=== PATIENT | male | born 1955 | race Two or more races ===

== ENCOUNTER → 2020-03-26 10:47 | Outpatient (BNVA) | payer MEDICAID, SELFPAY | PROVIDERS: PCP Internal Medicine; Visit Provider Urology | DX: R31.29 Other microscopic hematuria (principal); Z87.891 Personal history of nicotine dependence | CPT/HCPCS: 81003; 99204 ==

== ENCOUNTER 2020-04-05 09:02 | Outpatient (REF) | payer MEDICAID, SELFPAY ==
[2020-04-05 10:20] LABS: Blood Urea Nitrogen 15 mg/dL (9-16); Estimated Glomerular Filt Rate > 60
== END 2020-04-05 09:03 | disposition home or self-care (01) ==
LOC: HO.LAB 09:02
PROVIDERS: PCP Internal Medicine; Visit Provider Urology
DX: R31.29 Other microscopic hematuria (principal)
CPT/HCPCS: 82565; 84520

== ENCOUNTER 2020-04-09 12:27 | Day surgery (SDC) | payer MEDICAID, SELFPAY ==
[2020-04-02 09:43] VITALS: BMI 24.6
--- NOTE | 2020-04-08 11:07 | HO.ANESPROP2 ---
Documented by User: Jolene Hurley 04/08/20 11:10 HPI - Anesthesia Eval Consult details Narrative: 64yo M for colonoscopy [facility] Past Medical History Medical History (Updated 04/09/20 @ 14:21 by Sofía Bishop) Arthritis Glaucoma HTN (hypertension) Hx of small bowel obstruction Hypercholesterolemia Surgical History Surgical History History of hernia repair Hx of colonoscopy Social History Social History Smoking Status: Never smoker Second Hand Smoke Exposure: No Use of substances other than those prescribed or required for medical reasons: No Advance Directives: No Advance Directives Information Provided: Yes Advance Directives on File: No Meds Allergies Allergy/AdvReac Type Severity Reaction Status Date / Time Penicillins [PENICILLINS] Allergy Mild RASH Verified 04/09/20 13:13 Home Medications Medication Instructions Recorded Confirmed Type gabapentin 300 mg capsule 300 mg PO TID 03/26/20 History latanoprost 0.005 % eye drops drp OPHTHALMIC (EYE) 03/26/20 History timolol maleate 0.5 % eye drops 1 drp OPHTHALMIC (EYE) QAM 03/26/20 History Exam Exam Date and Time: April 08, 2020 1107 Height,Weight and Vital Signs: Height 5 ft 5 in Weight 67.132 kg Pertinent Lab Results Pertinent Lab Results: Laboratory Tests 02/19/20 02/19/20 04/05/20 07:14 07:14 09:20 WBC 8.2 Hgb 14.0 Hct 44.6 Plt Count 298 Sodium 141 Potassium 4.9 Chloride 106 BUN 15 Creatinine 0.80 Assessment and Plan Assessment Anesthesia Assessment: Chart Reviewed Documented by User: Sofía Bishop 04/09/20 14:24 [facility] Past Medical History Medical History (Updated 04/09/20 @ 14:21 by Sofía Bishop) Arthritis Glaucoma HTN (hypertension) Hx of small bowel obstruction Hypercholesterolemia Family History Family history of problems with anesthesia: No Surgical History Surgical History History of hernia repair Hx of colonoscopy History of Problems with Anesthesia: No Social History Social History Smoking Status: Never smoker Second Hand Smoke Exposure: No Use of substances other than those prescribed or required for medical reasons: No Advance Directives: No Advance Directives Information Provided: Yes Advance Directives on File: No Meds Allergies Allergy/AdvReac Type Severity Reaction Status Date / Time Penicillins [PENICILLINS] Allergy Mild RASH Verified 04/09/20 13:13 Home Medications Medication Instructions Recorded Confirmed Type gabapentin 300 mg capsule 300 mg PO TID 03/26/20 History latanoprost 0.005 % eye drops drp OPHTHALMIC (EYE) 03/26/20 History timolol maleate 0.5 % eye drops 1 drp OPHTHALMIC (EYE) QAM 03/26/20 History Exam Height,Weight and Vital Signs: Vital Signs Temp Pulse Resp BP Pulse Ox 04/09/20 12:57 97.3 F 70 18 125/83 97 Airway Mallampati Class: III TM Dist: >3cm Neck ROM: Full Loose/Missing/Broken Teeth: Yes (Many missing) Heart: RRR Lungs: CTAB Assessment and Plan Assessment Anesthesia Assessment: Anesthesia Plan Discussed and Chart Reviewed Final Anesthetic Review NPO: Yes ASA Class: II Final Preanesthetic Review: No Changes in Pt Med Stat, Meds/Allgs Chart Reviewed, Consent Obtained/Reviewed and Anes Risks/Benef Reviewed Patient Risk: Low Procedure Risk: Low Anesthetic Plan Anesthetic Plan: MAC: Disposition: Standard PACU
[2020-04-08 11:57] VITALS: BMI 24.6
[2020-04-09] VITALS (7 sets, daily range): BP systolic 80–143; BP diastolic 42–90; PULSE 59–77; RESP 12–18; TEMP 36.3–36.6; O2SAT 93–99
[2020-04-09] MEDS: Lactated Ringers 1,000 ML 100 ML IVCONT (14:03)
--- NOTE | 2020-04-09 15:36 | OP_ITS ---
SURGEON: Ashkan Celaya MD INDICATIONS: The patient presents for evaluation of personal history of tubular adenoma of the colon and colorectal cancer screening. Full consent has been obtained from him for this, including risks of bleeding and perforation. PREOPERATIVE DIAGNOSIS: POSTOPERATIVE DIAGNOSIS: PROCEDURE PERFORMED: Colonoscopy to cecum. ESTIMATED BLOOD LOSS: COMPLICATIONS: ANESTHESIA: Monitored anesthesia care. ASSISTANTS: SPECIMENS: PREOPERATIVE DIAGNOSES: Personal history of tubular adenoma of the colon and colorectal cancer screening. POSTOPERATIVE DIAGNOSES: Personal history of tubular adenoma of the colon and colorectal cancer screening, mild sigmoid diverticulosis, small internal hemorrhoids. DESCRIPTION OF PROCEDURE: The patient was placed in the left lateral decubitus position. The digital rectal exam revealed no abnormalities. The Olympus video pediatric colonoscope was entered into the rectum and advanced easily to the cecum. Once in the cecum, I did identify normal-appearing cecal pouch with appendiceal orifice and a normal-appearing ileocecal valve. The entire cecum and ileocecal valve appeared normal. There was transillumination of light deep in the right lower quadrant The scope was slowly withdrawn assessing all mucosal surfaces carefully. Preparation was excellent. I did not visualize any sign of polyps, colitis, nor angiodysplasia. There was a mild amount of sigmoid diverticulosis. In the rectum, the scope was retroflexed visualizing internal hemorrhoids, but no other pathology. The rectal mucosa appeared normal. The scope was straightened and withdrawn from the patient. He tolerated the procedure well and was returned to recovery area in stable condition. IMPRESSION: 1. Mild diverticulosis. 2. Small internal hemorrhoids. PLAN: Given his previous history of tubular adenoma, I would recommend a followup colonoscopy in 5 years. He will otherwise see me on a p.r.n. basis. MD BENNETT Cueto/ROSE / [id number] MIGUEL
== END 2020-04-09 16:20 | disposition home or self-care (01) ==
PROVIDERS: PCP Internal Medicine; Visit Provider Internal Medicine
PROC: 0DJD8ZZ Inspection of Lower Intestinal Tract, Via Natural or Artificial Opening Endoscopic (ICD-10-PCS; CPT 45378; principal; 2020-04-09 13:40)
DX: Z12.11 Encounter for screening for malignant neoplasm of colon (principal); Z86.010 Personal history of colon polyps; K57.30 Diverticulosis of large intestine without perforation or abscess without bleeding; K64.8 Other hemorrhoids; I10 Essential (primary) hypertension; E78.5 Hyperlipidemia, unspecified; Z87.442 Personal history of urinary calculi; Z79.899 Other long term (current) drug therapy; Z88.0 Allergy status to penicillin
CPT/HCPCS: 45378

== ENCOUNTER 2020-04-13 14:30 | Outpatient (RCR) | payer MEDICAID, OTHER, SELFPAY ==
--- NOTE | 2020-04-14 08:22 | MHC.OT.DC ---
[address] [phone] F: [phone] Occupational Therapy Discharge Note Provider: Aixa Gamble Diagnosis: B/L HAND OA Date of Evaluation: 02/25/20 Date of Discharge: 04/13/20 Treatments to Date: 12 Discharge Status: Improved Function Independent with HEP Recommend MD Follow-up Discharge Summary: MR WHITE WAS SEEN FOR B/L HAND OA. EDUCATION HAS BEEN PROVIDED IN VARIOUS FORMS, WELL A WIDE VARIETY OF SPLINTING STRATEGIES IMPLEMENTED. IT IS RECOMMENDED THAT HE PURCHASE A HOME [employer]AFFIN UNIT, COMPLETE ISOMETRIC EXERCISES, PRACTICE JOINT PROTECTION AND WEAR SPLINTS TO PREVENT WORSENING OF JOINT DAMAGE. READY FOR TRANSITION TO A HOME BASED PROGRAM. UNFORTUNATELY, HE CONTINUES TO HAVE MODERATE TO HIGH PAIN AND MAY BENEFIT FROM MD FOLLOW-UP TO ADDRESS THIS. Electronically Signed By: Parag STINSONED, OTR/L Please Sign and return to therapist, thank you for your referral.
== END 2020-04-14 08:27 | disposition other institution (70) ==
LOC: HO.OT 14:30
PROVIDERS: PCP Internal Medicine; Visit Provider Student in an Organized Health Care Education/Training Program
DX: M19.042 Primary osteoarthritis, left hand (principal); M19.041 Primary osteoarthritis, right hand
CPT/HCPCS: 29125; 97018; 97035; 97110; 97140; 97530; 97760

== ENCOUNTER 2020-05-05 09:55 | Outpatient (REF) | payer OTHER, SELFPAY ==
--- NOTE | 2020-05-05 09:58 | CT_ITS ---
EXAMINATION: CT ABDOMEN AND PELVIS WITHOUT AND WITH CONTRAST CLINICAL INFORMATION: Microscopic hematuria COMPARISON: Previous CT of the abdomen and pelvis August 2017, abdominal ultrasound May 2019 and [facility]UB January 2020 TECHNIQUE: Multidetector volumetric imaging was performed of the abdomen and pelvis before and after the IV administration of 85 mL of Omnipaque 300 intravenous contrast. Sagittal and coronal reformatted images were obtained on the technologist's workstation. This CT examination was performed using dose optimization techniques as appropriate, variously including the following: *Automated exposure control *Adjustment of mA and/or kV according to patient size (this includes techniques or standardized protocols for targeted exams where dose is matched to indication/reason for exam; i.e. extremities or head) *Use of iterative reconstruction technique DLP: 486 mGy-cm FINDINGS: LUNG BASES: The visualized lung bases are unremarkable. LIVER, GALLBLADDER, AND BILIARY TREE: The liver is normal in size, shape, and attenuation. No focal hepatic lesion or biliary ductal dilatation is present. The gallbladder is unremarkable with no evidence of radiopaque gallstones, gallbladder wall thickening, or obvious pericholecystic inflammatory changes. PANCREAS: Unremarkable SPLEEN: Unremarkable ADRENAL GLANDS: Unremarkable KIDNEYS AND URETERS: There is bilateral renal cortical thinning or scarring. Kidneys are normal in size. There is a small 5 mm low-attenuation lesion probably representing a cyst in the upper pole of the right kidney. No renal stone, mass or hydronephrosis is seen. The collecting systems are normal. The ureters are normal. BLADDER: There is abnormal soft tissue at the base of the bladder presumably representing the prostate gland. Bladder is otherwise normal. GASTROINTESTINAL TRACT: The small and large bowel are unremarkable. The appendix is unremarkable. ABDOMINAL WALL: There is a small umbilical hernia containing fat. There is fat in both inguinal canals. LYMPH NODES: Normal VASCULAR: Unremarkable PELVIC VISCERA: The prostate gland is slightly enlarged measuring 3.8 x 4.5 x 4.5 cm in AP, transverse and longitudinal dimension and protrudes into the base of the bladder. OSSEOUS STRUCTURES: Unremarkable CT/CT abdomen pelvis wo/w con IMPRESSION: Bilateral renal cortical thinning or scarring. Slightly enlarged prostate gland that protrudes into the base of the bladder.
[2020-05-05] MEDS: iohexoL 350 MG/ML 100 ML INFUS..BTL IV (10:52)
== END 2020-05-05 09:56 | disposition home or self-care (01) ==
LOC: HO.CT 09:55
PROVIDERS: PCP Internal Medicine; Visit Provider Urology
DX: R31.29 Other microscopic hematuria (principal)
CPT/HCPCS: 74178; Q9967

== ENCOUNTER 2020-05-06 09:59 | Outpatient (REF) | payer OTHER, SELFPAY ==
[2020-05-06 11:43] LABS: Blood Urea Nitrogen 16 mg/dL (9-16); Estimated Glomerular Filt Rate > 60
== END 2020-05-06 10:00 | disposition home or self-care (01) ==
LOC: HO.LAB 09:59
PROVIDERS: PCP Internal Medicine; Visit Provider Internal Medicine
DX: R31.29 Other microscopic hematuria (principal)
CPT/HCPCS: 82565; 84520

== ENCOUNTER 2020-06-23 08:31 | Outpatient (REF) | payer OTHER, SELFPAY ==
[2020-06-23 09:46] LABS: Estimated Average Glucose 137 mg/dL; Hemoglobin A1c % 6.4 %
[2020-06-23 09:50] LABS: Alanine Aminotransferase 41 U/L (0-40); Albumin Level 3.9 g/dL (3.5-5.0); Alkaline Phosphatase 95 U/L (39-117); Anion Gap 10 (12-20); Aspartate Amino Transferase 27 U/L (5-37); Bilirubin Total 0.4 mg/dL (0.0-1.0); Blood Urea Nitrogen 15 mg/dL (9-16); Calcium 8.3 mg/dL (8.4-10.2); Carbon Dioxide 26 mmol/L (22-29); Chloride 107 mmol/L (96-108); Cholesterol 158 mg/dL; Estimated Glomerular Filt Rate > 60; Glucose Fasting 126 mg/dL (60-99); HDL Cholesterol 27 mg/dL; LDL Cholesterol Calculated 109 mg/dl; Potassium 4.3 mmol/l (3.3-5.1); Sodium 139 mmol/L (135-145); Total Protein 6.5 g/dL (6.5-8.0); Triglycerides 112 mg/dL
[2020-06-23 10:12] LABS: Prostate Specific Antigen 1.71 ng/mL (<0.05-4.0)
== END 2020-06-23 08:32 | disposition home or self-care (01) ==
LOC: HO.LAB 08:31
PROVIDERS: PCP Internal Medicine; Visit Provider Internal Medicine
DX: Z00.00 Encounter for general adult medical examination without abnormal findings (principal); R31.9 Hematuria, unspecified; E78.00 Pure hypercholesterolemia, unspecified; M19.90 Unspecified osteoarthritis, unspecified site; R73.02 Impaired glucose tolerance (oral); G56.11 Other lesions of median nerve, right upper limb; D12.6 Benign neoplasm of colon, unspecified
CPT/HCPCS: 80053; 80061; 83036; 84153

== ENCOUNTER → 2020-07-06 13:04 | Outpatient (BNVA) | payer OTHER, SELFPAY | PROVIDERS: PCP Internal Medicine; Referring Provider Internal Medicine; Visit Provider Urology | DX: N40.1 Benign prostatic hyperplasia with lower urinary tract symptoms (principal); R35.0 Frequency of micturition; R31.29 Other microscopic hematuria; R31.9 Hematuria, unspecified | CPT/HCPCS: 52000; 81002; 99212 ==

== ENCOUNTER 2020-07-24 14:47 | Emergency (ER) | payer OTHER, SELFPAY ==
[2020-07-24] VITALS (7 sets, daily range): BP systolic 154–191; BP diastolic 93–107; PULSE 70–95; RESP 18; TEMP 36.8; O2SAT 98–99; BMI 24.0
--- NOTE | 2020-07-24 16:20 | ED_ITS ---
HPI - Recheck/Abnormal Lab/Rx General Chief Complaint: Recheck/Abnormal Lab/Rx Stated Complaint: headache Time Seen by Provider: 07/24/20 16:20 Source: patient Mode of arrival: ambulatory Limitations: no limitations History of Present Illness HPI narrative: pt with History of borderline hypertension checked his blood pressure at home it was 164/114 feeling good complaining of slight headache and heaviness no chest pain or shortness of breath. On arrival patient's blood pressure was 186/114. Patient not on any medication for hypertension denied any use of cocaine drinks coffee occasionally no significant family history of hypertension Related Data Home Medications Medication Instructions Recorded Confirmed latanoprost 0.005 % eye drops drp OPHTHALMIC (EYE) 03/26/20 07/06/20 timolol maleate 0.5 % eye drops 1 drp OPHTHALMIC (EYE) QA 03/26/20 07/06/20 Previous Rx's Medication Instructions Recorded amitriptyline 25 mg tablet 25 mg PO BEDTIME #30 tab 06/07/20 lisinopril-hydrochlorothiazide 1 tab PO DAILY #30 tab 07/24/20 Allergies Allergy/AdvReac Type Severity Reaction Status Date / Time Penicillins [PENICILLINS] Allergy Mild RASH Verified 07/24/20 15:03 Review of Systems Review of Systems: Constitutional : No Weight loss, No Fever, No Chills ENT/Mouth : No sore throat, No Rhinorrhea Eyes: No Eye Pain, No Swelling Cardiovascular : No Chest Pain, no palpitations Respiratory : No Cough, No Sputum, no shortness of breath Gastrointestinal : no Nausea, No Vomiting, No Diarrhea, No abdominal Pain, no black stools Genitourinary : No Dysuria, No Urinary Frequency Musculoskeletal : No joint pain, No Myalgias, No Joint Swelling Skin : No Skin Lesions, No rash Neuro : No Weakness, No Numbness, No Dizziness, + Headache Psych : No Anxiety/Panic, No Depression Heme/Lymph: No Bruising, No Lymphadenopathy Endocrine : No Polyuria, No Polydipsia All other systems reviewed and are negative [facility] Past Medical History Medical History Anxiety Arthritis BPH (benign prostatic hyperplasia) Glaucoma Hematuria HTN (hypertension) Hx of small bowel obstruction Hypercholesterolemia Insomnia Peripheral neuropathy Tubular adenoma of colon Vitamin D deficiency Surgical History History of inguinal hernia repair Hx of colonoscopy Family History Family History Father No problems noted. Mother Diabetes Brother Lung cancer Social History Social History Alcohol intake: current Alcohol intake frequency: holidays/special occasions only Smoking Status: Never smoker Second Hand Smoke Exposure: No Use of substances other than those prescribed or required for medical reasons: No Advance Directives: No Advance Directives Information Provided: Yes Physical Exam Vital Signs: Vital Signs: Last Vital Signs Temp 98.3 F 07/24/20 19:10 Pulse 71 07/24/20 19:10 Resp 18 07/24/20 19:10 BP 159/98 H 07/24/20 19:10 Pulse Ox 99 07/24/20 19:10 Body Mass Index 24.0 Appearance: Alert. Oriented X3. No acute distress. Repeat blood pressure check was 186/114 Eyes: Pupils equal, round and reactive to light. ENT: Pharynx normal. Neck: Normal inspection. Neck supple. CVS: Normal heart rate and rhythm. Pulses normal. Respiratory: No respiratory distress. Breath sounds normal. Abdomen: Soft and nontender. Bowel sounds are present, no mass palpable, no CVA tenderness Skin: Skin warm and dry. Normal skin color. Normal skin turgor. Extremities: No lower extremity edema. Neuro: Oriented X 3. No motor deficit. No sensory deficit. Course Course Course Narrative: Patient likely has essential hypertension with history of chago ttle and hypertension received lisinopril 20 mg p.o. and Lopressor 5 mg IV in the ER blood pressure improved to 144/88 patient feeling much better will discharge him home on lisinopril and hydrochlorothiazide MDM - Recheck/Abnormal Lab/Rx Lab Data Result diagrams: 07/24/20 17:07 07/24/20 17:07 Labs: Lab Results 07/24/20 07/24/20 07/24/20 Range/Units 17:06 17:07 17:07 WBC 7.5 (4.8-10.8) X10*3/uL RBC 5.56 (4.60-5.80) X10*6/uL Hgb 14.7 (14.0-18.0) g/dl Hct 46.3 (42-52) % MCV 83.3 (80-98) fL MCH 26.4 L (27.0-33.0) pg MCHC 31.7 (31.0-36.0) g/dl RDW 12.6 (11.0-16.0) % Plt Count 270 (160-400) X10*3/uL MPV 9.9 (9.4-12.4) fL Immature Gran % (Auto) 0.1 (0.0-0.4) % Neut % (Auto) 62.9 (45-73) % Lymph % (Auto) 23.1 (20-40) % [place] % (Auto) 7.2 (2-11) % Eos % (Auto) 5.9 H (0-4) % Baso % (Auto) 0.8 (0-2) % Lymph # (Auto) 1.7 (1.2-4.9) X10*3/uL [place] # (Auto) 0.5 (0.1-1.2) X10*3/uL Eos # (Auto) 0.4 (0.0-0.4) X10*3/uL Baso # (Auto) 0.1 (0.0-0.2) X10*3/uL Abs Immat Gran (auto) 0.01 (0.00-0.03) X10*3/uL Absolute Neuts (auto) 4.7 (2.0-8.3) X10*3/uL Absolute Nucleated RBC 0.000 (0.0-0.012) X10*3/uL Nucleated RBC % (auto) 0.0 (0.0-0.2) /100WBC Hold Blue Top SEE NOTE Sodium 141 (135-145) mmol/L Potassium 4.3 (3.3-5.1) mmol/L Chloride 105 (96-108) mmol/L Carbon Dioxide 28 (22-29) mmol/L Anion Gap 12 (12-20) BUN 12 (9-16) mg/dL Creatinine 0.84 (0.5-1.4) mg/dL Estim Creat Clear Calc 75.3 Estimated GFR > 60 Random Glucose 96 (60-115) mg/dL Calcium 8.9 D (8.4-10.2) mg/dL ECG Data Attestation: I personally reviewed and interpreted this ECG as follows: Interpretation: Normal sinus rhythm unifocal occasional premature PVCs normal intervals normal axis LVH+ no acute ischemia Discharge Plan Discharge Clinical Impression: Benign essential hypertension Patient Disposition: Home, Self-Care Instructions: Hypertension (ED) Additional Instructions: Decrease salt intake. Start taking blood pressure medication daily. Check blood pressure should be less than 140/90. Make an appointment with your PCP for further follow-up Prescriptions: New lisinopril-hydrochlorothiazide 20-12.5 mg tablet 1 tab PO DAILY Qty: 30 RF: 1 No Action amitriptyline 25 mg tablet 25 mg PO BEDTIME Qty: 30 RF: 3 timolol maleate 0.5 % drops 1 drp ophthalmic (eye) QAM RF: 0 latanoprost 0.005 % drops ophthalmic (eye) RF: 0 Interventions: ED Discharge Assessment Last Done: 07/24/20 18:39 Discharge Date/Time: 07/24/20 20:25
--- NOTE | 2020-07-24 16:28 | ECG_ITS ---
Test Reason : HYPERTENSION Blood Pressure : / mmHG Vent. Rate : 078 BPM Atrial Rate : 078 BPM P-R Int : 134 ms QRS Dur : 086 ms QT Int : 372 ms P-R-T Axes : 030 -09 -04 degrees QTc Int : 424 ms Sinus rhythm with occasional Premature ventricular complexes Voltage criteria for left ventricular hypertrophy Abnormal ECG When compared with ECG of 08-OCT-2014 12:47, Premature ventricular complexes are now Present Referred By: Erick Garner Electronically Signed By:Cali Luis
[2020-07-24 17:15] LABS: Basophils Absolute Auto 0.1 X10*3/uL (0.0-0.2); Basophils Percent Auto 0.8 % (0-2); Eosinophils Absolute Auto 0.4 X10*3/uL (0.0-0.4); Eosinophils Percent Auto 5.9 % (0-4); Hematocrit 46.3 % (42-52); Hemoglobin 14.7 g/dl (14.0-18.0); Imm Gran Abs Auto 0.01 X10*3/uL (0.00-0.03); Imm Gran Pct Auto 0.1 % (0.0-0.4); Lymphocytes Absolute Auto 1.7 X10*3/uL (1.2-4.9); Lymphocytes Percent Auto 23.1 % (20-40); MANUAL DIFF FLAG NO; Mean Corpuscular HGB Conc 31.7 g/dl (31.0-36.0); Mean Corpuscular Hemoglobin 26.4 pg (27.0-33.0); Mean Corpuscular Volume 83.3 fL (80-98); Mean Platelet Volume 9.9 fL (9.4-12.4); Monocytes Absolute Auto 0.5 X10*3/uL (0.1-1.2); Monocytes Percent Auto 7.2 % (2-11); Neutrophils Absolute Auto 4.7 X10*3/uL (2.0-8.3); Neutrophils Percent Auto 62.9 % (45-73); Platelet Count 270 X10*3/uL (160-400); Red Blood Count 5.56 X10*6/uL (4.60-5.80); Red Cell Distribution Width 12.6 % (11.0-16.0); White Blood Count 7.5 X10*3/uL (4.8-10.8)
[2020-07-24 17:38] LABS: Anion Gap 12 (12-20); Blood Urea Nitrogen 12 mg/dL (9-16); Calcium 8.9 mg/dL (8.4-10.2); Carbon Dioxide 28 mmol/L (22-29); Chloride 105 mmol/L (96-108); Creatinine Clr Calc Pharmacy 75.3; Estimated Glomerular Filt Rate > 60; Glucose Random 96 mg/dL (60-115); Potassium 4.3 mmol/L (3.3-5.1); Sodium 141 mmol/L (135-145)
[2020-07-24] MEDS: Metoprolol Tartrate 5 MG/5 ML VIAL IVPUSH (18:51)
== END 2020-07-24 20:25 | disposition home or self-care (01) ==
PROVIDERS: Emergency Provider Internal Medicine; PCP Internal Medicine
DX: I10 Essential (primary) hypertension (principal)
CPT/HCPCS: 36415; 80048; 85025; 93005; 96374; 99284

== ENCOUNTER → 2020-08-31 09:49 | Outpatient (BNVA) | payer OTHER, SELFPAY | PROVIDERS: PCP Internal Medicine; Visit Provider Student in an Organized Health Care Education/Training Program | DX: M19.041 Primary osteoarthritis, right hand (principal); M19.042 Primary osteoarthritis, left hand; R76.8 Other specified abnormal immunological findings in serum; Z79.899 Other long term (current) drug therapy | CPT/HCPCS: 99212 ==

== ENCOUNTER 2020-10-11 12:34 | Outpatient (REF) | payer OTHER, SELFPAY ==
--- NOTE | ~2020-10-11 | XR_ITS ---
EXAMINATION: XR CERVICAL SPINE CLINICAL INFORMATION: Cervical spondylosis. COMPARISON: None. TECHNIQUE: AP, lateral, open-mouth, and bilateral oblique views of the cervical spine. FINDINGS: Normal vertebral body alignment. The cervical lordosis is maintained. No acute fracture or subluxation. No loss of vertebral body or intervertebral disc height. Tiny anterior endplate osteophytes at C4-C7. No lytic or blastic osseous lesion. No significant neural foraminal stenosis. Normal atlantoaxial alignment. Unremarkable prevertebral soft tissues. XR/XR cervical spine min 6V IMPRESSION: Minimal degenerative disc disease at C4-C7.
== END 2020-10-11 12:35 | disposition home or self-care (01) ==
LOC: HO.XRAY 12:34
PROVIDERS: PCP Internal Medicine; Visit Provider Psychiatry & Neurology Neurology
DX: M47.812 Spondylosis without myelopathy or radiculopathy, cervical region (principal)
CPT/HCPCS: 72052

== ENCOUNTER 2020-10-28 08:13 | Outpatient (REF) | payer OTHER, SELFPAY ==
[2020-10-28 08:57] LABS: COVID-19 Test Negative (Negative); IDNOW Serial# 55D5AD1C
== END 2020-10-28 08:14 | disposition home or self-care (01) ==
LOC: HO.LAB 08:13
PROVIDERS: Visit Provider Internal Medicine
DX: Z20.822 Contact with and (suspected) exposure to COVID-19 (principal)
CPT/HCPCS: 36415; 87635; C9803

== ENCOUNTER 2020-11-07 21:46 | Inpatient (IN) | payer OTHER, SELFPAY ==
--- NOTE | ~2020-11-07 | CT_ITS ---
EXAMINATION: CT ABDOMEN AND PELVIS WITHOUT CONTRAST CLINICAL INFORMATION: Reason for Exam L abd pain, hx SBO . COMPARISON: No pertinent prior studies are available for comparison. TECHNIQUE: Multidetector volumetric imaging was performed from the superior aspect of the liver through the pubic symphysis without contrast per renal stone protocol. Sagittal and coronal reformatted images were obtained on the technologist workstation. This CT examination was performed using dose optimization techniques as appropriate, variously including the following: *Automated exposure control *Adjustment of mA and/or kV according to patient size (this includes techniques or standardized protocols for targeted exams where dose is matched to indication/reason for exam; i.e. extremities or head) *Use of iterative reconstruction technique DLP: 441 mGy-cm. FINDINGS: LUNG BASES: Linear scarring or atelectasis at the left lung base. LIVER, GALLBLADDER, BILIARY TREE: The non-contrast liver is normal in size, shape, and attenuation. No focal hepatic lesion or biliary ductal dilatation is present. The gallbladder is unremarkable with no evidence of radiopaque gallstones, gallbladder wall thickening, or obvious pericholecystic inflammatory changes. PANCREAS: There is fullness with surrounding soft tissue stranding and edema in the region the pancreatic tail most suggestive of pancreatitis in the acute setting. This had a more normal appearance on the prior 05/05/2020 CT scan SPLEEN: Unremarkable. ADRENAL GLANDS: Unremarkable. KIDNEYS AND URETERS: The kidneys are normal in size, shape, and attenuation. No hydronephrosis, hydroureter, or calculi seen. No perinephric stranding. BLADDER: Unremarkable. GASTROINTESTINAL TRACT: Few scattered colonic diverticula are seen but no evidence for diverticulitis. Normal-appearing retrocecal appendix. Visualized small bowel unremarkable ABDOMINAL WALL: No significant hernia is appreciated. LYMPHOVASCULAR STRUCTURES: Mild vascular calcification within the aorta iliac system. PELVIC VISCERA: Unremarkable. OSSEUS STRUCTURES: Unremarkable. CT/CT abdomen pelvis wo con IMPRESSION: Main finding of note is fullness with surrounding soft tissue inflammatory change and fluid in the region the pancreatic tail most consistent with acute pancreatitis. Correlation with amylase and lipase levels is recommended. This area had a more normal appearance on the prior 05/05/2020 study.
--- NOTE | ~2020-11-07 | US_ITS ---
EXAMINATION: US ABDOMEN LIMITED CLINICAL INFORMATION: Pancreatitis. COMPARISON: CT 11/07/2020 TECHNIQUE: Real-time imaging of the right upper quadrant abdominal viscera. FINDINGS: PANCREAS: Obscured by bowel gas and not adequately visualized. LIVER: The liver is normal in size. The liver contour is normal. Parenchymal echogenicity is normal. No focal hepatic lesion identified. There is no intrahepatic biliary duct dilatation seen. GALLBLADDER: Physiologically distended. No gallstones identified. Possible mild echogenic sludge. No wall thickening or pericholecystic fluid. Negative sonographic Díaz sign. COMMON BILE DUCT: Normal in caliber measuring 0.5 cm in diameter. RIGHT KIDNEY: No hydronephrosis. Renal cortical scarring and demonstrated. No renal calculi or focal parenchymal lesions. The kidney measures 11.2 cm in maximum dimension. FREE FLUID: None. US/US abdomen limited IMPRESSION: Possible mild gallbladder sludge. Pancreas is not adequately visualized due to bowel gas.
[2020-11-07 22:07] VITALS: BP 140/91; PULSE 125; RESP 18; TEMP 36.8; O2SAT 98; BMI 24.9
--- NOTE | 2020-11-07 23:09 | PC.NURSE ---
at bedside for primary eval.
--- NOTE | 2020-11-07 23:12 | ED.ABDPAIN ---
HPI - Abdominal Pain General Chief Complaint: Abdominal Pain Stated Complaint: constipation abdominal pain Time Seen by Provider: 11/07/20 23:06 Source: patient Mode of arrival: ambulatory Limitations: no limitations History of Present Illness HPI narrative: Patient comes to emergency room complaining of left sided abdominal pain. Patient states it started approximately 2 days ago. Patient states that he feels like he is constipated. However, he had a small bowel obstruction a few years ago and it feels about the same. Patient states he has had kidney stones in the past as well. Patient denies hematuria or dysuria, no fever. Patient complaining of nausea, no vomiting, last bowel movements 3-4 days ago MD elicited complaint: abdominal pain and other (Constipation) Related Data Home Medications Medication Instructions Recorded Confirmed latanoprost 0.005 % eye drops drp OPHTHALMIC (EYE) 03/26/20 09/24/20 timolol maleate 0.5 % eye drops 1 drp OPHTHALMIC (EYE) QAM 03/26/20 11/08/20 Previous Rx's Medication Instructions Recorded acetaminophen 650 mg 650 mg PO Q8H PRN #90 tab 08/31/20 tablet,extended release simvastatin 10 mg tablet 10 mg PO BEDTIME #30 tab 09/05/20 amitriptyline 25 mg tablet 25 mg PO BEDTIME #90 tab 10/20/20 lisinopril 20 mg tablet 20 mg PO DAILY #90 tab 10/26/20 Allergies Allergy/AdvReac Type Severity Reaction Status Date / Time Penicillins [PENICILLINS] Allergy Mild RASH Verified 08/31/20 23:34 Review of Systems Review of Systems Constitutional : No Weight loss, No Fever, No Chills, No Night Sweats, No Fatigue, No Malaise ENT/Mouth : No Hearing loss, No Ear Pain, No Nasal Congestion, No Sinus Pain, No Hoarseness, No sore throat, No Rhinorrhea, No Swallowing Difficulty Eyes: No Eye Pain, No Swelling, No Redness, No Foreign Body, No Discharge, No Vision Changes Cardiovascular : No Chest Pain, No SOB, No Dyspnea on Exertion, No Orthopnea, No Edema, No Palpitations Respiratory : No Cough, No Sputum, No Wheezing, No Smoke Exposure, No Dyspnea Gastrointestinal : Complaining of Nausea, No Vomiting, No Diarrhea, complaining of Constipation, complaining of left upper and lower quadrant pain radiating towards the back, No Hematochezia, No Melena Genitourinary : no irregular bleeding, No Dysuria, No Urinary Frequency, No Hematuria, No Urinary Incontinence, No Urgency, No Flank Pain, No Urinary Flow Changes, No Hesitancy Musculoskeletal : No joint pain, No Myalgias, No Joint Swelling Skin : No Skin Lesions, No rash Neuro : No Weakness, No Numbness, No Paresthesias, No Loss of Consciousness, No Dizziness, No Headache Psych : No Anxiety/Panic, No Depression, No SI/HI/AH/VH, No Social Issues, Heme/Lymph: No Bruising, No Bleeding,No Lymphadenopathy Endocrine : No Polyuria, No Polydipsia, No Temperature Intolerance Physical Exam Vital Signs: Vital Signs: Last Vital Signs Temp 98.2 F 11/07/20 22:07 Pulse 114 H 11/07/20 23:58 Resp 16 11/07/20 23:58 BP 139/86 11/07/20 23:58 Pulse Ox 97 11/07/20 23:58 Body Mass Index 24.9 Appearance: Alert. Oriented X3. No acute distress. Eyes: Pupils equal, round and reactive to light. ENT: Pharynx normal. Neck: Normal inspection. Neck supple. No lymph nodes noted. No crepitus CVS: Normal heart rate and rhythm. Pulses normal. Normal S1 and S2 Respiratory: No respiratory distress. Breath sounds normal. No Wheezing. No rales Abdomen: Soft , [id number] tenderness to palpation over the left upper and lower quadrant, No rigidity. No distention. good BS x4 Skin: Skin warm and dry. Normal skin color. Normal skin turgor. Extremities: No lower extremity edema. No lower extremity edema. No Lacerations. No Rash Neuro: Oriented X 3. No motor deficit. No sensory deficit. Moving all extermities. No slurred speech. Course Course Course Narrative: I discussed the labs and imaging with the patient. Although his lipase is low, clinically he does have pancreatitis plus he has leukocytosis. Sepsis is not suspected. MDM - Abdominal Pain Lab Data Result diagrams: 11/07/20 23:19 11/07/20 23:19 Labs: Lab Results 11/07/20 11/07/20 Range/Units 23:19 23:19 WBC 16.6 H (4.8-10.8) X10*3/uL RBC 5.51 (4.60-5.80) X10*6/uL Hgb 14.9 (14.0-18.0) g/dl Hct 47.0 (42-52) % MCV 85.3 (80-98) fL MCH 27.0 (27.0-33.0) pg MCHC 31.7 (31.0-36.0) g/dl RDW 13.1 (11.0-16.0) % Plt Count 256 (160-400) X10*3/uL MPV 9.9 (9.4-12.4) fL Immature Gran % (Auto) 0.6 H (0.0-0.4) % Neut % (Auto) 78.3 H (45-73) % Lymph % (Auto) 10.6 L (20-40) % [place] % (Auto) 8.5 (2-11) % Eos % (Auto) 1.6 (0-4) % Baso % (Auto) 0.4 (0-2) % Lymph # (Auto) 1.8 (1.2-4.9) X10*3/uL [place] # (Auto) 1.4 H (0.1-1.2) X10*3/uL Eos # (Auto) 0.3 (0.0-0.4) X10*3/uL Baso # (Auto) 0.1 (0.0-0.2) X10*3/uL Abs Immat Gran (auto) 0.10 H (0.00-0.03) X10*3/uL Absolute Neuts (auto) 13.0 H (2.0-8.3) X10*3/uL Absolute Nucleated RBC 0.000 (0.0-0.012) X10*3/uL Nucleated RBC % (auto) 0.0 (0.0-0.2) /100WBC Sodium 132 L (135-145) mmol/L Potassium 4.1 (3.3-5.1) mmol/L Chloride 101 (96-108) mmol/L Carbon Dioxide 17 L (22-29) mmol/L Anion Gap 18 (12-20) BUN 15 (9-16) mg/dL Creatinine 0.94 (0.5-1.4) mg/dL Estim Creat Clear Calc 67.3 Estimated GFR > 60 Random Glucose 161 H D (60-115) mg/dL Calcium 8.5 (8.4-10.2) mg/dL Total Bilirubin 1.2 H (0.0-1.0) mg/dL Direct Bilirubin 0.5 (0.0-0.5) mg/dL AST 45 H D (5-37) U/L ALT 48 H (0-40) U/L Alkaline Phosphatase 139 H D (39-117) U/L Total Protein 7.7 (6.5-8.0) g/dL Albumin 4.0 (3.5-5.0) g/dL Triglycerides 90 mg/dL Lipase 58 (8-78) U/L Imaging Data CT scan - abdomen: Radiologist's impression: INDINGS: LUNG BASES: Linear scarring or atelectasis at the left lung base. LIVER, GALLBLADDER, BILIARY TREE: The non-contrast liver is normal in size, shape, and attenuation. No focal hepatic lesion or biliary ductal dilatation is present. The gallbladder is unremarkable with no evidence of radiopaque gallstones, gallbladder wall thickening, or obvious pericholecystic inflammatory changes. PANCREAS: There is fullness with surrounding soft tissue stranding and edema in the region the pancreatic tail most suggestive of pancreatitis in the acute setting. This had a more normal appearance on the prior 05/05/2020 CT scan SPLEEN: Unremarkable. ADRENAL GLANDS: Unremarkable. KIDNEYS AND URETERS: The kidneys are normal in size, shape, and attenuation. No hydronephrosis, hydroureter, or calculi seen. No perinephric stranding. BLADDER: Unremarkable. GASTROINTESTINAL TRACT: Few scattered colonic diverticula are seen but no evidence for diverticulitis. Normal-appearing retrocecal appendix. Visualized small bowel unremarkable ABDOMINAL WALL: No significant hernia is appreciated. LYMPHOVASCULAR STRUCTURES: Mild vascular calcification within the aorta iliac system. PELVIC VISCERA: Unremarkable. OSSEUS STRUCTURES: Unremarkable. CT/CT abdomen pelvis wo con IMPRESSION: Main finding of note is fullness with surrounding soft tissue inflammatory change and fluid in the region the pancreatic tail most consistent with acute pancreatitis. Correlation with amylase and lipase levels is recommended. This area had a more normal appearance on the prior 05/05/2020 study. Discharge Plan Discharge Clinical Impression: Acute pancreatitis Patient Disposition: Admitted As Inpatient Prescriptions: No Action simvastatin 10 mg tablet 10 mg PO BEDTIME Qty: 30 RF: 2 amitriptyline 25 mg tablet 25 mg PO BEDTIME Qty: 90 RF: 1 lisinopril 20 mg tablet 20 mg PO DAILY Qty: 90 RF: 3 acetaminophen [Tylenol Arthritis Pain] 650 mg tablet extended release 650 mg PO Q8H PRN (Reason: pain) Qty: 90 RF: 3 timolol maleate 0.5 % drops 1 drp ophthalmic (eye) QAM RF: 0 latanoprost 0.005 % drops ophthalmic (eye) RF: 0 PMFSH Past Medical History Medical History LATOYA positive Anxiety Arthritis BPH (benign prostatic hyperplasia) Cataract Glaucoma Hematuria HTN (hypertension) Hx of small bowel obstruction Hypercholesterolemia Impaired fasting glucose Insomnia Median nerve neuropathy Osteoarthritis of hands, bilateral Peripheral neuropathy Pure hypercholesterolemia Tubular adenoma of colon Vitamin D deficiency Surgical History History of cataract surgery History of inguinal hernia repair Hx of colonoscopy Family History Family History Father No problems noted. Mother Diabetes Brother Lung cancer Social History Social History Alcohol intake: current Alcohol intake frequency: holidays/special occasions only Alcohol type: beer Smoking Status: Former smoker Second Hand Smoke Exposure: No Advance Directives: No Advance Directives Information Provided: No
--- NOTE | 2020-11-07 23:20 | PC.NURSE ---
Pt noted to have very poor vascular access. Labs obtained at this time. Pt ambulating to CT with a steady gait. Plan for IV and medications upon return.
[2020-11-07 23:23] LABS: Basophils Absolute Auto 0.1 X10*3/uL (0.0-0.2); Basophils Percent Auto 0.4 % (0-2); Eosinophils Absolute Auto 0.3 X10*3/uL (0.0-0.4); Eosinophils Percent Auto 1.6 % (0-4); Hemoglobin 14.9 g/dl (14.0-18.0); Imm Gran Pct Auto 0.6 % (0.0-0.4); Lymphocytes Absolute Auto 1.8 X10*3/uL (1.2-4.9); Lymphocytes Percent Auto 10.6 % (20-40); MANUAL DIFF FLAG NO; Mean Corpuscular HGB Conc 31.7 g/dl (31.0-36.0); Mean Corpuscular Volume 85.3 fL (80-98); Mean Platelet Volume 9.9 fL (9.4-12.4); Monocytes Absolute Auto 1.4 X10*3/uL (0.1-1.2); Monocytes Percent Auto 8.5 % (2-11); Neutrophils Percent Auto 78.3 % (45-73); Platelet Count 256 X10*3/uL (160-400); Red Blood Count 5.51 X10*6/uL (4.60-5.80); Red Cell Distribution Width 13.1 % (11.0-16.0); White Blood Count 16.6 X10*3/uL (4.8-10.8)
[2020-11-07 23:52] LABS: Alanine Aminotransferase 48 U/L (0-40); Alkaline Phosphatase 139 U/L (39-117); Anion Gap 18 (12-20); Aspartate Amino Transferase 45 U/L (5-37); Bilirubin Direct 0.5 mg/dL (0.0-0.5); Bilirubin Total 1.2 mg/dL (0.0-1.0); Blood Urea Nitrogen 15 mg/dL (9-16); Calcium 8.5 mg/dL (8.4-10.2); Carbon Dioxide 17 mmol/L (22-29); Chloride 101 mmol/L (96-108); Creatinine Clr Calc Pharmacy 67.3; Estimated Glomerular Filt Rate > 60; Glucose Random 161 mg/dL (60-115); Lipase 58 U/L (8-78); Potassium 4.1 mmol/L (3.3-5.1); Sodium 132 mmol/L (135-145); Total Protein 7.7 g/dL (6.5-8.0)
--- NOTE | 2020-11-07 23:56 | PC.NURSE ---
Pt medicated with Zofran. Awaiting order change for Toradol. Pt resting in bed at this time, continue to monitor.
[2020-11-07 23:58] VITALS: BP 139/86; PULSE 114; RESP 16; O2SAT 97
[2020-11-08] VITALS (9 sets, daily range): BP systolic 126–181; BP diastolic 68–91; PULSE 88–124; RESP 15–18; TEMP 36.1–37.1; O2SAT 94–98
[2020-11-08 00:41] LABS: Triglycerides 90 mg/dL
[2020-11-08] MEDS: 0.9 % Sodium Chloride 1,000 ML 999 ML IVCONT (00:43)
[2020-11-08] MEDS: Morphine Sulfate 4 MG/ML CARTRIDGE IVPUSH ×3 (00:43→07:48)
--- NOTE | 2020-11-08 00:48 | PC.NURSE ---
IV established, pt medicated per AUG. Pt aware of plan to admit for Pancreatitis. Covid swab obtained. Med Rec completed at bedside with pt. Continue to monitor.
[2020-11-08 01:12] LABS: COVID-19 Test Negative (Negative); IDNOW Serial# 9DD0AD1C
[2020-11-08] MEDS: Lactated Ringers 1,000 ML 200 ML IVCONT ×5 (01:43→23:34)
--- NOTE | 2020-11-08 01:44 | PC.NURSE ---
LR infusing per MAR. VSS.
--- NOTE | 2020-11-08 01:55 | PC.NURSE ---
Pt aware of pending UA, urinal placed at bedside.
--- NOTE | 2020-11-08 02:32 | PC.NURSE ---
Report given to ABIGAIL Guadarrama.
--- NOTE | 2020-11-08 03:20 | PC.NURSE ---
Transport delayed to floor as U/S at bedside.
[2020-11-08] MEDS: Enoxaparin Sodium 40 MG/0.4 ML SYRINGE SUBCUT (03:35)
--- NOTE | 2020-11-08 06:11 | P.HPHOSP_ITS ---
History of Present Illness Date of Service: 11/08/20 Chief Complaint: abdominal pain 64-year-old male with past medical history of hypertension presents to the hospital with complaints of abdominal pain. Patient reports that his abdominal pain started about a week ago, localized to the left abdominal wall, epigastric radiating to the back, has had constipation for 3-4 days, no nausea or vomiting, pain is 9/10, no fever or chills. Patient reports no previous similar episodes. He reports that he drank heavily on Sunday the week prior which may have led to him having the symptoms. Otherwise reports that he is not a regular drinker Patient has no chest pain, no palpitations, no shortness of breath or cough, no urinary symptoms and no lower extremity edema. To the ED patient's vital significant for temperature of 98.2?, heart rate of 125, respiratory rate of 18, blood pressure of 140/91, satting 98% on room air Labs are significant for WBC count of 16.6, hemoglobin of 14.9, bili of 1.2, direct bili of 0.5, AST of 45, ALT of 48, alk-phos of 139, COVID-[address] shows fullness with surrounding soft tissue inflammatory change and fluid in the region of the pancreatic tail most consistent with acute pancreatitis. Liver gallbladder and biliary tree otherwise shows no evidence of radiopaque gallstone gallbladder wall thickening or obvious pericholecystic inflammatory changes, no biliary ductal dilatation. Past medical history as below and confirmed with patient Review of Systems Review of Systems: Yes all other systems are reviewed and are negative [facility] Medical History LATOYA positive Anxiety Arthritis BPH (benign prostatic hyperplasia) Cataract Glaucoma Hematuria HTN (hypertension) Hx of small bowel obstruction Hypercholesterolemia Impaired fasting glucose Insomnia Median nerve neuropathy Osteoarthritis of hands, bilateral Peripheral neuropathy Pure hypercholesterolemia Tubular adenoma of colon Vitamin D deficiency Family History Father No problems noted. Mother Diabetes Brother Lung cancer Surgical History History of cataract surgery History of inguinal hernia repair Hx of colonoscopy Social History Alcohol intake: current Alcohol intake frequency: holidays/special occasions only Alcohol type: beer Smoking Status: Former smoker Second Hand Smoke Exposure: No Advance Directives: No Advance Directives Information Provided: No Meds Allergies Allergy/AdvReac Type Severity Reaction Status Date / Time Penicillins [PENICILLINS] Allergy Mild RASH Verified 08/31/20 23:34 Active Medications: Current Medications Generic Name Dose Route Start Last Admin Trade Name Freq PRN Reason Stop Dose Admin Acetaminophen 650 mg 11/08/20 01:12 Acetaminophen 325 Mg Tablet PO Q6H PRN Pain, Mild (Pain Scale 1-3) Amitriptyline HCl 25 mg 11/08/20 21:00 Amitriptyline Hcl 25 Mg Tablet PO BEDTIME DHARMESH Enoxaparin Sodium 40 mg 11/08/20 01:43 11/08/20 03:35 Enoxaparin Sodium 40 Mg/0.4 Ml Syringe SUBCUT 40 mg Q24H DHARMESH Administration Hydromorphone HCl 0.5 mg 11/08/20 01:12 Hydromorphone Hcl 0.5 Mg/0.5 Ml Syringe IVPUSH Q4H PRN Pain, Severe (Pain Scale 7-10) Lactated Ringer's 1,000 mls @ 200 mls/hr 11/08/20 01:15 11/08/20 01:43 Lr IVCONT 200 mls/hr .Q5H DHARMESH Administration Lisinopril 20 mg 11/08/20 09:00 Lisinopril 20 Mg Tablet PO DAILY [facility] Protocol Morphine Sulfate 4 mg 11/08/20 01:12 11/08/20 03:51 Morphine Sulfate 4 Mg/Ml Cartridge IVPUSH 4 mg Q4H PRN Administration Pain, Severe (Pain Scale 7-10) Sodium Chloride 3 ml 11/08/20 08:00 0.9 % Sodium Chloride Flush 3 Ml Syringe IVFLUSH QSHIFT DHARMESH Timolol Maleate 1 drop 11/08/20 09:00 Timolol Maleate 0.5 % Oph Lela 5 Ml Drbtl EYE-BOTH DAILY [facility] Home Medications Medication Instructions Recorded Confirmed Last Taken Type latanoprost 0.005 % eye drops drp OPHTHALMIC (EYE) 03/26/20 09/24/20 11/07/20 History timolol maleate 0.5 % eye drops 1 drp OPHTHALMIC (EYE) QAM 03/26/20 11/08/20 11/07/20 History Physical Exam Vital Signs and Narrative: Vital Signs: Last Vital Signs Temp 97.8 F 11/08/20 03:40 Pulse 108 H 11/08/20 04:23 Resp 18 11/08/20 03:51 BP 146/83 H 11/08/20 04:23 Pulse Ox 96 11/08/20 03:40 Body Mass Index 24.9 Const: General: cooperative and no acute distress Or ientation/consciousness: patient oriented x3 Eyes: General: appearance normal, both eyes and all related structures Resp: Effort & Inspection: normal respiratory effort and able to speak in complete sentences Cardio: Rate: regular rate Rhythm: regular rhythm GI: Other: Epigastric abdominal pain, no rebound, no guarding, Has tenderness on palpation on the left abdominal wall Palpation (GI): Soft to palpation Auscultation: normal bowel sounds Skin: General skin exam: no rashes or lesions noted Neuro: General: patient oriented x3 Cognition (Neuro): normal cognition Extrem: General: Yes normal to inspection and Yes no pedal edema Results Labs CBC and Chem 7: 11/07/20 23:19 11/07/20 23:19 Labs: Laboratory Results - last 24 hr 11/07/20 11/07/20 11/08/20 23:19 23:19 00:37 MCV 85.3 MCH 27.0 MCHC 31.7 RDW 13.1 Plt Count 256 MPV 9.9 Immature Gran % (Auto) 0.6 H Neut % (Auto) 78.3 H Lymph % (Auto) 10.6 L [place] % (Auto) 8.5 Eos % (Auto) 1.6 Baso % (Auto) 0.4 Lymph # (Auto) 1.8 [place] # (Auto) 1.4 H Eos # (Auto) 0.3 Baso # (Auto) 0.1 Abs Immat Gran (auto) 0.10 H Absolute Neuts (auto) 13.0 H Absolute Nucleated RBC 0.000 Nucleated RBC % (auto) 0.0 Anion Gap 18 Estim Creat Clear Calc 67.3 Estimated GFR > 60 Random Glucose 161 H D Calcium 8.5 Total Bilirubin 1.2 H Direct Bilirubin 0.5 AST 45 H D ALT 48 H Alkaline Phosphatase 139 H D Total Protein 7.7 Albumin 4.0 Triglycerides 90 Lipase 58 COVID-19 (STIVEN) Negative COVID-19 Clin Com See Note Imaging Radiologist's Impressions: Impressions Abdomen/Pelvis CT 11/07/20 23:11 IMPRESSION: Main finding of note is fullness with surrounding soft tissue inflammatory change and fluid in the region the pancreatic tail most consistent with acute pancreatitis. Correlation with amylase and lipase levels is recommended. This area had a more normal appearance on the prior 05/05/2020 study. Abdomen Ultrasound 11/08/20 03:02 IMPRESSION: Possible mild gallbladder sludge. Pancreas is not adequately visualized due to bowel gas. Assessment and Plan (1) Acute pancreatitis: Status: Acute (2) Leukocytosis: Status: Acute (3) Transaminitis: Status: Acute (4) Constipation: Status: Acute 64 yo M with hx of HTN presents with abdominal pain # Acute pancreatitis - abdominal pain , with abdominal ct showing acute pancreatitis - unclear etiology, possibly 2/2 alcohol use. no evidence of gallstone, reports alcohol use but seldom, TG normal - normal lipase - but has 2/3 signs of acute pancreatitis - will treat with IV fluids, pain management and NPO - adviced to abtain from alcohol use # leukocytosis - no evidence of infection - will obtain UA given left flank pain - no evidence of renal calculi on CT abdomen - monitor cbc # transaminitis - most likely 2/2 acute pancreatitis - no evidence of gallstone or acute cholecystitis - will follow LFTs # HTN - resume home medications DVT ppx: lovenox
[2020-11-08] MEDS: polyethylene glycoL 3350 17 GM POWD.PACK PO (07:06)
[2020-11-08] MEDS: Milk of Magnesia 30 ML ORAL.SUSP PO (07:07)
[2020-11-08] MEDS: timoloL maleate 0.5 % Oph Sol 5 ML DRBTL 1 DROP EYE-BOTH (07:47)
[2020-11-08] MEDS: lisinopriL 20 MG TABLET PO (07:48)
[2020-11-08 08:22] LABS: Glucose Urine UA NEG (NEG); Leukocyte Esterase Urine NEG (NEG); Nitrite Urine NEG (NEG); PH 6.5 (5.0-8.0); Urine Blood TRACE (NEG); Urine Ketones 40 MG/DL (NEG); Urine Protein NEG (NEG-TRACE)
[2020-11-08 08:25] LABS: Appearance Urine CLEAR; Color Urine YELLOW
[2020-11-08 08:27] LABS: Squamous Epithelial Cell Urine TRACE /LPF; WBC Urine 0 /HPF (0-4)
[2020-11-08] MEDS: HYDROcodone Bit/Acetam 5/325 TABLET 1 TAB PO ×3 (09:41→20:45)
--- NOTE | 2020-11-08 09:46 | MHC.CM.PN ---
CM MET WITH PT WHO REPORTS HE LIVES ALONE AND IS INDEPENDENT WITH CARE AND MOBILITY. PT DENIES USING HOME SERVICES OR DME. PT CONFIRMS HIS PCP IS AMARA PRESTON. PT DOES NOT HAVE A HCP AND IS NOT INTERESTED IN COMPLETING ONE TODAY BUT DID AGREE TO TAKE INFORMATION AND A BLANK DOCUMENT TO CONSIDER AT A LATER TIME. CURRENT DC PLAN IS HOME WITH NO SERVICES PT BELIEVES HE WILL BE ABLE TO FIND A RIDE BUT IS AWARE CM CAN ASSIST IF NEEDED
--- NOTE | 2020-11-08 12:00 | MHC.RECOVRN ---
64 year old male presented to [facility] ED, ambulatory, on 11/07 due to C/O L SIDED ABD PAIN W/ CONSTIPATION, LAST BM X3 DAYS AGO, STS NORMALLY HAS BM'S DAILY per ambulance officer. Upon evaluation, pt admitted for treatment of acute pancreatitis.? T/w met with pt in 482 after consult placed to CARE Team for alcohol use. Pt reports alcohol use, 2 beers plus 1-2 shots, approx once per week. Pt does report increased alcohol use on 10/31, when asked to quantify, pt states I can't recall. Pt reports increased drinking when younger, but not in years. Pt reports having supportive sisters and declines needing support or resources related to alcohol use.? Pt was provided with t/w card if needed or to discuss further. Pt was made aware of many resources available, continues to decline.?
--- NOTE | 2020-11-08 15:05 | HO.PM.IMPN ---
Subjective Subjective Date of Service: 11/08/20 Interval History: abd pain slightly improved, notes hunger, no vomiting evasive about how much EtOH he drank yesterday Physical Exam Vital Signs: Vital Signs: Last Vital Signs Temp 98.0 F 11/08/20 11:42 Pulse 99 11/08/20 11:42 Resp 18 11/08/20 11:42 BP 141/85 H 11/08/20 11:42 Pulse Ox 98 11/08/20 11:42 Body Mass Index 24.9 Gen: in no acute distress HEENT: sclera anicteric, moist mucus membranes Neck: supple Lungs: clear to auscultation bilaterally Heart: regular rate and rhythm, no murmurs Abd: soft, minimal epigastric tenderness, no rebound Ext: no edema Skin: warm/well-perfused Neuro: alert and oriented x3, no focal findings Psych: appropriate affect Objective Data Current Medications Generic Name Dose Route Start Last Admin Trade Name Freq PRN Reason Stop Dose Admin Acetaminophen 650 mg 11/08/20 01:12 Acetaminophen 325 Mg Tablet PO Q6H PRN Pain, Mild (Pain Scale 1-3) Hydrocodone Bitart/Acetaminophen 1 tab 11/08/20 09:24 11/08/20 13:54 Hydrocodone Bit/Acetam 5/325 Tablet PO 1 tab Q4H PRN Administration pain,severe Amitriptyline HCl 25 mg 11/08/20 21:00 Amitriptyline Hcl 25 Mg Tablet PO BEDTIME DHARMESH Enoxaparin Sodium 40 mg 11/08/20 01:43 11/08/20 03:35 Enoxaparin Sodium 40 Mg/0.4 Ml Syringe SUBCUT 40 mg Q24H DHARMESH Administration Hydromorphone HCl 0.5 mg 11/08/20 01:12 Hydromorphone Hcl 0.5 Mg/0.5 Ml Syringe IVPUSH Q4H PRN Pain, Severe (Pain Scale 7-10) Lactated Ringer's 1,000 mls @ 200 mls/hr 11/08/20 01:15 11/08/20 11:58 Lr IVCONT 200 mls/hr .Q5H DHARMESH Administration Lisinopril 20 mg 11/08/20 09:00 11/08/20 07:48 Lisinopril 20 Mg Tablet PO 20 mg DAILY DHARMESH Administration Protocol Morphine Sulfate 4 mg 11/08/20 01:12 11/08/20 07:48 Morphine Sulfate 4 Mg/Ml Cartridge IVPUSH 4 mg Q4H PRN Administration Pain, Severe (Pain Scale 7-10) Polyethylene Glycol 17 gm 11/08/20 06:15 11/08/20 07:10 Polyethylene Glycol 3350 17 Gm Powd.Pack PO Not Given DAILY DHARMESH Sodium Chloride 3 ml 11/08/20 08:00 11/08/20 07:48 0.9 % Sodium Chloride Flush 3 Ml Syringe IVFLUSH Not Given QSHIFT DHARMESH Timolol Maleate 1 drop 11/08/20 09:00 11/08/20 07:47 Timolol Maleate 0.5 % Oph Lela 5 Ml Drbtl EYE-BOTH 1 drop DAILY DHARMESH Administration Labs CBC & Chem 7: 11/07/20 23:19 11/07/20 23:19 Labs: Laboratory Results - last 24 hr 11/07/20 11/07/20 11/08/20 23:19 23:19 00:37 WBC 16.6 H RBC 5.51 Hgb 14.9 Hct 47.0 MCV 85.3 MCH 27.0 MCHC 31.7 RDW 13.1 Plt Count 256 MPV 9.9 Immature Gran % (Auto) 0.6 H Neut % (Auto) 78.3 H Lymph % (Auto) 10.6 L [place] % (Auto) 8.5 Eos % (Auto) 1.6 Baso % (Auto) 0.4 Lymph # (Auto) 1.8 [place] # (Auto) 1.4 H Eos # (Auto) 0.3 Baso # (Auto) 0.1 Abs Immat Gran (auto) 0.10 H Absolute Neuts (auto) 13.0 H Absolute Nucleated RBC 0.000 Nucleated RBC % (auto) 0.0 Sodium 132 L Potassium 4.1 Chloride 101 Carbon Dioxide 17 L Anion Gap 18 BUN 15 Creatinine 0.94 Estim Creat Clear Calc 67.3 Estimated GFR > 60 Random Glucose 161 H D Calcium 8.5 Total Bilirubin 1.2 H Direct Bilirubin 0.5 AST 45 H D ALT 48 H Alkaline Phosphatase 139 H D Total Protein 7.7 Albumin 4.0 Triglycerides 90 Lipase 58 Urine Color Urine Appearance Urine pH Ur Specific [place] Urine Protein Urine Glucose (UA) Urine Ketones Urine Blood Urine Nitrite Ur Leukocyte Esterase Urine RBC Urine WBC Ur Squamous Epith Cells Urine Bacteria COVID-19 (STIVEN) Negative COVID-19 Clin Com See Note 11/08/20 08:10 WBC RBC Hgb Hct MCV MCH MCHC RDW Plt Count MPV Immature Gran % (Auto) Neut % (Auto) Lymph % (Auto) [place] % (Auto) Eos % (Auto) Baso % (Auto) Lymph # (Auto) [place] # (Auto) Eos # (Auto) Baso # (Auto) Abs Immat Gran (auto) Absolute Neuts (auto) Absolute Nucleated RBC Nucleated RBC % (auto) Sodium Potassium Chloride Carbon Dioxide Anion Gap BUN Creatinine Estim Creat Clear Calc Estimated GFR Random Glucose Calcium Total Bilirubin Direct Bilirubin AST ALT Alkaline Phosphatase Total Protein Albumin Triglycerides Lipase Urine Color YELLOW Urine Appearance CLEAR Urine pH 6.5 Ur Specific [place] 1.020 Urine Protein NEG Urine Glucose (UA) NEG Urine Ketones 40 Urine Blood TRACE Urine Nitrite NEG Ur Leukocyte Esterase NEG Urine RBC 1-4 Urine WBC 0 Ur Squamous Epith Cells TRACE Urine Bacteria NONE COVID-19 (STIVEN) COVID-19 Clin Com Assessment and Plan (1) Acute pancreatitis: Status: Acute (2) Acute pancreatitis: Status: Acute Assessment and Plan: hospital d#1 64yo M with HTN, HLD admitted with 1st episode of acute pancreatitis, likely EtOH # acute pancreatitis, likely EtOH - clear liquids, IV hydration, EtOH cessation/sobirety counseling, prn morphine/[place], trend LFTs - no signs of withdrawal at this point # HTN - continue lisinopril # HLD - continue statin # VTE ppx - LMWH
[2020-11-08] MEDS: 0.9 % Sodium Chloride Flush 3 ML SYRINGE IVFLUSH ×2 (17:16→20:47)
[2020-11-08] MEDS: Atorvastatin Calcium 10 MG TABLET PO (20:45)
[2020-11-08] MEDS: Amitriptyline HCl 25 MG TABLET PO (20:46)
[2020-11-09] VITALS (8 sets, daily range): BP systolic 136–166; BP diastolic 72–90; PULSE 87–110; RESP 15–18; TEMP 36.2–36.7; O2SAT 93–99
--- NOTE | 2020-11-09 | ECG_ITS ---
Test Reason : chest pain Blood Pressure : / mmHG Vent. Rate : 094 BPM Atrial Rate : 094 BPM P-R Int : 124 ms QRS Dur : 076 ms QT Int : 332 ms P-R-T Axes : 044 -06 008 degrees QTc Int : 415 ms Normal sinus rhythm Moderate voltage criteria for LVH, may be normal variant Borderline ECG When compared with ECG of 24-JUL-2020 16:48, Premature ventricular complexes are no longer Present Referred By: Hill Mckinney Electronically Signed By:JAREN MONTES MD
[2020-11-09] MEDS: HYDROcodone Bit/Acetam 5/325 TABLET 1 TAB PO ×2 (01:23→08:37)
[2020-11-09] MEDS: Enoxaparin Sodium 40 MG/0.4 ML SYRINGE SUBCUT (01:24)
[2020-11-09] MEDS: Lactated Ringers 1,000 ML 200 ML IVCONT ×4 (04:21→20:32)
[2020-11-09 06:25] LABS: MANUAL DIFF FLAG NO
[2020-11-09 06:30] LABS: Basophils Absolute Auto 0.1 X10*3/uL (0.0-0.2); Basophils Percent Auto 0.5 % (0-2); Eosinophils Absolute Auto 0.9 X10*3/uL (0.0-0.4); Hematocrit 38.6 % (42-52); Hemoglobin 12.3 g/dl (14.0-18.0); Imm Gran Abs Auto 0.05 X10*3/uL (0.00-0.03); Imm Gran Pct Auto 0.4 % (0.0-0.4); Lymphocytes Absolute Auto 2.1 X10*3/uL (1.2-4.9); Lymphocytes Percent Auto 16.4 % (20-40); Mean Corpuscular HGB Conc 31.9 g/dl (31.0-36.0); Mean Corpuscular Hemoglobin 26.5 pg (27.0-33.0); Mean Corpuscular Volume 83.2 fL (80-98); Mean Platelet Volume 9.9 fL (9.4-12.4); Monocytes Absolute Auto 1.2 X10*3/uL (0.1-1.2); Monocytes Percent Auto 9.1 % (2-11); Neutrophils Absolute Auto 8.5 X10*3/uL (2.0-8.3); Neutrophils Percent Auto 66.6 % (45-73); Platelet Count 287 X10*3/uL (160-400); Red Blood Count 4.64 X10*6/uL (4.60-5.80); Red Cell Distribution Width 13.1 % (11.0-16.0); White Blood Count 12.8 X10*3/uL (4.8-10.8)
[2020-11-09 07:06] LABS: Anion Gap 11 (12-20); Blood Urea Nitrogen 7 mg/dL (9-16); Calcium 8.4 mg/dL (8.4-10.2); Carbon Dioxide 30 mmol/L (22-29); Chloride 102 mmol/L (96-108); Creatinine Clr Calc Pharmacy 94.4; Estimated Glomerular Filt Rate > 60; Glucose Random 92 mg/dL (60-115); Potassium 4.8 mmol/L (3.3-5.1); Sodium 138 mmol/L (135-145)
[2020-11-09 07:08] LABS: Albumin Level 3.2 g/dL (3.5-5.0); Alkaline Phosphatase 126 U/L (39-117); Bilirubin Direct 0.3 mg/dL (0.0-0.5); Bilirubin Total 0.7 mg/dL (0.0-1.0); Magnesium 1.9 mg/dL (1.6-2.6)
[2020-11-09 07:26] LABS: Alanine Aminotransferase 35 U/L (0-40); Aspartate Amino Transferase 25 U/L (5-37)
[2020-11-09] MEDS: lisinopriL 20 MG TABLET PO (08:36)
[2020-11-09] MEDS: timoloL maleate 0.5 % Oph Sol 5 ML DRBTL 1 DROP EYE-BOTH (08:37)
[2020-11-09] MEDS: polyethylene glycoL 3350 17 GM POWD.PACK PO (08:37)
[2020-11-09 09:45] LABS: Lipase 37 U/L (8-78)
[2020-11-09 11:01] LABS: Troponin-I High Sensitivity 7.9 ng/L (<3.5-35.0)
--- NOTE | 2020-11-09 13:16 | HO.PM.IMPN ---
Subjective Subjective Date of Service: 11/09/20 Interval History: c/o L-sided chest pressure-type pain that started overnight no nausea/vomiting abd pain improved no fever Physical Exam Vital Signs: Vital Signs: Last Vital Signs Temp 97.2 F 11/09/20 11:26 Pulse 94 11/09/20 11:26 Resp 18 11/09/20 11:26 BP 138/78 11/09/20 11:26 Pulse Ox 98 11/09/20 11:26 Body Mass Index 24.9 Gen: in no acute distress HEENT: sclera anicteric, moist mucus membranes Neck: supple Lungs: clear to auscultation bilaterally Heart: regular rate and rhythm, no murmurs Abd: soft, non-tender, non-distended Ext: no edema Skin: warm/well-perfused Neuro: alert and oriented x3, no focal findings Psych: appropriate affect Objective Data Current Medications Generic Name Dose Route Start Last Admin Trade Name Freq PRN Reason Stop Dose Admin Acetaminophen 650 mg 11/08/20 01:12 Acetaminophen 325 Mg Tablet PO Q6H PRN Pain, Mild (Pain Scale 1-3) Hydrocodone Bitart/Acetaminophen 1 tab 11/08/20 09:24 11/09/20 08:37 Hydrocodone Bit/Acetam 5/325 Tablet PO 1 tab Q4H PRN Administration pain,severe Amitriptyline HCl 25 mg 11/08/20 21:00 11/08/20 20:46 Amitriptyline Hcl 25 Mg Tablet PO 25 mg BEDTIME DHARMESH Administration Atorvastatin Calcium 10 mg 11/08/20 21:00 11/08/20 20:45 Atorvastatin Calcium 10 Mg Tablet PO 10 mg BEDTIME DHARMESH Administration Enoxaparin Sodium 40 mg 11/08/20 01:43 11/09/20 01:24 Enoxaparin Sodium 40 Mg/0.4 Ml Syringe SUBCUT 40 mg Q24H DHARMESH Administration Hydromorphone HCl 0.5 mg 11/08/20 01:12 Hydromorphone Hcl 0.5 Mg/0.5 Ml Syringe IVPUSH Q4H PRN Pain, Severe (Pain Scale 7-10) Lactated Ringer's 1,000 mls @ 200 mls/hr 11/08/20 01:15 11/09/20 10:33 Lr IVCONT 200 mls/hr .Q5H DHARMESH Administration Lisinopril 20 mg 11/08/20 09:00 11/09/20 08:36 Lisinopril 20 Mg Tablet PO 20 mg DAILY DHARMESH Administration Protocol Morphine Sulfate 4 mg 11/08/20 01:12 11/08/20 07:48 Morphine Sulfate 4 Mg/Ml Cartridge IVPUSH 4 mg Q4H PRN Administration Pain, Severe (Pain Scale 7-10) Polyethylene Glycol 17 gm 11/08/20 06:15 11/09/20 08:37 Polyethylene Glycol 3350 17 Gm Powd.Pack PO 17 gm DAILY DHARMESH Administration Sodium Chloride 3 ml 11/08/20 08:00 11/09/20 08:34 0.9 % Sodium Chloride Flush 3 Ml Syringe IVFLUSH Not Given QSHIFT DHARMESH Timolol Maleate 1 drop 11/08/20 09:00 11/09/20 08:37 Timolol Maleate 0.5 % Oph Lela 5 Ml Drbtl EYE-BOTH 1 drop DAILY DHARMESH Administration Labs CBC & Chem 7: 11/09/20 05:40 11/09/20 05:40 Labs: Laboratory Results - last 24 hr 11/09/20 11/09/20 11/09/20 05:40 05:40 05:40 WBC 12.8 H RBC 4.64 Hgb 12.3 L Hct 38.6 L MCV 83.2 MCH 26.5 L MCHC 31.9 RDW 13.1 Plt Count 287 MPV 9.9 Immature Gran % (Auto) 0.4 Neut % (Auto) 66.6 Lymph % (Auto) 16.4 L [place] % (Auto) 9.1 Eos % (Auto) 7.0 H Baso % (Auto) 0.5 Lymph # (Auto) 2.1 [place] # (Auto) 1.2 Eos # (Auto) 0.9 H Baso # (Auto) 0.1 Abs Immat Gran (auto) 0.05 H Absolute Neuts (auto) 8.5 H Absolute Nucleated RBC 0.000 Nucleated RBC % (auto) 0.0 Sodium 138 Potassium 4.8 Chloride 102 Carbon Dioxide 30 H Anion Gap 11 L BUN 7 L D Creatinine 0.67 Estim Creat Clear Calc 94.4 Estimated GFR > 60 Random Glucose 92 D Calcium 8.4 Magnesium 1.9 Total Bilirubin 0.7 Direct Bilirubin 0.3 AST 25 D ALT 35 Alkaline Phosphatase 126 H Troponin I High Sens Total Protein 6.0 L D Albumin 3.2 L Lipase 37 11/09/20 10:21 WBC RBC Hgb Hct MCV MCH MCHC RDW Plt Count MPV Immature Gran % (Auto) Neut % (Auto) Lymph % (Auto) [place] % (Auto) Eos % (Auto) Baso % (Auto) Lymph # (Auto) [place] # (Auto) Eos # (Auto) Baso # (Auto) Abs Immat Gran (auto) Absolute Neuts (auto) Absolute Nucleated RBC Nucleated RBC % (auto) Sodium Potassium Chloride Carbon Dioxide Anion Gap BUN Creatinine Estim Creat Clear Calc Estimated GFR Random Glucose Calcium Magnesium Total Bilirubin Direct Bilirubin AST ALT Alkaline Phosphatase Troponin I High Sens 7.9 Total Protein Albumin Lipase Assessment and Plan (1) Acute pancreatitis: Status: Acute (2) Acute pancreatitis: Status: Acute Assessment and Plan: hospital d#2 64yo M with HTN, HLD admitted with 1st episode of acute pancreatitis, likely EtOH # acute pancreatitis, likely EtOH - clear liquids, IV hydration, EtOH cessation/sobirety counseling, prn morphine/[place], trend LFTs - no signs of withdrawal at this point # chest pain - EKG, hs-Tn-I x2 # HTN - continue lisinopril # HLD - continue statin # VTE ppx - LMWH
[2020-11-09 13:51] LABS: Troponin-I High Sensitivity 6.8 ng/L (<3.5-35.0)
[2020-11-09] MEDS: Amitriptyline HCl 25 MG TABLET PO (20:32)
[2020-11-09] MEDS: Atorvastatin Calcium 10 MG TABLET PO (20:32)
[2020-11-10] MEDS: Lactated Ringers 1,000 ML 200 ML IVCONT ×2 (01:07→06:17)
[2020-11-10] MEDS: Enoxaparin Sodium 40 MG/0.4 ML SYRINGE SUBCUT (01:07)
[2020-11-10 03:30] VITALS: BP 157/74; PULSE 101; RESP 18; TEMP 36.2; O2SAT 94
[2020-11-10 07:04] VITALS: BP 170/84; PULSE 106; RESP 20; TEMP 36.7; O2SAT 94
--- NOTE | 2020-11-10 09:02 | MHC.CM.PN ---
CM met with patient at the bedside who reports he amb with a walker, no svs in home and lives with his and 2 grown sons. Patient states his Mary Ann is his HCP [phone], copy requested. Discussed discharge plan, home with new referral to [facility]. Referral made via [employer]scripts. Patient's son will provide transportation. CM will continue to follow patient for discharge needs.
[2020-11-10 09:05] VITALS: BP 170/84; PULSE 106
[2020-11-10] MEDS: polyethylene glycoL 3350 17 GM POWD.PACK PO (09:05)
[2020-11-10] MEDS: lisinopriL 20 MG TABLET PO (09:05)
[2020-11-10] MEDS: timoloL maleate 0.5 % Oph Sol 5 ML DRBTL 1 DROP EYE-BOTH (09:36)
[2020-11-10] MEDS: Famotidine 20 MG TABLET PO (11:06)
[2020-11-10] MEDS: HYDROcodone Bit/Acetam 5/325 TABLET 1 TAB PO (11:10)
[2020-11-10 11:43] VITALS: BP 158/91; PULSE 94; RESP 20; TEMP 36.9; O2SAT 97
--- NOTE | 2020-11-10 12:48 | MHC.CM.PN ---
Patient continues on IV MS and IV Dilaudid for pancreatitis pain. Also on clear liquid diet, plan is to advance diet. If tolerated may discharge home tomorrow, no services. Patient will need assist with transport. CM will continue to follow patient for discharge needs.
--- NOTE | 2020-11-10 15:11 | P.DS_ITS ---
DS: Providers Provider Date of Service: 11/10/20 Date of admission: 11/08/20 01:10 Primary care physician: Trenton Chin MD Consults: 11/08/20 09:26 Consult to Care Team Routine Comment: Reason for consultation: etoh DS: Diagnosis Discharge Diagnosis (1) Acute pancreatitis: Status: Acute (2) Acute pancreatitis: Status: Acute (3) Constipation: Status: Acute (4) Transaminitis: Status: Acute (5) Alcohol abuse: Status: Acute DS: Medications Discharge Medications Home Medications: Home Medications Medication Instructions Recorded Confirmed latanoprost 0.005 % eye drops 1 drp OPHTHALMIC (EYE) BEDTIME 03/26/20 11/08/20 timolol maleate 0.5 % eye drops 1 drp OPHTHALMIC (EYE) QAM 03/26/20 11/08/20 Previous Rx's Medication Instructions Recorded acetaminophen 650 mg 650 mg PO Q8H PRN #90 tab 08/31/20 tablet,extended release simvastatin 10 mg tablet 10 mg PO BEDTIME #30 tab 09/05/20 amitriptyline 25 mg tablet 25 mg PO BEDTIME #90 tab 10/20/20 lisinopril 20 mg tablet 20 mg PO DAILY #90 tab 10/26/20 famotidine 20 mg PO BID #60 tab 11/10/20 polyethylene glycol 3350 17 g PO DAILY PRN #30 ea 11/10/20 DS: Summary Hospital Course Hospital Course: from admission H+P by hospitalist Kiara Pickard, 11/08/20: 64-year-old male with past medical history of hypertension presents to the hospital with complaints of abdominal pain. Patient reports that his abdominal pain started about a week ago, localized to the left abdominal wall, epigastric radiating to the back, has had constipation for 3-4 days, no nausea or vomiting, pain is 9/10, no fever or chills. Patient reports no previous similar episodes. He reports that he drank heavily on Sunday the week prior which may have led to him having the symptoms. Otherwise reports that he is not a regular drinker Patient has no chest pain, no palpitations, no shortness of breath or cough, no urinary symptoms and no lower extremity edema. To the ED patient's vital significant for temperature of 98.2?, heart rate of 125, respiratory rate of 18, blood pressure of 140/91, satting 98% on room air Labs are significant for WBC count of 16.6, hemoglobin of 14.9, bili of 1.2, direct bili of 0.5, AST of 45, ALT of 48, alk-phos of 139, COVID-[address] shows fullness with surrounding soft tissue inflammatory change and fluid in the region of the pancreatic tail most consistent with acute pancreatitis. Liver gallbladder and biliary tree otherwise shows no evidence of radiopaque gallstone gallbladder wall thickening or obvious pericholecystic inflammatory changes, no biliary ductal dilatation. The patient was admitted to the [facility] and made NPO. He was given aggressive fluid resuscitation and IV opioids. His pain resolved and his diet was gradually advanced. Most likely etiology of his pancreatitis is alcohol abuse. He did not have signs of alcohol withdrawal. He was counseled to maintain sobriety. He was given famotidine for reflux and MiraLax for constipation. He should follow up with primary care doctor in 1 week. Time spent discussing smoking cessation with patient: 3 to 10 minutes Time Spent with Patient Time attestation: Total time spent providing and/or coordinating discharge services: 35 Discharge coordination time: Greater than 30 minutes Quality: Stroke Does the patient have a stroke diagnosis?: No Physical Exam Vital Signs: Vital Signs: Last Vital Signs Temp 98.4 F 11/10/20 11:43 Pulse 94 11/10/20 11:43 Resp 20 11/10/20 11:43 BP 158/91 H 11/10/20 11:43 Pulse Ox 97 11/10/20 11:43 Body Mass Index 24.9 Gen: in no acute distress HEENT: sclera anicteric, moist mucus membranes Neck: supple Lungs: clear to auscultation bilaterally Heart: regular rate and rhythm, no murmurs Abd: soft, non-tender, non-distended Ext: no edema Skin: warm/well-perfused Neuro: alert and oriented x3, no focal findings Psych: appropriate affect DS: Data Data Completed and Pending Completed studies during hospitalization [Text1]: Laboratory Results WBC 12.8 X10*3/uL (4.8-10.8) H 11/09/20 05:40 RBC 4.64 X10*6/uL (4.60-5.80) 11/09/20 05:40 Hgb 12.3 g/dl (14.0-18.0) L 11/09/20 05:40 Hct 38.6 % (42-52) L 11/09/20 05:40 MCV 83.2 fL (80-98) 11/09/20 05:40 MCH 26.5 pg (27.0-33.0) L 11/09/20 05:40 MCHC 31.9 g/dl (31.0-36.0) 11/09/20 05:40 RDW 13.1 % (11.0-16.0) 11/09/20 05:40 Plt Count 287 X10*3/uL (160-400) 11/09/20 05:40 MPV 9.9 fL (9.4-12.4) 11/09/20 05:40 Immature Gran % (Auto) 0.4 % (0.0-0.4) 11/09/20 05:40 Neut % (Auto) 66.6 % (45-73) 11/09/20 05:40 Lymph % (Auto) 16.4 % (20-40) L 11/09/20 05:40 [place] % (Auto) 9.1 % (2-11) 11/09/20 05:40 Eos % (Auto) 7.0 % (0-4) H 11/09/20 05:40 Baso % (Auto) 0.5 % (0-2) 11/09/20 05:40 Lymph # (Auto) 2.1 X10*3/uL (1.2-4.9) 11/09/20 05:40 [place] # (Auto) 1.2 X10*3/uL (0.1-1.2) 11/09/20 05:40 Eos # (Auto) 0.9 X10*3/uL (0.0-0.4) H 11/09/20 05:40 Baso # (Auto) 0.1 X10*3/uL (0.0-0.2) 11/09/20 05:40 Abs Immat Gran (auto) 0.05 X10*3/uL (0.00-0.03) H 11/09/20 05:40 Absolute Neuts (auto) 8.5 X10*3/uL (2.0-8.3) H 11/09/20 05:40 Absolute Nucleated RBC 0.000 X10*3/uL (0.0-0.012) 11/09/20 05:40 Nucleated RBC % (auto) 0.0 /100WBC (0.0-0.2) 11/09/20 05:40 Sodium 138 mmol/L (135-145) 11/09/20 05:40 Potassium 4.8 mmol/L (3.3-5.1) 11/09/20 05:40 Chloride 102 mmol/L (96-108) 11/09/20 05:40 Carbon Dioxide 30 mmol/L (22-29) H 11/09/20 05:40 Anion Gap 11 (12-20) L 11/09/20 05:40 BUN 7 mg/dL (9-16) L D 11/09/20 05:40 Creatinine 0.67 mg/dL (0.5-1.4) 11/09/20 05:40 Estim Creat Clear Calc 94.4 11/09/20 05:40 Estimated GFR > 60 11/09/20 05:40 Random Glucose 92 mg/dL (60-115) D 11/09/20 05:40 Calcium 8.4 mg/dL (8.4-10.2) 11/09/20 05:40 Magnesium 1.9 mg/dL (1.6-2.6) 11/09/20 05:40 Total Bilirubin 0.7 mg/dL (0.0-1.0) 11/09/20 05:40 Direct Bilirubin 0.3 mg/dL (0.0-0.5) 11/09/20 05:40 AST 25 U/L (5-37) D 11/09/20 05:40 ALT 35 U/L (0-40) 11/09/20 05:40 Alkaline Phosphatase 126 U/L (39-117) H 11/09/20 05:40 Troponin I High Sens 6.8 ng/L (<3.5-35.0) 11/09/20 13:15 Total Protein 6.0 g/dL (6.5-8.0) L D 11/09/20 05:40 Albumin 3.2 g/dL (3.5-5.0) L 11/09/20 05:40 Triglycerides 90 mg/dL 11/07/20 23:19 Lipase 37 U/L (8-78) 11/09/20 05:40 Urine Color YELLOW 11/08/20 08:10 Urine Appearance CLEAR 11/08/20 08:10 Urine pH 6.5 (5.0-8.0) 11/08/20 08:10 Ur Specific [place] 1.020 (1.005-1.025) 11/08/20 08:10 Urine Protein NEG MG/DL (NEG-TRACE) 11/08/20 08:10 Urine Glucose (UA) NEG MG/DL (NEG) 11/08/20 08:10 Urine Ketones 40 MG/DL (NEG) 11/08/20 08:10 Urine Blood TRACE (NEG) 11/08/20 08:10 Urine Nitrite NEG (NEG) 11/08/20 08:10 Ur Leukocyte Esterase NEG (NEG) 11/08/20 08:10 Urine RBC 1-4 /HPF (0) 11/08/20 08:10 Urine WBC 0 /HPF (0-4) 11/08/20 08:10 Ur Squamous Epith Cells TRACE /LPF 11/08/20 08:10 Urine Bacteria NONE /LPF 11/08/20 08:10 COVID-19 (STIVEN) Negative (Negative) 11/08/20 00:37 COVID-19 Clin Com See Note 11/08/20 00:37 Impressions Abdomen/Pelvis CT 11/07/20 23:11 IMPRESSION: Main finding of note is fullness with surrounding soft tissue inflammatory change and fluid in the region the pancreatic tail most consistent with acute pancreatitis. Correlation with amylase and lipase levels is recommended. This area had a more normal appearance on the prior 05/05/2020 study. Abdomen Ultrasound 11/08/20 03:02 IMPRESSION: Possible mild gallbladder sludge. Pancreas is not adequately visualized due to bowel gas. Discharge Plan Discharge Patient Disposition: Home Health Service Discharge Diagnosis: acute alcoholic pancreatitis Referrals: Po,Trenton Pritchard MD [Primary Care Provider] - 1 Week Discharge Medications: New polyethylene glycol 3350 17 gram Powder In Packet 17 g PO DAILY PRN (Reason: Constipation) Qty: 30 RF: 0 famotidine 20 mg Tablet 20 mg PO BID Qty: 60 RF: 0 Continued simvastatin 10 mg tablet 10 mg PO BEDTIME Qty: 30 RF: 2 amitriptyline 25 mg tablet 25 mg PO BEDTIME Qty: 90 RF: 1 lisinopril 20 mg tablet 20 mg PO DAILY Qty: 90 RF: 3 acetaminophen [Tylenol Arthritis Pain] 650 mg tablet extended release 650 mg PO Q8H PRN (Reason: pain) Qty: 90 RF: 3 timolol maleate 0.5 % drops 1 drp ophthalmic (eye) QAM RF: 0 latanoprost 0.005 % drops 1 drp ophthalmic (eye) BEDTIME RF: 0 Discharge Orders: Discharge Order (Routine); Ordered 11/10/20 Ordered By: Hill Mckinney Diet: advance to usual diet and low fat, low cholesterol Activity on Discharge: As tolerated Stand Alone Forms: Patient Portal Discharge page Care Plan Goals: relief of abdominal pain Health Concerns: Acute pancreatitis Alcohol abuse Plan of Treatment: Pancreatitis resolved Avoid alcohol Take famotidine for reflux Increase fiber intake and take MiraLax for constipation Follow-up with primary care doctor in 1 week Assessment: as above Patient Instructions: Pancreatitis (GEN), At-Risk Alcohol Use (GEN)
--- NOTE | 2020-11-10 15:30 | MHC.CM.PN ---
Patient is being discharged home today no services. Patient has transportation.
[2020-11-10 15:33] VITALS: BP 114/70; PULSE 80; RESP 15; TEMP 36.9; O2SAT 97
== END 2020-11-10 16:09 | disposition home health service (06) | DRG 282 ==
LOC: HO.ED 11-08 00:49 → HO.EDOVER 11-08 01:19 → HO.IMC 11-08 01:39
PROVIDERS: Admitting Provider Internal Medicine; Emergency Provider Emergency Medicine; PCP Internal Medicine; Visit Provider Family Medicine
DX: K85.20 Alcohol induced acute pancreatitis without necrosis or infection (principal); D72.829 Elevated white blood cell count, unspecified; I10 Essential (primary) hypertension; E78.5 Hyperlipidemia, unspecified; K59.00 Constipation, unspecified; F10.10 Alcohol abuse, uncomplicated; N40.0 Benign prostatic hyperplasia without lower urinary tract symptoms; R74.01 Elevation of levels of liver transaminase levels; Z20.822 Contact with and (suspected) exposure to COVID-19; Z87.891 Personal history of nicotine dependence; Z88.0 Allergy status to penicillin; Z79.899 Other long term (current) drug therapy
CPT/HCPCS: 36415; 74176; 76705; 80048; 80076; 81001; 83690; 83735; 84478; 84484; 85025; 87635; 93005; 96374; 96375; 99285; J1650; J2270

== ENCOUNTER 2020-11-16 11:29 | Outpatient (REF) | payer OTHER, SELFPAY ==
[2020-11-16 12:04] LABS: MANUAL DIFF FLAG NO
[2020-11-16 12:09] LABS: Basophils Absolute Auto 0.1 X10*3/uL (0.0-0.2); Basophils Percent Auto 0.9 % (0-2); Eosinophils Absolute Auto 0.7 X10*3/uL (0.0-0.4); Eosinophils Percent Auto 6.6 % (0-4); Hematocrit 45.1 % (42-52); Hemoglobin 14.1 g/dl (14.0-18.0); Imm Gran Abs Auto 0.07 X10*3/uL (0.00-0.03); Imm Gran Pct Auto 0.7 % (0.0-0.4); Immature Retic Fraction 12.6 % (2.3-13.4); Lymphocytes Absolute Auto 2.2 X10*3/uL (1.2-4.9); Mean Corpuscular HGB Conc 31.3 g/dl (31.0-36.0); Mean Corpuscular Hemoglobin 26.4 pg (27.0-33.0); Mean Corpuscular Volume 84.3 fL (80-98); Mean Platelet Volume 9.4 fL (9.4-12.4); Monocytes Absolute Auto 0.7 X10*3/uL (0.1-1.2); Monocytes Percent Auto 6.6 % (2-11); Neutrophils Absolute Auto 6.6 X10*3/uL (2.0-8.3); Neutrophils Percent Auto 64.2 % (45-73); Platelet Count 465 X10*3/uL (160-400); Red Blood Count 5.35 X10*6/uL (4.60-5.80); Red Cell Distribution Width 13.2 % (11.0-16.0); Retic HGB Equivalent 30.7 pg (30.0-35.0); Reticulocyte Percent 1.2 % (0.5-1.8); Reticulocytes Absolute 0.064 X10*6/uL (0.026-0.095); White Blood Count 10.3 X10*3/uL (4.8-10.8)
[2020-11-16 12:25] LABS: Alanine Aminotransferase 81 U/L (0-40); Albumin Level 3.9 g/dL (3.5-5.0); Alkaline Phosphatase 139 U/L (39-117); Amylase 47 U/L (28-100); Anion Gap 12 (12-20); Aspartate Amino Transferase 36 U/L (5-37); Bilirubin Total 0.5 mg/dL (0.0-1.0); Blood Urea Nitrogen 13 mg/dL (9-16); Carbon Dioxide 26 mmol/L (22-29); Chloride 104 mmol/L (96-108); Estimated Glomerular Filt Rate > 60; Glucose Random 114 mg/dL (60-115); Iron 56 mcg/dL (45-160); Lipase 20 U/L (8-78); Magnesium 2.3 mg/dL (1.6-2.6); Percent Iron Saturation 20 % (15-50); Potassium 5.4 mmol/L (3.3-5.1); Sodium 137 mmol/L (135-145); Total Iron Binding Capacity 280 mcg/dL (228-428); Total Protein 7.2 g/dL (6.5-8.0); Unsaturated Iron Binding 224 ug/dL
[2020-11-16 12:37] LABS: Ferritin 521 ng/mL (20-250)
[2020-11-16 13:04] LABS: Folate 8.6 ng/mL (> or = 4.0); Vitamin B12 344 pg/mL (200-900)
== END 2020-11-16 11:30 | disposition home or self-care (01) ==
LOC: HO.LAB 11:29
PROVIDERS: PCP Internal Medicine; Visit Provider Internal Medicine
DX: K85.20 Alcohol induced acute pancreatitis without necrosis or infection (principal)
CPT/HCPCS: 36415; 80053; 82150; 82607; 82728; 82746; 83540; 83690; 83735; 85025; 85045

== ENCOUNTER 2020-12-09 09:46 | Outpatient (REF) | payer OTHER, SELFPAY ==
--- NOTE | ~2020-12-09 | US_ITS ---
EXAMINATION: US ABDOMEN COMPLETE CLINICAL INFORMATION: Alcohol-induced acute pancreatitis without necrosis. COMPARISON: Ultrasound abdomen limited 11/08/2020. CT abdomen and pelvis 11/07/2020. KUB 02/19/2020 and 05/14/2017. Ultrasound abdomen complete 06/10/2019. TECHNIQUE: Real-time imaging of the abdominal viscera. FINDINGS: PANCREAS: The pancreas is obscured. ABDOMINAL AORTA: The proximal, mid, and distal segments are normal in caliber. INFERIOR VENA CAVA: Visualized portions are normal. LIVER: The liver is normal in size. The liver contour is normal. There is increased liver echogenicity. No focal hepatic lesion. There is no intrahepatic biliary duct dilatation seen. GALLBLADDER: Normal. The gallbladder is physiologically distended without evidence of stones, sludge, polyps, wall thickening or pericholecystic fluid. COMMON BILE DUCT: Normal in caliber measuring 0.2 cm in diameter. RIGHT KIDNEY: Normal. No hydronephrosis. No renal calculi or focal parenchymal lesions. The kidney measures 10 cm in maximum dimension. LEFT KIDNEY: Normal. No hydronephrosis. No renal calculi or focal parenchymal lesions. The kidney measures 10.5 cm in maximum dimension. SPLEEN: Normal. The spleen measures 8.0 cm in maximum dimension. FREE FLUID: None. US/US abdomen complete IMPRESSION: Hepatic steatosis without focal lesion. The rest of the abdominal ultrasound is unremarkable.
== END 2020-12-09 09:47 | disposition home or self-care (01) ==
LOC: HO.US 09:46
PROVIDERS: Visit Provider Internal Medicine
DX: K85.20 Alcohol induced acute pancreatitis without necrosis or infection (principal)
CPT/HCPCS: 76700

== ENCOUNTER 2020-12-20 12:41 | Outpatient (REF) | payer OTHER, SELFPAY ==
[2020-12-20 13:31] LABS: Ammonia 37 umol/L (13-55)
[2020-12-20 13:46] LABS: Alanine Aminotransferase 47 U/L (0-40); Albumin Level 4.1 g/dL (3.5-5.0); Alkaline Phosphatase 100 U/L (39-117); Anion Gap 10 (12-20); Aspartate Amino Transferase 30 U/L (5-37); Bilirubin Direct 0.3 mg/dL (0.0-0.5); Bilirubin Total 0.5 mg/dL (0.0-1.0); Blood Urea Nitrogen 7 mg/dL (9-16); Calcium 9.1 mg/dL (8.4-10.2); Carbon Dioxide 27 mmol/L (22-29); Chloride 107 mmol/L (96-108); Estimated Glomerular Filt Rate > 60; Glucose Random 110 mg/dL (60-115); Potassium 4.5 mmol/L (3.3-5.1); Sodium 139 mmol/L (135-145)
[2020-12-20 14:10] LABS: Erythrocyte Sedimentation Rate 16 MM/HR (0-15)
[2020-12-24 22:36] LABS: Acetylcholine Receptor Binding <0.30 nmol/L
[2021-01-05 00:01] LABS: Acetylcholine Recep Modulating 7
== END 2020-12-20 12:42 | disposition home or self-care (01) ==
LOC: HO.LAB 12:41
PROVIDERS: PCP Internal Medicine; Visit Provider Psychiatry & Neurology Neurology
DX: H02.409 Unspecified ptosis of unspecified eyelid (principal)
CPT/HCPCS: 36415; 80048; 80076; 82140; 82550; 83519; 85652

== ENCOUNTER 2021-01-17 20:49 | Emergency (ER) | payer OTHER, SELFPAY ==
--- NOTE | ~2021-01-17 | XR_ITS ---
EXAMINATION: CHEST 2 VIEWS CLINICAL INFORMATION: cough . COMPARISON: 05/14/2017. TECHNIQUE: PA and lateral views of the chest obtained. FINDINGS: The lungs are well expanded. No focal infiltrate, effusion, edema, or pneumothorax. Cardiac and mediastinal silhouettes are within normal limits for technique. No acute bony abnormality seen XR/XR chest 2V IMPRESSION: No evidence of acute disease
[2021-01-17 20:54] VITALS: BP 150/90; PULSE 106; RESP 18; TEMP 36.6; O2SAT 97; BMI 24.9
[2021-01-17 22:24] LABS: COVID-19 Test Negative (Negative)
[2021-01-17] MEDS: Benzonatate 100 MG CAPSULE 200 MG PO (22:27)
[2021-01-17] MEDS: HYDROcodone/Homat 5/1.5/5 ML 5 ML SYRUP PO (22:27)
--- NOTE | 2021-01-17 22:32 | ED.URI ---
HPI - URI/Sore Throat General Chief Complaint: Upper Respiratory Symptoms Stated Complaint: COUGH Time Seen by Provider: 01/17/21 22:09 Source: patient Mode of arrival: ambulatory History of Present Illness HPI Narrative: 65-year-old male with a past medical history of anxiety, arthritis, BPH, hypertension, Hyperlipidemia, peripheral neuropathy, presenting to the ED complaining of dry cough x1 day and rhinorrhea. Reports chest discomfort when coughing. Denies SOB, fever, chills, sore throat, ear pain, abdominal pain, history of blood clots, sick contacts. Patient reports he recently traveled from [place] on Sunday. MD elicited complaint: cough and nasal congestion Related Data Home Medications Medication Instructions Recorded Confirmed latanoprost 0.005 % eye drops 1 drp OPHTHALMIC (EYE) BEDTIME 03/26/20 12/13/20 timolol maleate 0.5 % eye drops 1 drp OPHTHALMIC (EYE) QAM 03/26/20 12/13/20 Previous Rx's Medication Instructions Recorded acetaminophen 650 mg 650 mg PO Q8H PRN #90 tab 08/31/20 tablet,extended release amitriptyline 25 mg tablet 25 mg PO BEDTIME #90 tab 10/20/20 lisinopril 20 mg tablet 20 mg PO DAILY #90 tab 10/26/20 famotidine 20 mg PO BID #60 tab 11/10/20 polyethylene glycol 3350 17 gram 17 g PO DAILY PRN #30 ea 11/12/20 oral powder packet simvastatin 10 mg tablet 10 mg PO BEDTIME 90 Days #90 tab 01/10/21 albuterol sulfate 2 puff INHALATION Q4-6H PRN #6.7 g 01/17/21 benzonatate [Tessalon Perles] 100 mg PO TID PRN #14 cap 01/17/21 fluticasone propionate [Flonase 2 spray INTRANASAL DAILY #16 g 01/17/21 Allergy Relief] Allergies Allergy/AdvReac Type Severity Reaction Status Date / Time Penicillins [PENICILLINS] Allergy Mild RASH Verified 12/13/20 12:25 Review of Systems Review of Systems: Constitutional: No Fever, No Chills, No Night Sweats, No Fatigue, No Malaise ENT/Mouth: No Ear Pain, + Nasal Congestion, No Sinus Pain, No Hoarseness, No sore throat, + Rhinorrhea Cardiovascular: + Chest Pain when coughing, No SOB, No Edema Respiratory: + Cough, No Sputum, No Wheezing Gastrointestinal: No Nausea, No Vomiting, No Diarrhea, No Constipation, No Abdominal pain Musculoskeletal: No joint pain, No Myalgias Skin: No Skin Lesions, No rash Neuro: No Weakness, No Numbness, No Headache Yes all other systems are reviewed and are negative [facility], [facility] Past Medical History Attestation statement: The following information was validated with the patient. Medical History (Updated 01/17/21 @ 22:40 by BLANK Pederson) LATOYA positive Anxiety Arthritis BPH (benign prostatic hyperplasia) Cataract Glaucoma Hematuria HTN (hypertension) Hx of small bowel obstruction Hypercholesterolemia Impaired fasting glucose Insomnia Median nerve neuropathy Osteoarthritis of hands, bilateral Peripheral neuropathy Tubular adenoma of colon Vitamin D deficiency Surgical History History of cataract surgery History of inguinal hernia repair Hx of colonoscopy Family History Family History Father No problems noted. Mother Diabetes Brother Lung cancer Social History Social History Housing: Apartment Alcohol intake: current Alcohol intake frequency: holidays/special occasions only Alcohol type: beer Patient Tobacco Use Status: Never used Tobacco Second Hand Smoke Exposure: No Advance Directives: No Advance Directives Information Provided: No service: No Current occupational status: unemployed Physical Exam Vital Signs: Vital Signs: Last Vital Signs Temp 97.8 F 01/17/21 20:54 Pulse 106 H 01/17/21 20:54 Resp 18 01/17/21 20:54 BP 150/90 H 01/17/21 20:54 Pulse Ox 97 01/17/21 20:54 Body Mass Index 24.9 Const: Other: Continuously coughing on exam General: cooperative, healthy appearing and no acute distress Orientation/consciousness: patient oriented x3 Limitations: no limitations HENMT: Head: Yes normal to inspection Ears: hearing grossly normal bilaterally General nose exam: Normal external nose present Face and sinus: Yes normal facial exam Eyes: General: appearance normal, both eyes and all related structures EOM: EOMs intact bilaterally Neck: Neck: Yes normal visual inspection and Yes no meningeal signs Resp: Effort & Inspection: normal respiratory effort Auscultation: clear to auscultation bilaterally, no rales, no rhonchi and no wheezes Cardio: Rate: regular rate Heart sounds: S1 normal heart sound present and S2 normal heart sound present GI: Inspection: Yes normal to inspection Palpation (GI): Soft to palpation Skin: Rashes: no rashes Wounds: no wounds Neuro: General: patient oriented x3 and no meningeal signs Gait exam (Neuro): Normal gait present Extrem: General: Yes normal to inspection and Yes no pedal edema Course Course Course Narrative: XR chest 2V IMPRESSION: No evidence of acute disease COVID-19 negative > results discussed with patient including worrisome signs and symptoms and strict return precautions. He verbalized understanding feel safe for discharge home MDM - URI/Sore Throat MDM Narrative Medical decision making narrative: 65-year-old male with a past medical history of anxiety, arthritis, BPH, hypertension, Hyperlipidemia, peripheral neuropathy, presenting to the ED complaining of dry cough x1 day and rhinorrhea. On exam initially tachycardic likely from coughing, NAD/nontoxic, lungs CTA, no pedal edema. Concern for viral syndrome/COVID-19. Low concern for ACS. Low concern for PE. Rule out pneumonia. Plan: COVID-19 testing, CXR, albuterol treatment, antitussives Lab Data Labs: Lab Results 01/17/21 Range/Units 22:01 COVID-19 (STIVEN) Negative (Negative) COVID-19 Clin Com See Note Discharge Plan Discharge Clinical Impression: Upper respiratory infection Patient Disposition: Home, Self-Care Instructions: Viral Syndrome (ED) Additional Instructions: You tested negative for COVID-19. Your x-rays is also unremarkable Flonase is nasal decongestion spray Albuterol inhaler will help with shortness of breath/wheezing, use as needed Tessalon Perles for cough If her symptoms persist or worsen, your cough becomes more persistent/unbearable, if constant worsening chest pain/shortness of breath, or develops fever please return to the ED You need to follow-up with your doctor Prescriptions: New albuterol sulfate 90 mcg/actuation HFA aerosol inhaler 2 puff inhalation Q4-6H PRN (Reason: shortness of breath or wheezing) Qty: 6.7 RF: 0 benzonatate [Tessalon Perles] 100 mg capsule 100 mg PO TID PRN (Reason: cough) Qty: 14 RF: 0 fluticasone propionate [Flonase Allergy Relief] 50 mcg/actuation spray,suspension 2 spray intranasal DAILY Qty: 16 RF: 0 No Action amitriptyline 25 mg tablet 25 mg PO BEDTIME Qty: 90 RF: 1 lisinopril 20 mg tablet 20 mg PO DAILY Qty: 90 RF: 3 polyethylene glycol 3350 17 gram powder in packet 17 g PO DAILY PRN (Reason: Constipation) Qty: 30 RF: 0 simvastatin 10 mg tablet 10 mg PO BEDTIME 90 Days Qty: 90 RF: 2 famotidine 20 mg Tablet 20 mg PO BID Qty: 60 RF: 0 acetaminophen [Tylenol Arthritis Pain] 650 mg tablet extended release 650 mg PO Q8H PRN (Reason: pain) Qty: 90 RF: 3 timolol maleate 0.5 % drops 1 drp ophthalmic (eye) QAM RF: 0 latanoprost 0.005 % drops 1 drp ophthalmic (eye) BEDTIME RF: 0 Referrals: Po,Trenton Pritchard MD [Primary Care Provider] - 2 days
[2021-01-17] MEDS: Albuterol Sulfate (0.083%) 2.5 MG/3 ML VIAL.NEB INHALE (22:53)
[2021-01-17 22:54] VITALS: PULSE 104; O2SAT 97
== END 2021-01-17 23:01 | disposition home or self-care (01) ==
PROVIDERS: Emergency Provider Student in an Organized Health Care Education/Training Program; PCP Internal Medicine
DX: J06.9 Acute upper respiratory infection, unspecified (principal); Z20.822 Contact with and (suspected) exposure to COVID-19; R00.0 Tachycardia, unspecified; I10 Essential (primary) hypertension; E78.5 Hyperlipidemia, unspecified; Z79.02 Long term (current) use of antithrombotics/antiplatelets; Z79.899 Other long term (current) drug therapy
CPT/HCPCS: 36415; 71046; 87635; 94640; 99283; 99284

== ENCOUNTER 2021-02-04 09:27 | Outpatient (REF) | payer OTHER, SELFPAY ==
[2021-02-04 10:26] LABS: MANUAL DIFF FLAG NO
[2021-02-04 10:32] LABS: Basophils Absolute Auto 0.1 X10*3/uL (0.0-0.2); Eosinophils Absolute Auto 0.4 X10*3/uL (0.0-0.4); Eosinophils Percent Auto 5.6 % (0-4); Hematocrit 44.3 % (42-52); Hemoglobin 13.7 g/dl (14.0-18.0); Imm Gran Abs Auto 0.02 X10*3/uL (0.00-0.03); Imm Gran Pct Auto 0.3 % (0.0-0.4); Lymphocytes Absolute Auto 1.9 X10*3/uL (1.2-4.9); Lymphocytes Percent Auto 27.5 % (20-40); Mean Corpuscular HGB Conc 30.9 g/dl (31.0-36.0); Mean Corpuscular Volume 84.1 fL (80-98); Mean Platelet Volume 10.4 fL (9.4-12.4); Monocytes Absolute Auto 0.5 X10*3/uL (0.1-1.2); Monocytes Percent Auto 7.4 % (2-11); Neutrophils Absolute Auto 4.1 X10*3/uL (2.0-8.3); Neutrophils Percent Auto 58.2 % (45-73); Platelet Count 360 X10*3/uL (160-400); Red Blood Count 5.27 X10*6/uL (4.60-5.80); Red Cell Distribution Width 13.2 % (11.0-16.0)
[2021-02-04 10:44] LABS: Estimated Average Glucose 143 mg/dL; Hemoglobin A1c % 6.6 %
[2021-02-04 10:55] LABS: Alanine Aminotransferase 39 U/L (0-40); Albumin Level 4.1 g/dL (3.5-5.0); Alkaline Phosphatase 91 U/L (39-117); Amylase 64 U/L (28-100); Anion Gap 11 (12-20); Aspartate Amino Transferase 24 U/L (5-37); Bilirubin Total 0.3 mg/dL (0.0-1.0); Blood Urea Nitrogen 14 mg/dL (9-16); Calcium 9.3 mg/dL (8.4-10.2); Carbon Dioxide 28 mmol/L (22-29); Chloride 109 mmol/L (96-108); Estimated Glomerular Filt Rate > 60; Glucose Random 115 mg/dL (60-115); Lipase 16 U/L (8-78); Potassium 5.2 mmol/L (3.3-5.1); Sodium 143 mmol/L (135-145); Total Protein 7.2 g/dL (6.5-8.0)
[2021-02-04 11:04] LABS: Free T4 (Free Thyroxine) 0.88 ng/dL (0.71-1.85); Thyroid Stimulating Hormone 2.95 uIU/mL (0.32-4.0)
[2021-02-04 11:05] LABS: Glucose Urine UA NEG (NEG); Leukocyte Esterase Urine NEG (NEG); Nitrite Urine NEG (NEG); Specific Gravity - Urine >= 1.030 (1.005-1.025); Urine Blood NEG (NEG); Urine Ketones NEG (NEG); Urine Protein NEG (NEG-TRACE)
[2021-02-04 11:06] LABS: Appearance Urine CLEAR; Color Urine YELLOW
[2021-02-04 11:21] LABS: Bacteria Urine TRACE /LPF; Mucus Urine 1+ /LPF; RBC Urine 0-2 /HPF (0); Squamous Epithelial Cell Urine 1+ /LPF; WBC Urine 0-2 /HPF (0-4)
[2021-02-05 15:39] LABS: Folate 9.6 ng/mL (> or = 4.0); Vitamin B12 353 pg/mL (200-900)
== END 2021-02-04 09:28 | disposition home or self-care (01) ==
LOC: HO.LAB 09:27
PROVIDERS: PCP Internal Medicine; Visit Provider Internal Medicine
DX: E78.00 Pure hypercholesterolemia, unspecified (principal); R10.32 Left lower quadrant pain; M54.12 Radiculopathy, cervical region; K85.90 Acute pancreatitis without necrosis or infection, unspecified; R73.01 Impaired fasting glucose
CPT/HCPCS: 36415; 80053; 81001; 82150; 82607; 82746; 83036; 83690; 84439; 84443; 85025

== ENCOUNTER 2021-02-22 07:24 | Outpatient (REF) | payer OTHER, SELFPAY ==
--- NOTE | ~2021-02-22 | CT_ITS ---
EXAMINATION: CT ABDOMEN AND PELVIS WITH CONTRAST CLINICAL INFORMATION: Left lower quadrant pain. COMPARISON: US abdomen 12/09/2020. CT abdomen and pelvis 11/07/2020 and 05/05/2020. TECHNIQUE: Multidetector volumetric images were obtained from the superior aspect of the liver through the pubic symphysis following administration 85 mL of Omnipaque 350 intravenous contrast. Sagittal and coronal reformatted images were obtained on the technologist's workstation. Oral contrast: Yes This CT examination was performed using dose optimization techniques as appropriate, variously including the following: *Automated exposure control *Adjustment of mA and/or kV according to patient size (this includes techniques or standardized protocols for targeted exams where dose is matched to indication/reason for exam; i.e. extremities or head) *Use of iterative reconstruction technique DLP: 286 mGy-cm FINDINGS: LUNG BASES: The visualized lung bases are unremarkable. LIVER, GALLBLADDER, AND BILIARY TREE: The liver is normal in size, shape, and attenuation. No focal hepatic lesion or biliary ductal dilatation is present. The gallbladder is unremarkable with no evidence of radiopaque gallstones, gallbladder wall thickening, or obvious pericholecystic inflammatory changes. PANCREAS: Unremarkable. SPLEEN: Unremarkable. ADRENAL GLANDS: Unremarkable. KIDNEYS AND URETERS: Focal areas of scarring in both kidneys, right greater than left, are again noted. A 6 mm low-density lesion in the upper pole of the right kidney is too small to characterize but likely represents a cyst and is unchanged. BLADDER: There are stable mild bladder wall thickening. GASTROINTESTINAL TRACT: There is a moderate amount of stool throughout the colon. The colon is otherwise unremarkable. The appendix is normal. The small bowel and stomach are unremarkable. ABDOMINAL WALL: Small fat-containing umbilical and bilateral inguinal hernias are again noted. LYMPH NODES: Normal. VASCULAR: Unremarkable. PELVIC VISCERA: Enlarged prostate is redemonstrated. OSSEOUS STRUCTURES: Unremarkable. CT/CT abdomen pelvis w con IMPRESSION: 1. Moderate amount of stool throughout the colon. Otherwise unremarkable. 2. Stable scarring in both kidneys. 3. Stable fat-containing umbilical and bilateral inguinal hernias. 4. Stable enlarged prostate. 5. No acute inflammatory processes in the abdomen or pelvis.
[2021-02-22] MEDS: iohexoL 350 MG/ML 100 ML INFUS..BTL IV (10:51)
[2021-02-22] MEDS: Barium Sulfate Oral (Mocha) 450 ML ORAL.SUSP 900 ML PO (10:52)
== END 2021-02-22 07:25 | disposition home or self-care (01) ==
LOC: HO.CT 07:24
PROVIDERS: Visit Provider Internal Medicine
DX: R10.32 Left lower quadrant pain (principal)
CPT/HCPCS: 74177; Q9967

== ENCOUNTER 2021-02-25 10:31 | Outpatient (REF) | payer OTHER, SELFPAY ==
--- NOTE | ~2021-02-25 | MR_ITS ---
EXAMINATION: MR CERVICAL SPINE WITHOUT CONTRAST CLINICAL INFORMATION: Radiculopathy, cervical region COMPARISON: None TECHNIQUE: MRI of the cervical spine was obtained using routine sequences without contrast. FINDINGS: VERTEBRAL BODIES AND PARASPINAL SOFT TISSUES: Alignment is normal. Vertebral body heights are preserved. Disk heights are preserved. The visualized spinal cord is normal in caliber and signal intensity. The paraspinal musculature is within normal limits. CERVICOMEDULLARY JUNCTION AND VISUALIZED POSTERIOR FOSSA: Normal. SPINAL LEVELS: C2-C3: No disk herniation. No spinal canal or foraminal narrowing. C3-C4: Shallow left foraminal disk protrusion. No spinal canal or foraminal narrowing. C4-C5: Shallow posterior osteophyte complex. No spinal canal or foraminal narrowing. C5-C6: Shallow posterior osteophyte complex. No spinal canal or foraminal narrowing. C6-C7: No disk herniation. No spinal canal or foraminal narrowing. C7-T1: No disk herniation. No spinal canal or foraminal narrowing. MR/MR cervical spine wo con IMPRESSION: - Minimal cervical spondylosis as described. - No spinal canal or foraminal narrowing at any cervical level.
== END 2021-02-25 10:32 | disposition home or self-care (01) ==
LOC: HO.MRI 10:31
PROVIDERS: PCP Internal Medicine; Visit Provider Internal Medicine
DX: M54.12 Radiculopathy, cervical region (principal); M79.2 Neuralgia and neuritis, unspecified
CPT/HCPCS: 72141

== ENCOUNTER → 2021-03-02 13:46 | Outpatient (BNVA) | payer OTHER, SELFPAY | PROVIDERS: PCP Internal Medicine; Visit Provider Urology | DX: N40.1 Benign prostatic hyperplasia with lower urinary tract symptoms (principal); N28.1 Cyst of kidney, acquired; R35.0 Frequency of micturition | CPT/HCPCS: 51798; 99212 ==

== ENCOUNTER → 2021-05-03 10:06 | Outpatient (BNVA) | payer OTHER, SELFPAY | PROVIDERS: PCP Internal Medicine; Visit Provider Nurse Practitioner Family ==

== ENCOUNTER 2021-05-31 09:16 | Outpatient (REF) | payer OTHER, SELFPAY ==
[2021-05-31 09:37] LABS: MANUAL DIFF FLAG NO
[2021-05-31 10:11] LABS: Basophils Absolute Auto 0.1 X10*3/uL (0.0-0.2); Basophils Percent Auto 0.8 % (0-2); Eosinophils Absolute Auto 0.4 X10*3/uL (0.0-0.4); Eosinophils Percent Auto 5.5 % (0-4); Hematocrit 45.9 % (42.0-52.0); Hemoglobin 14.3 g/dl (14.0-18.0); Imm Gran Abs Auto 0.03 X10*3/uL (0.00-0.03); Imm Gran Pct Auto 0.4 % (0.0-0.4); Immature Retic Fraction 13.3 % (2.3-13.4); Lymphocytes Absolute Auto 2.4 X10*3/uL (1.2-4.9); Lymphocytes Percent Auto 31.7 % (20-40); Mean Corpuscular HGB Conc 31.2 g/dl (31.0-36.0); Mean Corpuscular Volume 83.3 fL (80.0-98.0); Mean Platelet Volume 9.7 fL (9.4-12.4); Monocytes Absolute Auto 0.6 X10*3/uL (0.1-1.2); Monocytes Percent Auto 7.5 % (2-11); Neutrophils Percent Auto 54.1 % (45-73); Platelet Count 268 X10*3/uL (160-400); Red Blood Count 5.51 X10*6/uL (4.60-5.80); Red Cell Distribution Width 13.5 % (11.0-16.0); Retic HGB Equivalent 30.2 pg (30.0-35.0); Reticulocyte Percent 1.3 % (0.5-1.8); Reticulocytes Absolute 0.074 X10*6/uL (0.026-0.095); White Blood Count 7.4 X10*3/uL (4.8-10.8)
[2021-05-31 10:17] LABS: Estimated Average Glucose 154 mg/dL
[2021-05-31 10:35] LABS: Creatinine Urine 200.14 mg/dL; Microalbum/Creatinine Ratio Ur 19.4 ug/mg cr
[2021-05-31 11:02] LABS: Alanine Aminotransferase 40 U/L (0-40); Albumin Level 4.1 g/dL (3.5-5.0); Alkaline Phosphatase 88 U/L (39-117); Anion Gap 13 (12-20); Aspartate Amino Transferase 24 U/L (5-37); Bilirubin Total 0.6 mg/dL (0.0-1.0); Blood Urea Nitrogen 15 mg/dL (9-16); Calcium 9.2 mg/dL (8.4-10.2); Carbon Dioxide 25 mmol/L (22-29); Chloride 108 mmol/L (96-108); Cholesterol 161 mg/dL; Estimated Glomerular Filt Rate > 60; Glucose Random 132 mg/dL (60-115); HDL Cholesterol 24 mg/dL; Iron 133 mcg/dL (45-160); LDL Cholesterol Calculated 103 mg/dl; Percent Iron Saturation 49 % (15-50); Potassium 4.9 mmol/L (3.3-5.1); Sodium 141 mmol/L (135-145); Total Iron Binding Capacity 270 mcg/dL (228-428); Total Protein 7.1 g/dL (6.5-8.0); Triglycerides 171 mg/dL; Unsaturated Iron Binding 137 ug/dL
[2021-05-31 11:06] LABS: Folate 12.2 ng/mL (> or = 4.0); Vitamin B12 312 pg/mL (200-900)
[2021-05-31 11:15] LABS: Ferritin 225 ng/mL (20-250)
== END 2021-05-31 09:17 | disposition home or self-care (01) ==
LOC: HO.LAB 09:16
PROVIDERS: PCP Internal Medicine; Visit Provider Internal Medicine
DX: E78.00 Pure hypercholesterolemia, unspecified (principal); E11.65 Type 2 diabetes mellitus with hyperglycemia
CPT/HCPCS: 36415; 80053; 80061; 82043; 82607; 82728; 82746; 83036; 83540; 85025; 85045

== ENCOUNTER 2021-06-28 08:16 | Outpatient (REF) | payer OTHER, SELFPAY | END 2021-06-28 08:17 | disposition home or self-care (01) | LOC: HO.HMGCLDS 08:16 | PROVIDERS: Visit Provider Internal Medicine | DX: Z20.822 Contact with and (suspected) exposure to COVID-19 (principal) | CPT/HCPCS: C9803; U0003; U0005 ==

== ENCOUNTER → 2021-07-26 13:47 | Outpatient (BNVA) | payer OTHER, SELFPAY | PROVIDERS: PCP Internal Medicine; Visit Provider Dietitian, Registered | DX: E11.65 Type 2 diabetes mellitus with hyperglycemia (principal); Z71.3 Dietary counseling and surveillance | CPT/HCPCS: 97802 ==

== ENCOUNTER 2021-08-08 09:16 | Outpatient (REF) | payer OTHER, SELFPAY ==
--- NOTE | ~2021-08-08 | US_ITS ---
EXAMINATION: US RETROPERITONEAL LIMITED (RENAL ONLY) CLINICAL INFORMATION: Other specified disorders of kidney and ureter. COMPARISON: Ultrasound abdomen complete 12/09/2020. Ultrasound abdomen Limited 11/08/2020. CT abdomen and pelvis with contrast 02/22/2021. X-ray abdomen KUB 02/19/2020 and 05/14/2017. TECHNIQUE: Real-time imaging of the kidneys. FINDINGS: RIGHT KIDNEY: 10.8 x 4.4 x 4.6 cm (SAG x AP x TRV). The kidney is normal in size, contour, and echogenicity. There is focal cortical thinning or scarring in the upper pole. Renal cortical thickness is otherwise normal. No calculi or focal parenchymal lesions. Small probable cyst in the medial upper pole the right kidney seen by CT January 2021 is not appreciated by ultrasound. No hydronephrosis. LEFT KIDNEY: 10.0 x 4.3 x 4.3 cm (SAG x AP x TRV). The kidney is normal in size, contour, and echogenicity. There is focal cortical thinning or scarring in the lower pole. There is a new hypoechoic cystic appearing area exophytic to the upper pole of the left kidney. This is irregularly-shaped and measures 2.2 x 1.1 cm. This probably represents a small amount of a peripelvic fluid as opposed to an exophytic renal cyst. Renal cortical thickness is otherwise normal. No renal calculi or hydronephrosis. US/US renal BI IMPRESSION: Bilateral renal cortical thinning or scarring. New 2.2 x 1 x 1 cm irregularly-shaped cystic or fluid containing area exophytic to the upper pole of the left kidney. This is more suggestive of a peripelvic fluid then exophytic renal cyst..
== END 2021-08-08 09:17 | disposition home or self-care (01) ==
LOC: HO.US 09:16
PROVIDERS: PCP Internal Medicine; Visit Provider Urology
DX: N28.89 Other specified disorders of kidney and ureter (principal)
CPT/HCPCS: 76775

== ENCOUNTER → 2021-08-30 13:23 | Outpatient (BNVA) | payer OTHER, SELFPAY | PROVIDERS: PCP Internal Medicine; Visit Provider Urology ==

== ENCOUNTER → 2021-09-05 13:25 | Outpatient (BNVA) | payer OTHER, SELFPAY | PROVIDERS: PCP Internal Medicine; Visit Provider Dietitian, Registered | DX: E11.65 Type 2 diabetes mellitus with hyperglycemia (principal); Z71.3 Dietary counseling and surveillance | CPT/HCPCS: 97803 ==

== ENCOUNTER 2021-10-24 11:02 | Outpatient (REF) | payer MEDICARE, MEDICAID, OTHER, SELFPAY ==
--- NOTE | ~2021-10-24 | XR_ITS ---
EXAMINATION: XR KNEE, BILATERAL CLINICAL INFORMATION: Bilateral anterior knee pain. No injury. COMPARISON: None TECHNIQUE: 3 views each knee. FINDINGS: LEFT KNEE: There is minimal loss of medial compartment joint space left knee. No bony erosive changes, acute fracture or loose body seen. There is no joint effusion. RIGHT KNEE: There is minimal loss of medial compartment right knee. No acute fracture, dislocation, loose bodies, or bony erosive changes. No abnormal joint effusion. XR/XR knee RT 3V IMPRESSION: Minimal loss of medial compartment joint space both knees. No acute fracture, loose bodies or joint effusion.
--- NOTE | ~2021-10-24 | XR_ITS ---
EXAMINATION: XR KNEE, BILATERAL CLINICAL INFORMATION: Bilateral anterior knee pain. No injury. COMPARISON: None TECHNIQUE: 3 views each knee. FINDINGS: LEFT KNEE: There is minimal loss of medial compartment joint space left knee. No bony erosive changes, acute fracture or loose body seen. There is no joint effusion. RIGHT KNEE: There is minimal loss of medial compartment right knee. No acute fracture, dislocation, loose bodies, or bony erosive changes. No abnormal joint effusion. XR/XR knee LT 3V IMPRESSION: Minimal loss of medial compartment joint space both knees. No acute fracture, loose bodies or joint effusion.
[2021-10-24 12:02] LABS: MANUAL DIFF FLAG NO
[2021-10-24 13:04] LABS: Basophils Absolute Auto 0.1 X10*3/uL (0.0-0.2); Basophils Percent Auto 0.9 % (0-2); Eosinophils Absolute Auto 0.3 X10*3/uL (0.0-0.4); Eosinophils Percent Auto 4.8 % (0-4); Hematocrit 43.5 % (42.0-52.0); Hemoglobin 13.4 g/dl (14.0-18.0); Imm Gran Abs Auto 0.01 X10*3/uL (0.00-0.03); Imm Gran Pct Auto 0.2 % (0.0-0.4); Lymphocytes Absolute Auto 1.8 X10*3/uL (1.2-4.9); Lymphocytes Percent Auto 26.6 % (20-40); Mean Corpuscular HGB Conc 30.8 g/dl (31.0-36.0); Mean Corpuscular Hemoglobin 25.8 pg (27.0-33.0); Mean Corpuscular Volume 83.8 fL (80.0-98.0); Mean Platelet Volume 10.2 fL (9.4-12.4); Monocytes Absolute Auto 0.5 X10*3/uL (0.1-1.2); Monocytes Percent Auto 7.6 % (2-11); Neutrophils Percent Auto 59.9 % (45-73); Platelet Count 272 X10*3/uL (160-400); Red Blood Count 5.19 X10*6/uL (4.60-5.80); Red Cell Distribution Width 13.3 % (11.0-16.0); White Blood Count 6.6 X10*3/uL (4.8-10.8)
[2021-10-24 13:36] LABS: Creatinine Urine 192.08 mg/dL; Microalbum/Creatinine Ratio Ur 5.2 ug/mg cr
[2021-10-24 13:43] LABS: Alanine Aminotransferase 39 U/L (0-40); Alkaline Phosphatase 84 U/L (39-117); Anion Gap 12 (12-20); Aspartate Amino Transferase 25 U/L (5-37); Bilirubin Total 0.4 mg/dL (0.0-1.0); Blood Urea Nitrogen 19 mg/dL (9-16); C Reactive Protein 0.31 mg/dL (< or = 0.50); Calcium 9.3 mg/dL (8.4-10.2); Carbon Dioxide 26 mmol/L (22-29); Chloride 109 mmol/L (96-108); Cholesterol 167 mg/dL; Estimated Glomerular Filt Rate > 60; Glucose Random 106 mg/dL (60-115); HDL Cholesterol 29 mg/dL; LDL Cholesterol Calculated 105 mg/dl; Potassium 4.7 mmol/L (3.3-5.1); Sodium 142 mmol/L (135-145); Total Protein 7.2 g/dL (6.5-8.0); Triglycerides 166 mg/dL
[2021-10-24 14:05] LABS: Estimated Average Glucose 143 mg/dL; Hemoglobin A1c % 6.6 %
[2021-10-24 14:39] LABS: Erythrocyte Sedimentation Rate 14 MM/HR (0-15)
[2021-10-26 17:47] LABS: Anti DNA DS Antibody 1 IU/mL; SM/Ribonucleoprotein Ab <1.0 NEG AI (<1.0 NEG); Smith Protein <1.0 NEG AI (<1.0 NEG)
== END 2021-10-24 11:03 | disposition home or self-care (01) ==
LOC: HO.XRAY 11:02
PROVIDERS: PCP Internal Medicine; Visit Provider Internal Medicine Rheumatology
DX: M25.561 Pain in right knee (principal); M25.562 Pain in left knee; E11.65 Type 2 diabetes mellitus with hyperglycemia; E78.00 Pure hypercholesterolemia, unspecified; R76.8 Other specified abnormal immunological findings in serum
CPT/HCPCS: 36415; 73562; 80053; 80061; 82043; 83036; 85025; 85652; 86140; 86225; 86235; 99212

== ENCOUNTER → 2021-11-08 10:35 | Outpatient (BNVA) | payer MEDICARE, MEDICAID, OTHER, SELFPAY | PROVIDERS: PCP Internal Medicine; Visit Provider Dietitian, Registered | DX: E11.65 Type 2 diabetes mellitus with hyperglycemia (principal) | CPT/HCPCS: 97803 ==

== ENCOUNTER 2021-12-07 09:07 | Outpatient (REF) | payer MEDICARE, MEDICAID, SELFPAY ==
--- NOTE | 2021-12-07 09:10 | EMG_ITS ---
HISTORY OF PRESENT ILLNESS: This is a 66-year-old man with bilateral upper extremity numbness and pain. PHYSICAL EXAMINATION: His neurological examination is normal. He has a development of abnormality of his thenar eminences and an oddly shaped thumb. Neurological exam is otherwise normal. IMPRESSION: Rule out carpal tunnel syndrome. Nerve conduction EMG study: Normal electrodiagnostic study of both upper extremities except for low motor amplitudes in the median nerves, which may be developmental. There is no electrodiagnostic evidence of carpal tunnel syndrome or generalized peripheral neuropathy. Normal EMG of the right C5-T1 innervated muscles. MD JUANY Pichardo/ROSE / [id number]
== END 2021-12-07 09:08 | disposition home or self-care (01) ==
LOC: HO.NEURO 09:07
PROVIDERS: PCP Internal Medicine; Visit Provider Internal Medicine
DX: R20.0 Anesthesia of skin (principal)
CPT/HCPCS: 95886; 95913

== ENCOUNTER → 2022-02-08 10:31 | Outpatient (BNVA) | payer MEDICARE, MEDICAID, SELFPAY | PROVIDERS: PCP Internal Medicine; Visit Provider Dietitian, Registered | DX: E11.65 Type 2 diabetes mellitus with hyperglycemia (principal); Z71.3 Dietary counseling and surveillance | CPT/HCPCS: 97803 ==

== ENCOUNTER 2022-03-08 09:30 | Outpatient (REF) | payer MEDICARE, MEDICAID, SELFPAY ==
[2022-03-08 10:09] LABS: MANUAL DIFF FLAG NO
[2022-03-08 10:20] LABS: Basophils Absolute Auto 0.1 X10*3/uL (0.0-0.2); Eosinophils Absolute Auto 0.4 X10*3/uL (0.0-0.4); Eosinophils Percent Auto 4.4 % (0-4); Hemoglobin 13.5 g/dl (14.0-18.0); Imm Gran Abs Auto 0.03 X10*3/uL (0.00-0.03); Imm Gran Pct Auto 0.4 % (0.0-0.4); Immature Retic Fraction 10.3 % (2.3-13.4); Lymphocytes Absolute Auto 2.1 X10*3/uL (1.2-4.9); Lymphocytes Percent Auto 25.9 % (20-40); Mean Corpuscular HGB Conc 32.1 g/dl (31.0-36.0); Mean Corpuscular Hemoglobin 26.4 pg (27.0-33.0); Mean Platelet Volume 9.2 fL (9.4-12.4); Monocytes Absolute Auto 0.7 X10*3/uL (0.1-1.2); Monocytes Percent Auto 7.9 % (2-11); Neutrophils Percent Auto 60.4 % (45-73); Platelet Count 261 X10*3/uL (160-400); Red Blood Count 5.12 X10*6/uL (4.60-5.80); Red Cell Distribution Width 12.9 % (11.0-16.0); Retic HGB Equivalent 31.1 pg (30.0-35.0); Reticulocyte Percent 1.2 % (0.5-1.8); Reticulocytes Absolute 0.059 X10*6/uL (0.026-0.095); White Blood Count 8.3 X10*3/uL (4.8-10.8)
[2022-03-08 10:59] LABS: Alanine Aminotransferase 43 U/L (0-40); Albumin Level 3.9 g/dL (3.5-5.0); Alkaline Phosphatase 99 U/L (39-117); Anion Gap 13 (12-20); Aspartate Amino Transferase 26 U/L (5-37); Bilirubin Total 0.5 mg/dL (0.0-1.0); Blood Urea Nitrogen 15 mg/dL (9-16); Calcium 8.6 mg/dL (8.4-10.2); Carbon Dioxide 23 mmol/L (22-29); Chloride 107 mmol/L (96-108); Cholesterol 127 mg/dL; Estimated Glomerular Filt Rate > 60; Glucose Random 121 mg/dL (60-115); HDL Cholesterol 25 mg/dL; Iron 129 mcg/dL (45-160); LDL Cholesterol Calculated 80 mg/dl; Percent Iron Saturation 44 % (15-50); Potassium 4.5 mmol/L (3.3-5.1); Sodium 138 mmol/L (135-145); Total Iron Binding Capacity 292 mcg/dL (228-428); Triglycerides 110 mg/dL; Unsaturated Iron Binding 163 ug/dL
[2022-03-08 11:23] LABS: Ferritin 175 ng/mL (20-250)
[2022-03-08 11:33] LABS: Folate 14.9 ng/mL (> or = 4.0); Vitamin B12 367 pg/mL (200-900)
== END 2022-03-08 09:31 | disposition home or self-care (01) ==
LOC: HO.LAB 09:30
PROVIDERS: PCP Internal Medicine; Visit Provider Internal Medicine
DX: E11.65 Type 2 diabetes mellitus with hyperglycemia (principal); E78.00 Pure hypercholesterolemia, unspecified; D64.9 Anemia, unspecified
CPT/HCPCS: 36415; 80053; 80061; 82607; 82728; 82746; 83540; 85025; 85045

== ENCOUNTER → 2022-07-25 09:56 | Outpatient (BNVA) | payer MEDICARE, MEDICAID, SELFPAY | PROVIDERS: PCP Internal Medicine; Visit Provider Nurse Practitioner Family | DX: R41.89 Other symptoms and signs involving cognitive functions and awareness (principal); R06.83 Snoring; G47.19 Other hypersomnia; G47.9 Sleep disorder, unspecified | CPT/HCPCS: 99202 ==

== ENCOUNTER 2022-08-11 10:03 | Outpatient (REF) | payer MEDICARE, MEDICAID, SELFPAY ==
[2022-08-11 13:13] LABS: Erythrocyte Sedimentation Rate 16 MM/HR (0-15)
[2022-08-11 13:15] LABS: Syphilis Screen Nonreactive (Nonreactive); TSH reflex Free T4 2.31 uIU/mL (0.32-4.0)
[2022-08-11 13:30] LABS: Folate 9.6 ng/mL (> or = 4.0); Prostate Specific Antigen 2.06 ng/mL (<0.05-4.0); Vitamin B12 309 pg/mL (200-900)
[2022-08-14 08:10] LABS: HIV AB/AG Nonreactive (Nonreactive); HIV Num 1 0.06 S/CO (0.00-0.99)
[2022-08-14 18:24] LABS: Homocysteine 9.4 umol/L (<11.4)
[2022-08-16 10:13] LABS: Methylmalonic Acid 127 nmol/L (87-318)
== END 2022-08-11 10:04 | disposition home or self-care (01) ==
LOC: HO.LAB 10:03
PROVIDERS: Urology; Absent Provider Nurse Practitioner Family; PCP Internal Medicine; Visit Provider Dietitian, Registered
DX: Z12.5 Encounter for screening for malignant neoplasm of prostate (principal); Z11.4 Encounter for screening for human immunodeficiency virus [HIV]; N13.8 Other obstructive and reflux uropathy; N40.1 Benign prostatic hyperplasia with lower urinary tract symptoms; R35.0 Frequency of micturition; R41.89 Other symptoms and signs involving cognitive functions and awareness; R53.83 Other fatigue; D64.9 Anemia, unspecified; E11.65 Type 2 diabetes mellitus with hyperglycemia; E78.00 Pure hypercholesterolemia, unspecified
CPT/HCPCS: 36415; 82607; 82746; 83090; 83921; 84153; 84443; 85652; 86780; 87389; 97803

== ENCOUNTER 2022-08-15 09:43 | Outpatient (REF) | payer MEDICARE, MEDICAID, SELFPAY ==
--- NOTE | ~2022-08-15 | US_ITS ---
EXAMINATION: US RETROPERITONEAL LIMITED (RENAL ONLY) CLINICAL INFORMATION: Cyst of kidney, acquired. COMPARISON: Ultrasound retroperitoneal limited (renal only) 08/08/2021. CT abdomen and pelvis with contrast 02/22/2021. Ultrasound abdomen complete 12/09/2020. X-ray abdomen KUB 02/19/2020 and 05/14/2017. MRI abdomen with and without contrast 06/28/2012. TECHNIQUE: Real-time imaging of the kidneys. FINDINGS: RIGHT KIDNEY: 10.2 x 4.8 x 4.8 cm (SAG x AP x TRV). The kidney is normal in size, contour, and echogenicity. Renal cortical thickness is normal. No calculi or focal parenchymal lesions. No hydronephrosis. There is an area of scarring seen in the right kidney which is near a junctional cortical defect. LEFT KIDNEY: 10.0 x 4.9 x 4.6 cm (SAG x AP x TRV). The kidney is normal in size, contour, and echogenicity. Renal cortical thickness is normal. No renal calculi or hydronephrosis. A 1 cm parapelvic cyst is noted at the lower pole. There is a cystic area seen near the upper pole of the left kidney measuring 1.5 x 0.8 x 0.5 cm that was not identified on prior ultrasound or CT. US/US renal BI IMPRESSION: 1. Area of scarring in the right kidney. 2. Small cystic area near the upper pole of the left kidney. I cannot say with certainty that this tiny area is a Bosniak class I simple cyst. This was not seen on the prior ultrasound or CT. A follow-up ultrasound in one year is recommended for further evaluation.
== END 2022-08-15 09:44 | disposition home or self-care (01) ==
LOC: HO.US 09:43
PROVIDERS: PCP Internal Medicine; Visit Provider Urology
DX: N28.1 Cyst of kidney, acquired (principal)
CPT/HCPCS: 76775

== ENCOUNTER → 2022-08-16 12:55 | Outpatient (REF) | payer MEDICARE, MEDICAID, SELFPAY | LOC: HO.SL 12:55 | PROVIDERS: PCP Internal Medicine; Visit Provider Nurse Practitioner Family | DX: G47.19 Other hypersomnia (principal); R06.83 Snoring; R41.89 Other symptoms and signs involving cognitive functions and awareness; R53.83 Other fatigue | CPT/HCPCS: 95806 ==

== ENCOUNTER 2022-09-12 07:52 | Outpatient (REF) | payer MEDICARE, MEDICAID, SELFPAY ==
--- NOTE | 2022-09-12 16:04 | PFT_ITS ---
INDICATION: Shortness of breath. SPIROMETRY: FEV1 to FVC of 79% with an FEV1 of 1.88 L, which is 69% predicted and an FVC of 2.38 L, which is 67% predicted. No significant response to bronchodilators noted. Maximum voluntary ventilation only 58% predicted. LUNG VOLUMES: Total lung capacity 78% predicted with an expiratory reserve volume of 22% predicted. DIFFUSION CAPACITY: DLCO of 61% predicted. It does correct to 92% when correcting for the alveolar volume. COMPARISONS: None available. INTERPRETATION: No obstructive ventilatory defects. No significant response to bronchodilators noted. However, the patient does have a moderate decrease in maximum voluntary ventilation, which could secondary to deconditioning and/or neuromuscular conditions. The patient also has a restrictive ventilatory defect consistent with mild restrictive lung disease. Again, need to consider underlying neuromuscular conditions and/or parenchymal lung conditions. The patient does have a mild diffusion impairment that does correct to normal when correcting for the alveolar volume. Clinical correlation warranted. MD SUSAN Casey/MODL / [id number]
== END 2022-09-12 07:53 | disposition home or self-care (01) ==
LOC: HO.RESP 07:52
PROVIDERS: PCP Internal Medicine; Visit Provider Internal Medicine
DX: R06.02 Shortness of breath (principal)
CPT/HCPCS: 94060; 94727; 94729

== ENCOUNTER 2022-09-13 08:42 | Outpatient (REF) | payer MEDICARE, MEDICAID, SELFPAY ==
--- NOTE | ~2022-09-13 | MR_ITS ---
EXAMINATION: MRI OF THE BRAIN WITHOUT CONTRAST CLINICAL INFORMATION: Forgetful, blurry vision. COMPARISON: There are no prior studies available for comparison. TECHNIQUE: MRI of the brain was obtained using routine sequences without contrast. FINDINGS: No diffusion abnormalities are identified to suggest an acute or subacute infarct. No mass effect or midline shift is seen. There is mild commensurate prominence of the ventricles and sulci consistent with diffuse volume loss. There are multiple small scattered foci of hyperintense T2 and FLAIR signal in the periventricular and subcortical white matter, most consistent with chronic microvascular ischemic changes. 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 No extra-axial fluid collections are seen. The brainstem and cerebellum are normal. No pathologic magnetic susceptibility artifact is identified on the gradient refocused acquisition. The craniovertebral junction, marrow signal, and midline structures are normal. The major intracranial flow-voids at the level of the [place] are preserved. The dural venous sinus flow-voids are maintained. There have been bilateral lens extractions. The mastoid air cells are well-aerated. There is mild mucoperiosteal thickening in the anterior ethmoid sinuses bilaterally. MR/MR head/brain wo con IMPRESSION: 1. There are no acute bleeds or territorial infarcts. No masses are demonstrated. 2. There are chronic microvascular ischemic changes and there is diffuse volume loss.
== END 2022-09-13 08:43 | disposition home or self-care (01) ==
LOC: HO.MRI 08:42
PROVIDERS: PCP Internal Medicine; Visit Provider Nurse Practitioner Family
DX: R41.89 Other symptoms and signs involving cognitive functions and awareness (principal); R53.83 Other fatigue
CPT/HCPCS: 70551

== ENCOUNTER → 2022-09-18 08:10 | Outpatient (BNVA) | payer MEDICARE, MEDICAID, SELFPAY | PROVIDERS: PCP Internal Medicine; Visit Provider Dietitian, Registered | DX: E11.65 Type 2 diabetes mellitus with hyperglycemia (principal) | CPT/HCPCS: 97803 ==

== ENCOUNTER 2022-09-25 20:15 | Inpatient (IN) | payer MEDICARE, MEDICAID, SELFPAY ==
--- NOTE | ~2022-09-25 | XR_ITS ---
EXAMINATION: XR CHEST CLINICAL INFORMATION: NG tube placement COMPARISON: Chest radiograph 01/17/2021 TECHNIQUE: Frontal view of the chest was obtained. FINDINGS: The NG tube is in good position with its tip in the gastric fundus. The lungs are hypoinflated. There is left basilar atelectasis. A tiny left pleural effusion cannot be excluded. No consolidations or pneumothorax. XR/XR chest 1V IMPRESSION: NG tube in good position with tip in gastric fundus.
--- NOTE | ~2022-09-25 | CT_ITS ---
EXAMINATION: CT ABDOMEN AND PELVIS WITHOUT CONTRAST CLINICAL INFORMATION: Left side abdominal pain COMPARISON: Ultrasound kidneys 08/15/2022 TECHNIQUE: Multidetector volumetric imaging was performed from the superior aspect of the liver through the pubic symphysis. Sagittal and coronal reformatted images were obtained on the technologist's workstation. This CT examination was performed using dose optimization techniques as appropriate, variously including the following: *Automated exposure control *Adjustment of mA and/or kV according to patient size (this includes techniques or standardized protocols for targeted exams where dose is matched to indication/reason for exam; i.e. extremities or head) *Use of iterative reconstruction technique DLP: 445 mGy-cm FINDINGS: LUNG BASES: The visualized lung bases are unremarkable. LIVER, GALLBLADDER, AND BILIARY TREE: The liver is normal in size, shape, and attenuation. No focal hepatic lesion or biliary ductal dilatation is present. The gallbladder is unremarkable with no evidence of radiopaque gallstones, gallbladder wall thickening, or obvious pericholecystic inflammatory changes. PANCREAS: Unremarkable. SPLEEN: Unremarkable. ADRENAL GLANDS: Unremarkable. KIDNEYS AND URETERS: The kidneys are normal in size, shape, and attenuation with the exception of an area of scarring in both kidneys, unchanged. No hydronephrosis, hydroureter, or calculi seen. No perinephric stranding. BLADDER: Unremarkable. GASTROINTESTINAL TRACT: A tiny hiatal hernia is present. There is some extremely subtle inflammatory changes adjacent to the proximal descending colon with some mild thickening of the lateral conal fascia. Findings could be related to some minimal epiploic appendagitis. The finding of note, however, is jejunal dilatation with fecalization consistent with small bowel obstruction. The transition zone can be seen in the midabdomen to the right of midline (see brenner image as well as 3:44-55). A small amount of fluid can be seen in the mesentery at this location along with some free fluid present in the pelvis.. The small and large bowel are otherwise unremarkable. The appendix is unremarkable. ABDOMINAL WALL: No significant hernia is appreciated. LYMPH NODES: Normal. VASCULAR: Unremarkable. PELVIC VISCERA: Unremarkable. OSSEOUS STRUCTURES: Unremarkable. CT/CT abdomen pelvis wo IV con IMPRESSION: 1. Small bowel obstruction with transition zone in the midabdomen. 2. Question of some minimal epiploic appendagitis adjacent to the proximal descending colon. 3. Other incidental findings as described above including bilateral renal scarring.. Fleischner guidelines were followed.
--- NOTE | 2022-09-25 20:27 | ED.ABDPAIN ---
HPI - Abdominal Pain General Chief Complaint: Abdominal Pain <BLANK Maki - Last Filed: 09/25/22 20:42> Stated Complaint: pancreas pain? <BLANK Maki - Last Filed: 09/25/22 20:42> Time Seen by Provider: 09/25/22 21:47 <BLANK Maki - Last Filed: 09/25/22 20:42> Source: patient <Erick Quintana MD - Last Filed: 09/26/22 03:31> Mode of arrival: ambulatory <Erick Quintana MD - Last Filed: 09/26/22 03:31> Limitations: no limitations <Erick Quintana MD - Last Filed: 09/26/22 03:31> History of Present Illness HPI narrative: Patient with history of alcoholic pancreatitis in 11/12 comes in for diffuse abdominal pain started yesterday got worse earlier today with nausea and vomiting, vomited several times prior to arrival not moving any gas feels abdomen distended patient also been constipated for last 1 week. no fever or chills. No urinary complaints no history of kidney stone no history of bowel obstruction <Erick Quintana MD - Last Filed: 09/26/22 03:31> Related Data Home Medications: Home Medications Medication Instructions Recorded Confirmed latanoprost 0.005 % eye drops 1 drp ophthalmic (eye) BEDTIME 03/26/20 09/26/22 timolol maleate 0.5 % eye drops 1 drp ophthalmic (eye) QAM 03/26/20 09/26/22 amitriptyline 25 mg tablet 25 mg PO BEDTIME 09/26/22 09/26/22 Previous Rx's Medication Instructions Recorded blood-glucose meter (MalinaStyle #1 ea 06/10/21 Lite Meter kit) STERILE Alcohol Prep pad #100 ea 09/13/21 simvastatin 20 mg tablet 20 mg PO BEDTIME 90 days #90 tabs 12/19/21 sennosides 8.6 mg-docusate sodium 2 tab-cap PO BEDTIME #60 tabs 03/13/22 50 mg tablet (Senna-S) lancets 28 gauge (FreeStyle #100 ea 07/25/22 Lancets) metformin 500 mg tablet 500 mg PO BIDWMEAL #60 tabs 07/25/22 blood sugar diagnostic (FreeStyle #100 ea 07/28/22 Lite Strips) albuterol sulfate 90 mcg/actuation 2 puff inhalation Q4-6H PRN 08/24/22 aerosol inhaler (Proventil HFA) Shortness Of Breath #8.5 grams <BLANK Maki - Last Filed: 09/25/22 20:42> Allergies/Adverse Reactions: Allergies Allergy/AdvReac Type Severity Reaction Status Date / Time losartan Allergy Intermediate cough Verified 07/25/22 08:42 Penicillins [PENICILLINS] Allergy Mild RASH Verified 07/25/22 08:42 <BLANK Maki - Last Filed: 09/25/22 20:42> Review of Systems Review of Systems Yes all other systems are reviewed and are negative <Erick Quintana MD - Last Filed: 09/26/22 03:31> [facility] Past Medical History Medical History: Medical History Alcohol abuse LATOYA positive Anxiety Arthritis Bilateral hand numbness BPH (benign prostatic hyperplasia) Cataract Cervical radiculopathy Glaucoma HTN (hypertension) Hx of small bowel obstruction Hypercholesterolemia Insomnia Knee pain, bilateral Median nerve neuropathy Osteoarthritis of hands, bilateral Peripheral neuropathy Tubular adenoma of colon Vitamin D deficiency <BLANK Maki - Last Filed: 09/25/22 20:42> Surgical History: Surgical History History of cataract surgery History of inguinal hernia repair Hx of colonoscopy <BLANK Maki - Last Filed: 09/25/22 20:42> Family History Family History: Family History Father No problems noted. Mother Diabetes Brother Lung cancer <BLANK Maki - Last Filed: 09/25/22 20:42> Social History Social History: Social History Housing: Apartment Alcohol intake: never Patient Tobacco Use Status: Former Tobacco user Years Smoked: stopped 2000 Smoked in Last 30 Days: No e-Cigarette/Vaping Use: Never Used Second Hand Smoke Exposure: No Advance Directives: No Advance Directives Information Provided: Yes service: No Current occupational status: unemployed Cognitive needs: No Hearing needs: No Vision needs: Yes <BLANK Maki - Last Filed: 09/25/22 20:42> Physical Exam ED Vital Signs: Vital Signs - 24 hr 09/25/22 20:37 Temperature 98.1 F Pulse Rate 118 H Respiratory Rate 18 Blood Pressure 156/86 H Pulse Oximetry 96 Oxygen Delivery Method Room Air BMI result Body Mass Index 25.7 <BLANK Maki - Last Filed: 09/25/22 20:42> Vital Signs - 24 hr 09/25/22 20:37 Temperature 98.1 F Pulse Rate 118 H Respiratory Rate 18 Blood Pressure 156/86 H Pulse Oximetry 96 Oxygen Delivery Method Room Air BMI result Body Mass Index 25.7 <Erick Quintana MD - Last Filed: 09/26/22 03:31> Appearance: Alert. Oriented X3. No acute distress. Eyes: No pallor or icterus ENT: Pharynx normal. Oral Mucosa moist Neck: Normal inspection. Neck supple. CVS: Normal heart rate and rhythm. Pulses normal. Respiratory: No respiratory distress. Equal air entry bilateral, no wheezing/rales/rhonchi Abdomen: Distended mild discomfort left abdomen Bowel sounds are sluggish, no mass palpable, no CVA tenderness Skin: Skin warm and dry. Normal skin color. Normal skin turgor. Extremities: No lower extremity edema. No calf tenderness Neuro: Oriented X 3. No motor deficit. <Erick Quintana MD - Last Filed: 09/26/22 03:31> Course Course Course Narrative: RME - 66 y/o male with history of alcoholic pancreatitis, anemia, GERD, DM2, cognitive impairment, HTN, HLD, anxiety who presents to the ER for evaluation of possible pancreas pain. He reports severe left sided abdominal pain that started last night. It radiates to his back. It is associated with nausea and vomiting. Feels similar to pancreatitis episode. Has been sober since. HR 120 in triage. tender LUQ, RUQ and epigastic area. Will get labs and CT scan w/ con for further evaluation. <BLANK Maki - Last Filed: 09/25/22 20:42> Medical Decision Making Medical Decision Making MDM Narrative: Patient diffuse abdominal pain workup showed small-bowel obstruction with transition point at jejunum etiology not very clear patient had only right inguinal hernia surgery in the past. NG tube was placed and gastric content drained and patient felt much better with pain decreased Dr. An surgeon will admit the patient <Erick Quintana MD - Last Filed: 09/26/22 03:31> Differential Diagnosis SBO/diverticulitis/kidney stone/pancreatitis <Erick Quintana MD - Last Filed: 09/26/22 03:31> Lab Data [facility] Lab Attestation statement: I reviewed the patient's lab results. <Erick Quintana MD - Last Filed: 09/26/22 03:31> Result Diagrams: 09/25/22 20:55 09/25/22 20:55 <BLANK Maki - Last Filed: 09/25/22 20:42> Labs: Lab Results 09/25/22 09/25/22 09/25/22 Range/Units 20:55 20:55 20:55 WBC 14.6 H (4.8-10.8) X10*3/uL RBC 6.00 H (4.60-5.80) X10*6/uL Hgb 15.5 (14.0-18.0) g/dl Hct 48.4 (42.0-52.0) % MCV 80.7 (80.0-98.0) fL MCH 25.8 L (27.0-33.0) pg MCHC 32.0 (31.0-36.0) g/dl RDW 13.3 (11.0-16.0) % Plt Count 314 (160-400) X10*3/uL MPV 9.5 (9.4-12.4) fL Immature Gran % (Auto) 0.4 (0.0-0.4) % Neut % (Auto) 84.8 H (45-73) % Lymph % (Auto) 9.2 L (20-40) % Garrett % (Auto) 5.2 (2-11) % Eos % (Auto) 0.1 (0-4) % Baso % (Auto) 0.3 (0-2) % Lymph # (Auto) 1.4 (1.2-4.9) X10*3/uL Garrett # (Auto) 0.8 (0.1-1.2) X10*3/uL Eos # (Auto) 0.0 (0.0-0.4) X10*3/uL Baso # (Auto) 0.1 (0.0-0.2) X10*3/uL Abs Immat Gran (auto) 0.06 H (0.00-0.03) X10*3/uL Absolute Neuts (auto) 12.4 H (2.0-8.3) x10*3/uL Absolute Nucleated RBC 0.000 (0.0-0.012) X10*3/uL Nucleated RBC % (auto) 0.0 (0.0-0.2) /100WBC Sodium 137 (135-145) mmol/L Potassium 4.7 (3.3-5.1) mmol/L Chloride 105 (96-108) mmol/L Carbon Dioxide 23 (22-29) mmol/L Anion Gap 14 (12-20) BUN 12 (9-16) mg/dL Creatinine 0.78 (0.5-1.4) mg/dL Estim Creat Clear Calc 79.0 Estimated GFR > 60 Random Glucose 155 H (60-115) mg/dL Lactic Acid (0.5-2.0) mmol/L Calcium 9.2 D (8.4-10.2) mg/dL Magnesium 1.9 (1.6-2.6) mg/dL Total Bilirubin 0.7 (0.0-1.0) mg/dL Direct Bilirubin 0.2 (0.0-0.5) mg/dL AST 19 (5-37) U/L ALT 24 (0-40) U/L Alkaline Phosphatase 76 (39-117) U/L Total Protein 7.2 (6.5-8.0) g/dL Albumin 4.2 (3.5-5.0) g/dL Lipase 11 (8-78) U/L Urine Color Urine Appearance Urine pH (5.0-9.0) Ur Specific Brownfield (1.005-1.025) Urine Protein (Neg-Trace) mg/dL Urine Glucose (UA) (Negative) mg/dL Urine Ketones (Negative) mg/dL Urine Blood (Negative) Urine Nitrite (Negative) Ur Leukocyte Esterase (Negative) Urine RBC (0-2) /HPF Urine WBC (0-5) /HPF Ur Squamous Epith Cells (0-2) /HPF Urine Bacteria (None Seen) Hyaline Casts (0-2) /LPF Ethyl Alcohol < 10 mg/dL 09/25/22 09/25/22 Range/Units 23:20 23:29 WBC (4.8-10.8) X10*3/uL RBC (4.60-5.80) X10*6/uL Hgb (14.0-18.0) g/dl Hct (42.0-52.0) % MCV (80.0-98.0) fL MCH (27.0-33.0) pg MCHC (31.0-36.0) g/dl RDW (11.0-16.0) % Plt Count (160-400) X10*3/uL MPV (9.4-12.4) fL Immature Gran % (Auto) (0.0-0.4) % Neut % (Auto) (45-73) % Lymph % (Auto) (20-40) % Garrett % (Auto) (2-11) % Eos % (Auto) (0-4) % Baso % (Auto) (0-2) % Lymph # (Auto) (1.2-4.9) X10*3/uL Garrett # (Auto) (0.1-1.2) X10*3/uL Eos # (Auto) (0.0-0.4) X10*3/uL Baso # (Auto) (0.0-0.2) X10*3/uL Abs Immat Gran (auto) (0.00-0.03) X10*3/uL Absolute Neuts (auto) (2.0-8.3) x10*3/uL Absolute Nucleated RBC (0.0-0.012) X10*3/uL Nucleated RBC % (auto) (0.0-0.2) /100WBC Sodium (135-145) mmol/L Potassium (3.3-5.1) mmol/L Chloride (96-108) mmol/L Carbon Dioxide (22-29) mmol/L Anion Gap (12-20) BUN (9-16) mg/dL Creatinine (0.5-1.4) mg/dL Estim Creat Clear Calc Estimated GFR Random Glucose (60-115) mg/dL Lactic Acid 1.5 (0.5-2.0) mmol/L Calcium (8.4-10.2) mg/dL Magnesium (1.6-2.6) mg/dL Total Bilirubin (0.0-1.0) mg/dL Direct Bilirubin (0.0-0.5) mg/dL AST (5-37) U/L ALT (0-40) U/L Alkaline Phosphatase (39-117) U/L Total Protein (6.5-8.0) g/dL Albumin (3.5-5.0) g/dL Lipase (8-78) U/L Urine Color Dark Yellow Urine Appearance Cloudy Urine pH 5.5 (5.0-9.0) Ur Specific Brownfield >= 1.030 H (1.005-1.025) Urine Protein 30 (1+) H (Neg-Trace) mg/dL Urine Glucose (UA) Negative (Negative) mg/dL Urine Ketones 15 (Negative) mg/dL Urine Blood Trace H (Negative) Urine Nitrite Negative (Negative) Ur Leukocyte Esterase Negative (Negative) Urine RBC 6-10 H (0-2) /HPF Urine WBC 0-5 (0-5) /HPF Ur Squamous Epith Cells 3-5 (0-2) /HPF Urine Bacteria None Seen (None Seen) Hyaline Casts 11-20 (0-2) /LPF Ethyl Alcohol mg/dL <BLANK Maki - Last Filed: 09/25/22 20:42> Lab Results 09/25/22 09/25/22 09/25/22 Range/Units 20:55 20:55 20:55 WBC 14.6 H (4.8-10.8) X10*3/uL RBC 6.00 H (4.60-5.80) X10*6/uL Hgb 15.5 (14.0-18.0) g/dl Hct 48.4 (42.0-52.0) % MCV 80.7 (80.0-98.0) fL MCH 25.8 L (27.0-33.0) pg MCHC 32.0 (31.0-36.0) g/dl RDW 13.3 (11.0-16.0) % Plt Count 314 (160-400) X10*3/uL MPV 9.5 (9.4-12.4) fL Immature Gran % (Auto) 0.4 (0.0-0.4) % Neut % (Auto) 84.8 H (45-73) % Lymph % (Auto) 9.2 L (20-40) % Garrett % (Auto) 5.2 (2-11) % Eos % (Auto) 0.1 (0-4) % Baso % (Auto) 0.3 (0-2) % Lymph # (Auto) 1.4 (1.2-4.9) X10*3/uL Garrett # (Auto) 0.8 (0.1-1.2) X10*3/uL Eos # (Auto) 0.0 (0.0-0.4) X10*3/uL Baso # (Auto) 0.1 (0.0-0.2) X10*3/uL Abs Immat Gran (auto) 0.06 H (0.00-0.03) X10*3/uL Absolute Neuts (auto) 12.4 H (2.0-8.3) x10*3/uL Absolute Nucleated RBC 0.000 (0.0-0.012) X10*3/uL Nucleated RBC % (auto) 0.0 (0.0-0.2) /100WBC Sodium 137 (135-145) mmol/L Potassium 4.7 (3.3-5.1) mmol/L Chloride 105 (96-108) mmol/L Carbon Dioxide 23 (22-29) mmol/L Anion Gap 14 (12-20) BUN 12 (9-16) mg/dL Creatinine 0.78 (0.5-1.4) mg/dL Estim Creat Clear Calc 79.0 Estimated GFR > 60 Random Glucose 155 H (60-115) mg/dL Lactic Acid (0.5-2.0) mmol/L Calcium 9.2 D (8.4-10.2) mg/dL Magnesium 1.9 (1.6-2.6) mg/dL Total Bilirubin 0.7 (0.0-1.0) mg/dL Direct Bilirubin 0.2 (0.0-0.5) mg/dL AST 19 (5-37) U/L ALT 24 (0-40) U/L Alkaline Phosphatase 76 (39-117) U/L Total Protein 7.2 (6.5-8.0) g/dL Albumin 4.2 (3.5-5.0) g/dL Lipase 11 (8-78) U/L Urine Color Urine Appearance Urine pH (5.0-9.0) Ur Specific Brownfield (1.005-1.025) Urine Protein (Neg-Trace) mg/dL Urine Glucose (UA) (Negative) mg/dL Urine Ketones (Negative) mg/dL Urine Blood (Negative) Urine Nitrite (Negative) Ur Leukocyte Esterase (Negative) Urine RBC (0-2) /HPF Urine WBC (0-5) /HPF Ur Squamous Epith Cells (0-2) /HPF Urine Bacteria (None Seen) Hyaline Casts (0-2) /LPF Ethyl Alcohol < 10 mg/dL 09/25/22 09/25/22 Range/Units 23:20 23:29 WBC (4.8-10.8) X10*3/uL RBC (4.60-5.80) X10*6/uL Hgb (14.0-18.0) g/dl Hct (42.0-52.0) % MCV (80.0-98.0) fL MCH (27.0-33.0) pg MCHC (31.0-36.0) g/dl RDW (11.0-16.0) % Plt Count (160-400) X10*3/uL MPV (9.4-12.4) fL Immature Gran % (Auto) (0.0-0.4) % Neut % (Auto) (45-73) % Lymph % (Auto) (20-40) % Garrett % (Auto) (2-11) % Eos % (Auto) (0-4) % Baso % (Auto) (0-2) % Lymph # (Auto) (1.2-4.9) X10*3/uL Garrett # (Auto) (0.1-1.2) X10*3/uL Eos # (Auto) (0.0-0.4) X10*3/uL Baso # (Auto) (0.0-0.2) X10*3/uL Abs Immat Gran (auto) (0.00-0.03) X10*3/uL Absolute Neuts (auto) (2.0-8.3) x10*3/uL Absolute Nucleated RBC (0.0-0.012) X10*3/uL Nucleated RBC % (auto) (0.0-0.2) /100WBC Sodium (135-145) mmol/L Potassium (3.3-5.1) mmol/L Chloride (96-108) mmol/L Carbon Dioxide (22-29) mmol/L Anion Gap (12-20) BUN (9-16) mg/dL Creatinine (0.5-1.4) mg/dL Estim Creat Clear Calc Estimated GFR Random Glucose (60-115) mg/dL Lactic Acid 1.5 (0.5-2.0) mmol/L Calcium (8.4-10.2) mg/dL Magnesium (1.6-2.6) mg/dL Total Bilirubin (0.0-1.0) mg/dL Direct Bilirubin (0.0-0.5) mg/dL AST (5-37) U/L ALT (0-40) U/L Alkaline Phosphatase (39-117) U/L Total Protein (6.5-8.0) g/dL Albumin (3.5-5.0) g/dL Lipase (8-78) U/L Urine Color Dark Yellow Urine Appearance Cloudy Urine pH 5.5 (5.0-9.0) Ur Specific Brownfield >= 1.030 H (1.005-1.025) Urine Protein 30 (1+) H (Neg-Trace) mg/dL Urine Glucose (UA) Negative (Negative) mg/dL Urine Ketones 15 (Negative) mg/dL Urine Blood Trace H (Negative) Urine Nitrite Negative (Negative) Ur Leukocyte Esterase Negative (Negative) Urine RBC 6-10 H (0-2) /HPF Urine WBC 0-5 (0-5) /HPF Ur Squamous Epith Cells 3-5 (0-2) /HPF Urine Bacteria None Seen (None Seen) Hyaline Casts 11-20 (0-2) /LPF Ethyl Alcohol mg/dL <Erick Quintana MD - Last Filed: 09/26/22 03:31> Medications Administered Generic Name Dose Route Start Last Admin Trade Name Freq PRN Reason Stop Dose Admin Heparin Sodium (Porcine) 5,000 unit 09/25/22 23:45 09/26/22 00:34 Heparin Sodium,Porcine 5,000 Unit/Ml Vial SUBCUT 5,000 unit Q12H DHARMESH Administration Hydromorphone HCl 0.5 mg 09/25/22 23:46 09/26/22 02:44 Hydromorphone Hcl 0.5 Mg/0.5 Ml Syringe IVPUSH 0.5 mg Q3H PRN Administration Pain, Severe (Pain Scale 7-10) Protocol Lactated Ringer's 1,000 mls @ 125 mls/hr 09/25/22 23:57 09/26/22 00:34 Lr IVCONT 125 mls/hr .Q8H DHARMESH Administration Sodium Chloride 3 ml 09/26/22 00:00 09/26/22 00:46 0.9 % Sodium Chloride Flush 3 Ml Syringe IVFLUSH Not Given QSHIFT DHARMESH Discontinued Medications Generic Name Dose Route Start Last Admin Trade Name Christine PRN Reason Stop Dose Admin Sodium Chloride 1,000 mls @ 999 mls/hr 09/25/22 23:00 09/26/22 00:38 Ns IV 09/26/22 00:00 Infused .Q1H1M ONE Infusion Lidocaine HCl 1 appl 09/25/22 23:29 09/26/22 00:03 Lidocaine Hcl 4 % Rabqug-K-Ged 4 Ml TOPICAL 09/25/22 23:30 1 appl ONCE ONE Administration Morphine Sulfate 4 mg 09/25/22 23:17 09/25/22 23:23 Morphine Sulfate 4 Mg/Ml Cartridge IVPUSH 09/25/22 23:18 4 mg ONCE ONE Administration Protocol Ondansetron HCl 4 mg 09/25/22 23:17 09/25/22 23:22 Ondansetron Hcl 4 Mg/2 Ml Vial IVPUSH 09/25/22 23:18 4 mg ONCE ONE Administration <BLANK Maki - Last Filed: 09/25/22 20:42> Medications Administered Generic Name Dose Route Start Last Admin Trade Name Christine PRN Reason Stop Dose Admin Heparin Sodium (Porcine) 5,000 unit 09/25/22 23:45 09/26/22 00:34 Heparin Sodium,Porcine 5,000 Unit/Ml Vial SUBCUT 5,000 unit Q12H DHARMESH Administration Hydromorphone HCl 0.5 mg 09/25/22 23:46 09/26/22 02:44 Hydromorphone Hcl 0.5 Mg/0.5 Ml Syringe IVPUSH 0.5 mg Q3H PRN Administration Pain, Severe (Pain Scale 7-10) Protocol Lactated Ringer's 1,000 mls @ 125 mls/hr 09/25/22 23:57 09/26/22 00:34 Lr IVCONT 125 mls/hr .Q8H DHARMESH Administration Sodium Chloride 3 ml 09/26/22 00:00 09/26/22 00:46 0.9 % Sodium Chloride Flush 3 Ml Syringe IVFLUSH Not Given QSHIFT DHARMESH Discontinued Medications Generic Name Dose Route Start Last Admin Trade Name Freq PRN Reason Stop Dose Admin Sodium Chloride 1,000 mls @ 999 mls/hr 09/25/22 23:00 09/26/22 00:38 Ns IV 09/26/22 00:00 Infused .Q1H1M ONE Infusion Lidocaine HCl 1 appl 09/25/22 23:29 09/26/22 00:03 Lidocaine Hcl 4 % Urwggw-I-Brz 4 Ml TOPICAL 09/25/22 23:30 1 appl ONCE ONE Administration Morphine Sulfate 4 mg 09/25/22 23:17 09/25/22 23:23 Morphine Sulfate 4 Mg/Ml Cartridge IVPUSH 09/25/22 23:18 4 mg ONCE ONE Administration Protocol Ondansetron HCl 4 mg 09/25/22 23:17 09/25/22 23:22 Ondansetron Hcl 4 Mg/2 Ml Vial IVPUSH 09/25/22 23:18 4 mg ONCE ONE Administration <Erick Quintana MD - Last Filed: 09/26/22 03:31> Discharge Plan Discharge Clinical Impression: Small bowel obstruction <BLANK Maki - Last Filed: 09/25/22 20:42> Patient Disposition: Admitted As Inpatient <BLANK Maki - Last Filed: 09/25/22 20:42>
[2022-09-25 20:37] VITALS: BP 156/86; PULSE 118; RESP 18; TEMP 36.7; O2SAT 96; BMI 25.7
[2022-09-25 21:01] LABS: MANUAL DIFF FLAG NO
[2022-09-25 21:02] LABS: Basophils Absolute Auto 0.1 X10*3/uL (0.0-0.2); Basophils Percent Auto 0.3 % (0-2); Eosinophils Percent Auto 0.1 % (0-4); Hematocrit 48.4 % (42.0-52.0); Hemoglobin 15.5 g/dl (14.0-18.0); Imm Gran Abs Auto 0.06 X10*3/uL (0.00-0.03); Imm Gran Pct Auto 0.4 % (0.0-0.4); Lymphocytes Absolute Auto 1.4 X10*3/uL (1.2-4.9); Lymphocytes Percent Auto 9.2 % (20-40); Mean Corpuscular Hemoglobin 25.8 pg (27.0-33.0); Mean Corpuscular Volume 80.7 fL (80.0-98.0); Mean Platelet Volume 9.5 fL (9.4-12.4); Monocytes Absolute Auto 0.8 X10*3/uL (0.1-1.2); Monocytes Percent Auto 5.2 % (2-11); Neutrophils Absolute Auto 12.4 x10*3/uL (2.0-8.3); Neutrophils Percent Auto 84.8 % (45-73); Platelet Count 314 X10*3/uL (160-400); Red Cell Distribution Width 13.3 % (11.0-16.0); White Blood Count 14.6 X10*3/uL (4.8-10.8)
[2022-09-25 21:23] LABS: Alanine Aminotransferase 24 U/L (0-40); Albumin Level 4.2 g/dL (3.5-5.0); Alkaline Phosphatase 76 U/L (39-117); Anion Gap 14 (12-20); Aspartate Amino Transferase 19 U/L (5-37); Bilirubin Direct 0.2 mg/dL (0.0-0.5); Bilirubin Total 0.7 mg/dL (0.0-1.0); Blood Urea Nitrogen 12 mg/dL (9-16); Calcium 9.2 mg/dL (8.4-10.2); Carbon Dioxide 23 mmol/L (22-29); Chloride 105 mmol/L (96-108); Estimated Glomerular Filt Rate > 60; Glucose Random 155 mg/dL (60-115); Lipase 11 U/L (8-78); Magnesium 1.9 mg/dL (1.6-2.6); Potassium 4.7 mmol/L (3.3-5.1); Sodium 137 mmol/L (135-145); Total Protein 7.2 g/dL (6.5-8.0)
[2022-09-25 21:31] LABS: Ethanol < 10 mg/dL
[2022-09-25] MEDS: 0.9 % Sodium Chloride 1,000 ML 999 ML IV (23:17)
[2022-09-25] MEDS: ondansetron HCL 4 MG/2 ML VIAL IVPUSH (23:22)
[2022-09-25] MEDS: Morphine Sulfate 4 MG/ML CARTRIDGE IVPUSH (23:23)
[2022-09-25 23:36] LABS: Appearance Urine Cloudy; Color Urine Dark Yellow; Glucose Urine UA Negative (Negative); Leukocyte Esterase Urine Negative (Negative); Nitrite Urine Negative (Negative); PH 5.5 (5.0-9.0); Specific Gravity - Urine >= 1.030 (1.005-1.025); UMIC TRIGGER UACC YES; Urine Blood Trace (Negative); Urine Ketones 15 mg/dL (Negative); Urine Protein 30 (1+) mg/dL (Neg-Trace)
[2022-09-25 23:40] LABS: Lactic Acid 1.5 mmol/L (0.5-2.0)
[2022-09-25 23:47] LABS: Bacteria Urine None Seen (None Seen); WBC Urine 0-5 /HPF (0-5)
[2022-09-26] MEDS: Lidocaine HCl 4 % Laryng-O-Jet 4 ML 1 APPL TOPICAL (00:03)
[2022-09-26] MEDS: Heparin Sodium,Porcine 5,000 UNIT/ML VIAL 5000 UNIT SUBCUT ×3 (00:34→22:48)
[2022-09-26] MEDS: Lactated Ringers 1,000 ML 125 ML IVCONT ×3 (00:34→17:52)
[2022-09-26] MEDS: HYDROmorphone HCl 0.5 MG/0.5 ML SYRINGE IVPUSH (02:44)
[2022-09-26 03:01] LABS: COVID-19 Test Negative (Negative); IDNOW Serial# BCCEAD1C
[2022-09-26 04:12] VITALS: BP 121/76; PULSE 104; RESP 18; O2SAT 92
--- NOTE | 2022-09-26 04:19 | PC.NURSE ---
Pt. found to have a SBO. NG tube was placed. Pt. tolerated procedure well. Placement confirmed by x-ray. Pt. reports some relief from pain with the tube placement. Pt. reports some discomfort in the throat d/t the NG tube. Pt. NG tube is draining yellow/brown fluid. Pt. assigned bed 379. Called report to ABIGAIL Roche. Pt. to be transported by [facility].
[2022-09-26 04:36] VITALS: BP 127/79; PULSE 73; RESP 16; TEMP 36.1; O2SAT 93
[2022-09-26 04:39] VITALS: RESP 18
[2022-09-26 04:41] VITALS: BMI 25.7
--- NOTE | 2022-09-26 05:00 | PC.NURSE ---
Patient arrived to the unit via stretcher, he is alert and oriented X 4. Respiration is even and non-labored, vital signs within normal limits. Pt NG tube is intact, reconnected to intermittent low wall suction, draining light brown. This RN reinforced teaching on NPO diet, pt verbalized understanding. Pt has no concerns at this time and is aware of plan of care.
[2022-09-26 06:14] LABS: MANUAL DIFF FLAG NO
[2022-09-26 06:17] LABS: Basophils Percent Auto 0.4 % (0-2); Eosinophils Absolute Auto 0.1 X10*3/uL (0.0-0.4); Eosinophils Percent Auto 0.5 % (0-4); Hematocrit 42.2 % (42.0-52.0); Hemoglobin 13.5 g/dl (14.0-18.0); Imm Gran Abs Auto 0.03 X10*3/uL (0.00-0.03); Imm Gran Pct Auto 0.3 % (0.0-0.4); Lymphocytes Absolute Auto 2.2 X10*3/uL (1.2-4.9); Lymphocytes Percent Auto 21.5 % (20-40); Mean Corpuscular Hemoglobin 26.5 pg (27.0-33.0); Mean Corpuscular Volume 82.7 fL (80.0-98.0); Mean Platelet Volume 9.7 fL (9.4-12.4); Monocytes Absolute Auto 0.9 X10*3/uL (0.1-1.2); Monocytes Percent Auto 8.6 % (2-11); Neutrophils Absolute Auto 7.1 x10*3/uL (2.0-8.3); Neutrophils Percent Auto 68.7 % (45-73); Platelet Count 280 X10*3/uL (160-400); Red Cell Distribution Width 13.4 % (11.0-16.0); White Blood Count 10.3 X10*3/uL (4.8-10.8)
[2022-09-26 06:40] LABS: Anion Gap 9 (12-20); Blood Urea Nitrogen 12 mg/dL (9-16); Calcium 8.3 mg/dL (8.4-10.2); Carbon Dioxide 25 mmol/L (22-29); Chloride 107 mmol/L (96-108); Creatinine Clr Calc Pharmacy 90.6; Estimated Glomerular Filt Rate > 60; Glucose Random 140 mg/dL (60-115); Potassium 4.4 mmol/L (3.3-5.1); Sodium 137 mmol/L (135-145)
--- NOTE | 2022-09-26 06:55 | PHA.MEDREC ---
Pharmacy Consult ? Medication Reconciliation Pharmacy has reviewed the medication reconciliation by Carmina. There are no remarkable issues for provider's attention. Nadia Kemp, MargyD
[2022-09-26 07:40] VITALS: BP 154/91; PULSE 103; RESP 16; TEMP 36.3; O2SAT 94
--- NOTE | 2022-09-26 08:43 | PM.HPGS ---
History of Present Illness History of Present Illness Date of Service: 09/26/22 <Dorita Garcia PA-C - Last Filed: 09/26/22 11:09> 09/26/22 <Des An MD - Last Filed: 09/26/22 13:42> Chief complaint: Small bowel obstruction <Dorita Garcia PA-C - Last Filed: 09/26/22 11:09> Narrative: Car Moore is a 66 year old male with PMH significant for DM, alcohol induced pancreatitis, HLD, who presented to the ED with complaints of left sided abdominal pain. He reports the pain began last night and was located at the left mid abdomen. He reports he has had this pain occasionally before but it has never been this severe. He reports it was intermittent but sharp in nature. The pain was associated with nausea and vomiting. Due to the severity of pain, he came to the ED for evaluation. Work up included CT scan which showed extremely subtle inflammatory changes adjacent to the proximal descending colon with some mild thickening of the lateral conal fascia, possibly related to some minimal epiploic appendagitis. He alos had jejunal dilatation with fecalization consistent with small bowel obstruction. Admission to the surgical service was therefore requested. NGT was inserted in the ED with minimal output. This morning he reports feeling a little improved, he currently denies abd pain. He denies fevers, chills. He denies having a bowel movement or passing flatus for two days but feels like he has to pass flatus this morning. He initially felt bloated but feels this is improved as well. <Dorita Garcia PA-C - Last Filed: 09/26/22 11:09> Review of Systems Constitutional: Constitutional: Denies chills and Denies fever(s) <Dorita Garcia PA-C - Last Filed: 09/26/22 11:09> ENT: Denies dizziness <CORTES Hanna Last Filed: 09/26/22 11:09> Cardiovascular: Cardiovascular: Denies chest pain, Denies palpitations and Denies dyspnea <Dorita Garcia PA-C - Last Filed: 09/26/22 11:09> Respiratory: Respiratory: Denies cough and Denies dyspnea <Dorita Garcia PA-C - Last Filed: 09/26/22 11:09> Gastrointestinal: Gastrointestinal: Reports as per HPI and Denies hematemesis <CORTES Hanna Last Filed: 09/26/22 11:09> Genitourinary: Genitourinary: Denies hematuria and Denies dysuria <CORTES Hanna Last Filed: 09/26/22 11:09> Integumentary/Breasts: Skin/Breast: Denies rash and Denies jaundice <CORTES Hanna Last Filed: 09/26/22 11:09> Neurologic: Denies dizziness <CORTES Hanna Last Filed: 09/26/22 11:09> Endocrine: Endocrine: Denies palpitations <CORTES Hanna Last Filed: 09/26/22 11:09> [facility] Past Medical History Medical History: Medical History (Updated 09/26/22 @ 13:35 by BLANK Ta) Alcohol abuse LATOYA positive Anxiety Arthritis Bilateral hand numbness BPH (benign prostatic hyperplasia) Cataract Cervical radiculopathy Glaucoma HTN (hypertension) Hx of small bowel obstruction Hypercholesterolemia Insomnia Knee pain, bilateral Median nerve neuropathy Osteoarthritis of hands, bilateral Peripheral neuropathy Tubular adenoma of colon Type 2 diabetes mellitus with hyperglycemia Vitamin D deficiency <CORTES Hanna Last Filed: 09/26/22 11:09> Family History Family History: Family History Father No problems noted. Mother Diabetes Brother Lung cancer <Dorita Garcia PA-C Last Filed: 09/26/22 11:09> Surgical History Surgical History: Surgical History History of cataract surgery History of inguinal hernia repair Hx of colonoscopy <CORTES Hanna Last Filed: 09/26/22 11:09> Social History Social History: Social History Household Members: Spouse Housing: Apartment Alcohol intake: never Patient Tobacco Use Status: Former Tobacco user Years Smoked: stopped 2000 Smoked in Last 30 Days: No e-Cigarette/Vaping Use: Never Used Second Hand Smoke Exposure: No Use of substances other than those prescribed or required for medical reasons: No Currently Displaying Signs/Symptoms of Drug Intoxication Withdrawal: No Have you been hit, kicked, punched, or otherwise hurt by someone within the past year? If so, by whom?: No Do you feel safe in your current relationship?: Yes Is there a partner from a previous relationship who is making you feel unsafe now?: No Are you made to feel afraid or neglected: No Advance Directives: No Advance Directives Information Provided: Yes Do you have thoughts of harming others: None Do you have a plan to hurt others: No Plan Recently lost weight without trying: No Eating poorly because of decreased appetite: No Nutrition Risks: No Nutritional Risk service: No Current occupational status: unemployed Cognitive needs: No Hearing needs: No Vision needs: Yes <Dorita Garcia PA-C - Last Filed: 09/26/22 11:09> Meds Allergies/Adverse reactions: Allergies Allergy/AdvReac Type Severity Reaction Status Date / Time losartan Allergy Intermediate cough Verified 07/25/22 08:42 Penicillins [PENICILLINS] Allergy Mild RASH Verified 07/25/22 08:42 <Dorita Garcia PA-C - Last Filed: 09/26/22 11:09> Active Medications: Current Medications Albuterol Sulfate (Albuterol Sulfate 90 Mcg 8 Gm Inhaler) 2 puff INHALE Q4H PRN PRN Reason: Shortness Of Breath Amitriptyline HCl (Amitriptyline Hcl 25 Mg Tablet) 25 mg PO BEDTIME [facility]ARM[facility] Atorvastatin Calcium (Atorvastatin Calcium 10 Mg Tablet) 10 mg PO BEDTIME [facility] Glucose (Glucose Gel 15 Gm Gel..Gram.) 15 gm PO Q15M PRN; Protocol PRN Reason: per Hypoglycemia Standing Ord. Heparin Sodium (Porcine) (Heparin Sodium,Porcine 5,000 Unit/Ml Vial) 5,000 unit SUBCUT Q12H [facility] Last Admin: 09/26/22 00:34 Dose: 5,000 unit Hydromorphone HCl (Hydromorphone Hcl 0.5 Mg/0.5 Ml Syringe) 0.5 mg IVPUSH Q3H PRN; Protocol PRN Reason: Pain, Severe (Pain Scale 7-10) Last Admin: 09/26/22 02:44 Dose: 0.5 mg Lactated Ringer's (Lr) 1,000 mls @ 125 mls/hr IVCONT .Q8H [facility] Last Admin: 09/26/22 07:28 Dose: 125 mls/hr Dextrose (D10) 250 mls @ 750 mls/hr IV Q15M PRN; Protocol PRN Reason: per Hypoglycemia Standing Ord. Ibuprofen (Ibuprofen 600 Mg Tablet) 600 mg PO Q8H PRN PRN Reason: Pain, Mild (Pain Scale 1-3) Insulin Human Lispro (Insulin Lispro 100 Unit/Ml 3 Ml Vial) 0 unit SUBCUT QIDACHS [facility]; Protocol Stop: 09/26/22 23:55 Latanoprost (Latanoprost 0.005 % Ophth Lela 2.5 Ml Drops) 1 drop EYE-BOTH BEDTIME [facility] Ondansetron HCl (Ondansetron Hcl 4 Mg/2 Ml Vial) 4 mg IVPUSH QID PRN PRN Reason: Nausea Oxycodone HCl (Oxycodone Hcl Immed Release 5 Mg Tablet) 5 mg PO Q4H PRN PRN Reason: Pain, Moderate (Pain Scale 4-6 Pharmacy Consult (Consult Rx Perform Med Rec) 1 each MISCELLANE ONCE PRN PRN Reason: Consult order Sodium Chloride (0.9 % Sodium Chloride Flush 3 Ml Syringe) 3 ml IVFLUSH QSHIFT [facility] Last Admin: 09/26/22 07:07 Dose: Not Given Timolol Maleate (Timolol Maleate 0.5 % Oph Lela 5 Ml Drbtl) 1 drop EYE-BOTH DAILY [facility] Zolpidem Tartrate (Zolpidem Tartrate 5 Mg Tablet) 5 mg PO BEDTIME PRN PRN Reason: Insomnia <Dorita Garcia PA-C - Last Filed: 09/26/22 11:09> Home medications: Home Medications Medication Instructions Recorded Confirmed Last Taken Type latanoprost 0.005 % eye drops 1 drp ophthalmic (eye) BEDTIME 03/26/20 09/26/22 11/07/20 History timolol maleate 0.5 % eye drops 1 drp ophthalmic (eye) QAM 03/26/20 09/26/22 11/07/20 History amitriptyline 25 mg tablet 25 mg PO BEDTIME 09/26/22 09/26/22 Unknown History <CORTES Hanna Last Filed: 09/26/22 11:09> Physical Exam Vital Signs: Vital Signs: Last Vital Signs Temp 97.3 F 09/26/22 07:40 Pulse 103 H 09/26/22 07:40 Resp 16 09/26/22 07:40 BP 154/91 H 09/26/22 07:40 Pulse Ox 94 09/26/22 07:40 O2 Del Method Room Air 09/26/22 07:40 BMI result Body Mass Index 25.7 <Dorita Garcia PA-C - Last Filed: 09/26/22 11:09> Const: General: comfortable, no acute distress and alert <CORTES Hanna Last Filed: 09/26/22 11:09> Orientation/consciousness: patient oriented x3 <CORTES Hanna Last Filed: 09/26/22 11:09> HEENT: Other: NGT in place with scant drainage <CORTES Hanna Last Filed: 09/26/22 11:09> Resp: Effort & Inspection: normal respiratory effort <CORTES Hanna Last Filed: 09/26/22 11:09> Cardio: Rate: tachycardic <CORTES Hanna Last Filed: 09/26/22 11:09> GI: Inspection: Yes distended (round abdomen) <CORTES Hanna Last Filed: 09/26/22 11:09> Palpation (GI): Soft to palpation, nontender, no guarding and not rigid <CORTES Hanna Last Filed: 09/26/22 11:09> Skin: General skin exam: no rashes or lesions noted <CORTES Hanna Last Filed: 09/26/22 11:09> Neuro: General: patient oriented x3 <CORTES Hanna Last Filed: 09/26/22 11:09> Extrem: General: Yes no clubbing, cyanosis or edema <CORTES Hanna Last Filed: 09/26/22 11:09> Results Results Labs: Short CBC 09/25/22 09/26/22 Range/Units 20:55 06:08 WBC 14.6 H 10.3 (4.8-10.8) X10*3/uL Hgb 15.5 13.5 L (14.0-18.0) g/dl Hct 48.4 42.2 (42.0-52.0) % Plt Count 314 280 (160-400) X10*3/uL BMP 09/25/22 09/26/22 20:55 06:08 Sodium 137 137 Potassium 4.7 4.4 Chloride 105 107 Carbon Dioxide 23 25 BUN 12 12 Creatinine 0.78 0.68 Calcium 9.2 D 8.3 L D Liver Function 09/25/22 Range/Units 20:55 Total Bilirubin 0.7 (0.0-1.0) mg/dL Direct Bilirubin 0.2 (0.0-0.5) mg/dL AST 19 (5-37) U/L ALT 24 (0-40) U/L Alkaline Phosphatase 76 (39-117) U/L Albumin 4.2 (3.5-5.0) g/dL Urine 09/25/22 Range/Units 23:29 Urine Color Dark Yellow Urine Appearance Cloudy Urine pH 5.5 (5.0-9.0) Ur Specific [place] >= 1.030 H (1.005-1.025) Urine Protein 30 (1+) H (Neg-Trace) mg/dL Urine Glucose (UA) Negative (Negative) mg/dL <CORTES Hanna Last Filed: 09/26/22 11:09> Abdomen CT scan report/results: report reviewed and image reviewed <CORTES Hanna Last Filed: 09/26/22 11:09> Assessment and Plan (1) Epiploic appendagitis: Status: Acute <CORTES Hanna Last Filed: 09/26/22 11:09> 66 year old male who presented to the ED with complaints of left sided abd pain, nausea/vomiting with CT scan demonstrating inflammatory changes adjacent to the proximal descending colon with jejunal dilatation with fecalization with concern over SBO. NGT therefore inserted in the ED. His abd pain/nausea/vomiting is resolved and he has had minimal NGT output. He reports the pain was present in the area mid left abdomen, which is where the inflammatory changes consistent with epiploic appendagitis are present. Feel like this is likely the source of his pain. He did have a leukocytosis present upon presentation but this has normalized and was likely reactive from vomiting. He also has had no prior abd surgery. Given the minimal NGT output, will dc the NGT and advance to clears. He was encouraged to ambulate to promote GI function. Motrin was added for pain and anti-inflammatory agent. Advance diet further as tolerated. <Dorita Garcia PA-C - Last Filed: 09/26/22 11:09> 66 year old male who presented to the ED with complaints of left sided abd pain, nausea/vomiting with CT scan demonstrating inflammatory changes adjacent to the proximal descending colon with jejunal dilatation with fecalization with concern over SBO. NGT therefore inserted in the ED. His abd pain/nausea/vomiting is resolved and he has had minimal NGT output. He reports the pain was present in the area mid left abdomen, which is where the inflammatory changes consistent with epiploic appendagitis are present. Feel like this is likely the source of his pain. He did have a leukocytosis present upon presentation but this has normalized and was likely reactive from vomiting. He also has had no prior abd surgery. Given the minimal NGT output, will dc the NGT and advance to clears. He was encouraged to ambulate to promote GI function. Motrin was added for pain and anti-inflammatory agent. Advance diet further as tolerated. 66-year-old male patient presenting with complaints of abdominal pain, nausea and vomiting found to have possible small-bowel obstruction and epiploic appendagitis. He was placed on bowel rest with nasogastric tube decompression and reports feeling much improved this morning. He denies any ongoing abdominal pain other than slight pain in the right lower quadrant. The nasogastric tube was removed earlier today he was started on clear liquids. He is tolerating this well without any nausea or vomiting. On examination his abdomen is soft nondistended with no tenderness to the right lower or left lower quadrants, no tympany to percussion, no rebound, guarding, or rigidity. Overall patient is improved and his diet will slowly be advanced as tolerated. Potential discharge in a.m. if diet tolerated. <Des An MD - Last Filed: 09/26/22 13:42> Time Spent With Patient Time: Total time managing care of this patient today ____ minutes. <Dorita Garcia PA-C - Last Filed: 09/26/22 11:09> Quality Stroke Does the patient have a stroke diagnosis?: No <Dorita Garcia PA-C - Last Filed: 09/26/22 11:09> VTE Prior VTE?: No <Dorita Garcia PA-C - Last Filed: 09/26/22 11:09> VTE Risk Level:: Surgical - moderate <Dorita Garcia PA-C - Last Filed: 09/26/22 11:09> VTE Device Contraindication: N/A - Device Ordered <Dorita Garcia PA-C - Last Filed: 09/26/22 11:09> VTE Drug Contraindication: N/A - Med Ordered <Dorita Garcia PA-C - Last Filed: 09/26/22 11:09> Procedures Date of Service Date of Service: 09/26/22 <Dorita Garcia PA-C - Last Filed: 09/26/22 11:09>
[2022-09-26 08:49] LABS: Glucose, Whole Blood 119 mg/dL (60-115)
--- NOTE | 2022-09-26 09:40 | MHC.CM.PN ---
PATIENT LIVES WITH HIS NIECE. HE IS INDEPENDENT WITH ADLS. NO DME OR [facility] SERVICES STEP-DAUGHTER, KOBE/HCP(COPY REQUESTED) ASSISTS WITH TRANSPORT NEEDS. COVID VACCINATED AND 1 BOOSTER HOPES TO RETURN HOME WITH NO SERVICES IMM 09/26 IN CHART
[2022-09-26 11:30] LABS: Glucose, Whole Blood 137 mg/dL (60-115)
--- NOTE | 2022-09-26 13:31 | P.CONHOSP_ITS ---
History of Present Illness Data of Consult Service Date: 09/26/22 Requesting physician: Des An Primary Care Provider: MD RENNY Evangelista Reason for consult: medical management 66-year-old male with history of alcohol abuse in remission, median nerve neuropathy, hyperlipidemia, hypertension, tubular adenoma of the colon, vitamin- D deficiency, glaucoma, [id number] type 2 diabetes, GERD, history of pancreatitis, and anxiety admitted to general surgery for epiploic appendagitis and small-bowel obstruction with consult placed to hospitalist service for medical management. The patient is reporting mild tenderness in the lower abdomen but denies any nausea, vomiting. He has not yet moved his bowels but passing flatus. No other complaints at this time. He is being managed conservatively and NGT was removed this am, advanced to clears. Review of Systems Review of Systems: General: No fevers, malaise, unintentional weight loss HEENT: No blurred vision, diplopia. No sore throat, nasal congestion, rhinorrhea, sinus pain, ear pain Cardiovascular: No chest pain, palpitations, or leg edema Respiratory: No shortness of breath, wheezing, cough GI: No abdominal pain, nausea, vomiting, diarrhea, constipation, melena, hematochezia : No dysuria, hematuria, increased urinary frequency, decreased urinary output MSK: No myalgia, back pain Neuro: No headaches, weakness, paresthesias Skin: No rashes or lesions [facility] Medical History (Updated 09/26/22 @ 13:35 by BLANK Ta) Alcohol abuse LATOYA positive Anxiety Arthritis Bilateral hand numbness BPH (benign prostatic hyperplasia) Cataract Cervical radiculopathy Glaucoma HTN (hypertension) Hx of small bowel obstruction Hypercholesterolemia Insomnia Knee pain, bilateral Median nerve neuropathy Osteoarthritis of hands, bilateral Peripheral neuropathy Tubular adenoma of colon Type 2 diabetes mellitus with hyperglycemia Vitamin D deficiency Family History Father No problems noted. Mother Diabetes Brother Lung cancer Surgical History History of cataract surgery History of inguinal hernia repair Hx of colonoscopy Social History Household Members: Spouse Housing: Apartment Alcohol intake: never Patient Tobacco Use Status: Former Tobacco user Years Smoked: stopped 2000 Smoked in Last 30 Days: No e-Cigarette/Vaping Use: Never Used Second Hand Smoke Exposure: No Use of substances other than those prescribed or required for medical reasons: No Currently Displaying Signs/Symptoms of Drug Intoxication Withdrawal: No Have you been hit, kicked, punched, or otherwise hurt by someone within the past year? If so, by whom?: No Do you feel safe in your current relationship?: Yes Is there a partner from a previous relationship who is making you feel unsafe now?: No Are you made to feel afraid or neglected: No Advance Directives: No Advance Directives Information Provided: Yes Do you have thoughts of harming others: None Do you have a plan to hurt others: No Plan Recently lost weight without trying: No Eating poorly because of decreased appetite: No Nutrition Risks: No Nutritional Risk service: No Current occupational status: unemployed Cognitive needs: No Hearing needs: No Vision needs: Yes Meds Allergies Allergy/AdvReac Type Severity Reaction Status Date / Time losartan Allergy Intermediate cough Verified 07/25/22 08:42 Penicillins [PENICILLINS] Allergy Mild RASH Verified 07/25/22 08:42 Active Medications: Current Medications Albuterol Sulfate (Albuterol Sulfate 90 Mcg 8 Gm Inhaler) 2 puff INHALE Q4H PRN PRN Reason: Shortness Of Breath Amitriptyline HCl (Amitriptyline Hcl 25 Mg Tablet) 25 mg PO BEDTIME [facility] Atorvastatin Calcium (Atorvastatin Calcium 10 Mg Tablet) 10 mg PO BEDTIME [facility] Glucose (Glucose Gel 15 Gm Gel..Gram.) 15 gm PO Q15M PRN; Protocol PRN Reason: per Hypoglycemia Standing Ord. Heparin Sodium (Porcine) (Heparin Sodium,Porcine 5,000 Unit/Ml Vial) 5,000 unit SUBCUT Q12H [facility] Last Admin: 09/26/22 12:03 Dose: 5,000 unit Hydromorphone HCl (Hydromorphone Hcl 0.5 Mg/0.5 Ml Syringe) 0.5 mg IVPUSH Q3H PRN; Protocol PRN Reason: Pain, Severe (Pain Scale 7-10) Last Admin: 09/26/22 02:44 Dose: 0.5 mg Lactated Ringer's (Lr) 1,000 mls @ 125 mls/hr IVCONT .Q8H [facility] Last Admin: 09/26/22 07:28 Dose: 125 mls/hr Dextrose (D10) 250 mls @ 750 mls/hr IV Q15M PRN; Protocol PRN Reason: per Hypoglycemia Standing Ord. Ibuprofen (Ibuprofen 600 Mg Tablet) 600 mg PO Q8H PRN PRN Reason: Pain, Mild (Pain Scale 1-3) Insulin Human Lispro (Insulin Lispro 100 Unit/Ml 3 Ml Vial) 0 unit SUBCUT QIDACHS [facility]; Protocol Stop: 09/26/22 23:55 Last Admin: 09/26/22 11:35 Dose: Not Given Latanoprost (Latanoprost 0.005 % Ophth Lela 2.5 Ml Drops) 1 drop EYE-BOTH BEDTIME [facility] Ondansetron HCl (Ondansetron Hcl 4 Mg/2 Ml Vial) 4 mg IVPUSH QID PRN PRN Reason: Nausea Oxycodone HCl (Oxycodone Hcl Immed Release 5 Mg Tablet) 5 mg PO Q4H PRN PRN Reason: Pain, Moderate (Pain Scale 4-6 Pharmacy Consult (Consult Rx Perform Med Rec) 1 each MISCELLANE ONCE PRN PRN Reason: Consult order Sodium Chloride (0.9 % Sodium Chloride Flush 3 Ml Syringe) 3 ml IVFLUSH QSHIFT [facility] Last Admin: 09/26/22 07:07 Dose: Not Given Timolol Maleate (Timolol Maleate 0.5 % Oph Lela 5 Ml Drbtl) 1 drop EYE-BOTH DAILY [facility] Last Admin: 09/26/22 10:47 Dose: Not Given Zolpidem Tartrate (Zolpidem Tartrate 5 Mg Tablet) 5 mg PO BEDTIME PRN PRN Reason: Insomnia Home Medications Medication Instructions Recorded Confirmed Last Taken Type latanoprost 0.005 % eye drops 1 drp ophthalmic (eye) BEDTIME 03/26/20 09/26/22 11/07/20 History timolol maleate 0.5 % eye drops 1 drp ophthalmic (eye) QAM 03/26/20 09/26/22 11/07/20 History amitriptyline 25 mg tablet 25 mg PO BEDTIME 09/26/22 09/26/22 Unknown History Physical Exam Vital Signs and Narrative: Vital Signs: Last Vital Signs Temp 97.3 F 09/26/22 07:40 Pulse 103 H 09/26/22 07:40 Resp 16 04/04/23 07:40 BP 154/91 H 09/26/22 07:40 Pulse Ox 94 09/26/22 07:40 O2 Del Method Room Air 09/26/22 07:40 BMI result Body Mass Index 25.7 Results Labs 09/26/22 06:08 09/26/22 06:08 Labs: Laboratory Results - last 24 hr 09/25/22 09/25/22 09/25/22 20:55 20:55 20:55 MCV 80.7 MCH 25.8 L MCHC 32.0 RDW 13.3 Plt Count 314 MPV 9.5 Immature Gran % (Auto) 0.4 Neut % (Auto) 84.8 H Lymph % (Auto) 9.2 L [place] % (Auto) 5.2 Eos % (Auto) 0.1 Baso % (Auto) 0.3 Lymph # (Auto) 1.4 [place] # (Auto) 0.8 Eos # (Auto) 0.0 Baso # (Auto) 0.1 Abs Immat Gran (auto) 0.06 H Absolute Neuts (auto) 12.4 H Absolute Nucleated RBC 0.000 Nucleated RBC % (auto) 0.0 Anion Gap 14 Estim Creat Clear Calc 79.0 Estimated GFR > 60 POC Glucose Random Glucose 155 H Lactic Acid Calcium 9.2 D Magnesium 1.9 Total Bilirubin 0.7 Direct Bilirubin 0.2 AST 19 ALT 24 Alkaline Phosphatase 76 Total Protein 7.2 Albumin 4.2 Lipase 11 Urine Color Urine Appearance Urine pH Ur Specific [place] Urine Protein Urine Glucose (UA) Urine Ketones Urine Blood Urine Nitrite Ur Leukocyte Esterase Urine RBC Urine WBC Ur Squamous Epith Cells Urine Bacteria Hyaline Casts Ethyl Alcohol < 10 COVID-19 (STIVEN) COVID-19 Clin Com 09/25/22 09/25/22 09/26/22 23:20 23:29 02:40 MCV MCH MCHC RDW Plt Count MPV Immature Gran % (Auto) Neut % (Auto) Lymph % (Auto) [place] % (Auto) Eos % (Auto) Baso % (Auto) Lymph # (Auto) [place] # (Auto) Eos # (Auto) Baso # (Auto) Abs Immat Gran (auto) Absolute Neuts (auto) Absolute Nucleated RBC Nucleated RBC % (auto) Anion Gap Estim Creat Clear Calc Estimated GFR POC Glucose Random Glucose Lactic Acid 1.5 Calcium Magnesium Total Bilirubin Direct Bilirubin AST ALT Alkaline Phosphatase Total Protein Albumin Lipase Urine Color Dark Yellow Urine Appearance Cloudy Urine pH 5.5 Ur Specific [place] >= 1.030 H Urine Protein 30 (1+) H Urine Glucose (UA) Negative Urine Ketones 15 Urine Blood Trace H Urine Nitrite Negative Ur Leukocyte Esterase Negative Urine RBC 6-10 H Urine WBC 0-5 Ur Squamous Epith Cells 3-5 Urine Bacteria None Seen Hyaline Casts 11-20 Ethyl Alcohol COVID-19 (STIVEN) Negative COVID-19 Clin Com See Note 09/26/22 09/26/22 09/26/22 06:08 06:08 08:46 MCV 82.7 MCH 26.5 L MCHC 32.0 RDW 13.4 Plt Count 280 MPV 9.7 Immature Gran % (Auto) 0.3 Neut % (Auto) 68.7 Lymph % (Auto) 21.5 [place] % (Auto) 8.6 Eos % (Auto) 0.5 Baso % (Auto) 0.4 Lymph # (Auto) 2.2 [place] # (Auto) 0.9 Eos # (Auto) 0.1 Baso # (Auto) 0.0 Abs Immat Gran (auto) 0.03 Absolute Neuts (auto) 7.1 Absolute Nucleated RBC 0.000 Nucleated RBC % (auto) 0.0 Anion Gap 9 L Estim Creat Clear Calc 90.6 Estimated GFR > 60 POC Glucose 119 H Random Glucose 140 H Lactic Acid Calcium 8.3 L D Magnesium Total Bilirubin Direct Bilirubin AST ALT Alkaline Phosphatase Total Protein Albumin Lipase Urine Color Urine Appearance Urine pH Ur Specific [place] Urine Protein Urine Glucose (UA) Urine Ketones Urine Blood Urine Nitrite Ur Leukocyte Esterase Urine RBC Urine WBC Ur Squamous Epith Cells Urine Bacteria Hyaline Casts Ethyl Alcohol COVID-19 (STIVEN) COVID-19 Clin Com 09/26/22 11:26 MCV MCH MCHC RDW Plt Count MPV Immature Gran % (Auto) Neut % (Auto) Lymph % (Auto) [place] % (Auto) Eos % (Auto) Baso % (Auto) Lymph # (Auto) [place] # (Auto) Eos # (Auto) Baso # (Auto) Abs Immat Gran (auto) Absolute Neuts (auto) Absolute Nucleated RBC Nucleated RBC % (auto) Anion Gap Estim Creat Clear Calc Estimated GFR POC Glucose 137 H Random Glucose Lactic Acid Calcium Magnesium Total Bilirubin Direct Bilirubin AST ALT Alkaline Phosphatase Total Protein Albumin Lipase Urine Color Urine Appearance Urine pH Ur Specific [place] Urine Protein Urine Glucose (UA) Urine Ketones Urine Blood Urine Nitrite Ur Leukocyte Esterase Urine RBC Urine WBC Ur Squamous Epith Cells Urine Bacteria Hyaline Casts Ethyl Alcohol COVID-19 (STIVEN) COVID-19 Clin Com Imaging Radiologist's Impressions: Impressions Abdomen/Pelvis CT 09/25/22 22:05 IMPRESSION: 1. Small bowel obstruction with transition zone in the midabdomen. 2. Question of some minimal epiploic appendagitis adjacent to the proximal descending colon. 3. Other incidental findings as described above including bilateral renal scarring.. Fleischner guidelines were followed. Chest X-Ray 09/26/22 00:06 IMPRESSION: NG tube in good position with tip in gastric fundus. Assessment and Plan (1) Epiploic appendagitis: Status: Acute (2) Small bowel obstruction: Status: Acute Plan 66-year-old male with history of alcohol abuse in remission, median nerve neuropathy, hyperlipidemia, hypertension, tubular adenoma of the colon, vitamin- D deficiency, glaucoma, [id number] type 2 diabetes, GERD, history of pancreatitis, and anxiety admitted to general surgery for epiploic appendagitis and small-bowel obstruction with consult placed to hospitalist service for m edical management. #Epiploic appendagitis/SBO -Conservative management. Plan per general surgery -NGT removed, advanced to clears #Noninsulin-depedent type 2 diabetes- controlled -Hold metformin -POC glucose -advance to diabetic diet -humalog on SS #HTN -reasonably controlled -Not on any home antihypertensives -Monitor BP #HLD -continue statin #Anxiety -continue home meds #Glaucoma -continue eye drops Thank you for allowing me to participate in this consult. Signing off at this time. Please do not hesitate to call for further questions. Time Spent With Patient Time: Total time managing care of this patient today ____ minutes.
[2022-09-26 15:34] VITALS: BP 142/88; PULSE 90; RESP 18; TEMP 36.4; O2SAT 94
[2022-09-26 16:09] LABS: Glucose, Whole Blood 104 mg/dL (60-115)
[2022-09-26] MEDS: Ibuprofen 600 MG TABLET PO (17:54)
[2022-09-26 19:27] VITALS: BP 136/73; PULSE 84; RESP 18; TEMP 36.2; O2SAT 94
[2022-09-26] MEDS: Amitriptyline HCl 25 MG TABLET PO (19:55)
[2022-09-26] MEDS: Atorvastatin Calcium 10 MG TABLET PO (19:55)
[2022-09-26] MEDS: Latanoprost 0.005 % Ophth Sol 2.5 ML DROPS 1 DROP EYE-BOTH (19:55)
[2022-09-26 20:31] LABS: Glucose, Whole Blood 115 mg/dL (60-115)
[2022-09-27] MEDS: Lactated Ringers 1,000 ML 125 ML IVCONT (00:24)
[2022-09-27 03:19] VITALS: BP 125/69; PULSE 75; RESP 16; TEMP 36.2; O2SAT 98
[2022-09-27] MEDS: Albuterol Sulfate 90 MCG 8 GM INHALER 2 PUFF INHALE ×2 (06:47→14:33)
[2022-09-27 07:11] VITALS: BP 139/85; PULSE 86; RESP 16; TEMP 35.9; O2SAT 96
[2022-09-27 07:18] LABS: Glucose, Whole Blood 101 mg/dL (60-115)
--- NOTE | 2022-09-27 07:54 | P.PNGS_ITS ---
Subjective Subjective Date of Service: 09/27/22 Patient reports: tolerating a regular diet, no flatus and no bowel movement Interval history: denies nausea or vomiting Physical Exam Vital Signs: Vital Signs: Last Vital Signs Temp 96.7 F L 09/27/22 07:11 Pulse 86 09/27/22 07:11 Resp 16 09/27/22 07:11 BP 139/85 09/27/22 07:11 Pulse Ox 96 09/27/22 07:11 O2 Del Method Room Air 09/27/22 07:11 BMI result Body Mass Index 25.7 Const: General: comfortable Nutritional Appearance: well nourished Orientation/consciousness: patient oriented x3 Limitations: no limitations Resp: Effort & Inspection: normal respiratory effort GI: Inspection: Yes normal to inspection Palpation (GI): Soft to palpation, nontender and no guarding Percussion: Yes tympanic to percussion Auscultation: normal bowel sounds Neuro: General: patient oriented x3 Extrem: General: Yes normal to inspection Objective Data Active Medications Albuterol Sulfate (Albuterol Sulfate 90 Mcg 8 Gm Inhaler) 2 puff INHALE Q4H PRN PRN Reason: Shortness Of Breath Last Admin: 09/27/22 06:47 Dose: 2 puff Documented By: SWOMYA Amitriptyline HCl (Amitriptyline Hcl 25 Mg Tablet) 25 mg PO BEDTIME [facility] Last Admin: 09/26/22 19:55 Dose: 25 mg Documented By: SOWMYA Atorvastatin Calcium (Atorvastatin Calcium 10 Mg Tablet) 10 mg PO BEDTIME [facility] Last Admin: 09/26/22 19:55 Dose: 10 mg Documented By: SOWMYA Glucose (Glucose Gel 15 Gm Gel..Gram.) 15 gm PO Q15M PRN; Protocol PRN Reason: per Hypoglycemia Standing Ord. Heparin Sodium (Porcine) (Heparin Sodium,Porcine 5,000 Unit/Ml Vial) 5,000 unit SUBCUT Q12H [facility] Last Admin: 09/26/22 22:48 Dose: 5,000 unit Documented By: SOWMYA Hydromorphone HCl (Hydromorphone Hcl 0.5 Mg/0.5 Ml Syringe) 0.5 mg IVPUSH Q3H PRN; Protocol PRN Reason: Pain, Severe (Pain Scale 7-10) Last Admin: 09/26/22 02:44 Dose: 0.5 mg Documented By: LINDSEY Lactated Ringer's (Lr) 1,000 mls @ 125 mls/hr IVCONT .Q8H [facility] Last Admin: 09/27/22 00:24 Dose: 125 mls/hr Documented By: SOWMYA Dextrose (D10) 250 mls @ 750 mls/hr IV Q15M PRN; Protocol PRN Reason: per Hypoglycemia Standing Ord. Ibuprofen (Ibuprofen 600 Mg Tablet) 600 mg PO Q8H PRN PRN Reason: Pain, Mild (Pain Scale 1-3) Last Admin: 09/26/22 17:54 Dose: 600 mg Documented By: LUIS Latanoprost (Latanoprost 0.005 % Ophth Lela 2.5 Ml Drops) 1 drop EYE-BOTH BEDTIME [facility] Last Admin: 09/26/22 19:55 Dose: 1 drop Documented By: SOWMYA Ondansetron HCl (Ondansetron Hcl 4 Mg/2 Ml Vial) 4 mg IVPUSH QID PRN PRN Reason: Nausea Oxycodone HCl (Oxycodone Hcl Immed Release 5 Mg Tablet) 5 mg PO Q4H PRN PRN Reason: Pain, Moderate (Pain Scale 4-6 Pharmacy Consult (Consult Rx Perform Med Rec) 1 each MISCELLANE ONCE PRN PRN Reason: Consult order Sodium Chloride (0.9 % Sodium Chloride Flush 3 Ml Syringe) 3 ml IVFLUSH QSHIFT [facility] Last Admin: 09/27/22 07:29 Dose: Not Given Documented By: LUIS Non-Admin Reason: IV Running Timolol Maleate (Timolol Maleate 0.5 % Oph Lela 5 Ml Drbtl) 1 drop EYE-BOTH DAILY [facility] Last Admin: 09/26/22 10:47 Dose: Not Given Documented By: LUIS Non-Admin Reason: Med Not Available Zolpidem Tartrate (Zolpidem Tartrate 5 Mg Tablet) 5 mg PO BEDTIME PRN PRN Reason: Insomnia Labs 09/26/22 06:08 09/26/22 06:08 Labs: Laboratory Results - last 24 hr 09/26/22 09/26/22 09/26/22 08:46 11:26 16:05 POC Glucose 119 H 137 H 104 09/26/22 09/27/22 20:21 07:14 POC Glucose 115 101 Procedures Date of Service Date of Service: 09/27/22 Progress Note: A&P Assessment and plan (1) Epiploic appendagitis: Status: Acute (2) Small bowel obstruction: Status: Acute Plan Patient reports feeling improved with no further abdominal pain, nausea or vomiting. He tolerated the regular diet without nausea or vomiting. He has no moved bowel yet. Will add MiraLax and Colace this am. Possible discharge if + BM. Patient reports his family history is significant for Crohn's disease in his brother and mother. Time Spent With Patient Time: Total time managing care of this patient today ____ minutes. Quality Stroke Does the patient have a stroke diagnosis?: No VTE Prior VTE?: No VTE Risk Level:: Surgical - moderate VTE Device Contraindication: N/A - Device Ordered VTE Drug Contraindication: N/A - Med Ordered
[2022-09-27] MEDS: polyethylene glycoL 3350 17 GM POWD.PACK PO (08:02)
[2022-09-27] MEDS: timoloL maleate 0.5 % Oph Sol 5 ML DRBTL 1 DROP EYE-BOTH (08:02)
[2022-09-27] MEDS: Docusate Sodium 100 MG CAPSULE PO (08:02)
[2022-09-27 11:35] LABS: Glucose, Whole Blood 119 mg/dL (60-115)
[2022-09-27] MEDS: Milk of Magnesia 30 ML ORAL.SUSP PO (13:33)
--- NOTE | 2022-09-27 15:13 | MHC.CM.PN ---
PLAN IS DC HOME - SELF CARE RN AWARE IMM 4/5 PREVIOUSLY COMPLETED
--- NOTE | 2022-09-28 07:50 | PM.DS ---
DS: Providers Provider Date of Service: 09/27/22 Date of admission: 09/25/22 23:48 Date of discharge: 09/27/22 Primary care physician: Trenton Chin MD Attending physician on admission: Des An Consults: 09/25/22 23:47 Consult to Hospitalist Routine Comment: Consulting Provider: Hospitalist Reason For Exam: SBO, ETOH, DM, med management DS: Diagnosis Discharge Diagnosis (1) Epiploic appendagitis: Status: Acute (2) Small bowel obstruction: Status: Acute DS: Summary Hospital Course Hospital Course: HPI AT ADMISSION: ?Car Moore is a 66 year old male with PMH significant for DM, alcohol induced pancreatitis, HLD, who presented to the ED with complaints of left sided abdominal pain. He reports the pain began last night and was located at the left mid abdomen. He reports he has had this pain occasionally before but it has never been this severe. He reports it was intermittent but sharp in nature. The pain was associated with nausea and vomiting. Due to the severity of pain, he came to the ED for evaluation. Work up included CT scan which showed extremely subtle inflammatory changes adjacent to the proximal descending colon with some mild thickening of the lateral conal fascia, possibly related to some minimal epiploic appendagitis. He alos had jejunal dilatation with fecalization consistent with small bowel obstruction. Admission to the surgical service was therefore requested. NGT was inserted in the ED with minimal output. This morning he reports feeling a little improved, he currently denies abd pain. He denies fevers, chills. He denies having a bowel movement or passing flatus for two days but feels like he has to pass flatus this morning. He initially felt bloated but feels this is improved as well. HOSPITAL COURSE: He was admitted to the surgical service for further treatment. His abd pain/nausea/vomiting is resolved and he has had minimal NGT output. His overall clinical picture was more consistent with epiploic appendagitis. Given the minimal NGT output and resolution of symptoms, his NGT was removed and his diet was advance to clears. He was encouraged to ambulate to promote GI function. Motrin was added for pain and anti-inflammatory agent. He had an uncomplicated hospital course. He was tolerating clear liquids and was advanced to a solid diet. He however was still not passing flatus or BM. He was started on a bowel regimen of colace and miralax. He began to pass flatus and had a soft bowel movement. He felt improved and was tolerating a solid diet without abdominal pain, nausea or vomiting. His abd remained benign. He felt ready for discharge. He was discharged to home on 09/27/22. He was discharged on colace and miralax and was instructed to take the bowel regimen until his bowel habits return to normal. He is to follow up with his PCP. Status at Discharge Functional status at discharge: independent ambulation Overall status at discharge: patient is progressing back to baseline Time Spent with Patient Time attestation: Total time managing care of this patient today ____ minutes. Discharge coordination time: Less than 30 minutes Quality: Safe Use of Opioids Does Pt have an Active Cancer Diagnosis on the Problem List?: No Quality: Stroke Does the patient have a stroke diagnosis?: No Physical Exam Vital Signs: Vital Signs: Last Vital Signs Temp 96.7 F L 09/27/22 07:11 Pulse 86 09/27/22 07:11 Resp 16 09/27/22 07:11 BP 139/85 09/27/22 07:11 Pulse Ox 96 09/27/22 07:11 O2 Del Method Room Air 09/27/22 07:11 BMI result Body Mass Index 25.7 Const: General: comfortable, no acute distress and alert Orientation/consciousness: patient oriented x3 Resp: Effort & Inspection: normal respiratory effort GI: Inspection: No distended Palpation (GI): Soft to palpation, nontender, no guarding and not rigid Skin: General skin exam: no rashes or lesions noted Neuro: General: patient oriented x3 and moves all extremities DS: Data Data Completed and Pending Labs on day of discharge: Laboratory Results - last 24 hr 09/27/22 11:31 POC Glucose 119 H Discharge Plan Discharge Anticipated Discharge Date/Time: 09/27/22 08:12 Patient Disposition: Home, Self-Care Discharge Diagnosis: epiploic appendagitis Referrals: Po,Trenton Pritchard MD [Primary Care Provider] - 1 Week Discharge Medications: New docusate sodium [Colace] 100 mg capsule 100 mg PO BID Qty: 30 0RF Rx Instructions: take until bowel habits return to normal; stop for loose stools polyethylene glycol 3350 [Miralax] 17 gram/dose powder 17 g PO DAILY Qty: 119 0RF Rx Instructions: take until bowel habits become normal, hold for loose stools Continued (DME) STERILE Alcohol Prep pad See Rx Instructions .Route .MEDSUPPLY Qty: 100 3RF Rx Instructions: As directed (DME) FreeStyle Lite Strips Strip See Rx Instructions .ROUTE .MEDSUPPLY Qty: 100 3RF Rx Instructions: As directed check the BS QD albuterol sulfate [Proventil HFA] 90 mcg/actuation HFA aerosol inhaler 2 puff inhalation Q4-6H PRN (Reason: Shortness Of Breath) Qty: 8.5 0RF amitriptyline 25 mg tablet 25 mg PO BEDTIME sennosides-docusate sodium [Senna-S] 8.6-50 mg tablet 2 tab-cap PO BEDTIME Qty: 60 4RF (DME) blood-glucose meter [FreeStyle Lite Meter] Kit See Rx Instructions .ROUTE .MEDSUPPLY Qty: 1 0RF Rx Instructions: As directed simvastatin 20 mg tablet 20 mg PO BEDTIME 90 Days Qty: 90 2RF metformin 500 mg tablet 500 mg PO BIDWMEAL Qty: 60 6RF (DME) lancets [FreeStyle Lancets] 28 gauge misc See Rx Instructions .ROUTE .MEDSUPPLY Qty: 100 3RF Rx Instructions: As directed check BS QD timolol maleate 0.5 % drops 1 drp ophthalmic (eye) QAM latanoprost 0.005 % drops 1 drp ophthalmic (eye) BEDTIME Rx Instructions: 1 drop each eye Discharge Orders: Discharge Order (Routine); Ordered 09/27/22 Ordered By: Dorita Garcia Diet: Diabetic diet Activity on Discharge: As tolerated Stand Alone Forms: Patient Portal Discharge page Care Plan Goals: Return to baseline health, resolution of abdominal pain and constipation Health Concerns: epiploic appendagitis constipation diabetes mellitus Plan of Treatment: observation bowel regimen f/u with PCP Assessment: improved Discharge Date/Time: 09/27/22 16:05
== END 2022-09-27 16:05 | disposition home or self-care (01) | DRG 395 ==
LOC: HO.ED 22:39 → HO.EDOVER 09-26 00:23 → HO.S3 09-26 03:15
PROVIDERS: Physician Assistant; Admitting Provider Surgery; Emergency Provider Internal Medicine; PCP Internal Medicine; Visit Provider Surgery
DX: Q43.8 Other specified congenital malformations of intestine (principal); E11.42 Type 2 diabetes mellitus with diabetic polyneuropathy; N40.0 Benign prostatic hyperplasia without lower urinary tract symptoms; F10.11 Alcohol abuse, in remission; I10 Essential (primary) hypertension; E78.5 Hyperlipidemia, unspecified; K59.00 Constipation, unspecified; H40.9 Unspecified glaucoma; Z20.822 Contact with and (suspected) exposure to COVID-19; Z88.0 Allergy status to penicillin; Z88.8 Allergy status to other drugs, medicaments and biological substances; Z79.84 Long term (current) use of oral hypoglycemic drugs; Z79.899 Other long term (current) drug therapy
CPT/HCPCS: 36415; 71045; 74176; 80048; 80076; 81001; 82077; 82947; 83605; 83690; 83735; 85025; 87635; 99285; J1170; J1643; J2270; J2405

== ENCOUNTER → 2022-10-05 11:14 | Outpatient (BNVA) | payer MEDICARE, MEDICAID, SELFPAY | PROVIDERS: PCP Internal Medicine; Visit Provider Urology | DX: N28.1 Cyst of kidney, acquired (principal); N40.1 Benign prostatic hyperplasia with lower urinary tract symptoms; N13.8 Other obstructive and reflux uropathy; R35.0 Frequency of micturition; Z87.891 Personal history of nicotine dependence | CPT/HCPCS: 99212 ==

== ENCOUNTER → 2022-10-17 10:37 | Outpatient (BNVA) | payer MEDICARE, MEDICAID, SELFPAY | PROVIDERS: PCP Internal Medicine; Visit Provider Nurse Practitioner Family | DX: G47.33 Obstructive sleep apnea (adult) (pediatric) (principal); G47.34 Idiopathic sleep related nonobstructive alveolar hypoventilation | CPT/HCPCS: 99212 ==

== ENCOUNTER → 2022-11-06 19:30 | Outpatient (REF) | payer MEDICARE, MEDICAID, SELFPAY | LOC: HO.SL 19:30 | PROVIDERS: PCP Internal Medicine; Visit Provider Nurse Practitioner Family | DX: Z13.89 Encounter for screening for other disorder (principal) ==

== ENCOUNTER → 2022-12-18 09:30 | Outpatient (BNVA) | payer MEDICARE, MEDICAID, SELFPAY | PROVIDERS: PCP Internal Medicine; Visit Provider Dietitian, Registered | DX: E11.65 Type 2 diabetes mellitus with hyperglycemia (principal); Z71.3 Dietary counseling and surveillance | CPT/HCPCS: 97803 ==

== ENCOUNTER 2022-12-19 09:57 | Outpatient (REF) | payer MEDICARE, MEDICAID, SELFPAY ==
--- NOTE | ~2022-12-19 | XR_ITS ---
EXAMINATION: XR CHEST CLINICAL INFORMATION: Chronic cough COMPARISON: September 26, 2022 TECHNIQUE: 2 views of the chest were obtained. FINDINGS: No significant abnormality is noted involving the heart, lungs, mediastinum, bony thorax or soft tissues. XR/XR chest 2V IMPRESSION: No acute disease.
--- NOTE | 2022-12-19 12:35 | PFT_ITS ---
FLOWS: 1. FEV1 77% of predicted at 2.08 L. 2. FVC 75% of predicted at 2.64 L. 3. FEV1 to FVC ratio of 0.79. 4. No bronchodilator response. LUNG VOLUMES: 1. Total lung capacity 135% of predicted at 7.87 L. 2. Residual volume 253% of predicted at 5.18 L. 3. Slow vital capacity 71% of predicted at 2.69 L. 4. Expiratory reserve volume 28% of predicted at 0.27 L. 5. Diffusion capacity is mildly decreased, diffusion capacity corrects to normal after adjustment for alveolar ventilation. IMPRESSION: No obstructive or restrictive ventilatory defect. No bronchodilator response. Increased total lung capacity suggests hyperinflation. Increased residual volume suggests air trapping. MD CONSTANTINE Gallagher/MODL / [id number]
== END 2022-12-19 09:58 | disposition home or self-care (01) ==
LOC: HO.RESP 09:57
PROVIDERS: PCP Internal Medicine; Visit Provider Internal Medicine
DX: Z13.89 Encounter for screening for other disorder (principal)
CPT/HCPCS: 71046; 94060; 94727; 94729; 99202

== ENCOUNTER 2023-02-19 10:50 | Outpatient (AMB) | payer MEDICARE, MEDICAID, SELFPAY ==
--- NOTE | 2023-02-19 10:55 | MHC.OFFVIS ---
Intake Vital Signs 02/19/23 10:57 Height 5 ft 4 in Weight 148 lb BMI 25.4 BP 118/84 Blood Pressure Location Rt brachial Position Sitting Pulse 84 Pulse Source Pulse Oximeter Pulse Oximetry (%) 96 Oxygen Delivery Method Room Air Intake Visit Reasons: 4m follow up Dementia - Confirmed Intake Note: Patient presents for 4 month follow up dementia. Patient states eveyrthing is still the same. Allergies losartan Allergy (Intermediate, Verified 02/19/23 11:00) cough Penicillins [PENICILLINS] Allergy (Mild, Verified 02/19/23 11:00) RASH Medication List - Last Reconciled 02/19/23 by Nataly Ash, SANJAY albuterol sulfate 90 mcg/actuation (Proventil HFA) 2 puffs inhalation Q4-6H PRN amitriptyline 25 mg PO BEDTIME blood sugar diagnostic (FreeStyle Lite Strips) As directed check the BS QD blood-glucose meter (FreeStyle Lite Meter kit) As directed docusate sodium (Colace) 100 mg PO BID lancets (FreeStyle Lancets) As directed check BS QD latanoprost 0.005% 1 drp ophthalmic (eye) BEDTIME metformin 500 mg PO BIDWMEAL polyethylene glycol 3350 (Miralax) 17 grams PO DAILY sennosides-docusate sodium 8.6-50 mg (Senna-S) 2 tab-caps (2 x 8.6-50 mg) PO BEDTIME simvastatin 20 mg PO BEDTIME 90 days [STERILE Alcohol Prep pad As directed] timolol maleate 0.5% 1 drp ophthalmic (eye) QAM HPI HPI Comments History of Present Illness Details 67-yr-old male presents for f/u visit, accompanied by family. Pt denies any significant interval medical changes. Pt underwent in-lab PAP titration study, which showed best response to CPAP 8 cmH2O w/ good resolution of sleep apnea and nocturnal hypoxemia. Pt is hopeful to start CPAP soon. He has started to see Dr Moore. Pt states his cognition is stable. He has not heard from [facility] for the neuro-psych eval yet. He is having a mild headache about once a week- usually does not to take anything for it, but advil is helpful. He is on Amitriptyline 25mg qhs for general pain, which he states is helpful. Previously did not tolerate Gabapentin- caused left abdominal pain. [facility] Medical History (Updated 12/19/22 @ 12:16 by Nathalie Ivory MD) Alcohol abuse LATOYA positive Anxiety Arthritis Bilateral hand numbness BPH (benign prostatic hyperplasia) Cataract Cervical radiculopathy Cough Dyspnea on exertion Glaucoma HTN (hypertension) Hx of small bowel obstruction Hypercholesterolemia Insomnia Knee pain, bilateral Median nerve neuropathy Osteoarthritis of hands, bilateral Peripheral neuropathy Renal mass Tubular adenoma of colon Type 2 diabetes mellitus with hyperglycemia Vitamin D deficiency Surgical History History of cataract surgery History of inguinal hernia repair Hx of colonoscopy Family History Father No problems noted. Mother Diabetes Brother Lung cancer Social History Household Members: Spouse Housing: Apartment Alcohol intake: never Patient Tobacco Use Status: Former Tobacco user Years Smoked: stopped 1999 e-Cigarette/Vaping Use: Never Used Second Hand Smoke Exposure: No service: No Current occupational status: unemployed Cognitive needs: No Hearing needs: No Vision needs: Yes Review of Systems Const All systems reviewed & are unremarkable except as noted in HPI and below Physical Exam Vital Signs: Last Vital Signs Pulse 84 02/19/23 10:57 BP 118/84 02/19/23 10:57 Pulse Ox 96 02/19/23 10:57 Oxygen Delivery Method Room Air 02/19/23 10:57 BMI result Body Mass Index 25.4 Const General: cooperative and no acute distress Orientation/consciousness: patient oriented x3 HEENT Head: Yes normocephalic Resp Effort & Inspection: normal respiratory effort and able to speak in complete sentences Neuro General: patient oriented x3, gait normal and CN's II-XI intact bilaterally Cognition (Neuro): normal cognition Motor exam (neuro): 5/5 motor strength present throughout Psych Appearance: grossly normal Mental Status: mental status grossly normal Speech and movement: Normal speech and movement present Affect: normal affect Attitude: cooperative Thought process: Normal thought process present Thought content: Normal thought content present Insight: Good insight present (Psych) Judgement: Good judgement present (Psych) Assessment & Plan Assessment & Plan (1) Severe obstructive sleep apnea: Comment: July 2022, PER HIS SLEEP STUDY, HE HAS SEVERE OBSTRUCTIVE SLEEP APNEA, ALONG WITH NOCTURNAL HYPOXEMIA. [facility] AND HE IS SCHEDULED FOR AN IN SLEEP LAB CPAP TITRATION STUDY. I explained to the patient that once he gets CPAP titration study and starts using the CPAP, it may help his breathing and cough as well. Code(s): G47.33 - Obstructive sleep apnea (adult) (pediatric) (2) Cognitive impairment: Code(s): R41.89 - Other symptoms and signs involving cognitive functions and awareness Plan For GA: Start CPAP 8 cmH2O nightly > 4 hrs. Pt to call us/respiratory company w/ any questions or concerns. For cognitive difficulties: Will check status of Neuropsych eval- through [facility] w/ translator and interpreter. For headaches: Monitor headaches. Continue Amitripyline 25mg qhs and prn Advil (sparingly). f/u in 3-4 months or sooner prn. Coding Level of Care Code Est Pt Level 4 (84851) Diagnoses Severe obstructive sleep apnea G47.33 Cognitive impairment R41.89
[2023-02-19 10:57] VITALS: BP 118/84; PULSE 84; O2SAT 96; BMI 25.4
== END 2023-02-19 11:26 | disposition home or self-care (01) ==
PROVIDERS: Visit Provider Nurse Practitioner Family
DX: G47.33 Obstructive sleep apnea (adult) (pediatric) (principal); R41.89 Other symptoms and signs involving cognitive functions and awareness
CPT/HCPCS: 99214

== ENCOUNTER → 2023-02-19 10:50 | Outpatient (BNVA) | payer MEDICARE, MEDICAID, SELFPAY | PROVIDERS: Visit Provider Nurse Practitioner Family | DX: G47.33 Obstructive sleep apnea (adult) (pediatric) (principal); R41.89 Other symptoms and signs involving cognitive functions and awareness | CPT/HCPCS: 99212 ==

== ENCOUNTER 2023-02-20 11:13 | Outpatient (AMB) | payer MEDICARE, MEDICAID, SELFPAY ==
--- NOTE | 2023-02-20 11:35 | MHC.OFFVIS ---
Intake Vital Signs 02/20/23 11:36 Height 5 ft 4 in Weight 152 lb 1.903 oz BMI 26.1 BP 124/68 Blood Pressure Location Lt brachial Position Sitting Pulse 101 H Pulse Source Pulse Oximeter Pulse Oximetry (%) 97 Oxygen Delivery Method Room Air Intake Visit Reasons: de Intake Note: pt is here for follow up and saw Nataly Ash yesterday and they ordered his machine yesterday.. Allergies losartan Allergy (Intermediate, Verified 02/20/23 12:12) cough Penicillins [PENICILLINS] Allergy (Mild, Verified 02/20/23 12:12) RASH Medication List - Last Reconciled 02/20/23 by Nathalie Ivory MD albuterol sulfate 90 mcg/actuation (Proventil HFA) 2 puffs inhalation Q4-6H PRN amitriptyline 25 mg PO BEDTIME blood sugar diagnostic (FreeStyle Lite Strips) As directed check the BS QD blood-glucose meter (FreeStyle Lite Meter kit) As directed docusate sodium (Colace) 100 mg PO BID lancets (FreeStyle Lancets) As directed check BS QD latanoprost 0.005% 1 drp ophthalmic (eye) BEDTIME metformin 500 mg PO BIDWMEAL polyethylene glycol 3350 (Miralax) 17 grams PO DAILY sennosides-docusate sodium 8.6-50 mg (Senna-S) 2 tab-caps (2 x 8.6-50 mg) PO BEDTIME simvastatin 20 mg PO BEDTIME 90 days [STERILE Alcohol Prep pad As directed] timolol maleate 0.5% 1 drp ophthalmic (eye) QAM Do you need a note to return to daycare/school/sports/work: No HPI de HPI Details 67 YEARS OLD GENTLEMAN IS HERE FOR HIS PULMONARY FOLLOW-UP. BREATHING DEL CASTILLO HE IS DOING WELL EXCEPT, THAT HE GETS ATTACKS OF COUGH AND WHEEZING COMING ALL OF A SUDDEN A FEW TIMES DURING THE YEAR. IF YOU TIMES HE HAD TO END UP IN THE EMERGENCY ROOM, WITH THE USE OF BRONCHODILATOR INHALER OR NEBULIZER HE GETS BETTER. HE DOES NOT KNOW WHAT CAUSES HIS ACUTE ATTACKS. FROM THE DESCRIPTION IT SEEMS MORE LIKE A HYPERSENSITIVITY PROBLEM AND MAY ALSO BE SENSITIZED BY A ACUTE VIRAL RESPIRATORY INFECTION. FOR HIS SLEEP APNEA CPAP THERAPY HAS BEEN ORDERED BY THE SLEEP MEDICINE SERVICE, AND HE IS AWAITING TO GET THE CPAP. HE HAS HAD A CHEST X-RAY WHICH WAS NORMAL, ALSO HAS HAD PULMONARY FUNCTION TEST WHICH IS ESSENTIALLY NORMAL EXCEPT FOR MILD RESTRICTIVE DISORDER. [facility] Medical History (Updated 02/20/23 @ 12:21 by Nathalie Ivory MD) Alcohol abuse LATOYA positive Anxiety Arthritis Bilateral hand numbness BPH (benign prostatic hyperplasia) Bronchial asthma Cataract Cervical radiculopathy Cough Dyspnea on exertion Glaucoma HTN (hypertension) Hx of small bowel obstruction Hypercholesterolemia Insomnia Knee pain, bilateral Median nerve neuropathy Osteoarthritis of hands, bilateral Peripheral neuropathy Renal mass Tubular adenoma of colon Type 2 diabetes mellitus with hyperglycemia Vitamin D deficiency Surgical History History of cataract surgery History of inguinal hernia repair Hx of colonoscopy Family History Father No problems noted. Mother Diabetes Brother Lung cancer Social History Household Members: Spouse Housing: Apartment Alcohol intake: never Patient Tobacco Use Status: Former Tobacco user Years Smoked: stopped 1999 e-Cigarette/Vaping Use: Never Used Second Hand Smoke Exposure: No service: No Current occupational status: unemployed Cognitive needs: No Hearing needs: No Vision needs: Yes Review of Systems Const All systems reviewed & are unremarkable except as noted in HPI and below Eyes Reports no additional complaints ENT Reports no additional complaints Card Denies chest pain, Denies irregular heart rhythm and Denies leg edema Resp Reports as per HPI GI Denies abdominal pain and Reports constipation Reports no additional complaints Musc Reports no additional complaints Skin/Breast Reports system reviewed and no additional complaints, except as documented Neuro Reports memory loss (KNOWN TO HAVE MILD COGNITIVE IMPAIRMENT) Psych Reports memory loss (KNOWN TO HAVE MILD COGNITIVE IMPAIRMENT) Endo Reports other (DIABETES MELLITUS, HYPERLIPIDEMIA) Aller/Immun Reports no additional complaints Physical Exam Vital Signs: Last Vital Signs Pulse 101 H 02/20/23 11:36 BP 124/68 02/20/23 11:36 Pulse Ox 97 02/20/23 11:36 Oxygen Delivery Method Room Air 02/20/23 11:36 BMI result Body Mass Index 26.1 Const General: comfortable, no acute distress, alert and awake Orientation/consciousness: patient oriented x3 HEENT Head: Yes normal to inspection General nose exam: No nasal polyps present and No nasal discharge present Face and sinus: Yes sinuses nontender Mouth: oropharynx normal Throat: Yes posterior oropharynx normal Eyes General: appearance normal, both eyes and all related structures Neck Neck: Yes normal visual inspection, Yes no lymphadenopathy, Yes trachea midline and Yes no JVD Thyroid: Thyroid normal Chest Chest palpation & inspection: normal inspection of the chest, normal palpation of entire chest wall and no tenderness Resp Effort & Inspection: normal respiratory effort Auscultation: clear to auscultation bilaterally, no crackles, no rhonchi and no wheezes Cardio Palpation: normal PMI Rate: regular rate Rhythm: regular rhythm Heart sounds: no gallops and no murmurs Peripheral pulses: Peripheral pulses 2+ throughout GI Palpation (GI): Soft to palpation, nontender, No hepatosplenomegaly present and no masses Auscultation: normal bowel sounds Back/Spine/Pelvis Thoracic/Lumbar Spine: thoracic and lumbar spine normal to inspection Skin General skin exam: no rashes or lesions noted Neuro General: patient oriented x3, gait normal and no focal motor deficits Cranial nerves: Yes CN's II-XII intact bilaterally Extrem General: Yes normal to inspection, Yes no clubbing, cyanosis or edema and Yes no calf tenderness Psych Appearance: grossly normal and well kempt Speech and movement: Normal speech and movement present (SLIGHTLY SLOW IN CONVERSATION) Results Reviewed Results Reviewed: RESULTS OF CHEST X-RAY AND PULMONARY FUNCTION TEST REVIEWED WITH THE PATIENT. BOTH ARE ESSENTIALLY NORMAL. Assessment & Plan Assessment & Plan (1) Severe obstructive sleep apnea: Comment: July 2022, PER HIS SLEEP STUDY, HE HAS SEVERE OBSTRUCTIVE SLEEP APNEA, ALONG WITH NOCTURNAL HYPOXEMIA. [facility] [place] [facility], AND HE IS SCHEDULED FOR AN IN SLEEP LAB CPAP TITRATION STUDY. PATIENT HAS UNDERGONE THE CPAP TITRATION STUDY. HE REQUIRED CPAP OF 8 CM . THERE WAS NO RESIDUAL HYPOXEMIA CPAP DEVICE HAS BEEN ORDERED BY SLEEP MEDICINE SERVICE. Code(s): G47.33 - Obstructive sleep apnea (adult) (pediatric) (2) Nocturnal hypoxemia: Comment: NOCTURNAL HYPOXEMIA PROBABLY PART OF THE OBSTRUCTIVE SLEEP APNEA/HYPOVENTILATION. WAS CORRECTED WITH THE CPAP. Code(s): G47.34 - Idiopathic sleep related nonobstructive alveolar hypoventilation (3) Bronchial asthma: Comment: HE HAS HISTORY OF INTERMITTENT BOUTS OF COUGH AND WHEEZING. IT SEEMS THAT HE HAS EPISODIC HYPERSENSITIVITY ARE ALLERGIC ASTHMA, THIS MAY BE TRIGGERED BY ENVIRONMENTAL CHANGE OR VIRAL INFECTION. I HAVE DISCUSSED AND EXPLAINED, THAT HE NEEDS TO HAVE A RESCUE INHALER ON HAND AND USE 2 PUFFS Q 4-6 HOURS P.R.N.. PRO AIR , HE ALREADY HAS IT ADVISED TO USE IT WITH THIS SPACER , EXPLAINED THE PROPER USE. PRESCRIPTION FOR THE SPACER IS SENT TO THE PHARMACY. WILL RECHECK HIM IN 3 MONTHS. Code(s): J45.909 - Unspecified asthma, uncomplicated Coding Level of Care Code Est Pt Level 3 (80217) Diagnoses Severe obstructive sleep apnea G47.33 Nocturnal hypoxemia G47.34 Bronchial asthma J45.909
[2023-02-20 11:36] VITALS: BP 124/68; PULSE 101; O2SAT 97; BMI 26.1
== END 2023-02-20 12:01 | disposition home or self-care (01) ==
PROVIDERS: PCP Internal Medicine; Visit Provider Internal Medicine
DX: G47.33 Obstructive sleep apnea (adult) (pediatric) (principal); G47.34 Idiopathic sleep related nonobstructive alveolar hypoventilation; J45.909 Unspecified asthma, uncomplicated
CPT/HCPCS: 99213

== ENCOUNTER → 2023-02-20 11:13 | Outpatient (BNVA) | payer MEDICARE, MEDICAID, SELFPAY | PROVIDERS: PCP Internal Medicine; Visit Provider Internal Medicine | DX: G47.33 Obstructive sleep apnea (adult) (pediatric) (principal); G47.34 Idiopathic sleep related nonobstructive alveolar hypoventilation; J45.909 Unspecified asthma, uncomplicated | CPT/HCPCS: 99212 ==

== ENCOUNTER 2023-03-14 08:59 | Outpatient (AMB) | payer MEDICARE, MEDICAID, SELFPAY ==
[2023-03-14 09:26] VITALS: BP 116/62; PULSE 79; O2SAT 98; BMI 25.6
--- NOTE | 2023-03-14 09:26 | MHC.PC.OV ---
Vital Signs 03/14/23 09:26 Height 5 ft 4 in Weight 149 lb BMI 25.6 BP 116/62 Blood Pressure Location Lt brachial Position Sitting Pulse 79 Pulse Source Pulse Oximeter Pulse Oximetry (%) 98 Oxygen Delivery Method Room Air Intake Visit Reasons: Annual Exam Allergies losartan Allergy (Intermediate, Verified 03/14/23 09:26) cough Penicillins [PENICILLINS] Allergy (Mild, Verified 03/14/23 09:26) RASH Medication List - Last Reconciled 03/14/23 by Trenton Chin MD albuterol sulfate 90 mcg/actuation (Proventil HFA) 2 puffs inhalation Q4-6H PRN amitriptyline 25 mg PO BEDTIME blood sugar diagnostic (FreeStyle Lite Strips) As directed check the BS BID blood-glucose meter (FreeStyle Lite Meter kit) As directed docusate sodium (Colace) 100 mg PO BID lancets (FreeStyle Lancets) As directed check BS BID latanoprost 0.005% 1 drp ophthalmic (eye) BEDTIME metformin ER 500 mg PO BID polyethylene glycol 3350 (Miralax) 17 grams PO DAILY simvastatin 20 mg PO BEDTIME 90 days [STERILE Alcohol Prep pad As directed] timolol maleate 0.5% 1 drp ophthalmic (eye) QAM Tobacco use date assessed: 07/25/22 Fall risk assessment: No Falls in past year Last assessed Fall Risk: 03/14/23 Dental Screening Dental Screen Date: 03/14/23 Did you have a dental visit in the last 12 months?: No Did you have a dental problem in the last 6 months where you did not have access to dental care?: No Was dental information given to patient?: No HPI Annual Exam HPI Details 67-year-old male with a history of small-bowel obstruction that spontaneously cleared hypercholesterolemia GERD diabetes mellitus and severe obstructive sleep apnea coming in for physical exam. Last seen in September 2022. Patient is up-to-date with colonoscopy done March 2020. Five years. Patient follows up with Pulmonary for the sleep apnea CPAP 8 cm ordered with a history of asthma has the rescue inhaler. Patient follows up with urology also regarding PSA and microscopic hematuria had cystoscopy in 2019. takes metformin bid but complains in am has diarrhea [facility] Medical History (Updated 03/14/23 @ 09:48 by Trenton Chin MD) Bronchial asthma Cough Dyspnea on exertion Knee pain, bilateral Bilateral hand numbness Type 2 diabetes mellitus with hyperglycemia Renal mass Cervical radiculopathy Alcohol abuse Median nerve neuropathy Cataract LATOAY positive Osteoarthritis of hands, bilateral Anxiety BPH (benign prostatic hyperplasia) Peripheral neuropathy Vitamin D deficiency Tubular adenoma of colon Insomnia Glaucoma Hypercholesterolemia Arthritis Hx of small bowel obstruction HTN (hypertension) Surgical History History of cataract surgery History of inguinal hernia repair Hx of colonoscopy Family History Father No problems noted. Mother Diabetes Brother Lung cancer Social History Household Members: Spouse Housing: Apartment Alcohol intake: never Patient Tobacco Use Status: Former Tobacco user Tobacco use type: Cigarette Years Smoked: stopped 1999 e-Cigarette/Vaping Use: Never Used Second Hand Smoke Exposure: No service: No Current occupational status: unemployed Cognitive needs: No Hearing needs: No Vision needs: Yes Questionnaire PHQ-9 Over the last 2 weeks, how often have you been bothered by any of the following problems? 1. Little interest or pleasure in doing things: several days 2. Feeling down, depressed, or hopeless: several days 3. Trouble falling or staying asleep, or sleeping too much: several days 4. Feeling tired or having little energy: several days 5. Poor appetite or overeating: several days 6. Feeling bad about yourself - or that you are a failure or have let yourself or your family down: not at all 7. Trouble concentrating on things, such as reading the newspaper or watching television: not at all 8. Moving or speaking so slowly that other people could have noticed. Or the opposite - being so fidgety or restless that you have been moving around a lot more than usual: not at all 9. Thoughts that you would be better off or of hurting yourself in some way: not at all Total score: 5 Depression Screening Interpretation: Positive Source: Developed by Drs. Ashkan Hoffman, Maria De Jesus Guadarrama, Eduin Hardy and colleagues, with an educational ole from [employer]. Thrive Questionnaire Date Thrive assessed: 10/03/22 AUDIT C Alcohol Use Questionnaire (AUDIT-C) 1. How often do you have a drink containing alcohol?: Never Total Score: 0 ELVI-7 AMB Questionnaire ELVI-7 Date ELVI - 7 assessed: 07/25/22 Source: Developed by Drs. Ashkan Hoffman, Maria De Jesus Guadarrama, Eduin Hardy and colleagues, with an educational ole from [employer]. Review of Systems Const Denies poor appetite and Denies weakness Eyes Denies no additional complaints ENT Reports Normal hearing present, Denies dizziness, Denies nasal congestion, Denies tinnitus and Denies sore throat Card Denies chest pain, Denies syncope, Denies rapid heart rate and Denies dyspnea Resp Denies cough and Denies dyspnea GI Denies change in stool character, Reports constipation, Denies diarrhea, Denies nausea and Denies vomiting Denies dysuria and Denies urinary frequency Neuro Reports Normal hearing present, Denies confusion, Denies dizziness, Denies syncope and Denies weakness Psych Denies confusion Physical exam (Primary Care) Vital Signs: Last Vital Signs Pulse 79 03/14/23 09:26 BP 116/62 03/14/23 09:26 Pulse Ox 98 03/14/23 09:26 Oxygen Delivery Method Room Air 03/14/23 09:26 Care Plan Goal for BP management: guauiac negative , prostate N pedal pulse good pin prick N BMI result Body Mass Index 25.6 Tobacco/Smoking Status: Tobacco use Status Tobacco use date assessed 07/25/22 03/14/23 09:27 Patient Tobacco Use Status Former Tobacco user 03/14/23 09:27 Tobacco use type Cigarette 03/14/23 09:27 e-Cigarette/Vaping Use Never Used 03/14/23 09:27 PHQ-9: PHQ-9 Score PHQ-9: Total score 5 03/14/23 09:35 Depression Screening Interpretation: Positive Thrive Assessment: Date of Thrive Assessment Date Thrive assessed 10/03/22 03/14/23 09:27 Const General: No confusion Orientation/consciousness: No confusion HENMT Head: Yes normocephalic Ears: external ears normal and TM's normal bilaterally Face and sinus: Yes normal facial exam Mouth: moist mucous membranes Throat: Yes tonsils normal Eyes Conjunctivae: conjunctivae normal Pupils: Equal, round and reactive pupils present and Pupil accommodation reflex normal Direct Ophthalmoscopy: normal light reflex Neck Neck: No lymphadenopathy Thyroid: Thyroid normal Chest Chest palpation & inspection: normal inspection of the chest Resp Effort & Inspection: normal respiratory effort and no audible wheezes Auscultation: clear to auscultation bilaterally, no crackles, no wheezes and lung sounds not diminished Cardio Rate: regular rate Rhythm: regular rhythm Peripheral pulses: radial pulses present and dorsalis pedis present GI Palpation (GI): no masses Auscultation: normal bowel sounds and normoactive bowel sounds Male General Exam: Yes normal external exam Skin General skin exam: no rashes or lesions noted Rashes: no rashes Neuro General: No confusion Cranial nerves: Yes Equal, round and reactive pupils present and Yes Normal hearing present Cognition (Neuro): normal cognition Gait exam (Neuro): Normal gait present Motor exam (neuro): 5/5 motor strength present throughout Deep tendon reflexes (DTR's): Right brachioradialis reflex intensity grade: 2+, Left brachioradialis reflex intensity grade: 2+, Right patellar reflex intensity grade: 2+ and Left patellar reflex intensity grade: 2+ Extrem General: No edema Results AMB Hemoglobin A1c AMB Hemoglobin A1c 6.5 % Last Edit by Maddi Lugo CMA on 03/14/23 09:38 Assessment and Plan Assessment & Plan (1) Annual physical exam: Code(s): Z00.00 - Encounter for general adult medical examination without abnormal findings (2) Type 2 diabetes mellitus with hyperglycemia: Comment: Dr. Dung motley naples Code(s): E11.65 - Type 2 diabetes mellitus with hyperglycemia Plan: Decrease the amount of carbohydrate intake, pasta, bread, rice and potatoes are all sugar and that is aside from all the sweet stuff, remember that fruits are good but they are Sweet also. Hemoglobin A1c goal of less than 7.0 patient has metformin 500 mg twice a day (3) Severe obstructive sleep apnea: Comment: July 2022, PER HIS SLEEP STUDY, HE HAS SEVERE OBSTRUCTIVE SLEEP APNEA, ALONG WITH NOCTURNAL HYPOXEMIA. [facility] AND HE IS SCHEDULED FOR AN IN SLEEP LAB CPAP TITRATION STUDY. PATIENT HAS UNDERGONE THE CPAP TITRATION STUDY. HE REQUIRED CPAP OF 8 CM . THERE WAS NO RESIDUAL HYPOXEMIA CPAP DEVICE HAS BEEN ORDERED BY SLEEP MEDICINE SERVICE. Code(s): G47.33 - Obstructive sleep apnea (adult) (pediatric) Plan: Patient follows up with Neurology and Pulmonary for the sleep apnea (4) Fatty liver: Code(s): K76.0 - Fatty (change of) liver, not elsewhere classified Plan: Low-fat diet and exercise (5) Anemia: Code(s): D64.9 - Anemia, unspecified Plan: Continue to monitor (6) GERD (gastroesophageal reflux disease): Code(s): K21.9 - Gastro-esophageal reflux disease without esophagitis Plan: Avoid the foods that causes that usually spicy foods, tomato products, juices, coffee, soda and foods that your sensitive to. After eating do not lie down, allow 3-4 hours before in lie down. And keep the head of bed above 30 degrees to avoid the acid from going up. (7) BPH (benign prostatic hyperplasia): Code(s): N40.0 - Benign prostatic hyperplasia without lower urinary tract symptoms Qualifiers: Lower urinary tract symptom detail: urinary frequency Lower urinary tract symptom presence: symptoms present Qualified Code(s): N40.1 - Benign prostatic hyperplasia with lower urinary tract symptoms; R35.0 - Frequency of micturition Plan: Patient follows up with urology and continue to monitor (8) Hypercholesterolemia: Code(s): E78.00 - Pure hypercholesterolemia, unspecified Plan: Avoid fried foods, chicken skin, eggs, butter margarine, pastries and meat. Be it pork or beef they have a lot of cholesterol LDL goal of less than 100 and triglyceride of less than 150 patient will need blood work (9) HTN (hypertension): Code(s): I10 - Essential (primary) hypertension Qualifiers: Hypertension type: essential hypertension Qualified Code(s): I10 - Essential (primary) hypertension Plan: Continue with blood pressure medication. Decrease salt intake and exercise. Patient is on no medication had cough with an ARB (10) Generalized anxiety disorder: Code(s): F41.1 - Generalized anxiety disorder Plan: Stable Orders: Orders AMB Hemoglobin A1c Today Z13.9 - Encounter for screening, unspecified Complete Blood Count Auto Diff Today E11.65 - Type 2 diabetes mellitus with hyperglycemia Thyroid Stimulating Hormone Today E11.65 - Type 2 diabetes mellitus with hyperglycemia Ferritin Today E11.65 - Type 2 diabetes mellitus with hyperglycemia Microalbumin, Random (w Creat) Today E11.65 - Type 2 diabetes mellitus with hyperglycemia Creatinine Urine Today E11.65 - Type 2 diabetes mellitus with hyperglycemia Prostate Specific Antigen Scr Today E11.65 - Type 2 diabetes mellitus with hyperglycemia UA w Microscopic Today E11.65 - Type 2 diabetes mellitus with hyperglycemia Comprehensive Met. Panel Today E11.65 - Type 2 diabetes mellitus with hyperglycemia Free T4 (Free Thyroxine) Today E11.65 - Type 2 diabetes mellitus with hyperglycemia IRON PROFILE Today E11.65 - Type 2 diabetes mellitus with hyperglycemia Lipid Panel Today E11.65 - Type 2 diabetes mellitus with hyperglycemia, E78.00 - Pure hypercholesterolemia, unspecified Vitamin B12 and Folate Today E11.65 - Type 2 diabetes mellitus with hyperglycemia Reticulocyte Count Today E11.65 - Type 2 diabetes mellitus with hyperglycemia Medications: New metformin ER 500 mg PO BID 60 tabs 3RF E11.65 - Type 2 diabetes mellitus with hyperglycemia Changed From lancets (FreeStyle Lancets) As directed check BS QD 100 ea 3RF E11.65 - Type 2 diabetes mellitus with hyperglycemia To lancets (FreeStyle Lancets) As directed check BS BID 200 ea 3RF E11.65 - Type 2 diabetes mellitus with hyperglycemia From blood sugar diagnostic (FreeStyle Lite Strips) As directed check the BS QD 100 ea 3RF E11.65 - Type 2 diabetes mellitus with hyperglycemia To blood sugar diagnostic (FreeStyle Lite Strips) As directed check the BS BID 200 ea 3RF E11.65 - Type 2 diabetes mellitus with hyperglycemia Discontinued metformin Discontinued Reason: Patient Refused 500 mg PO BIDWMEAL 60 tabs 6RF E11.65 - Type 2 diabetes mellitus with hyperglycemia Coding Level of Care Code Est Pt Prev Care >65y(84755) Diagnoses Annual physical exam Z00.00 Type 2 diabetes mellitus with hyperglycemia E11.65 Severe obstructive sleep apnea G47.33 Fatty liver K76.0 Anemia D64.9 GERD (gastroesophageal reflux disease) K21.9 Benign prostatic hyperplasia with urinary frequency N40.1; R35.0 Lower urinary tract symptom detail: urinary frequency Lower urinary tract symptom presence: symptoms present Hypercholesterolemia E78.00 Essential hypertension I10 Hypertension type: essential hypertension Generalized anxiety disorder F41.1
== END 2023-03-14 10:01 | disposition home or self-care (01) ==
PROVIDERS: Visit Provider Internal Medicine
DX: Z00.00 Encounter for general adult medical examination without abnormal findings (principal); E11.65 Type 2 diabetes mellitus with hyperglycemia; K21.9 Gastro-esophageal reflux disease without esophagitis; I10 Essential (primary) hypertension; G47.33 Obstructive sleep apnea (adult) (pediatric); K76.0 Fatty (change of) liver, not elsewhere classified; D64.9 Anemia, unspecified; N40.1 Benign prostatic hyperplasia with lower urinary tract symptoms; R35.0 Frequency of micturition; E78.00 Pure hypercholesterolemia, unspecified; F41.1 Generalized anxiety disorder
CPT/HCPCS: 83036; 99397

== ENCOUNTER 2023-03-14 10:13 | Outpatient (REF) | payer MEDICARE, MEDICAID, SELFPAY ==
[2023-03-14 10:36] LABS: MANUAL DIFF FLAG NO
[2023-03-14 11:18] LABS: Appearance Urine Clear; Color Urine Yellow; Glucose Urine UA Negative (Negative); Leukocyte Esterase Urine Negative (Negative); Nitrite Urine Negative (Negative); PH 5.5 (5.0-9.0); Specific Gravity - Urine 1.025 (1.005-1.025); Urine Blood Negative (Negative); Urine Ketones Negative (Negative); Urine Protein Negative (Neg-Trace)
[2023-03-14 11:21] LABS: Bacteria Urine None Seen (None Seen); Hyaline Casts Urine 0-2 /LPF (0-2); RBC Urine 0-2 /HPF (0-2); Squamous Epithelial Cell Urine 0-2 /HPF (0-2); WBC Urine 0-5 /HPF (0-5)
[2023-03-14 11:22] LABS: Basophils Absolute Auto 0.1 X10*3/uL (0.0-0.2); Basophils Percent Auto 1.3 % (0-2); Eosinophils Absolute Auto 0.3 X10*3/uL (0.0-0.4); Eosinophils Percent Auto 4.2 % (0-4); Hematocrit 43.4 % (42.0-52.0); Hemoglobin 13.6 g/dl (14.0-18.0); Imm Gran Abs Auto 0.02 X10*3/uL (0.00-0.03); Imm Gran Pct Auto 0.3 % (0.0-0.4); Immature Retic Fraction 8.6 % (2.3-13.4); Lymphocytes Percent Auto 27.9 % (20-40); Mean Corpuscular HGB Conc 31.3 g/dl (31.0-36.0); Mean Corpuscular Hemoglobin 26.1 pg (27.0-33.0); Mean Corpuscular Volume 83.1 fL (80.0-98.0); Mean Platelet Volume 9.8 fL (9.4-12.4); Monocytes Absolute Auto 0.5 X10*3/uL (0.1-1.2); Monocytes Percent Auto 6.4 % (2-11); Neutrophils Absolute Auto 4.3 x10*3/uL (2.0-8.3); Neutrophils Percent Auto 59.9 % (45-73); Platelet Count 291 X10*3/uL (160-400); Red Blood Count 5.22 X10*6/uL (4.60-5.80); Red Cell Distribution Width 13.1 % (11.0-16.0); Retic HGB Equivalent 30.7 pg (30.0-35.0); Reticulocytes Absolute 0.052 X10*6/uL (0.026-0.095); White Blood Count 7.2 X10*3/uL (4.8-10.8)
[2023-03-14 13:06] LABS: Creatinine Urine 195.21 mg/dL; Microalbum/Creatinine Ratio Ur 5.1 ug/mg cr (<30)
[2023-03-14 13:10] LABS: Alanine Aminotransferase 20 U/L (0-40); Albumin Level 4.1 g/dL (3.5-5.0); Alkaline Phosphatase 62 U/L (39-117); Anion Gap 11 (12-20); Aspartate Amino Transferase 18 U/L (5-37); Bilirubin Total 0.6 mg/dL (0.0-1.0); Blood Urea Nitrogen 17 mg/dL (9-16); Calcium 9.1 mg/dL (8.4-10.2); Carbon Dioxide 26 mmol/L (22-29); Chloride 108 mmol/L (96-108); Cholesterol 110 mg/dL (<200); Estimated Glomerular Filt Rate > 60; Glucose Random 91 mg/dL (60-115); HDL Cholesterol 29 mg/dL (>40); Iron 151 mcg/dL (45-160); LDL Cholesterol Calculated 61 mg/dL (<100); Percent Iron Saturation 55 % (15-50); Potassium 4.3 mmol/L (3.3-5.1); Sodium 141 mmol/L (135-145); Total Iron Binding Capacity 277 mcg/dL (228-428); Total Protein 7.4 g/dL (6.5-8.0); Triglycerides 101 mg/dL (<150); Unsaturated Iron Binding 126 ug/dL
[2023-03-14 13:28] LABS: Folate 9.4 ng/mL (> or = 4.0); Vitamin B12 302 pg/mL (200-900)
[2023-03-14 13:34] LABS: Ferritin 195 ng/mL (20-250); Free T4 (Free Thyroxine) 0.92 ng/dL (0.71-1.85); Thyroid Stimulating Hormone 2.21 uIU/mL (0.32-4.0)
== END 2023-03-14 10:14 | disposition home or self-care (01) ==
LOC: HO.LAB 10:13
PROVIDERS: PCP Internal Medicine; Visit Provider Internal Medicine
DX: Z12.5 Encounter for screening for malignant neoplasm of prostate (principal); E11.65 Type 2 diabetes mellitus with hyperglycemia; E78.00 Pure hypercholesterolemia, unspecified
CPT/HCPCS: 36415; 80053; 80061; 81001; 82043; 82570; 82607; 82728; 82746; 83540; 84153; 84439; 84443; 85025; 85045

== ENCOUNTER 2023-04-09 15:44 | Outpatient (AMB) | payer MEDICARE, MEDICAID, SELFPAY ==
[2023-04-09 16:00] VITALS: BP 126/70; BMI 25.2
--- NOTE | 2023-04-09 16:00 | A.OFFPC_ITS ---
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 Required: No Allergies losartan Allergy (Intermediate, Verified 04/09/23 16:00) cough Penicillins [PENICILLINS] Allergy (Mild, Verified 04/09/23 16:00) RASH Tobacco use date assessed: 04/09/23 Fall risk assessment: No Falls in past year Last assessed Fall Risk: 04/09/23 Dental Screening Dental Screen Date: 04/09/23 Did you have a dental visit in the last 12 months?: Yes Did you have a dental problem in the last 6 months where you did not have access to dental care?: No Was dental information given to patient?: Patient has dentist HPI DM HPI Details 67-year-old male with controlled diabete s mellitus severe obstructive sleep apnea fatty liver GERD BPH hypercholesterolemia hypertension in [place] anxiety disorder last seen February 2023 for physical exam patient is here for follow-up. Review of the notes was just seen by the urologist for benign angiomyolipoma 3.7 cm stable in size concern about mass getting bigger at 4 cm and being that if this is stable will continue to monitor [facility] Medical History (Updated 04/09/23 @ 16:31 by Trenton Chin MD) Bronchial asthma Cough Dyspnea on exertion Knee pain, bilateral Bilateral hand numbness Type 2 diabetes mellitus with hyperglycemia Renal mass Cervical radiculopathy Alcohol abuse Median nerve neuropathy Cataract LATOYA positive Osteoarthritis of hands, bilateral Anxiety BPH (benign prostatic hyperplasia) Peripheral neuropathy Vitamin D deficiency Tubular adenoma of colon Insomnia Glaucoma Hypercholesterolemia Arthritis Hx of small bowel obstruction HTN (hypertension) Surgical History History of cataract surgery History of inguinal hernia repair Hx of colonoscopy Family History Father No problems noted. Mother Diabetes Brother Lung cancer Social History Household Members: Spouse Housing: Apartment Alcohol intake: never Patient Tobacco Use Status: Former Tobacco user Tobacco use type: Cigarette Years Smoked: stopped 1999 e-Cigarette/Vaping Use: Never Used Second Hand Smoke Exposure: No service: No Current occupational status: unemployed Cognitive needs: No Hearing needs: No Vision needs: Yes Questionnaire PHQ-9 Over the last 2 weeks, how often have you been bothered by any of the following problems? 1. Little interest or pleasure in doing things: several days 2. Feeling down, depressed, or hopeless: several days 3. Trouble falling or staying asleep, or sleeping too much: several days 4. Feeling tired or having little energy: several days 5. Poor appetite or overeating: several days 6. Feeling bad about yourself - or that you are a failure or have let yourself or your family down: not at all 7. Trouble concentrating on things, such as reading the newspaper or watching television: not at all 8. Moving or speaking so slowly that other people could have noticed. Or the opposite - being so fidgety or restless that you have been moving around a lot more than usual: not at all 9. Thoughts that you would be better off or of hurting yourself in some way: not at all Total score: 5 Depression Screening Interpretation: Positive Depression Screening Done: Yes Source: Developed by Drs. Ashkan Hoffman, Maria De Jesus Guadarrama, Eduin Hardy and colleagues, with an educational ole from [employer]. Thrive Questionnaire Date Thrive assessed: 10/03/22 AUDIT C Alcohol Use Questionnaire (AUDIT-C) 1. How often do you have a drink containing alcohol?: Never Total Score: 0 ELVI-7 AMB Questionnaire ELVI-7 Date ELVI - 7 assessed: 07/25/22 Source: Developed by Drs. Ashkan Hoffman, Eduin Hyman and colleagues, with an educational ole from [employer]. Physical exam (Primary Care) Vital Signs: Last Vital Signs BP 126/70 04/09/23 16:00 Oxygen Delivery Method Room Air 04/09/23 16:00 BMI result Body Mass Index 25.2 Tobacco/Smoking Status: Tobacco use Status Tobacco use date assessed 04/09/23 04/09/23 16:01 Patient Tobacco Use Status Former Tobacco user 04/09/23 16:01 Tobacco use type Cigarette 04/09/23 16:01 e-Cigarette/Vaping Use Never Used 04/09/23 16:01 PHQ-9: PHQ-9 Score PHQ-9: Total score 5 04/09/23 16:20 Depression Screening Interpretation: Positive Thrive Assessment: Date of Thrive Assessment Date Thrive assessed 10/03/22 04/09/23 16:01 Const General: alert; No acute distress Eyes Conjunctivae: conjunctivae normal Resp Auscultation: clear to auscultation bilaterally Cardio Rate: regular rate Rhythm: regular rhythm GI Inspection: Yes normal to inspection Extrem General: Yes normal to inspection and No edema Office Procedures Flu Questionnaire Does the patient have a severe egg allergy?: No Does the patient have severe life threatening allergies?: No Does the patient have a fever or illness today?: No Has the patient ever had Guillain-Baldwin Syndrome?: No Has the patient ever had any past reaction to a flu shot?: No Immunizations flu vacc [id number] 6mos up(PF) 60 mcg(15 mcgx4)/0.5 mL IM syringe Performing Provider: Trenton Chin MD [facility] Administered by: ROBIN Leon on 04/09/23 16:23 Dose Route Admin Location Dispensed Lot Number Expiration Date [facility] Reliability Manager 0.5 mL IM Left Deltoid 0.5 mL [id number] 12/23/23 [id number] [employer] VIS Given Date VIS Provided VIS Publication Date 04/09/23 Single Vaccine 21 Eligibility Eligibility Date Funding Source Not [facility] Eligible 04/09/23 Private Assessment and Plan Assessment & Plan (1) Type 2 diabetes mellitus with hyperglycemia: Comment: Dr. Razo andover Code(s): E11.65 - Type 2 diabetes mellitus with hyperglycemia Plan: Decrease the amount of carbohydrate intake, pasta, bread, rice and potatoes are all sugar and that is aside from all the sweet stuff, remember that fruits are good but they are Sweet also. Hemoglobin A1c goal of less than 7.0 patient on metformin 500 mg twice a day (2) Severe obstructive sleep apnea: Comment: July 2022, PER HIS SLEEP STUDY, HE HAS SEVERE OBSTRUCTIVE SLEEP APNEA, ALONG WITH NOCTURNAL HYPOXEMIA. [facility] AND HE IS SCHEDULED FOR AN IN SLEEP LAB CPAP TITRATION STUDY. PATIENT HAS UNDERGONE THE CPAP TITRATION STUDY. HE REQUIRED CPAP OF 8 CM . THERE WAS NO RESIDUAL HYPOXEMIA CPAP DEVICE HAS BEEN ORDERED BY SLEEP MEDICINE SERVICE. Code(s): G47.33 - Obstructive sleep apnea (adult) (pediatric) Plan: Discussed about obstructive sleep apnea and CPAP (3) GERD (gastroesophageal reflux disease): Code(s): K21.9 - Gastro-esophageal reflux disease without esophagitis Plan: Avoid the foods that causes that usually spicy foods, tomato products, juices, coffee, soda and foods that your sensitive to. After eating do not lie down, allow 3-4 hours before in lie down. And keep the head of bed above 30 degrees to avoid the acid from going up. (4) Hypercholesterolemia: Code(s): E78.00 - Pure hypercholesterolemia, unspecified (5) Renal angiomyolipoma: Code(s): D17.71 - Benign lipomatous neoplasm of kidney Plan: Avoid fried foods, chicken skin, eggs, butter margarine, pastries and meat. Be it pork or beef they have a lot of cholesterol LDL goal of less than 100 and triglyceride of less than 150. Patient on simvastatin 20 mg once a day Orders: Orders Influenza [id number] Immunization Today Z23 - Encounter for immunization Medications: Changed From lancets (FreeStyle Lancets) As directed check BS BID 200 ea 3RF E11.65 - Type 2 diabetes mellitus with hyperglycemia To lancets (FreeStyle Lancets) As directed check BS QD 100 ea 3RF E11.65 - Type 2 diabetes mellitus with hyperglycemia Patient Instructions: Patient is being followed up by Urology every year Coding Level of Care Code Est Pt Level 4 (90221) Diagnoses Type 2 diabetes mellitus with hyperglycemia E11.65 Severe obstructive sleep apnea G47.33 GERD (gastroesophageal reflux disease) K21.9 Hypercholesterolemia E78.00 Renal angiomyolipoma D17.71
== END 2023-04-09 16:40 | disposition home or self-care (01) ==
PROVIDERS: PCP Internal Medicine; Visit Provider Internal Medicine
DX: Z23 Encounter for immunization (principal)
CPT/HCPCS: 90471; 90686; 99214

== ENCOUNTER 2023-05-30 11:04 | Outpatient (AMB) | payer MEDICARE, MEDICAID, SELFPAY ==
[2023-05-30 11:21] VITALS: BP 120/80; PULSE 71; O2SAT 98; BMI 25.2
--- NOTE | 2023-05-30 11:21 | A.OFFVIS_ITS ---
Intake Vital Signs 05/30/23 11:21 Height 5 ft 4 in Weight 147 lb BMI 25.2 BP 120/80 Blood Pressure Location Lt brachial Position Sitting Pulse 71 Pulse Source Pulse Oximeter Pulse Oximetry (%) 98 Oxygen Delivery Method Room Air Intake Visit Reasons: COPD Intake Note: pt is here for follow up and states he is doing well just a slight cough, no cpap yet, states insurance denied. Allergies losartan Allergy (Intermediate, Verified 05/30/23 11:35) cough Penicillins [PENICILLINS] Allergy (Mild, Verified 05/30/23 11:35) RASH Medication List - Last Reconciled 05/30/23 by Nathalie Ivory MD albuterol sulfate 90 mcg/actuation (Proventil HFA) 2 puffs inhalation Q4-6H PRN amitriptyline 25 mg PO BEDTIME blood sugar diagnostic (FreeStyle Lite Strips) As directed check the BS BID blood-glucose meter (FreeStyle Lite Meter kit) As directed docusate sodium (Colace) 100 mg PO BID lancets (FreeStyle Lancets) As directed check BS QD latanoprost 0.005% 1 drp ophthalmic (eye) BEDTIME metformin ER 500 mg PO BID polyethylene glycol 3350 (Miralax) 17 grams PO DAILY simvastatin 20 mg PO BEDTIME 90 days [STERILE Alcohol Prep pad As directed] timolol maleate 0.5% 1 drp ophthalmic (eye) QAM Do you need a note to return to daycare/school/sports/work: No HPI COPD HPI Details THIS 67 YEARS OLD GENTLEMAN, AMHARIC SPEAKING, WITH MILD COGNITIVE IMPAIRMENT,, SLEEP APNEA, AND MILD INTERMITTENT BRONCHIAL ASTHMA. COMES TO SEE ME FOR FOLLOW-UP OF HIS ASTHMA. SINCE HIS LAST VISIT HERE HE HAS HAD NO ER VISIT, AND HAD TO USE THE ALBUTEROL ONLY A FEW TIMES FOR COUGH. HE HAS NOT GOTTEN THE CPAP YET SO HIS SLEEP IS STILL SOMEWHAT DISTURBED. THUS HE REMAINS SOMEWHAT TIRED AND SLEEPY DURING THE DAYTIME. [facility] Medical History Bronchial asthma Cough Dyspnea on exertion Knee pain, bilateral Bilateral hand numbness Type 2 diabetes mellitus with hyperglycemia Renal mass Cervical radiculopathy Alcohol abuse Median nerve neuropathy Cataract LATOYA positive Osteoarthritis of hands, bilateral Anxiety BPH (benign prostatic hyperplasia) Peripheral neuropathy Vitamin D deficiency Tubular adenoma of colon Insomnia Glaucoma Hypercholesterolemia Arthritis Hx of small bowel obstruction HTN (hypertension) Surgical History History of cataract surgery History of inguinal hernia repair Hx of colonoscopy Family History Father No problems noted. Mother Diabetes Brother Lung cancer Social History Household Members: Spouse Housing: Apartment Alcohol intake: never Patient Tobacco Use Status: Former Tobacco user Tobacco use type: Cigarette Years Smoked: stopped 1999 e-Cigarette/Vaping Use: Never Used Second Hand Smoke Exposure: No service: No Current occupational status: unemployed Cognitive needs: No Hearing needs: No Vision needs: Yes Review of Systems Const All systems reviewed & are unremarkable except as noted in HPI and below Eyes Reports no additional complaints ENT Reports no additional complaints Card Denies chest pain, Denies irregular heart rhythm and Denies leg edema Resp Reports as per HPI GI Denies abdominal pain and Reports constipation Reports no additional complaints Musc Reports no additional complaints Skin/Breast Reports system reviewed and no additional complaints, except as documented Neuro Reports memory loss (KNOWN TO HAVE MILD COGNITIVE IMPAIRMENT) Psych Reports memory loss (KNOWN TO HAVE MILD COGNITIVE IMPAIRMENT) Endo Reports other (DIABETES MELLITUS, HYPERLIPIDEMIA) Aller/Immun Reports no additional complaints Physical Exam Vital Signs: Last Vital Signs Pulse 71 05/30/23 11:21 BP 120/80 05/30/23 11:21 Pulse Ox 98 05/30/23 11:21 Oxygen Delivery Method Room Air 05/30/23 11:21 BMI result Body Mass Index 25.2 Const General: comfortable, no acute distress, alert and awake Orientation/consciousness: patient oriented x3 HEENT Head: Yes normal to inspection General nose exam: No nasal polyps present and No nasal discharge present Face and sinus: Yes sinuses nontender Mouth: oropharynx normal Throat: Yes posterior oropharynx normal Eyes General: appearance normal, both eyes and all related structures Neck Neck: Yes normal visual inspection, Yes no lymphadenopathy, Yes trachea midline and Yes no JVD Thyroid: Thyroid normal Chest Chest palpation & inspection: normal inspection of the chest, normal palpation of entire chest wall and no tenderness Resp Effort & Inspection: normal respiratory effort Auscultation: clear to auscultation bilaterally, no crackles, no rhonchi and no wheezes Cardio Palpation: normal PMI Rate: regular rate Rhythm: regular rhythm Heart sounds: no gallops and no murmurs Peripheral pulses: Peripheral pulses 2+ throughout GI Palpation (GI): Soft to palpation, nontender, No hepatosplenomegaly present and no masses Auscultation: normal bowel sounds Back/Spine/Pelvis Thoracic/Lumbar Spine: thoracic and lumbar spine normal to inspection Skin General skin exam: no rashes or lesions noted Neuro General: patient oriented x3, gait normal and no focal motor deficits Cranial nerves: Yes CN's II-XII intact bilaterally Extrem General: Yes normal to inspection, Yes no clubbing, cyanosis or edema and Yes no calf tenderness Psych Appearance: grossly normal and well kempt Speech and movement: Normal speech and movement present (SLIGHTLY SLOW IN CONVERSATION) Assessment & Plan Assessment & Plan (1) Bronchial asthma: Comment: HE HAS HISTORY OF INTERMITTENT BOUTS OF COUGH AND WHEEZING. IT SEEMS THAT HE HAS EPISODIC HYPERSENSITIVITY OR ALLERGIC ASTHMA, THIS MAY BE TRIGGERED BY ENVIRONMENTAL CHANGE OR VIRAL INFECTION. Code(s): J45.909 - Unspecified asthma, uncomplicated Plan: I HAVE DISCUSSED AND EXPLAINED, THAT HE NEEDS TO USE PROAIR 2 PUFFS Q 4-6 HRS FOR ANY BOUTS OF WHEEZING OR SUSTAINED COUGH. ADVISED TO USE IT WITH THIS SPACER , (2) Cough: Comment: COUGH IS VERY NONSPECIFIC. HE CLAIMS THIS IS MORE AT NIGHT, MAY BE RELATED TO HIS SLEEP APNEA. DURING HIS ENCOUNTER HERE IN THE OFFICE HE DID NOT HAVE ANY COUGH. Code(s): R05.9 - Cough, unspecified Plan: UNDER ASTHAM (3) Nocturnal hypoxemia: Comment: NOCTURNAL HYPOXEMIA PROBABLY PART OF THE OBSTRUCTIVE SLEEP APNEA/HYPOVENTILATION. WAS CORRECTED WITH THE CPAP. Code(s): G47.34 - Idiopathic sleep related nonobstructive alveolar hypoventilation Plan: NEEDS TO START USING CPAP WHEN AVAILABLE . FOR THIS HE IS BEING FOLLOWED BY THE SLEEP MED. SERVICE Coding Level of Care Code Est Pt Level 3 (23287) Diagnoses Bronchial asthma J45.909 Cough R05.9 Nocturnal hypoxemia G47.34
== END 2023-05-30 11:37 | disposition home or self-care (01) ==
PROVIDERS: PCP Internal Medicine; Visit Provider Internal Medicine
DX: J45.909 Unspecified asthma, uncomplicated (principal); R05.9 Cough, unspecified; G47.34 Idiopathic sleep related nonobstructive alveolar hypoventilation
CPT/HCPCS: 99213

== ENCOUNTER → 2023-05-30 11:04 | Outpatient (BNVA) | payer MEDICARE, MEDICAID, SELFPAY | PROVIDERS: PCP Internal Medicine; Visit Provider Internal Medicine | DX: J45.909 Unspecified asthma, uncomplicated (principal); G47.34 Idiopathic sleep related nonobstructive alveolar hypoventilation; R05.9 Cough, unspecified | CPT/HCPCS: 99212 ==

== ENCOUNTER 2023-06-06 11:40 | Outpatient (AMB) | payer MEDICARE, MEDICAID, SELFPAY ==
--- NOTE | 2023-06-06 11:44 | A.OFFVIS_ITS ---
Intake Vital Signs 06/06/23 12:02 Height 5 ft 4 in Weight 147 lb BMI 25.2 BP 104/76 Blood Pressure Location Rt brachial Position Sitting Pulse 84 Pulse Source Pulse Oximeter Pulse Oximetry (%) 98 Oxygen Delivery Method Room Air Intake Visit Reasons: 4m follow up Dementia-Confirmed Allergies losartan Allergy (Intermediate, Verified 06/06/23 13:29) cough Penicillins [PENICILLINS] Allergy (Mild, Verified 06/06/23 13:29) RASH Medication List - Last Reconciled 06/06/23 by SANJAY Peña albuterol sulfate 90 mcg/actuation (Proventil HFA) 2 puffs inhalation Q4-6H PRN amitriptyline 25 mg PO BEDTIME blood sugar diagnostic (FreeStyle Lite Strips) As directed check the BS BID blood-glucose meter (FreeStyle Lite Meter kit) As directed docusate sodium (Colace) 100 mg PO BID lancets (FreeStyle Lancets) As directed check BS QD latanoprost 0.005% 1 drp ophthalmic (eye) BEDTIME metformin ER 500 mg PO BID polyethylene glycol 3350 (Miralax) 17 grams PO DAILY simvastatin 20 mg PO BEDTIME 90 days [STERILE Alcohol Prep pad As directed] tamsulosin (Flomax) 0.4 mg PO BEDTIME timolol maleate 0.5% 1 drp ophthalmic (eye) QAM HPI HPI Comments History of Present Illness Details 67-yr-old male presents for f/u visit, a ccompanied by his dtr. Pt reports he has been having bouts of coughing. He has been seeing Dr Ivory- recent PFTs were reassuring. The albuterol is helpful. He has not rec'd his CPAP yet. Lately, he has been noticing more headaches- now a whole day 2-3 x's per week. He is using Advil 2 tabs bid on headache days. He is compliant w/ Amitriptyline. [facility] Medical History Bronchial asthma Cough Dyspnea on exertion Knee pain, bilateral Bilateral hand numbness Type 2 diabetes mellitus with hyperglycemia Renal mass Cervical radiculopathy Alcohol abuse Median nerve neuropathy Cataract LATOYA positive Osteoarthritis of hands, bilateral Anxiety BPH (benign prostatic hyperplasia) Peripheral neuropathy Vitamin D deficiency Tubular adenoma of colon Insomnia Glaucoma Hypercholesterolemia Arthritis Hx of small bowel obstruction HTN (hypertension) Surgical History History of cataract surgery History of inguinal hernia repair Hx of colonoscopy Family History Father No problems noted. Mother Diabetes Brother Lung cancer Social History Household Members: Spouse Housing: Apartment Alcohol intake: never Patient Tobacco Use Status: Former Tobacco user Tobacco use type: Cigarette Years Smoked: stopped 1999 e-Cigarette/Vaping Use: Never Used Second Hand Smoke Exposure: No service: No Current occupational status: unemployed Cognitive needs: No Hearing needs: No Vision needs: Yes Review of Systems Const All systems reviewed & are unremarkable except as noted in HPI and below Physical Exam Vital Signs: Last Vital Signs Pulse 84 06/06/23 12:02 BP 104/76 06/06/23 12:02 Pulse Ox 98 06/06/23 12:02 Oxygen Delivery Method Room Air 06/06/23 12:02 BMI result Body Mass Index 25.2 Const General: cooperative and no acute distress HEENT Head: Yes normocephalic Resp Effort & Inspection: normal respiratory effort and able to speak in complete sentences Neuro Other: A&O 'x 3, at times misunderstood conversation- but easily redirected. Some mild word swapping at times. General: gait normal and CN's II-XI intact bilaterally Cognition (Neuro): normal cognition Motor exam (neuro): 5/5 motor strength present throughout Psych Appearance: grossly normal Mental Status: mental status grossly normal Speech and movement: Normal speech and movement present Affect: normal affect Attitude: cooperative Thought process: Normal thought process present Thought content: Normal thought content present Insight: Good insight present (Psych) Judgement: Good judgement present (Psych) Results AMB Urinalysis, Automated UA Leukoctes 0 Enmanuel/uL Last Edit by Disha Ford CMA on 06/06/23 13:58 UA Nitrite Negative Last Edit by Disha Ford CMA on 06/06/23 13:58 UA Urobilinogen 0.2 mg/dL Last Edit by Disha Ford CMA on 06/06/23 13:58 UA Protein 0 mg/dL Last Edit by Disha Ford CMA on 06/06/23 13:58 UA pH 6.0 Last Edit by Disha Ford, SHERRI on 06/06/23 13:58 UA Blood 0 Peter/uL Last Edit by Disha Ford, SHERRI on 06/06/23 13:58 UA Specific [place] 1.015 Last Edit by Disha Ford, SHERRI on 06/06/23 13:5 8 UA Ketone Negative Last Edit by Disha Ford, SHERRI on 06/06/23 13:58 UA Bilirubin 0 mg/dL Last Edit by Disha Ford, SHERRI on 06/06/23 13:58 UA Glucose 0 mg/dL Last Edit by Disha Ford, SHERRI on 06/06/23 13:58 Assessment & Plan Assessment & Plan (1) Severe obstructive sleep apnea: Comment: July 2022, PER HIS SLEEP STUDY, HE HAS SEVERE OBSTRUCTIVE SLEEP APNEA, ALONG WITH NOCTURNAL HYPOXEMIA. [facility] [place] [place] [facility], AND HE IS SCHEDULED FOR AN IN SLEEP LAB CPAP TITRATION STUDY. PATIENT HAS UNDERGONE THE CPAP TITRATION STUDY. HE REQUIRED CPAP OF 8 CM . THERE WAS NO RESIDUAL HYPOXEMIA CPAP DEVICE HAS BEEN ORDERED BY SLEEP MEDICINE SERVICE. Code(s): G47.33 - Obstructive sleep apnea (adult) (pediatric) (2) Cognitive impairment: Code(s): R41.89 - Other symptoms and signs involving cognitive functions and awareness (3) Headache: Code(s): R51.9 - Headache, unspecified Plan For GA: Start CPAP 8 cmH2O nightly > 4 hrs- we will f/u w/ resp homecare company to check on status. Pt to call us/respiratory company w/ any questions or concerns. For cognitive difficulties: Pt is on wait list for Neuropsych eval- through [facility] w/ major account representative. For headaches: Monitor headache response to starting PAP tx Continue Amitripyline 25mg qhs and prn Advil (sparingly). f/u in 4 months or sooner prn. Coding Level of Care Code Est Pt Level 4 (03230) Diagnoses Severe obstructive sleep apnea G47.33 Cognitive impairment R41.89 Headache R51.9
[2023-06-06 12:02] VITALS: BP 104/76; PULSE 84; O2SAT 98; BMI 25.2
== END 2023-06-06 12:12 | disposition home or self-care (01) ==
PROVIDERS: PCP Internal Medicine; Visit Provider Nurse Practitioner Family
DX: G47.33 Obstructive sleep apnea (adult) (pediatric) (principal); R41.89 Other symptoms and signs involving cognitive functions and awareness; R51.9 Headache, unspecified
CPT/HCPCS: 99214

== ENCOUNTER → 2023-06-06 11:40 | Outpatient (BNVA) | payer MEDICARE, MEDICAID, SELFPAY | PROVIDERS: PCP Internal Medicine; Visit Provider Nurse Practitioner Family | DX: G47.33 Obstructive sleep apnea (adult) (pediatric) (principal); R41.89 Other symptoms and signs involving cognitive functions and awareness; R51.9 Headache, unspecified | CPT/HCPCS: 99212 ==

== ENCOUNTER 2023-06-06 13:01 | Outpatient (AMB) | payer MEDICARE, MEDICAID, SELFPAY ==
--- NOTE | 2023-06-06 13:29 | AM.OFFWIN_ITS ---
Intake Vital Signs 06/06/23 13:48 Height 5 ft 4 in Weight 148 lb BMI 25.4 BP 128/88 Blood Pressure Location Rt brachial Position Sitting Pulse 80 Pulse Source Pulse Oximeter Pulse Oximetry (%) 98 Oxygen Delivery Method Room Air Intake Visit Reasons: EST/urinating blood ([id number]) Patient Tobacco Use Status: Former Tobacco user Allergies losartan Allergy (Intermediate, Verified 06/06/23 13:29) cough Penicillins [PENICILLINS] Allergy (Mild, Verified 06/06/23 13:29) RASH Medication List - Last Reconciled 06/06/23 by Jennifer De Luna MD albuterol sulfate 90 mcg/actuation (Proventil HFA) 2 puffs inhalation Q4-6H PRN amitriptyline 25 mg PO BEDTIME blood sugar diagnostic (FreeStyle Lite Strips) As directed check the BS BID blood-glucose meter (FreeStyle Lite Meter kit) As directed docusate sodium (Colace) 100 mg PO BID lancets (FreeStyle Lancets) As directed check BS QD latanoprost 0.005% 1 drp ophthalmic (eye) BEDTIME metformin ER 500 mg PO BID polyethylene glycol 3350 (Miralax) 17 grams PO DAILY simvastatin 20 mg PO BEDTIME 90 days [STERILE Alcohol Prep pad As directed] timolol maleate 0.5% 1 drp ophthalmic (eye) QAM Do you need a note to return to daycare/school/sports/work: No HPI EST/urinating blood ([id number]) HPI Details Patient is 67-year-old gentleman came in today to be evaluated for possible urine infection Patient says that he has noticed small amount of blood in his urine off and on for the past 48 hours There is no fever chills no new back pain On urinalysis I do not see any blood or any signs of infection However I am starting him on Flomax daily he has appointment with his primary care in June I have also ordered UA for the patient if he started having blood in his urine again he can come into the lab and have the urine repeated. [facility] Medical History Bronchial asthma Cough Dyspnea on exertion Knee pain, bilateral Bilateral hand numbness Type 2 diabetes mellitus with hyperglycemia Renal mass Cervical radiculopathy Alcohol abuse Median nerve neuropathy Cataract LATOYA positive Osteoarthritis of hands, bilateral Anxiety BPH (benign prostatic hyperplasia) Peripheral neuropathy Vitamin D deficiency Tubular adenoma of colon Insomnia Glaucoma Hypercholesterolemia Arthritis Hx of small bowel obstruction HTN (hypertension) Surgical History History of cataract surgery History of inguinal hernia repair Hx of colonoscopy Family History Father No problems noted. Mother Diabetes Brother Lung cancer Social History Household Members: Spouse Housing: Apartment Alcohol intake: never Patient Tobacco Use Status: Former Tobacco user Tobacco use type: Cigarette Years Smoked: stopped 1999 e-Cigarette/Vaping Use: Never Used Second Hand Smoke Exposure: No service: No Current occupational status: unemployed Cognitive needs: No Hearing needs: No Vision needs: Yes Review of Systems Const All systems reviewed & are unremarkable except as noted in HPI and below Physical Exam Vital Signs: Last Vital Signs Pulse 80 06/06/23 13:48 BP 128/88 06/06/23 13:48 Pulse Ox 98 06/06/23 13:48 Oxygen Delivery Method Room Air 06/06/23 13:48 BMI result Body Mass Index 25.4 Const General: no acute distress Orientation/consciousness: patient oriented x3 Eyes General: appearance normal, both eyes and all related structures Resp Effort & Inspection: normal respiratory effort and able to speak in complete sentences Cardio Other: S1 S2 Neuro General: patient oriented x3 Psych Mental Status: mental status grossly normal Results AMB Urinalysis, Automated UA Leukoctes 0 Enmanuel/uL Last Edit by Disha Ford CMA on 06/06/23 13:58 UA Nitrite Negative Last Edit by Disha Ford CMA on 06/06/23 13:58 UA Urobilinogen 0.2 mg/dL Last Edit by Disha Ford CMA on 06/06/23 13:58 UA Protein 0 mg/dL Last Edit by Disha Ford CMA on 06/06/23 13:58 UA pH 6.0 Last Edit by Disha Ford CMA on 06/06/23 13:58 UA Blood 0 Peter/uL Last Edit by Disha Ford CMA on 06/06/23 13:58 UA Specific [place] 1.015 Last Edit by Disha Ford CMA on 06/06/23 13:5 8 UA Ketone Negative Last Edit by Disha Ford CMA on 06/06/23 13:58 UA Bilirubin 0 mg/dL Last Edit by Disha Ford CMA on 06/06/23 13:58 UA Glucose 0 mg/dL Last Edit by Disha Ford CMA on 06/06/23 13:58 Results Reviewed Results Reviewed: Laboratory Last Values Urine pH (Auto) 6.0 06/06/23 13:54 Specific [place] (Auto) 1.015 06/06/23 13:54 Urine Protein (Auto) 0 mg/dL 06/06/23 13:54 Glucose (UA)(Auto) 0 mg/dL 06/06/23 13:54 Urine Ketones (Auto) Negative 06/06/23 13:54 Urine Blood (Auto) 0 Peter/uL 06/06/23 13:54 Urine Nitrite (Auto) Negative 06/06/23 13:54 Urine Bilirubin (Auto) 0 mg/dL 06/06/23 13:54 Urine Urobilinogen (Auto) 0.2 mg/dL 06/06/23 13:54 Leukocyte Esterase (Auto) 0 Enmanuel/uL 06/06/23 13:54 Assessment & Plan Assessment & Plan (1) Hematuria: Code(s): R31.9 - Hematuria, unspecified Qualifiers: Hematuria type: idiopathic Glomerular morphologic changes: unspecified whether glomerular morphologic changes present Qualified Code(s): N02.9 - Recurrent and persistent hematuria with unspecified morphologic changes Plan Patient is 67-year-old gentleman came in today to be evaluated for possible urine infection Patient says that he has noticed small amount of blood in his urine off and on for the past 48 hours There is no fever chills no new back pain On urinalysis I do not see any blood or any signs of infection However I am starting him on Flomax daily he has appointment with his primary care in June I have also ordered UA for the patient if he started having blood in his urine again he can come into the lab and have the urine repeated. Orders: Orders UA CC w/rflx Micro + Cult Today R31.9 - Hematuria, unspecified Jennifer De Luna MD AMB Urinalysis Automated Today Z13.9 - Encounter for screening, unspecified Abi Mari PA-C Medications: New tamsulosin (Flomax) 0.4 mg PO BEDTIME 30 caps 0RF Jennifer De Luna MD Coding Level of Care Code Est Pt Level 3 (31470) Diagnoses Idiopathic hematuria, unspecified whether glomerular morphologic changes present N02.9 Hematuria type: idiopathic Glomerular morphologic changes: unspecified whether glomerular morphologic changes present
[2023-06-06 13:48] VITALS: BP 128/88; PULSE 80; O2SAT 98; BMI 25.4
== END 2023-06-06 14:31 | disposition home or self-care (01) ==
PROVIDERS: PCP Internal Medicine; Visit Provider Internal Medicine
DX: R31.9 Hematuria, unspecified (principal)
CPT/HCPCS: 81003; 99213

== ENCOUNTER 2023-06-21 10:57 | Outpatient (AMB) | payer MEDICARE, MEDICAID, SELFPAY ==
--- NOTE | 2023-06-21 11:03 | MHC.AMNUTRGE ---
Intake VS Expanded 06/21/23 11:04 Height 5 ft 4 in Weight 151 lb 10.848 oz BMI 26.0 Intake Visit Reasons: DM/ CONFIRMED Allergies losartan Allergy (Intermediate, Verified 06/06/23 13:29) cough Penicillins [PENICILLINS] Allergy (Mild, Verified 06/06/23 13:29) RASH HPI Nutrition Presentation Details Pt presents for MNT for T2DM Pt reports doing well, feeling well food frequency fruits: 1-2/d, diluting juices with water fish: 1-2x/wk dairy: cheese, milk 2% , pudding , reports having 2-3 serving/d vegetables: 2-3 x/wk starches > 20 serving fried foods: 0-1/m pastries and the like 0-3x/wk physical activity: sedentary EOTH occ smoking: denies A1c 6.5% 02/2023 Most Recent Diabetes Results: Microalb/Creat Ratio 5.1 ug/mg cr (<30) 03/14/23 Cholesterol 110 mg/dL (<200) 03/14/23 HDL Cholesterol 29 mg/dL (>40) L 03/14/23 Triglycerides 101 mg/dL (<150) 03/14/23 Creatinine 0.82 mg/dL (0.5-1.4) 03/14/23 Blood Urea Nitrogen 17 mg/dL (9-16) H 03/14/23 Sodium 141 mmol/L (135-145) 03/14/23 Potassium 4.3 mmol/L (3.3-5.1) 03/14/23 Chloride 108 mmol/L (96-108) 03/14/23 Carbon Dioxide 26 mmol/L (22-29) 03/14/23 Calcium 9.1 mg/dL (8.4-10.2) 03/14/23 AST 18 U/L (5-37) 03/14/23 ALT 20 U/L (0-40) 03/14/23 Total Protein 7.4 g/dL (6.5-8.0) 03/14/23 Albumin 4.1 g/dL (3.5-5.0) 03/14/23 [facility] Medical History Bronchial asthma Cough Dyspnea on exertion Knee pain, bilateral Bilateral hand numbness Type 2 diabetes mellitus with hyperglycemia Renal mass Cervical radiculopathy Alcohol abuse Median nerve neuropathy Cataract LATOYA positive Osteoarthritis of hands, bilateral Anxiety BPH (benign prostatic hyperplasia) Peripheral neuropathy Vitamin D deficiency Tubular adenoma of colon Insomnia Glaucoma Hypercholesterolemia Arthritis Hx of small bowel obstruction HTN (hypertension) Surgical History History of cataract surgery History of inguinal hernia repair Hx of colonoscopy Family History Father No problems noted. Mother Diabetes Brother Lung cancer Social History Household Members: Spouse Housing: Apartment Alcohol intake: never Patient Tobacco Use Status: Former Tobacco user Tobacco use type: Cigarette Years Smoked: stopped 1999 e-Cigarette/Vaping Use: Never Used Second Hand Smoke Exposure: No service: No Current occupational status: unemployed Cognitive needs: No Hearing needs: No Vision needs: Yes Assessment & Plan Assessment & Plan (1) Type 2 diabetes mellitus with hyperglycemia: Comment: Dr. Razo [place] Code(s): E11.65 - Type 2 diabetes mellitus with hyperglycemia Plan: 1500- 1700 lizbeth ADA meal plan Used wt 68 kg est kcal needs as per MSJ: 1668 (40% carb, 30% fat/prot) est fluid needs: 1700 ml/d rec fiber: 25-35 g/d Rec Na: 1500 mg/d ? Educate patient on: (R= Reviewed, V = verbalizes understanding N/R= Needs review N/A= not applicable) Food sources of carbohydrates and serving adequate serving sizes : R V Difference between complex carbohydrates and simple carbohydrates, role of fiber: R V Differences between fats (MUFA/PUFA/saturated fats, trans fats) and food sources of various fats: R ,v Food sources of sodium and salt and healthy modifications for heart health and kidney health: R V Vitamins and minerals: R V blood glucose goal as per ADA guidelines R Healthy Plate method concept: R V Physical activity: benefits and precaution: R V hypoglycemia prevention and treatment: R,v Patient Instructions: Maintain physically active , goal 30 min or more per day as tolerated Keep hydrated by having water with meals/snacks Include iron rich foods in diet (beans, oatmeal, spinach, beef- see list of iron rich foods) monitor your blood sugars alternating between fasting and 2 hours after a meal. Coding Level of Care Code Nutr Indiv Subseq (01169) Diagnoses Type 2 diabetes mellitus with hyperglycemia E11.65 Time Spent (min) 30
[2023-06-21 11:04] VITALS: BMI 26.0
== END 2023-06-21 11:17 | disposition home or self-care (01) ==
PROVIDERS: PCP Internal Medicine; Visit Provider Dietitian, Registered
DX: E11.65 Type 2 diabetes mellitus with hyperglycemia (principal)

== ENCOUNTER → 2023-06-21 10:57 | Outpatient (BNVA) | payer MEDICARE, MEDICAID, SELFPAY | PROVIDERS: PCP Internal Medicine; Visit Provider Dietitian, Registered | DX: E11.65 Type 2 diabetes mellitus with hyperglycemia (principal) | CPT/HCPCS: 97803 ==

== ENCOUNTER 2023-07-19 15:44 | Outpatient (AMB) | payer MEDICARE, SELFPAY ==
--- NOTE | 2023-07-19 15:46 | MHC.PC.OV ---
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 Last seen in March 2023 noted 10 lb weight loss from the last time. Review of the notes in May was seen in the [facility] for hematuria urinalysis was negative. Patient also follows up with Neurology for dementia has sleep apnea but has not received the CPAP severe obstructive sleep apnea and has been advised to have an in-lab sleep study which she had and requires CPAP of 8 cm. Patient also follows up with Pulmonary COPD inhaler prescribed. Patient also follows up with urology diagnosis of benign renal angiomyolipoma risk of bleeding advised to repeat ultrasound in 1 year [facility] Medical History (Updated 07/19/23 @ 16:14 by Trenton Chin MD) Nocturnal hypoxemia Bronchial asthma Cough Dyspnea on exertion Knee pain, bilateral Bilateral hand numbness Type 2 diabetes mellitus with hyperglycemia Renal mass Cervical radiculopathy Alcohol abuse Median nerve neuropathy Cataract LATOYA positive Osteoarthritis of hands, bilateral Anxiety BPH (benign prostatic hyperplasia) Peripheral neuropathy Vitamin D deficiency Tubular adenoma of colon Insomnia Glaucoma Hypercholesterolemia Arthritis Hx of small bowel obstruction HTN (hypertension) Surgical History History of cataract surgery History of inguinal hernia repair Hx of colonoscopy Family History Father No problems noted. Mother Diabetes Brother Lung cancer Social History Household Members: Spouse Housing: Apartment Alcohol intake: never Patient Tobacco Use Status: Former Tobacco user Tobacco use type: Cigarette Years Smoked: stopped 1999 e-Cigarette/Vaping Use: Never Used Second Hand Smoke Exposure: No service: No Current occupational status: unemployed Cognitive needs: No Hearing needs: No Vision needs: Yes Questionnaire Thrive Questionnaire Date Thrive assessed: 10/03/22 AUDIT C Alcohol Use Questionnaire (AUDIT-C) 1. How often do you have a drink containing alcohol?: Never Total Score: 0 ELVI-7 AMB Questionnaire ELVI-7 Date ELVI - 7 assessed: 07/25/22 Source: Developed by Drs. Ashkan Hoffman, Maria De Jesus Guadarrama, Eduin Hardy and colleagues, with an educational ole from [employer]. Physical exam (Primary Care) Vital Signs: Last Vital Signs Pulse 102 H 07/19/23 15:47 BP 124/86 07/19/23 15:47 Pulse Ox 98 07/19/23 15:47 Oxygen Delivery Method Room Air 07/19/23 15:47 BMI result Body Mass Index 24.2 Tobacco/Smoking Status: Tobacco use Status Tobacco use date assessed 07/19/23 07/19/23 15:47 Patient Tobacco Use Status Former Tobacco user 07/19/23 15:46 Tobacco use type Cigarette 07/19/23 15:46 e-Cigarette/Vaping Use Never Used 07/19/23 15:46 Thrive Assessment: Date of Thrive Assessment Date Thrive assessed 10/03/22 07/19/23 15:46 Const General: alert; No acute distress Eyes Conjunctivae: conjunctivae normal Resp Auscultation: clear to auscultation bilaterally Cardio Rate: regular rate Rhythm: regular rhythm GI Inspection: Yes normal to inspection Extrem General: Yes normal to inspection and No edema Results AMB Hemoglobin A1c AMB Hemoglobin A1c 6.2 % Last Edit by ROBIN Leon on 07/19/23 15:58 Results Reviewed Results Reviewed: Laboratory Last Values Hgb A1c (Clinic) 6.2 % (4.0-6.0) H 07/19/23 15:28 Assessment and Plan Assessment & Plan (1) Renal angiomyolipoma: Comment: Seen urology stable but advised yearly surveillance with ultrasound Code(s): D17.71 - Benign lipomatous neoplasm of kidney Plan: Patient has seen urology in has advised yearly surveillance with ultrasound if increasing in size then may need intervention. (2) Bronchial asthma: Comment: HE HAS HISTORY OF INTERMITTENT BOUTS OF COUGH AND WHEEZING. IT SEEMS THAT HE HAS EPISODIC HYPERSENSITIVITY OR ALLERGIC ASTHMA, THIS MAY BE TRIGGERED BY ENVIRONMENTAL CHANGE OR VIRAL INFECTION. Code(s): J45.909 - Unspecified asthma, uncomplicated Plan: Follows up with Pulmonary and has been prescribed albuterol (3) Severe obstructive sleep apnea: Comment: July 2022, PER HIS SLEEP STUDY, HE HAS SEVERE OBSTRUCTIVE SLEEP APNEA, ALONG WITH NOCTURNAL HYPOXEMIA. [facility], AND HE IS SCHEDULED FOR AN IN SLEEP LAB CPAP TITRATION STUDY. PATIENT HAS UNDERGONE THE CPAP TITRATION STUDY. HE REQUIRED CPAP OF 8 CM . THERE WAS NO RESIDUAL HYPOXEMIA CPAP DEVICE HAS BEEN ORDERED BY SLEEP MEDICINE SERVICE. Code(s): G47.33 - Obstructive sleep apnea (adult) (pediatric) Plan: Patient follows up with Neurology and has been prescribed a CPAP. Still no CPAP- awaiting (4) Type 2 diabetes mellitus with hyperglycemia: Comment: Dr. Dung tobinfield Code(s): E11.65 - Type 2 diabetes mellitus with hyperglycemia Plan: Decrease the amount of carbohydrate intake, pasta, bread, rice and potatoes are all sugar and that is aside from all the sweet stuff, remember that fruits are good but they are Sweet also. Hemoglobin A1c goal of less than 7.0. Patient on metformin 500 mg twice a day (5) GERD (gastroesophageal reflux disease): Code(s): K21.9 - Gastro-esophageal reflux disease without esophagitis Plan: Avoid the foods that causes that usually spicy foods, tomato products, juices, coffee, soda and foods that your sensitive to. After eating do not lie down, allow 3-4 hours before in lie down. And keep the head of bed above 30 degrees to avoid the acid from going up. (6) HTN (hypertension): Code(s): I10 - Essential (primary) hypertension Qualifiers: Hypertension type: essential hypertension Qualified Code(s): I10 - Essential (primary) hypertension Plan: Patient's blood pressure has been under control (7) Hypercholesterolemia: Code(s): E78.00 - Pure hypercholesterolemia, unspecified Plan: Avoid fried foods, chicken skin, eggs, butter margarine, pastries and meat. Be it pork or beef they have a lot of cholesterol LDL goal of less than 100 and triglyceride of less than 150. Patient on simvastatin 14 March 2023 last blood work Orders: Orders AMB Hemoglobin A1c Today E11.65 - Type 2 diabetes mellitus with hyperglycemia US renal BI Today D17.71 - Benign lipomatous neoplasm of kidney Coding Level of Care Code Est Pt Level 4 (99720) Diagnoses Renal angiomyolipoma D17.71 Bronchial asthma J45.909 Severe obstructive sleep apnea G47.33 Type 2 diabetes mellitus with hyperglycemia E11.65 GERD (gastroesophageal reflux disease) K21.9 Essential hypertension I10 Hypertension type: essential hypertension Hypercholesterolemia E78.00
[2023-07-19 15:47] VITALS: BP 124/86; PULSE 102; O2SAT 98; BMI 24.2
== END 2023-07-19 16:25 | disposition home or self-care (01) ==
PROVIDERS: PCP Internal Medicine; Visit Provider Internal Medicine
DX: E11.65 Type 2 diabetes mellitus with hyperglycemia (principal); D17.71 Benign lipomatous neoplasm of kidney; J45.909 Unspecified asthma, uncomplicated; G47.33 Obstructive sleep apnea (adult) (pediatric); K21.9 Gastro-esophageal reflux disease without esophagitis; I10 Essential (primary) hypertension; E78.00 Pure hypercholesterolemia, unspecified
CPT/HCPCS: 83036; 99214

== ENCOUNTER 2023-08-07 10:09 | Outpatient (REF) | payer MEDICARE, SELFPAY ==
--- NOTE | ~2023-08-07 | US_ITS ---
EXAMINATION: US RETROPERITONEAL LIMITED (RENAL ONLY) CLINICAL INFORMATION: Benign lipomatous neoplasm of kidney. COMPARISON: CT abdomen and pelvis 09/25/2022. Renal ultrasound 08/15/2022 and 08/08/2021. X-ray KUB 02/19/2020 05/14/2017. TECHNIQUE: Real-time imaging of the kidneys. Limited visualization due to bowel gas. FINDINGS: RIGHT KIDNEY: 10.3 x 4.4 x 5.1 cm (SAG x AP x TRV). A 1.0 cm cyst upper pole is difficult to characterize due to limited visualization and was not appreciated on prior exams. Redemonstration of focal cortical thinning, possibly representing scar, in the upper pole 0.5 x 0.4 x 0.4 cm cyst is too tiny to characterize and was not previously identified. No renal calculi or hydronephrosis. Echogenic focus upper pole is characteristic of JPD. Limited visualization. LEFT KIDNEY: 9.7 x 4.8 x 4.3 cm (SAG x AP x TRV). A 1.3 x 1.3 x 0.8 cm upper pole cyst with septation previously measured 1.5 x 0.8 x 0.5 cm on 08/15/2022 and remains difficult to fully characterize due to limited visualization. A 2.0 x 0.9 x 1.1 cm anechoic focus may represent a parapelvic cyst versus focal caliectasis. Previous ultrasound demonstrated a 0.8 x 1.0 x 1.0 cm irregularly shaped focus in the upper pole felt to more likely represent a parapelvic fluid collection than an exophytic cyst. A 2 mm cortical calcification lower pole. Limited visualization. Echogenic focus lower pole is characteristic of JPD. US/US renal BI IMPRESSION: 1. Bilateral renal cysts and fluid collections as detailed above, difficult to characterize due to the limited visualization. CT scan with intravenous contrast employing renal mass protocol is recommended for further evaluation. 2. Echogenic foci bilaterally are characteristic of JPD.
== END 2023-08-07 10:10 | disposition home or self-care (01) ==
LOC: HO.US 10:09
PROVIDERS: PCP Internal Medicine; Visit Provider Internal Medicine
DX: D17.71 Benign lipomatous neoplasm of kidney (principal)
CPT/HCPCS: 76775

== ENCOUNTER 2023-10-10 09:23 | Outpatient (AMB) | payer MEDICARE, SELFPAY ==
[2023-10-10 09:26] VITALS: BP 128/76; PULSE 78; O2SAT 98; BMI 25.7
--- NOTE | 2023-10-10 09:26 | A.OFFVIS_ITS ---
Intake Vital Signs 10/10/23 09:26 Height 5 ft 4 in Weight 150 lb BMI 25.7 BP 128/76 Blood Pressure Location Rt brachial Position Sitting Pulse 78 Pulse Source Pulse Oximeter Pulse Oximetry (%) 98 Intake Visit Reasons: Follow Up Intake Note: Patient presents for follow up.here for a follow up Allergies losartan Allergy (Intermediate, Verified 10/10/23 09:31) cough Penicillins [PENICILLINS] Allergy (Mild, Verified 10/10/23 09:31) RASH HPI HPI Comments History of Present Illness Details 67-yr-old male presents for f/u visit, a ccompanied by his dtr. Pt denies any significant interval medical changes. Pt reports his memory is the same. He did miss his appointment w/ me yesterday as he misunderstood his appointment reminder- he had written down the wrong time and the wrong address. He does th ings like this fairly commonly. Although he has places to put things, he will often misplace things. Daughter helps to manage important paperwork, 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 etc.. He is waiting to have the neuropsych eval. His mother had s/s AD/dementia- starting in her mid-80s or later. He has just recently heard from the respiratory [facility] to start using the CPAP machine. He is having 1 headache per week. He is complaint w/ Amitriptyline. Using Advil prn. He is still very photophobic. He notes that he has glaucoma. He notes that he has chronic arthritis. Hands can be sore and lock up. He has seen Rheumatology before and was told he could use Tylenol Arthritis p.r.n. he generally does not tolerate NSAIDs due to causes GI upset. [facility] Medical History (Updated 07/19/23 @ 16:14 by Trenton Chin MD) Nocturnal hypoxemia Bronchial asthma Cough Dyspnea on exertion Knee pain, bilateral Bilateral hand numbness Type 2 diabetes mellitus with hyperglycemia Renal mass Cervical radiculopathy Alcohol abuse Median nerve neuropathy Cataract LATOYA positive Osteoarthritis of hands, bilateral Anxiety BPH (benign prostatic hyperplasia) Peripheral neuropathy Vitamin D deficiency Tubular adenoma of colon Insomnia Glaucoma Hypercholesterolemia Arthritis Hx of small bowel obstruction HTN (hypertension) Surgical History History of cataract surgery History of inguinal hernia repair Hx of colonoscopy Family History Father No problems noted. Mother Diabetes Brother Lung cancer Social History Household Members: Spouse Housing: Apartment Alcohol intake: never Patient Tobacco Use Status: Former Tobacco user Tobacco use type: Cigarette Years Smoked: stopped 1999 e-Cigarette/Vaping Use: Never Used Second Hand Smoke Exposure: No service: No Current occupational status: unemployed Cognitive needs: No Hearing needs: No Vision needs: Yes Physical Exam Vital Signs: Last Vital Signs Pulse 78 10/10/23 09:26 BP 128/76 10/10/23 09:26 Pulse Ox 98 10/10/23 09:26 BMI result Body Mass Index 25.7 Const General: cooperative and no acute distress Orientation/consciousness: patient oriented x3 Resp Effort & Inspection: normal respiratory effort and able to speak in complete sentences Neuro General: patient oriented x3 Cranial nerves: Yes CN's II-XII intact bilaterally Cognition (Neuro): normal cognition Psych Appearance: grossly normal Mental Status: mental status grossly normal Speech and movement: Normal speech and movement present Affect: normal affect Attitude: cooperative Assessment & Plan Assessment & Plan (1) Severe obstructive sleep apnea: Comment: July 2022, PER HIS SLEEP STUDY, HE HAS SEVERE OBSTRUCTIVE SLEEP APNEA, ALONG WITH NOCTURNAL HYPOXEMIA. [facility], AND HE IS SCHEDULED FOR AN IN SLEEP LAB CPAP TITRATION STUDY. PATIENT HAS UNDERGONE THE CPAP TITRATION STUDY. HE REQUIRED CPAP OF 8 CM . THERE WAS NO RESIDUAL HYPOXEMIA CPAP DEVICE HAS BEEN ORDERED BY SLEEP MEDICINE SERVICE. Code(s): G47.33 - Obstructive sleep apnea (adult) (pediatric) (2) Cognitive impairment: Code(s): R41.89 - Other symptoms and signs involving cognitive functions and awareness (3) Headache: Code(s): R51.9 - Headache, unspecified Plan For GA: Start CPAP 8 cmH2O nightly > 4 hrs- we will f/u w/ resp homecare company to check on status. Pt to call us/respiratory company w/ any questions or concerns. ? For cognitive difficulties: Pt is on wait list for Neuropsych eval- through [facility] w/ paraprofessional interpreter. ? For headaches: Monitor headache response to starting PAP tx Continue Amitripyline 25mg qhs and prn Advil (sparingly)- he uses this for generalized arthritic pain as well. Future considerations: Trying migraine specific preventative agent, requesting follow-up rheumatology consult. ? ? f/u in 6 months or sooner prn Coding Level of Care Code Est Pt Level 4 (44823) Diagnoses Severe obstructive sleep apnea G47.33 Cognitive impairment R41.89 Headache R51.9
== END 2023-10-10 10:20 | disposition home or self-care (01) ==
PROVIDERS: PCP Internal Medicine; Visit Provider Nurse Practitioner Family
DX: G47.33 Obstructive sleep apnea (adult) (pediatric) (principal); R41.89 Other symptoms and signs involving cognitive functions and awareness; R51.9 Headache, unspecified
CPT/HCPCS: 99214

== ENCOUNTER → 2023-10-10 09:23 | Outpatient (BNVA) | payer MEDICARE, SELFPAY | PROVIDERS: PCP Internal Medicine; Visit Provider Nurse Practitioner Family | DX: G47.33 Obstructive sleep apnea (adult) (pediatric) (principal); R41.89 Other symptoms and signs involving cognitive functions and awareness; R51.9 Headache, unspecified | CPT/HCPCS: 99212 ==

== ENCOUNTER 2023-10-16 07:59 | Outpatient (REF) | payer MEDICARE, SELFPAY ==
--- NOTE | ~2023-10-16 | CT_ITS ---
EXAMINATION: CT ABDOMEN AND PELVIS WITHOUT AND WITH CONTRAST CLINICAL INFORMATION: Benign lipomatous neoplasm of the kidney. COMPARISON: Renal ultrasound 08/07/2023: Bilateral renal cysts and fluid collections as detailed above, difficult to characterize due to the limited visualization. CT scan with intravenous contrast employing renal mass protocol is recommended for further evaluation. Other imaging studies dating back to CT abdomen and pelvis 07/10/2009. TECHNIQUE: Multidetector volumetric imaging was performed of the abdomen and pelvis before and after the IV administration of 85 mL of Omnipaque 300 intravenous contrast. Sagittal and coronal reformatted images were obtained on the technologist's workstation. This CT examination was performed using dose optimization techniques as appropriate, variously including the following: *Automated exposure control *Adjustment of mA and/or kV according to patient size (this includes techniques or standardized protocols for targeted exams where dose is matched to indication/reason for exam; i.e. extremities or head) *Use of iterative reconstruction technique DLP: 382 mGy-cm FINDINGS: LUNG BASES: The visualized lung bases are unremarkable. LIVER, GALLBLADDER, AND BILIARY TREE: The liver is normal in size, shape, and attenuation. No focal hepatic lesion or biliary ductal dilatation is present. The gallbladder is unremarkable with no evidence of radiopaque gallstones, gallbladder wall thickening, or obvious pericholecystic inflammatory changes. PANCREAS: Unremarkable SPLEEN: Unremarkable ADRENAL GLANDS: Unremarkable KIDNEYS AND URETERS: There are areas of scarring present in both kidneys, the largest area of scar is seen in the right mid to upper kidney posterolaterally with complete loss of cortical tissue (4:62). This is not a junctional parenchymal defect or junctional cortical defect as the kidneys appeared normal in 07/10/2009. A similar smaller cortical defect is seen at the lower pole of the left kidney (3:50). There is no nephrolithiasis. No hydronephrosis. There is a left upper pole Bosniak class I 0.8 cm benign cyst present which needs no additional imaging or follow-up. No suspicious solid renal masses are seen. BLADDER: Unremarkable. Incidental note made of a small urachal remnant. GASTROINTESTINAL TRACT: The small and large bowel are unremarkable aside from colonic diverticulosis without diverticulitis. The appendix is unremarkable. ABDOMINAL WALL: No significant hernia is appreciated. LYMPH NODES: Normal VASCULAR: No aortic aneurysm. Mild atherosclerotic changes are seen. PELVIC VISCERA: There is [id number] BPH. Seminal vesicles appear normal. OSSEOUS STRUCTURES: Unremarkable CT/CT abdomen pelvis wo/w IV con IMPRESSION: 1. There is bilateral renal cortical scarring presumably secondary to old pyelonephritis. The kidneys appeared normal in 2009. The findings seen on ultrasound are not congenital junctional cortical defects but cortical tissue loss as described above. 2. No suspicious solid renal masses are seen. 3. Incidental note made of colonic diverticulosis, BPH and mild atherosclerotic changes. Fleischner guidelines were followed.
[2023-10-16 09:01] LABS: Blood Urea Nitrogen 17 mg/dL (9-16); Estimated Glomerular Filt Rate > 60
[2023-10-16] MEDS: iohexoL 350 MG/ML 100 ML INFUS..BTL IV (09:52)
== END 2023-10-16 08:00 | disposition home or self-care (01) ==
LOC: HO.CT 07:59
PROVIDERS: PCP Internal Medicine; Visit Provider Internal Medicine
DX: D17.71 Benign lipomatous neoplasm of kidney (principal)
CPT/HCPCS: 36415; 74178; 82565; 84520; Q9967

== ENCOUNTER 2023-10-22 15:54 | Outpatient (AMB) | payer MEDICARE, SELFPAY ==
[2023-10-22 15:55] VITALS: BP 122/80; PULSE 88; O2SAT 96; BMI 25.6
--- NOTE | 2023-10-22 15:55 | A.OFFPC_ITS ---
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 Last seen in June 2023. Patient is up-to-date with colonoscopy March 2020. Patient had a CT scan done of the abdomen in 10/16/2023 to follow-up on the renal mass results showing bilateral renal cortical scarring secondary to old pyelonephritis no suspicious solid renal masses incidental finding colonic diverticulosis BPH in mild atherosclerotic changes. [facility] Medical History (Updated 10/22/23 @ 16:13 by Trenton Chin MD) Nocturnal hypoxemia Bronchial asthma Cough Dyspnea on exertion Knee pain, bilateral Bilateral hand numbness Type 2 diabetes mellitus with hyperglycemia Renal mass Cervical radiculopathy Alcohol abuse Median nerve neuropathy Cataract LATOYA positive Osteoarthritis of hands, bilateral Anxiety BPH (benign prostatic hyperplasia) Peripheral neuropathy Vitamin D deficiency Tubular adenoma of colon Insomnia Glaucoma Hypercholesterolemia Arthritis Hx of small bowel obstruction HTN (hypertension) Surgical History History of cataract surgery History of inguinal hernia repair Hx of colonoscopy Family History Father No problems noted. Mother Diabetes Brother Lung cancer Social History Household Members: Spouse Housing: Apartment Alcohol intake: never Patient Tobacco Use Status: Former Tobacco user Tobacco use type: Cigarette Years Smoked: stopped 1999 e-Cigarette/Vaping Use: Never Used Second Hand Smoke Exposure: No service: No Current occupational status: unemployed Cognitive needs: No Hearing needs: No Vision needs: Yes Questionnaire PHQ-9 Over the last 2 weeks, how often have you been bothered by any of the following problems? 1. Little interest or pleasure in doing things: not at all 2. Feeling down, depressed, or hopeless: not at all 3. Trouble falling or staying asleep, or sleeping too much: not at all 4. Feeling tired or having little energy: not at all 5. Poor appetite or overeating: not at all 6. Feeling bad about yourself - or that you are a failure or have let yourself or your family down: not at all 7. Trouble concentrating on things, such as reading the newspaper or watching television: not at all 8. Moving or speaking so slowly that other people could have noticed. Or the opposite - being so fidgety or restless that you have been moving around a lot more than usual: not at all 9. Thoughts that you would be better off or of hurting yourself in some way: not at all Total score: 0 Depression Screening Interpretation: Negative Depression Screening Done: Yes 68022 - PHQ-9 Billing: Yes Source: Developed by Drs. Ashkan Hoffman, Maria De Jesus Guadarrama, Eduin Hardy and colleagues, with an educational ole from [employer]. Thrive Questionnaire Date Thrive assessed: 10/22/23 I am a: Patient What is your living situation today?: I have a steady place to live Within the past 12 months, did the food you bought not last and you didn't have the money to get more?: Never true Within the past 12 months, did you worry whether your food would run out before you got money to buy more?: Never true Do you have trouble paying for medicines?: No Do you have trouble getting transportation to medical 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?: No Do you have trouble paying your heating and electricity bill?: No Do you have trouble taking care of your child, family member or friend?: No Do you have trouble with day-to-day activities such as bathing, preparing meals, shopping, managing finances, etc.?: No Are you currently unemployed and looking for a job?: No Are you interested in more education?: No Please select the resources that you would like help with: None Currently or been in a relationship where the following occur: no concerns reported THRIVE Score: 0 AUDIT C Alcohol Use Questionnaire (AUDIT-C) 1. How often do you have a drink containing alcohol?: Never 3. How often do you have six or more drinks on one occasion?: Never Total Score: 0 ELVI-7 AMB Questionnaire ELVI-7 Date ELVI - 7 assessed: 10/22/23 Feeling nervous, anxious, or on edge: 0 = Not at all Not being able to stop or control worryin = Not at all Worrying too much about different things: 0 = Not at all Trouble relaxin = Not at all Being so restless that it is hard to sit still: 0 = Not at all Becoming easily annoyed or irritable: 0 = Not at all Feeling afraid as if something awful might happen: 0 = Not at all Total ELVI-7 score (0-4 normal; 5-9 mild; 10-14 moderate; 15-21 severe): 0 Source: Developed by Drs. Ashkan Hoffman, Maria De Jesus Guadarrama, Eduin Hardy and colleagues, with an educational ole from [employer]. ELVI-7 Assessment Billing ELVI-7 Assessment Tool: ELVI-7 Assessment 10881 Physical exam (Primary Care) Vital Signs: Last Vital Signs Pulse 88 10/22/23 15:55 BP 122/80 10/22/23 15:55 Pulse Ox 96 10/22/23 15:55 Oxygen Delivery Method Room Air 10/22/23 15:55 BMI result Body Mass Index 25.6 Tobacco/Smoking Status: Tobacco use Status Tobacco use date assessed 10/22/23 10/22/23 15:56 Patient Tobacco Use Status Former Tobacco user 10/22/23 15:56 Tobacco use type Cigarette 10/22/23 15:56 e-Cigarette/Vaping Use Never Used 10/22/23 15:56 PHQ-9: PHQ-9 Score PHQ-9: Total score 0 10/22/23 16:08 Depression Screening Interpretation: Negative Thrive Assessment: Date of Thrive Assessment Date Thrive assessed 10/22/23 10/22/23 15:56 Currently or been in a relationship where the following occur: no concerns reported Const General: alert; No acute distress Eyes Conjunctivae: conjunctivae normal Resp Auscultation: clear to auscultation bilaterally Cardio Rate: regular rate Rhythm: regular rhythm GI Inspection: Yes normal to inspection Extrem General: Yes normal to inspection and No edema Results AMB Hemoglobin A1c AMB Hemoglobin A1c 6.9 % Last Edit by ROBIN Leon on 10/22/23 16:08 Results Reviewed Results Reviewed: Laboratory Last Values Hgb A1c (Clinic) 6.9 % (4.0-6.0) H 10/22/23 15:57 Assessment and Plan Assessment & Plan (1) Type 2 diabetes mellitus with hyperglycemia: Comment: Dr. Dung motley flanagan Code(s): E11.65 - Type 2 diabetes mellitus with hyperglycemia Plan: Decrease the amount of carbohydrate intake, pasta, bread, rice and potatoes are all sugar and that is aside from all the sweet stuff, remember that fruits are good but they are Sweet also. Hemoglobin A1c goal of less than 7.0. Patient on metformin ER 500 mg twice a day (2) Anemia: Code(s): D64.9 - Anemia, unspecified Plan: Anemia of chronic disease stable (3) HTN (hypertension): Code(s): I10 - Essential (primary) hypertension Qualifiers: Hypertension type: essential hypertension Qualified Code(s): I10 - Essential (primary) hypertension Plan: Blood pressure is under control with the medications. (4) Hypercholesterolemia: Code(s): E78.00 - Pure hypercholesterolemia, unspecified Plan: Avoid fried foods, chicken skin, eggs, butter margarine, pastries and meat. Be it pork or beef they have a lot of cholesterol LDL goal of less than 100 and triglyceride of less than 150. Patient's last blood work was done in February 2023 presently on simvastatin 20 mg once a day (5) BPH (benign prostatic hyperplasia): Code(s): N40.0 - Benign prostatic hyperplasia without lower urinary tract symptoms Qualifiers: Lower urinary tract symptom presence: symptoms present Lower urinary tract symptom detail: urinary frequency Qualified Code(s): N40.1 - Benign prostatic hyperplasia with lower urinary tract symptoms; R35.0 - Frequency of micturition Plan: Continue with tamsulosin (6) Generalized anxiety disorder: Code(s): F41.1 - Generalized anxiety disorder Plan: Continue with amitriptyline (7) GERD (gastroesophageal reflux disease): Code(s): K21.9 - Gastro-esophageal reflux disease without esophagitis Plan: Avoid the foods that causes that usually spicy foods, tomato products, juices, coffee, soda and foods that your sensitive to. After eating do not lie down, allow 3-4 hours before in lie down. And keep the head of bed above 30 degrees to avoid the acid from going up. (8) Severe obstructive sleep apnea: Comment: July 2022, PER HIS SLEEP STUDY, HE HAS SEVERE OBSTRUCTIVE SLEEP APNEA, ALONG WITH NOCTURNAL HYPOXEMIA. [facility], AND HE IS SCHEDULED FOR AN IN SLEEP LAB CPAP TITRATION STUDY. PATIENT HAS UNDERGONE THE CPAP TITRATION STUDY. HE REQUIRED CPAP OF 8 CM . THERE WAS NO RESIDUAL HYPOXEMIA CPAP DEVICE HAS BEEN ORDERED BY SLEEP MEDICINE SERVICE. Code(s): G47.33 - Obstructive sleep apnea (adult) (pediatric) (9) Bronchial asthma: Comment: HE HAS HISTORY OF INTERMITTENT BOUTS OF COUGH AND WHEEZING. IT SEEMS THAT HE HAS EPISODIC HYPERSENSITIVITY OR ALLERGIC ASTHMA, THIS MAY BE TRIGGERED BY ENVIRONMENTAL CHANGE OR VIRAL INFECTION. Code(s): J45.909 - Unspecified asthma, uncomplicated Plan: Patient follows up with Pulmonary. (10) Renal angiomyolipoma: Comment: Seen urology stable but advised yearly surveillance with ultrasound CT scan done negative Code(s): D17.71 - Benign lipomatous neoplasm of kidney Plan: September 2023 CT scan negative Orders: Orders AMB Hemoglobin A1c Today E11.65 - Type 2 diabetes mellitus with hyperglycemia Medications: Changed From metformin ER 500 mg PO BID 60 tabs 3RF E11.65 - Type 2 diabetes mellitus with hyperglycemia To metformin ER 500 mg PO BID 90 days 180 tabs 3RF E11.65 - Type 2 diabetes mellitus with hyperglycemia Coding Level of Care Code Est Pt Level 4 (96320) Diagnoses Type 2 diabetes mellitus with hyperglycemia E11.65 Anemia D64.9 Essential hypertension I10 Hypertension type: essential hypertension Hypercholesterolemia E78.00 Benign prostatic hyperplasia with urinary frequency N40.1; R35.0 Lower urinary tract symptom presence: symptoms present Lower urinary tract symptom detail: urinary frequency Generalized anxiety disorder F41.1 GERD (gastroesophageal reflux disease) K21.9 Severe obstructive sleep apnea G47.33 Bronchial asthma J45.909 Renal angiomyolipoma D17.71 Additional Codes ELVI-7 Assessment Billing - ELVI-7 Assessment Tool: ELVI-7 Assessment 48366 ([id number])
== END 2023-10-22 16:24 | disposition home or self-care (01) ==
PROVIDERS: PCP Internal Medicine; Visit Provider Internal Medicine
DX: E11.65 Type 2 diabetes mellitus with hyperglycemia (principal); D64.9 Anemia, unspecified; I10 Essential (primary) hypertension; E78.00 Pure hypercholesterolemia, unspecified; N40.1 Benign prostatic hyperplasia with lower urinary tract symptoms; R35.0 Frequency of micturition; F41.1 Generalized anxiety disorder; K21.9 Gastro-esophageal reflux disease without esophagitis; G47.33 Obstructive sleep apnea (adult) (pediatric); J45.909 Unspecified asthma, uncomplicated; D17.71 Benign lipomatous neoplasm of kidney
CPT/HCPCS: 83036; 99214

== ENCOUNTER → 2023-12-04 14:15 | Outpatient (REF) | payer MEDICARE, SELFPAY | LOC: HO.SL 14:15 | PROVIDERS: PCP Internal Medicine; Visit Provider Nurse Practitioner Family | DX: Z13.89 Encounter for screening for other disorder (principal) ==

== ENCOUNTER 2023-12-20 11:03 | Outpatient (AMB) | payer MEDICARE, MEDICAID, SELFPAY ==
[2023-12-20 11:14] VITALS: BMI 26.4
--- NOTE | 2023-12-20 11:14 | A.OFFVIS_ITS ---
VS Expanded 12/20/23 11:14 Height 5 ft 4 in Weight 154 lb 1.65 oz BMI 26.4 Intake Visit Reasons: DM/LVM Allergies losartan Allergy (Intermediate, Verified 10/22/23 15:55) cough Penicillins [PENICILLINS] Allergy (Mild, Verified 10/22/23 15:55) RASH Nutrition Presentation Details: Pt presents for MNT f/u for T2DM Pt c/o out of metformin for some time, prob with rx- pharm was contacted and tel encounter sent to MD Pt brought BG and 7 d average at 157, 14 d average at 162 mg/dl Reports having 3 marine/day B: coffee with milk and sugar, 2-3 crackers and eggs L: rice/chicken, water dinner: pasta with meat sauce and fitter, water or diet juice snack: chips/cookies/fruits physical activity: reports sedentary BS Monitoring Most Recent Diabetes Results: Creatinine 0.96 mg/dL (0.5-1.4) 10/16/23 Blood Urea Nitrogen 17 mg/dL (9-16) H 10/16/23 PFSH Medical History (Updated 12/20/23 @ 11:29 by Aziza Richter, RD, LDN) Nocturnal hypoxemia Bronchial asthma Cough Dyspnea on exertion Knee pain, bilateral Bilateral hand numbness Type 2 diabetes mellitus with hyperglycemia Renal mass Cervical radiculopathy Alcohol abuse Median nerve neuropathy Cataract LATOYA positive Osteoarthritis of hands, bilateral Anxiety BPH (benign prostatic hyperplasia) Peripheral neuropathy Vitamin D deficiency Tubular adenoma of colon Insomnia Glaucoma Hypercholesterolemia Arthritis Hx of small bowel obstruction HTN (hypertension) Surgical History History of cataract surgery History of inguinal hernia repair Hx of colonoscopy Family History Father No problems noted. Mother Diabetes Brother Lung cancer Social History Household Members: Spouse Housing: Apartment Alcohol intake: never Patient Tobacco Use Status: Former Tobacco user Tobacco use type: Cigarette Years Smoked: stopped 1999 e-Cigarette/Vaping Use: Never Used Second Hand Smoke Exposure: No service: No Current occupational status: unemployed Cognitive needs: No Hearing needs: No Vision needs: Yes Assessment & Plan Assessment & Plan (1) Type 2 diabetes mellitus with hyperglycemia: Code(s): E11.65 - Type 2 diabetes mellitus with hyperglycemia Category: Medical Plan: 1800 lizbeth ADA meal plan Used wt 70 kg est kcal needs as per MSJ: 1700 (40% carb, 30% fat/prot) est fluid needs: 1700 ml/d rec fiber: 25-35 g/d Rec Na: 1500 mg/d ? Educate patient on: (R= Reviewed, V = verbalizes understanding N/R= Needs review N/A= not applicable) * Food sources of carbohydrates and serving adequate serving sizes : R V * Difference between complex carbohydrates and simple carbohydrates, role of fiber: R V * Differences between fats (MUFA/PUFA/saturated fats, trans fats) and food sources of various fats: R ,v * Food sources of sodium and salt and healthy modifications for heart health and kidney health: R V * Vitamins and minerals: R V * blood glucose goal as per ADA guidelines R * Healthy Plate method concept: R V * Physical activity: benefits and precaution: R V * hypoglycemia prevention and treatment: R,v Patient Instructions: Follow healthy plate method, choose foods with fiber (whole wheat pasta, brown rice, sweet potatoes) incorporate vegetables in the sauces(spinach, carrots, squash as example) Include fish at least twice a week Engage in physical activity , walk as able goal 30 min at least 3 times a week Coding Level of Care Code Nutr Indiv Subseq (76380) Diagnoses Type 2 diabetes mellitus with hyperglycemia E11.65 Time Spent (min) 30
== END 2023-12-20 11:32 | disposition home or self-care (01) ==
PROVIDERS: PCP Internal Medicine; Visit Provider Dietitian, Registered
DX: E11.65 Type 2 diabetes mellitus with hyperglycemia (principal)

== ENCOUNTER → 2023-12-20 11:03 | Outpatient (BNVA) | payer MEDICARE, MEDICAID, SELFPAY | PROVIDERS: PCP Internal Medicine; Visit Provider Dietitian, Registered | DX: E11.65 Type 2 diabetes mellitus with hyperglycemia (principal) | CPT/HCPCS: 97803 ==

== ENCOUNTER 2024-01-07 13:30 | Outpatient (AMB) | payer MEDICARE, SELFPAY ==
[2024-01-07 13:39] VITALS: BP 120/72; PULSE 66; O2SAT 96; BMI 25.5
--- NOTE | 2024-01-07 13:39 | MHC.OFFVIS ---
Vital Signs 01/07/24 13:39 Height 5 ft 4 in Weight 148 lb 12.992 oz BMI 25.5 BP 120/72 Blood Pressure Location Lt brachial Position Sitting Pulse 66 Pulse Source Pulse Oximeter Pulse Oximetry (%) 96 Oxygen Delivery Method Room Air Intake Visit Reasons: COPD Intake Note: pt is here for follow up and states weather is not good, little wheeze. no cpap yet. Allergies losartan Allergy (Intermediate, Verified 01/07/24 13:48) cough Penicillins [PENICILLINS] Allergy (Mild, Verified 01/07/24 13:48) RASH Do you need a note to return to daycare/school/sports/work: No HPI HPI COPD: Details: 68 years old gentleman Tajik-speaking comes accompanied by his and daughter ( who functioned as the air pollution compliance inspector) As far as his breathing is concerned it has been very stable, he uses albuterol only once in a while if he has persistent cough for feeling of wheezing. He walks around okay without much shortness of breath. He has had no acute respiratory events. He is a case of obstructive sleep apnea, last CPAP titration study was in the sleep lab on 11/28/2022, He is followed up by sleep medicine service, Due to some issues with insurance coverage, or some other reason he has had not received the CPAP device yet. Now because the study is more than 1-year-old , he may need to have a repeat sleep study [facility] Medical History (Updated 01/07/24 @ 14:05 by Nathalie Ivory MD) GA (obstructive sleep apnea) Nocturnal hypoxemia Bronchial asthma Cough Dyspnea on exertion Knee pain, bilateral Bilateral hand numbness Type 2 diabetes mellitus with hyperglycemia Renal mass Cervical radiculopathy Alcohol abuse Median nerve neuropathy Cataract LATOYA positive Osteoarthritis of hands, bilateral Anxiety BPH (benign prostatic hyperplasia) Peripheral neuropathy Vitamin D deficiency Tubular adenoma of colon Insomnia Glaucoma Hypercholesterolemia Arthritis Hx of small bowel obstruction HTN (hypertension) Surgical History History of cataract surgery History of inguinal hernia repair Hx of colonoscopy Family History Father No problems noted. Mother Diabetes Brother Lung cancer Social History Household Members: Spouse Housing: Apartment Alcohol intake: never Patient Tobacco Use Status: Former Tobacco user Tobacco use type: Cigarette Years Smoked: stopped 1999 e-Cigarette/Vaping Use: Never Used Second Hand Smoke Exposure: No service: No Current occupational status: unemployed Cognitive needs: No Hearing needs: No Vision needs: Yes Review of Systems Const All systems reviewed & are unremarkable except as noted in HPI and below Eyes Reports no additional complaints ENT Reports no additional complaints Card Denies chest pain, Denies irregular heart rhythm and Denies leg edema Resp Reports as per HPI GI Denies abdominal pain and Reports constipation Reports no additional complaints Musc Reports no additional complaints Skin/Breast Reports system reviewed and no additional complaints, except as documented Neuro Reports memory loss (KNOWN TO HAVE MILD COGNITIVE IMPAIRMENT) Psych Reports memory loss (KNOWN TO HAVE MILD COGNITIVE IMPAIRMENT) Endo Reports other (DIABETES MELLITUS, HYPERLIPIDEMIA) Aller/Immun Reports no additional complaints Physical Exam Vital Signs: Last Vital Signs Pulse 66 01/07/24 13:39 BP 120/72 01/07/24 13:39 Pulse Ox 96 01/07/24 13:39 Oxygen Delivery Method Room Air 01/07/24 13:39 BMI result Body Mass Index 25.5 Const General: comfortable, no acute distress, alert and awake Orientation/consciousness: patient oriented x3 HEENT Head: Yes normal to inspection General nose exam: No nasal polyps present and No nasal discharge present Face and sinus: Yes sinuses nontender Mouth: oropharynx normal Throat: Yes posterior oropharynx normal Eyes General: appearance normal, both eyes and all related structures Neck Neck: Yes normal visual inspection, Yes no lymphadenopathy, Yes trachea midline and Yes no JVD Thyroid: Thyroid normal Chest Chest palpation & inspection: normal inspection of the chest, normal palpation of entire chest wall and no tenderness Resp Effort & Inspection: normal respiratory effort Auscultation: clear to auscultation bilaterally, no crackles, no rhonchi and no wheezes Cardio Palpation: normal PMI Rate: regular rate Rhythm: regular rhythm Heart sounds: no gallops and no murmurs Peripheral pulses: Peripheral pulses 2+ throughout GI Palpation (GI): Soft to palpation, nontender, No hepatosplenomegaly present and no masses Auscultation: normal bowel sounds Back/Spine/Pelvis Thoracic/Lumbar Spine: thoracic and lumbar spine normal to inspection Skin General skin exam: no rashes or lesions noted Neuro General: patient oriented x3, gait normal and no focal motor deficits Cranial nerves: Yes CN's II-XII intact bilaterally Extrem General: Yes normal to inspection, Yes no clubbing, cyanosis or edema and Yes no calf tenderness Psych Appearance: grossly normal and well kempt Speech and movement: Normal speech and movement present (SLIGHTLY SLOW IN CONVERSATION) Assessment & Plan Assessment & Plan (1) Bronchial asthma: Comment: HE HAS HISTORY OF INTERMITTENT BOUTS OF COUGH AND WHEEZING. IT SEEMS THAT HE HAS EPISODIC HYPERSENSITIVITY OR ALLERGIC ASTHMA, THIS MAY BE TRIGGERED BY ENVIRONMENTAL CHANGE OR VIRAL INFECTION. Code(s): J45.909 - Unspecified asthma, uncomplicated Category: Medical Plan: Albuterol HFA, 2 puffs Q 6 hours p.r.n., is advised (2) Cough: Comment: COUGH IS VERY NONSPECIFIC. HE CLAIMS THIS IS MORE AT NIGHT, MAY BE RELATED TO HIS SLEEP APNEA. DURING HIS ENCOUNTER HERE IN THE OFFICE HE DID NOT HAVE ANY COUGH. Code(s): R05.9 - Cough, unspecified Category: Medical Plan: He was explained that the cough is not a big issue, however if it does persist he can use albuterol HFA 2 puffs q.6 hours p.r.n. (3) GA (obstructive sleep apnea): Comment: This gentleman is a known case of obstructive sleep apnea. Has had a few home-based sleep studies and finally CPAP titration study in the sleep lab on 11/28/2022. He was titrated up to 8 cm with good results, and I notice in the report that Dr. Davis had recommended CPAP of 8 cm. Code(s): G47.33 - Obstructive sleep apnea (adult) (pediatric) Category: Medical Plan: Patient is being followed by the sleep medicine service, unfortunately due to some insurance related issues he has not received the CPAP yet. Coding Level of Care Code Est Pt Level 3 (30286) Diagnoses Bronchial asthma J45.909 Cough R05.9 GA (obstructive sleep apnea) G47.33
== END 2024-01-07 13:56 | disposition home or self-care (01) ==
PROVIDERS: PCP Internal Medicine; Visit Provider Internal Medicine
DX: J45.909 Unspecified asthma, uncomplicated (principal); R05.9 Cough, unspecified; G47.33 Obstructive sleep apnea (adult) (pediatric)
CPT/HCPCS: 99213

== ENCOUNTER → 2024-01-07 13:30 | Outpatient (BNVA) | payer MEDICARE, SELFPAY | PROVIDERS: PCP Internal Medicine; Visit Provider Internal Medicine | DX: J45.909 Unspecified asthma, uncomplicated (principal); G47.33 Obstructive sleep apnea (adult) (pediatric); R05.9 Cough, unspecified | CPT/HCPCS: 99212 ==

== ENCOUNTER → 2024-04-04 20:30 | Outpatient (REF) | payer MEDICARE, MEDICAID, SELFPAY | LOC: HO.SL 20:30 | PROVIDERS: PCP Internal Medicine; Visit Provider Nurse Practitioner Family | DX: G47.33 Obstructive sleep apnea (adult) (pediatric) (principal) | CPT/HCPCS: 95810 ==

== ENCOUNTER → 2024-04-04 22:03 | Outpatient (BNV) | payer MEDICARE, MEDICAID, SELFPAY | PROVIDERS: PCP Internal Medicine; Visit Provider Psychiatry & Neurology Neurology | DX: G47.33 Obstructive sleep apnea (adult) (pediatric) (principal) | CPT/HCPCS: 95810 ==

== ENCOUNTER 2024-04-17 14:01 | Outpatient (AMB) | payer MEDICARE, MEDICAID, SELFPAY ==
--- NOTE | 2024-04-17 13:59 | A.OFFVIS_ITS ---
Vital Signs 04/17/24 14:02 Height 5 ft 4 in Weight 150 lb 2 oz BMI 25.8 BP 122/80 Blood Pressure Location Rt brachial Position Sitting Pulse 83 Pulse Source Pulse Oximeter Pulse Oximetry (%) 96 Oxygen Delivery Method Room Air Intake Visit Reasons: Follow Up [employer] Supervisor Required: No [employer] Supervisor Services: [employer] Supervisor Offered & Declined Working Manager: Working Manager Present Accompanied by: Daughter Allergies losartan Allergy (Intermediate, Verified 04/17/24 14:01) cough Penicillins [PENICILLINS] Allergy (Mild, Verified 04/17/24 14:01) RASH Do you need a note to return to daycare/school/sports/work: No HPI Comments Details: 67-yr-old male presents for f/u visit, accompanied by his dtr. Pt denies any significant interval medical changes. Pt did not start CPAP, as his sleep study was too old. Thus, pt has just undergone f/u in-lab sleep study. Results of which are pending. Pt reports he has good and bad days with his memory, more so w/ STM. He is prone to misplace things. Daughter helps to manage important paperwork, 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 etc. He had recent neuropsych eval- dx major neurocognitive disorder though specific etiology was not clear, though they question of neurodegenerative process such as DLB or PD d/t tremor was noticed during his evaluation. He has had previous brain MRI, results of which showed cerebral volume loss and chronic microischemic changes. Recommendations included increased cognitively stimulating activities, start tx for GA. His younger brother (1 yr younger) was just dx'd w/ PD. Pt's mother had s/s AD/dementia- starting in her mid-80s or later. He does endorse hyposmia for a number of years, talks/snores in his sleep, pinching sensation at night in arms/legs, R > L hand tremor- unsure if more at rest or action, Left arm numbness at times, tiredness, maybe sees shadows, sometimes leg cramps, joint pains, constipation- has had to have NGT evacuation. Denies lightheadedness. Denies h/o toxic home or occupational exposusres. He is having 1-2 headaches per week. Worse if he has not slept as well. He is complaint w/ Amitriptyline. Using Advil prn. He is still very photophobic. He notes that he has glaucoma. He notes that he has chronic arthritis. Hands can be sore and lock up. He has seen Rheumatology before and was told he could use Tylenol Arthritis p.r.n. he generally does not tolerate NSAIDs due to causes GI upset. [facility] Medical History GA (obstructive sleep apnea) Nocturnal hypoxemia Bronchial asthma Cough Dyspnea on exertion Knee pain, bilateral Bilateral hand numbness Type 2 diabetes mellitus with hyperglycemia Renal mass Cervical radiculopathy Alcohol abuse Median nerve neuropathy Cataract LATOYA positive Osteoarthritis of hands, bilateral Anxiety BPH (benign prostatic hyperplasia) Peripheral neuropathy Vitamin D deficiency Tubular adenoma of colon Insomnia Glaucoma Hypercholesterolemia Arthritis Hx of small bowel obstruction HTN (hypertension) Surgical History History of cataract surgery History of inguinal hernia repair Hx of colonoscopy Family History Father No problems noted. Mother Diabetes Brother Lung cancer Social History Household Members: Spouse Housing: Apartment Alcohol intake: never Patient Tobacco Use Status: Former Tobacco user Tobacco use type: Cigarette Years Smoked: stopped 1999 e-Cigarette/Vaping Use: Never Used Second Hand Smoke Exposure: No service: No Current occupational status: unemployed Cognitive needs: No Hearing needs: No Vision needs: Yes Physical Exam Vital Signs: Last Vital Signs Pulse 83 04/17/24 14:02 BP 122/80 04/17/24 14:02 Pulse Ox 96 04/17/24 14:02 Oxygen Delivery Method Room Air 04/17/24 14:02 BMI result Body Mass Index 25.8 Const General: cooperative and no acute distress Resp Effort & Inspection: normal respiratory effort and able to speak in complete sentences Neuro Other: Alert & Orientated. Mild decrease in blink No significant tremor noted today. FFM are slightly decreased. BUE SOHAIL slow but intact BUE- no significant tone Foot taps slightly decreased. Stands easily, mild decreased arm swing, stride steady. Cranial nerves: Yes CN's II-XII intact bilaterally Cognition (Neuro): normal cognition Psych Appearance: grossly normal Mental Status: mental status grossly normal Speech and movement: Normal speech and movement present Affect: normal affect Attitude: cooperative Assessment & Plan Assessment & Plan (1) Severe obstructive sleep apnea: Comment: July 2022, PER HIS SLEEP STUDY, HE HAS SEVERE OBSTRUCTIVE SLEEP APNEA, ALONG WITH NOCTURNAL HYPOXEMIA. [facility] AND HE IS SCHEDULED FOR AN IN SLEEP LAB CPAP TITRATION STUDY. PATIENT HAS UNDERGONE THE CPAP TITRATION STUDY. HE REQUIRED CPAP OF 8 CM . THERE WAS NO RESIDUAL HYPOXEMIA CPAP DEVICE HAS BEEN ORDERED BY SLEEP MEDICINE SERVICE. Code(s): G47.33 - Obstructive sleep apnea (adult) (pediatric) Category: Medical (2) Cognitive impairment: Code(s): R41.89 - Other symptoms and signs involving cognitive functions and awareness Category: Medical (3) Headache: Code(s): R51.9 - Headache, unspecified Category: Medical (4) Major neurocognitive disorder: Comment: per 2023 neuro-psych eval at [facility] Code(s): F03.90 - Unspecified dementia, unspecified severity, without behavioral disturbance, psychotic disturbance, mood disturbance, and anxiety Category: Medical Plan For GA: Upon review of recent in-lab sleep study, pt advised to start CPAP 8 cmH2O nightly > 4 hrs-, as this was the optimal pressure identified during his last PAP titration study. ? For cognitive difficulties: Reviewed neuropsych report w/ pt/dtr. Start CPAP as above. Increase physical, social, cognitive stimulating activities. Will monitor movement s/s- ? underlying neurodegenerative d/o or effect of untreated sleep apnea. ? For headaches: Monitor headache response to starting PAP tx, then consider weaning off Amitriptyline and trying alternate tx w/ less risk for cognitive s/e's. For now, Amitripyline 25mg qhs and prn Advil (sparingly)- he uses this for generalized arthritic pain as well. Future considerations: Trying migraine specific preventative agent, requesting follow-up rheumatology consult. ? ? f/u in 6 months or sooner prn Coding Level of Care Code Est Pt Level 4 (03538) Diagnoses Severe obstructive sleep apnea G47.33 Cognitive impairment R41.89 Headache R51.9 Major neurocognitive disorder F03.90
[2024-04-17 14:02] VITALS: BP 122/80; PULSE 83; O2SAT 96; BMI 25.8
== END 2024-04-17 15:14 | disposition home or self-care (01) ==
PROVIDERS: PCP Internal Medicine; Visit Provider Nurse Practitioner Family
DX: G47.33 Obstructive sleep apnea (adult) (pediatric) (principal); R41.89 Other symptoms and signs involving cognitive functions and awareness; R51.9 Headache, unspecified; F03.90 Unspecified dementia, unspecified severity, without behavioral disturbance, psychotic disturbance, mood disturbance, and anxiety
CPT/HCPCS: 99214

== ENCOUNTER → 2024-04-17 14:01 | Outpatient (BNVA) | payer MEDICARE, MEDICAID, SELFPAY | PROVIDERS: PCP Internal Medicine; Visit Provider Nurse Practitioner Family | DX: G47.33 Obstructive sleep apnea (adult) (pediatric) (principal); R09.02 Hypoxemia; R41.89 Other symptoms and signs involving cognitive functions and awareness; R51.9 Headache, unspecified; F03.90 Unspecified dementia, unspecified severity, without behavioral disturbance, psychotic disturbance, mood disturbance, and anxiety; Z87.891 Personal history of nicotine dependence | CPT/HCPCS: 99212 ==

== ENCOUNTER 2024-06-26 14:56 | Outpatient (AMB) | payer MEDICARE, MEDICAID, SELFPAY ==
[2024-06-26 14:58] VITALS: BP 110/78; PULSE 117; O2SAT 96; BMI 25.8
--- NOTE | 2024-06-26 14:58 | A.OFFPC_ITS ---
Vital Signs 06/26/24 14:58 Height 5 ft 4 in Weight 150 lb 6 oz BMI 25.8 BP 110/78 Blood Pressure Location Lt brachial Position Sitting Pulse 117 H Pulse Source Pulse Oximeter Pulse Oximetry (%) 96 Oxygen Delivery Method Room Air Intake Visit Reasons: Annual Exam [employer] Required: No Accompanied by: Self / Same As Patient Allergies losartan Allergy (Intermediate, Verified 06/26/24 14:58) cough Penicillins [PENICILLINS] Allergy (Mild, Verified 06/26/24 14:58) RASH Medication List - Last Reconciled 06/26/24 by Trenton Chin MD amitriptyline 25 mg PO BEDTIME blood sugar diagnostic (FreeStyle Lite Strips) As directed check the BS QD blood-glucose meter (FreeStyle Lite Meter kit) As directed docusate sodium (Colace) 100 mg PO BID lancets (FreeStyle Lancets) As directed check BS QD latanoprost 0.005% 1 drp ophthalmic (eye) BEDTIME metformin ER 500 mg PO BID polyethylene glycol 3350 (Miralax) 17 grams PO DAILY simvastatin 20 mg PO BEDTIME 90 days [STERILE Alcohol Prep pad As directed] tamsulosin (Flomax) 0.4 mg PO BEDTIME timolol maleate 0.5% 1 drp ophthalmic (eye) QAM Tobacco use date assessed: 06/26/24 Fall risk assessment: No Falls in past year Last assessed Fall Risk: 06/26/24 Dental Screening Dental Screen Date: 06/26/24 Did you have a dental visit in the last 12 months?: No Did you have a dental problem in the last 6 months where you did not have access to dental care?: No Was dental information given to patient?: No HPI Annual Exam HPI Details The patient is a 68-year-old male presenting with multiple chronic conditions, primarily focusing on severe sleep apnea and cognitive impairment consistent with dementia. He reports using CPAP therapy, though he finds it challenging but recognizes its importance in possibly alleviating cognitive symptoms. The patient was diagnosed with dementia, and it was suggested that proper management of sleep apnea could aid in dementia management. He has a history of type 2 diabetes mellitus, treated with metformin, which sometimes causes mild diarrhea influenced by dietary intake. There's a mention of fluctuating blood glucose levels potentially affecting hydration status. Hypertension and hyperlipidemia are well-managed, with the latest cholesterol level from the previous year being adequately controlled with simvastatin 20 mg at bedtime. Benign prostatic hyperplasia symptoms are managed with Flomax; however, the patient is unsure whether he currently takes it and plans to verify this. He monitors his diet and water intake, focusing on increasing water to avoid dehydration symptoms. The patient has a history of arthritis presenting as shoulder pain, not yet fully evaluated by imaging or additional testing. Gastroesophageal reflux disease (GERD) is acknowledged but not severe enough to warrant additional medication adjustments at this time. He had cataract surgery without complete resolution of symptoms and is planning a follow-up ophthalmology assessment. Lastly, a tubular adenoma was excised in 2 020, necessitating surveillance due to potential risk for recurrence. - Current on pneumonia, tetanus, and solomon ngles vaccinations. - Recommended flu vaccination administer ed during this visit. - Advised regular blood glucose monitori ng and hydration to manage diabetes and prevent dehydration. - Emphasized regular screenings, acknowl edging previous colonoscopy findings of a tubular adenoma, recommending follow-up evaluation this year. - Encouraged dietary management, focusin g on reducing soda consumption and increasing water intake. - Promoted healthy lifestyle habits, inc luding avoidance of alcohol and smoking cessation. - Patient is a former smoker who has arelis t smoking, and no longer consumes alcohol. - Discusses occasional soda consumption, primarily drinking water. - Reports psychosocial support mainly th rough family engagement and ongoing medical follow-ups. - General: Denies dizziness, nausea, or vomiting; reports no fever. - Cardiovascular: Reports occasional pal pitations; denies chest pain. - Gastrointestinal: Has GERD symptoms; r eports fluctuations in bowel habits from diarrhea to constipation, influenced by diet. - Neurological: Denies lightheadedness; reports ongoing cognitive impairment related to dementia. - Musculoskeletal: Reports occasional sh oulder pain attributed to arthritis. - Ophthalmological: History of cataract surgery; issues with vision persist under certain lighting conditions. [facility] Medical History GA (obstructive sleep apnea) Nocturnal hypoxemia Bronchial asthma Cough Dyspnea on exertion Knee pain, bilateral Bilateral hand numbness Type 2 diabetes mellitus with hyperglycemia Renal mass Cervical radiculopathy Alcohol abuse Median nerve neuropathy Cataract LATOYA positive Osteoarthritis of hands, bilateral Anxiety BPH (benign prostatic hyperplasia) Peripheral neuropathy Vitamin D deficiency Tubular adenoma of colon Insomnia Glaucoma Hypercholesterolemia Arthritis Hx of small bowel obstruction HTN (hypertension) Surgical History History of cataract surgery History of inguinal hernia repair Hx of colonoscopy Family History Father No problems noted. Mother Diabetes Brother Lung cancer Social History Household Members: Spouse Housing: Apartment Alcohol intake: never Patient Tobacco Use Status: Former Tobacco user Tobacco use type: Cigarette Years Smoked: stopped 1999 e-Cigarette/Vaping Use: Never Used Second Hand Smoke Exposure: No service: No Current occupational status: unemployed Cognitive needs: No Hearing needs: No Vision needs: Yes Questionnaire PHQ-9 Over the last 2 weeks, how often have you been bothered by any of the following problems? 1. Little interest or pleasure in doing things: several days 2. Feeling down, depressed, or hopeless: several days 3. Trouble falling or staying asleep, or sleeping too much: several days 4. Feeling tired or having little energy: several days 5. Poor appetite or overeating: several days 6. Feeling bad about yourself - or that you are a failure or have let yourself or your family down: several days 7. Trouble concentrating on things, such as reading the newspaper or watching television: several days 8. Moving or speaking so slowly that other people could have noticed. Or the opposite - being so fidgety or restless that you have been moving around a lot more than usual: several days 9. Thoughts that you would be better off or of hurting yourself in some way: not at all Total score: 8 Source: Developed by Drs. Ashkan Hoffman, Maria De Jesus Guadarrama, Eduin Hardy and colleagues, with an educational ole from [employer]. Thrive Questionnaire Date Thrive assessed: 06/26/24 I am a: Patient What is your living situation today?: I have a steady place to live Within the past 12 months, did the food you bought not last and you didn't have the money to get more?: Never true Within the past 12 months, did you worry whether your food would run out before you got money to buy more?: Never true Do you have trouble paying for medicines?: No Do you have trouble getting transportation to medical 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?: No Do you have trouble paying your heating and electricity bill?: No Do you have trouble taking care of your child, family member or friend?: No Do you have trouble with day-to-day activities such as bathing, preparing meals, shopping, managing finances, etc.?: Yes Are you currently unemployed and looking for a job?: No Are you interested in more education?: No Please select the resources that you would like help with: None Currently or been in a relationship where the following occur: No concerns reported THRIVE Score: 0 AUDIT C Alcohol Use Questionnaire (AUDIT-C) 1. How often do you have a drink containing alcohol?: Never 3. How often do you have six or more drinks on one occasion?: Never Total Score: 0 ELVI-7 AMB Questionnaire ELVI-7 Date ELVI - 7 assessed: 06/26/24 Feeling nervous, anxious, or on edge: 1 = Several days Not being able to stop or control worryin = Several days Worrying too much about different things: 1 = Several days Trouble relaxin = Several days Being so restless that it is hard to sit still: 1 = Several days Becoming easily annoyed or irritable: 1 = Several days Feeling afraid as if something awful might happen: 0 = Not at all Total ELVI-7 score (0-4 normal; 5-9 mild; 10-14 moderate; 15-21 severe): 6 Source: Developed by Drs. Ashkan Hoffman, Maria De Jesus Guadarrama, Eduin Hardy and colleagues, with an educational ole from [employer]. Review of Systems Const Denies poor appetite and Denies weakness Eyes Denies no additional complaints ENT Reports Normal hearing present, Denies dizziness, Denies nasal congestion, Denies tinnitus and Denies sore throat Card Denies chest pain, Denies syncope, Denies rapid heart rate and Denies dyspnea Resp Denies cough and Denies dyspnea GI Denies change in stool character, Reports constipation, Denies diarrhea, Denies nausea and Denies vomiting Denies dysuria and Denies urinary frequency Neuro Reports Normal hearing present, Denies confusion, Denies dizziness, Denies syncope and Denies weakness Psych Denies confusion Physical exam (Primary Care) Vital Signs: Last Vital Signs Pulse 117 H 06/26/24 14:58 BP 110/78 01/02/25 14:58 Pulse Ox 96 06/26/24 14:58 Oxygen Delivery Method Room Air 06/26/24 14:58 BMI result Body Mass Index 25.8 Tobacco/Smoking Status: Tobacco use Status Tobacco use date assessed 06/26/24 06/26/24 15:04 Patient Tobacco Use Status Former Tobacco user 06/26/24 15:04 Tobacco use type Cigarette 06/26/24 15:04 e-Cigarette/Vaping Use Never Used 06/26/24 15:04 PHQ-9: PHQ-9 Score PHQ-9: Total score 8 06/26/24 15:45 Thrive Assessment: Date of Thrive Assessment Date Thrive assessed 06/26/24 06/26/24 15:04 Currently or been in a relationship where the following occur: No concerns reported Const General: No confusion Orientation/consciousness: No confusion HENMT Head: Yes normocephalic Ears: external ears normal and TM's normal bilaterally Face and sinus: Yes normal facial exam Mouth: moist mucous membranes Throat: Yes tonsils normal Eyes Conjunctivae: conjunctivae normal Pupils: Equal, round and reactive pupils present and Pupil accommodation reflex normal Direct Ophthalmoscopy: normal light reflex Neck Neck: No lymphadenopathy Thyroid: Thyroid normal Chest Chest palpation & inspection: normal inspection of the chest Resp Effort & Inspection: normal respiratory effort and no audible wheezes Auscultation: clear to auscultation bilaterally, no crackles, no wheezes and lung sounds not diminished Cardio Rate: regular rate Rhythm: regular rhythm Peripheral pulses: radial pulses present and dorsalis pedis present GI Other: guaiac negative , prostate N Palpation (GI): no masses Auscultation: normal bowel sounds and normoactive bowel sounds Male General Exam: Yes normal external exam Skin General skin exam: no rashes or lesions noted Rashes: no rashes Neuro General: No confusion Cranial nerves: Yes Equal, round and reactive pupils present and Yes Normal hearing present Cognition (Neuro): normal cognition Gait exam (Neuro): Normal gait present Motor exam (neuro): 5/5 motor strength present throughout Deep tendon reflexes (DTR's): Right brachioradialis reflex intensity grade: 2+, Left brachioradialis reflex intensity grade: 2+, Right patellar reflex intensity grade: 2+ and Left patellar reflex intensity grade: 2+ Extrem General: No edema Office Procedures Flu Questionnaire Does the patient have a severe egg allergy?: No Does the patient have severe life threatening allergies?: No Does the patient have a fever or illness today?: No Has the patient ever had Guillain-[place] Syndrome?: No Has the patient ever had any past reaction to a flu shot?: No Immunizations Fluarix Triv [id number] (PF) 45 mcg (15 mcg x 3)/0.5 mL IM syringe Performing Provider: Trenton Chin MD [facility] Administered by: ROBIN Kidd on 06/26/24 15:45 Dose Route Admin Location Dispensed Lot Number Expiration Date [facility] Dry Folder Cloth 0.5 mL IM Right Deltoid 0.5 mL [id number] 12/22/24 [id number] Index VIS Given Date VIS Provided VIS Publication Date 06/26/24 Single Vaccine 21 Eligibility Eligibility Date Funding Source Not [facility] Eligible 06/26/24 Private Coding Level of Care Code Est Pt Prev Care >65y(12524) Diagnoses Annual physical exam Z00.00 Type 2 diabetes mellitus with hyperglycemia E11.65 Severe obstructive sleep apnea G47.33 Hypercholesterolemia E78.00 Essential hypertension I10 Hypertension type: essential hypertension Benign prostatic hyperplasia with urinary frequency N40.1; R35.0 Lower urinary tract symptom detail: urinary frequency Lower urinary tract symptom presence: symptoms present Generalized anxiety disorder F41.1 GERD (gastroesophageal reflux disease) K21.9 Assessment & Plan Assessment & Plan (1) Annual physical exam: Code(s): Z00.00 - Encounter for general adult medical examination without abnormal findings Category: Medical (2) Type 2 diabetes mellitus with hyperglycemia: Code(s): E11.65 - Type 2 diabetes mellitus with hyperglycemia Category: Medical (3) Severe obstructive sleep apnea: Comment: July 2022, PER HIS SLEEP STUDY, HE HAS SEVERE OBSTRUCTIVE SLEEP APNEA, ALONG WITH NOCTURNAL HYPOXEMIA. [facility] AND HE IS SCHEDULED FOR AN IN SLEEP LAB CPAP TITRATION STUDY. PATIENT HAS UNDERGONE THE CPAP TITRATION STUDY. HE REQUIRED CPAP OF 8 CM . THERE WAS NO RESIDUAL HYPOXEMIA CPAP DEVICE HAS BEEN ORDERED BY SLEEP MEDICINE SERVICE. Code(s): G47.33 - Obstructive sleep apnea (adult) (pediatric) Category: Medical (4) Hypercholesterolemia: Code(s): E78.00 - Pure hypercholesterolemia, unspecified Category: Medical (5) HTN (hypertension): Code(s): I10 - Essential (primary) hypertension Category: Medical Qualifiers: Hypertension type: essential hypertension Qualified Code(s): I10 - Essential (primary) hypertension (6) BPH (benign prostatic hyperplasia): Code(s): N40.0 - Benign prostatic hyperplasia without lower urinary tract symptoms Category: Medical Qualifiers: Lower urinary tract symptom detail: urinary frequency Lower urinary tract symptom presence: symptoms present Qualified Code(s): N40.1 - Benign prostatic hyperplasia with lower urinary tract symptoms; R35.0 - Frequency of micturition (7) Generalized anxiety disorder: Code(s): F41.1 - Generalized anxiety disorder Category: Medical (8) GERD (gastroesophageal reflux disease): Code(s): K21.9 - Gastro-esophageal reflux disease without esophagitis Category: Medical Plan - Previous cholesterol levels satisfactory. - Last colonoscopic findings: excised tubular adenoma in 2019. - CPAP therapy initiated for severe sleep apnea. - Reemphasize utilization of CPAP for management of sleep apnea to potentially alleviate cognitive symptoms. - Continue metformin for diabetes management; monitor glucose levels vigilantly and hydrate appropriately. - Maintain simvastatin for hyperlipidemia control. - Verify Flomax usage for benign prostatic hyperplasia; ensure correct medication adherence. - Manage arthritis symptomatically with analgesics and possible referral for imaging if symptoms persist or worsen. - Monitor GERD dietarily; advise avoiding known trigger foods. - Schedule ophthalmology follow-up regarding post-cataract surgery symptoms. - Repeat colonoscopy in 2024 considering tubular adenoma history. During the visit, I emphasized the importance of appropriately managing severe sleep apnea to alleviate associated dementia symptoms. We discussed the need to maintain strict control of diabetes through regular glucose monitoring and hydration to prevent dehydration-related complications. The patient agreed to continue current medications for glycemic control and lipid management. We discussed arthritic pain management strategies, including the consideration of imaging to assess shoulder pain if persistent. I advised dietary and lifestyle modifications for GERD management and recommenced follow-up colonoscopy in 2024 given the history of tubular adenoma. The patient consented to flu vaccination and discussed the benefits of compliance with immunization schedules. I reinforced the importance of avoiding soda and increasing water intake. - Continue CPAP therapy nightly for sleep apnea. - Monitor blood sugar levels regularly and stay hydrated. - Continue current medication regimen for diabetes and hyperlipidemia. - Avoid GERD triggers; maintain a balanced diet. - Plan for repeat colonoscopy in 2024 and follow up with ophthalmology as scheduled. - Increase water intake, aiming for at least four 16 oz bottles daily. - Regular physical activity is encouraged for overall health. - Notify the office of any new or worsening symptoms, especially related to sleep apnea, diabetes, or arthritis. - Return for routine follow-up and flu vaccine today. Orders: Orders Complete Blood Count Auto Diff Today E11.65 - Type 2 diabetes mellitus with hyperglycemia Free T4 (Free Thyroxine) Today E11.65 - Type 2 diabetes mellitus with hyperglycemia Thyroid Stimulating Hormone Today E11.65 - Type 2 diabetes mellitus with hyperglycemia Microalbumin, Random (w Creat) Today E11.65 - Type 2 diabetes mellitus with hyperglycemia Creatinine Urine Today E11.65 - Type 2 diabetes mellitus with hyperglycemia Vitamin B12 and Folate Today E11.65 - Type 2 diabetes mellitus with hyperglycemia Influenza [id number] Immunization Today Z23 - Encounter for immunization Comprehensive Met. Panel Today E11.65 - Type 2 diabetes mellitus with hyperglycemia Hemoglobin A1c Today E11.65 - Type 2 diabetes mellitus with hyperglycemia Lipid Panel Today E11.65 - Type 2 diabetes mellitus with hyperglycemia, E78.00 - Pure hypercholesterolemia, unspecified Prostate Specific Antigen Scr Today E11.65 - Type 2 diabetes mellitus with hyperglycemia
== END 2024-06-26 15:50 | disposition home or self-care (01) ==
PROVIDERS: PCP Internal Medicine; Visit Provider Internal Medicine
DX: Z00.00 Encounter for general adult medical examination without abnormal findings (principal); E11.65 Type 2 diabetes mellitus with hyperglycemia; G47.33 Obstructive sleep apnea (adult) (pediatric); E78.00 Pure hypercholesterolemia, unspecified; I10 Essential (primary) hypertension; N40.1 Benign prostatic hyperplasia with lower urinary tract symptoms; R35.0 Frequency of micturition; F41.1 Generalized anxiety disorder; K21.9 Gastro-esophageal reflux disease without esophagitis; Z23 Encounter for immunization

== ENCOUNTER → 2024-06-26 14:56 | Outpatient (BNVA) | payer MEDICARE, SELFPAY | PROVIDERS: PCP Internal Medicine; Visit Provider Internal Medicine | DX: Z00.00 Encounter for general adult medical examination without abnormal findings (principal); Z23 Encounter for immunization; E11.65 Type 2 diabetes mellitus with hyperglycemia; E78.00 Pure hypercholesterolemia, unspecified; G47.33 Obstructive sleep apnea (adult) (pediatric); I10 Essential (primary) hypertension; N40.1 Benign prostatic hyperplasia with lower urinary tract symptoms; R35.0 Frequency of micturition; F41.1 Generalized anxiety disorder; K21.9 Gastro-esophageal reflux disease without esophagitis | CPT/HCPCS: 90471; 90656; 99397 ==

== ENCOUNTER 2024-07-08 10:59 | Outpatient (AMB) | payer MEDICARE, MEDICAID, SELFPAY ==
--- NOTE | 2024-07-08 11:17 | A.OFFVIS_ITS ---
VS Expanded 07/08/24 11:18 Height 5 ft 4 in Weight 147 lb 14.883 oz BMI 25.4 Intake Visit Reasons: DM/Confirmed Allergies losartan Allergy (Intermediate, Verified 06/26/24 14:58) cough Penicillins [PENICILLINS] Allergy (Mild, Verified 06/26/24 14:58) RASH Nutrition Presentation Details: Pt presents for MNT f/u for T2DM Pt reports doing well food frequency fruits :0-1/d vex/wk, starchy veg 4-5 x/wk protein: fish, poultry, beef, eggs, no cheese milk/yogurt/ice cream/pudding : not including starches > 18 serving/d fluids: coffee, water, juice , sometimes sodas physical activity: sedentary Etoh/smoking ---- Pt brought glucometer and monitors after dinner BG ranging from 120 to 140s BS Monitoring Most Recent Diabetes Results: No Data to Display RJZ-Opbvtrd-Uj.Jeor Equation Height: 5 ft 4 in Weight: 148 lb Resting Metabolic Rate: 1362.01 Calculated Activity Level: Sedentary Calories Needed to Maintain Weight: 1634.41 [facility] Medical History GA (obstructive sleep apnea) Nocturnal hypoxemia Bronchial asthma Cough Dyspnea on exertion Knee pain, bilateral Bilateral hand numbness Type 2 diabetes mellitus with hyperglycemia Renal mass Cervical radiculopathy Alcohol abuse Median nerve neuropathy Cataract LATOYA positive Osteoarthritis of hands, bilateral Anxiety BPH (benign prostatic hyperplasia) Peripheral neuropathy Vitamin D deficiency Tubular adenoma of colon Insomnia Glaucoma Hypercholesterolemia Arthritis Hx of small bowel obstruction HTN (hypertension) Surgical History History of cataract surgery History of inguinal hernia repair Hx of colonoscopy Family History Father No problems noted. Mother Diabetes Brother Lung cancer Social History Household Members: Spouse Housing: Apartment Alcohol intake: never Patient Tobacco Use Status: Former Tobacco user Tobacco use type: Cigarette Years Smoked: stopped 1999 e-Cigarette/Vaping Use: Never Used Second Hand Smoke Exposure: No service: No Current occupational status: unemployed Cognitive needs: No Hearing needs: No Vision needs: Yes Assessment & Plan Assessment & Plan (1) Type 2 diabetes mellitus with hyperglycemia: Code(s): E11.65 - Type 2 diabetes mellitus with hyperglycemia Category: Medical Plan: 1800 lizbeth ADA meal plan Used wt 67 kg est kcal needs as per MSJ: 1600- 1700 (40% carb, 30% fat/prot) est fluid needs asper 30 ml/kg bw: 2000 ml/d rec fiber: 25-35 g/d Rec Na: 1500 mg/d ? Educate patient on: (R= Reviewed, V = verbalizes understanding N/R= Needs review N/A= not applicable) * Food sources of carbohydrates and serving adequate serving sizes : R V * Difference between complex carbohydrates and simple carbohydrates, role of fiber: R V * Differences between fats (MUFA/PUFA/saturated fats, trans fats) and food sources of various fats: R ,v * Food sources of sodium and salt and healthy modifications for heart health and kidney health: R V * Vitamins and minerals: R V * blood glucose goal as per ADA guidelines R * Healthy Plate method concept: R V * Physical activity: benefits and precaution: R V * hypoglycemia prevention and treatment: R,v Patient Instructions: Include food source of Calciium : spinach, broccoli, sardines/salmon canned, navy beans , see list of options Recommended intake per day 1000 mg engage in physical activity: 30 min walk 3-4 times/wk or as tolerated Coding Level of Care Code Nutr Indiv Subseq (34046) Diagnoses Type 2 diabetes mellitus with hyperglycemia E11.65 Time Spent (min) 30
[2024-07-08 11:18] VITALS: BMI 25.4
[2024-07-09 14:36] VITALS: BMI 25.4
== END 2024-07-08 11:38 | disposition home or self-care (01) ==
PROVIDERS: PCP Internal Medicine; Visit Provider Dietitian, Registered
DX: E11.65 Type 2 diabetes mellitus with hyperglycemia (principal)

== ENCOUNTER → 2024-07-08 10:59 | Outpatient (BNVA) | payer MEDICARE, MEDICAID, SELFPAY | PROVIDERS: PCP Internal Medicine; Visit Provider Dietitian, Registered | DX: E11.65 Type 2 diabetes mellitus with hyperglycemia (principal); Z71.3 Dietary counseling and surveillance | CPT/HCPCS: 97803 ==

== ENCOUNTER 2024-07-10 13:32 | Outpatient (AMB) | payer MEDICARE, SELFPAY ==
[2024-07-10 13:36] VITALS: BP 120/70; PULSE 79; O2SAT 98; BMI 25.7
--- NOTE | 2024-07-10 13:36 | MHC.OFFVIS ---
Vital Signs 07/10/24 13:36 Height 5 ft 4 in Weight 149 lb 14.629 oz BMI 25.7 BP 120/70 Blood Pressure Location Lt brachial Position Sitting Pulse 79 Pulse Source Pulse Oximeter Pulse Oximetry (%) 98 Oxygen Delivery Method Room Air Intake Visit Reasons: COPD Intake Note: pt is here for follow up and feels good,would like a script sent for albuterol hfa to have on hand with this weather. [employer] Machine Required: No Allergies losartan Allergy (Intermediate, Verified 07/10/24 13:46) cough Penicillins [PENICILLINS] Allergy (Mild, Verified 07/10/24 13:46) RASH Medication List - Last Reconciled 07/10/24 by Nathalie vIory MD albuterol sulfate 90 mcg/actuation 2 puffs inhalation Q4-6H PRN amitriptyline 25 mg PO BEDTIME blood sugar diagnostic (FreeStyle Lite Strips) As directed check the BS QD blood-glucose meter (FreeStyle Lite Meter kit) As directed docusate sodium (Colace) 100 mg PO BID lancets (FreeStyle Lancets) As directed check BS QD latanoprost 0.005% 1 drp ophthalmic (eye) BEDTIME metformin ER 500 mg PO BID polyethylene glycol 3350 (Miralax) 17 grams PO DAILY simvastatin 20 mg PO BEDTIME 90 days [STERILE Alcohol Prep pad As directed] tamsulosin (Flomax) 0.4 mg PO BEDTIME timolol maleate 0.5% 1 drp ophthalmic (eye) QAM Do you need a note to return to daycare/school/sports/work: No HPI HPI COPD: Details: This 68 years old gentleman is here for 6 months follow-up. He has history of spasmodic cough especially at night, which is considered to be allergic in nature, and as asthma variant. He ends up using albuterol HFA once or twice a week and it helps. Does not need any controller agent. Also has obstructive sleep apnea being treated with CPAP, and is followed by sleep medicine service. He claims that he does use CPAP every night and sleeps better. [facility] Medical History GA (obstructive sleep apnea) Nocturnal hypoxemia Bronchial asthma Cough Dyspnea on exertion Knee pain, bilateral Bilateral hand numbness Type 2 diabetes mellitus with hyperglycemia Renal mass Cervical radiculopathy Alcohol abuse Median nerve neuropathy Cataract LATOYA positive Osteoarthritis of hands, bilateral Anxiety BPH (benign prostatic hyperplasia) Peripheral neuropathy Vitamin D deficiency Tubular adenoma of colon Insomnia Glaucoma Hypercholesterolemia Arthritis Hx of small bowel obstruction HTN (hypertension) Surgical History History of cataract surgery History of inguinal hernia repair Hx of colonoscopy Family History Father No problems noted. Mother Diabetes Brother Lung cancer Social History Household Members: Spouse Housing: Apartment Alcohol intake: never Patient Tobacco Use Status: Former Tobacco user Tobacco use type: Cigarette Years Smoked: stopped 1999 e-Cigarette/Vaping Use: Never Used Second Hand Smoke Exposure: No service: No Current occupational status: unemployed Cognitive needs: No Hearing needs: No Vision needs: Yes Review of Systems Const All systems reviewed & are unremarkable except as noted in HPI and below Eyes Reports no additional complaints ENT Reports no additional complaints Card Denies chest pain, Denies irregular heart rhythm and Denies leg edema Resp Reports as per HPI GI Denies abdominal pain and Reports constipation Reports no additional complaints Musc Reports no additional complaints Skin/Breast Reports system reviewed and no additional complaints, except as documented Neuro Reports memory loss (KNOWN TO HAVE MILD COGNITIVE IMPAIRMENT) Psych Reports memory loss (KNOWN TO HAVE MILD COGNITIVE IMPAIRMENT) Endo Reports other (DIABETES MELLITUS, HYPERLIPIDEMIA) Aller/Immun Reports no additional complaints Physical Exam Vital Signs: Last Vital Signs Pulse 79 07/10/24 13:36 BP 120/70 07/10/24 13:36 Pulse Ox 98 07/10/24 13:36 Oxygen Delivery Method Room Air 07/10/24 13:36 BMI result Body Mass Index 25.7 Const General: comfortable, no acute distress, alert and awake Orientation/consciousness: patient oriented x3 HEENT Head: Yes normal to inspection General nose exam: No nasal polyps present and No nasal discharge present Face and sinus: Yes sinuses nontender Mouth: oropharynx normal Throat: Yes posterior oropharynx normal Eyes General: appearance normal, both eyes and all related structures Neck Neck: Yes normal visual inspection, Yes no lymphadenopathy, Yes trachea midline and Yes no JVD Thyroid: Thyroid normal Chest Chest palpation & inspection: normal inspection of the chest, normal palpation of entire chest wall and no tenderness Resp Effort & Inspection: normal respiratory effort Auscultation: clear to auscultation bilaterally, no crackles, no rhonchi and no wheezes Cardio Palpation: normal PMI Rate: regular rate Rhythm: regular rhythm Heart sounds: no gallops and no murmurs Peripheral pulses: Peripheral pulses 2+ throughout GI Palpation (GI): Soft to palpation, nontender, No hepatosplenomegaly present and no masses Auscultation: normal bowel sounds Back/Spine/Pelvis Thoracic/Lumbar Spine: thoracic and lumbar spine normal to inspection Skin General skin exam: no rashes or lesions noted Neuro General: patient oriented x3, gait normal and no focal motor deficits Cranial nerves: Yes CN's II-XII intact bilaterally Extrem General: Yes normal to inspection, Yes no clubbing, cyanosis or edema and Yes no calf tenderness Psych Appearance: grossly normal and well kempt Speech and movement: Normal speech and movement present (SLIGHTLY SLOW IN CONVERSATION) Assessment & Plan Assessment & Plan (1) Bronchial asthma: Comment: HE HAS HISTORY OF INTERMITTENT BOUTS OF COUGH AND WHEEZING. IT SEEMS THAT HE HAS EPISODIC HYPERSENSITIVITY OR ALLERGIC ASTHMA, THIS MAY BE TRIGGERED BY ENVIRONMENTAL CHANGE OR VIRAL INFECTION. Code(s): J45.909 - Unspecified asthma, uncomplicated Category: Medical Plan: OK to use albuterol HFA 2 puffs Q 6 hours p.r.n. and. Try to avoid any environmental triggers such as cold air, dust, smoke etc.. Coding Level of Care Code Est Pt Level 3 (81872) Diagnoses Bronchial asthma J45.909
== END 2024-07-10 13:49 | disposition home or self-care (01) ==
PROVIDERS: PCP Internal Medicine; Visit Provider Internal Medicine
DX: J45.909 Unspecified asthma, uncomplicated (principal)
CPT/HCPCS: 99213

== ENCOUNTER → 2024-07-10 13:32 | Outpatient (BNVA) | payer MEDICARE, SELFPAY | PROVIDERS: PCP Internal Medicine; Visit Provider Internal Medicine | DX: J45.909 Unspecified asthma, uncomplicated (principal) | CPT/HCPCS: 99212 ==

== ENCOUNTER 2024-09-19 08:22 | Outpatient (REF) | payer MEDICARE, MEDICAID, SELFPAY ==
[2024-09-19 08:49] LABS: MANUAL DIFF FLAG NO
[2024-09-19 09:08] LABS: Basophils Absolute Auto 0.1 X10*3/uL (0.0-0.2); Basophils Percent Auto 0.9 % (0-2); Eosinophils Absolute Auto 0.3 X10*3/uL (0.0-0.4); Hematocrit 42.3 % (42.0-52.0); Hemoglobin 13.5 g/dl (14.0-18.0); Imm Gran Abs Auto 0.02 X10*3/uL (0.00-0.03); Imm Gran Pct Auto 0.2 % (0.0-0.4); Lymphocytes Absolute Auto 2.8 X10*3/uL (1.2-4.9); Lymphocytes Percent Auto 34.7 % (20-40); Mean Corpuscular HGB Conc 31.9 g/dl (31.0-36.0); Mean Corpuscular Hemoglobin 26.3 pg (27.0-33.0); Mean Corpuscular Volume 82.5 fL (80.0-98.0); Mean Platelet Volume 9.5 fL (9.4-12.4); Monocytes Absolute Auto 0.7 X10*3/uL (0.1-1.2); Neutrophils Absolute Auto 4.2 x10*3/uL (2.0-8.3); Neutrophils Percent Auto 51.2 % (45-73); Platelet Count 292 X10*3/uL (160-400); Red Blood Count 5.13 X10*6/uL (4.60-5.80); Red Cell Distribution Width 13.5 % (11.0-16.0); White Blood Count 8.1 X10*3/uL (4.8-10.8)
[2024-09-19 09:26] LABS: Estimated Average Glucose 140 mg/dL; Hemoglobin A1C 172.5564 umol/L; Hemoglobin A1c % 6.5 % (<6.0)
[2024-09-19 09:42] LABS: Alanine Aminotransferase 26 U/L (0-40); Albumin Level 4.1 g/dL (3.5-5.0); Alkaline Phosphatase 66 U/L (39-117); Anion Gap 9 (12-20); Aspartate Amino Transferase 25 U/L (5-37); Bilirubin Total 0.4 mg/dL (0.0-1.0); Blood Urea Nitrogen 15 mg/dL (9-16); Calcium 8.8 mg/dL (8.4-10.2); Carbon Dioxide 27 mmol/L (22-29); Chloride 109 mmol/L (96-108); Cholesterol 131 mg/dL (<200); Estimated Glomerular Filt Rate > 60; Glucose Random 113 mg/dL (60-115); HDL Cholesterol 30 mg/dL (>40); LDL Cholesterol Calculated 79 mg/dL (<100); Potassium 4.3 mmol/L (3.3-5.1); Sodium 141 mmol/L (135-145); Total Protein 7.3 g/dL (6.5-8.0); Triglycerides 110 mg/dL (<150)
[2024-09-19 09:58] LABS: Free T4 (Free Thyroxine) 1.01 ng/dL (0.71-1.85); Thyroid Stimulating Hormone 4.85 uIU/mL (0.32-4.0)
[2024-09-19 10:05] LABS: Folate 14.4 ng/mL (> or = 4.0); Prostate Specific Antigen Scr 2.78 ng/mL (<0.05-4.0); Vitamin B12 619 pg/mL (200-900)
[2024-09-19 10:18] LABS: Creatinine Urine 197.39 mg/dL; Microalbum/Creatinine Ratio Ur 8.1 ug/mg cr (<30)
== END 2024-09-19 08:23 | disposition home or self-care (01) ==
LOC: HO.LAB 08:22
PROVIDERS: PCP Internal Medicine; Visit Provider Internal Medicine
DX: E11.65 Type 2 diabetes mellitus with hyperglycemia (principal); E78.00 Pure hypercholesterolemia, unspecified; Z12.5 Encounter for screening for malignant neoplasm of prostate
CPT/HCPCS: 36415; 80053; 80061; 82043; 82570; 82607; 82746; 83036; 84153; 84439; 84443; 85025

== ENCOUNTER 2024-09-25 14:26 | Outpatient (AMB) | payer MEDICARE, MEDICAID, SELFPAY ==
[2024-09-25 14:30] VITALS: BP 118/76; PULSE 97; O2SAT 99; BMI 24.8
--- NOTE | 2024-09-25 14:30 | MHC.PC.OV ---
Vital Signs 09/25/24 14:30 Height 5 ft 4 in Weight 144 lb 6 oz BMI 24.8 BP 118/76 Blood Pressure Location Lt brachial Position Sitting Pulse 97 Pulse Source Pulse Oximeter Pulse Oximetry (%) 99 Oxygen Delivery Method Room Air Intake Visit Reasons: 3 Month F/U Assisted Living Assistant Required: No Accompanied by: Self / Same As Patient Allergies losartan Allergy (Intermediate, Verified 09/25/24 14:30) cough Penicillins [PENICILLINS] Allergy (Mild, Verified 09/25/24 14:30) RASH Medication List - Last Reconciled 09/25/24 by [place] Chin MD albuterol sulfate 90 mcg/actuation 2 puffs inhalation Q4-6H PRN 60 days amitriptyline 25 mg PO BEDTIME blood sugar diagnostic (FreeStyle Lite Strips) As directed check the BS QD blood-glucose meter (FreeStyle Lite Meter kit) As directed docusate sodium (Colace) 100 mg PO BID lancets (FreeStyle Lancets) As directed check BS QD latanoprost 0.005% 1 drp ophthalmic (eye) BEDTIME metformin ER 500 mg PO BID polyethylene glycol 3350 (Miralax) 17 grams PO DAILY simvastatin 20 mg PO BEDTIME 90 days [STERILE Alcohol Prep pad As directed] tamsulosin (Flomax) 0.4 mg PO BEDTIME timolol maleate 0.5% 1 drp ophthalmic (eye) QAM Tobacco use date assessed: 09/25/24 Fall risk assessment: No Falls in past year Last assessed Fall Risk: 09/25/24 Dental Screening Dental Screen Date: 09/25/24 Did you have a dental visit in the last 12 months?: No Did you have a dental problem in the last 6 months where you did not have access to dental care?: No Was dental information given to patient?: No [facility] Medical History (Updated 09/25/24 @ 15:19 by [place] Chin MD) Severe obstructive sleep apnea GA (obstructive sleep apnea) Nocturnal hypoxemia Bronchial asthma Cough Dyspnea on exertion Knee pain, bilateral Bilateral hand numbness Type 2 diabetes mellitus with hyperglycemia Renal mass Cervical radiculopathy Alcohol abuse Median nerve neuropathy Cataract LATOYA positive Osteoarthritis of hands, bilateral Anxiety BPH (benign prostatic hyperplasia) Peripheral neuropathy Vitamin D deficiency Tubular adenoma of colon Insomnia Glaucoma Hypercholesterolemia Arthritis Hx of small bowel obstruction HTN (hypertension) Surgical History History of cataract surgery History of inguinal hernia repair Hx of colonoscopy Family History Father No problems noted. Mother Diabetes Brother Lung cancer Social History Household Members: Spouse Housing: Apartment Alcohol intake: never Patient Tobacco Use Status: Former Tobacco user Tobacco use type: Cigarette Years Smoked: stopped 1999 e-Cigarette/Vaping Use: Never Used Second Hand Smoke Exposure: No service: No Current occupational status: unemployed Cognitive needs: No Hearing needs: No Vision needs: Yes Questionnaire PHQ-9 Over the last 2 weeks, how often have you been bothered by any of the following problems? 1. Little interest or pleasure in doing things: several days 2. Feeling down, depressed, or hopeless: several days 3. Trouble falling or staying asleep, or sleeping too much: several days 4. Feeling tired or having little energy: several days 5. Poor appetite or overeating: several days 6. Feeling bad about yourself - or that you are a failure or have let yourself or your family down: several days 7. Trouble concentrating on things, such as reading the newspaper or watching television: several days 8. Moving or speaking so slowly that other people could have noticed. Or the opposite - being so fidgety or restless that you have been moving around a lot more than usual: several days 9. Thoughts that you would be better off or of hurting yourself in some way: not at all Total score: 8 Source: Developed by Drs. Ashkan Hoffman, Maria De Jesus Guadarrama, Eduin Hardy and colleagues, with an educational ole from [employer]. Thrive Questionnaire Date Thrive assessed: 09/25/24 I am a: Patient What is your living situation today?: I have a steady place to live Within the past 12 months, did the food you bought not last and you didn't have the money to get more?: Never true Within the past 12 months, did you worry whether your food would run out before you got money to buy more?: Never true Do you have trouble paying for medicines?: No Do you have trouble getting transportation to medical 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?: No Do you have trouble paying your heating and electricity bill?: No Do you have trouble taking care of your child, family member or friend?: No Do you have trouble with day-to-day activities such as bathing, preparing meals, shopping, managing finances, etc.?: Yes Are you currently unemployed and looking for a job?: No Are you interested in more education?: No Please select the resources that you would like help with: None Currently or been in a relationship where the following occur: No concerns reported THRIVE Score: 0 AUDIT C Alcohol Use Questionnaire (AUDIT-C) 1. How often do you have a drink containing alcohol?: Never 3. How often do you have six or more drinks on one occasion?: Never Total Score: 0 ELVI-7 AMB Questionnaire ELVI-7 Date ELVI - 7 assessed: 09/25/24 Feeling nervous, anxious, or on edge: 1 = Several days Not being able to stop or control worryin = Several days Worrying too much about different things: 1 = Several days Trouble relaxin = Several days Being so restless that it is hard to sit still: 1 = Several days Becoming easily annoyed or irritable: 1 = Several days Feeling afraid as if something awful might happen: 0 = Not at all Total ELVI-7 score (0-4 normal; 5-9 mild; 10-14 moderate; 15-21 severe): 6 Source: Developed by Drs. Ashkan Hoffman, Maria De Jesus Guadarrama, Eduin Hardy and colleagues, with an educational ole from [employer]. Physical exam (Primary Care) Vital Signs: Last Vital Signs Pulse 97 09/25/24 14:30 BP 118/76 09/25/24 14:30 Pulse Ox 99 09/25/24 14:30 Oxygen Delivery Method Room Air 09/25/24 14:30 BMI result Body Mass Index 24.8 Tobacco/Smoking Status: Tobacco use Status Tobacco use date assessed 09/25/24 09/25/24 14:31 Patient Tobacco Use Status Former Tobacco user 09/25/24 14:31 Tobacco use type Cigarette 09/25/24 14:31 e-Cigarette/Vaping Use Never Used 09/25/24 14:31 PHQ-9: PHQ-9 Score PHQ-9: Total score 8 09/25/24 15:13 Thrive Assessment: Date of Thrive Assessment Date Thrive assessed 09/25/24 09/25/24 14:37 Currently or been in a relationship where the following occur: No concerns reported Const General: alert; No acute distress Eyes Conjunctivae: conjunctivae normal Resp Auscultation: clear to auscultation bilaterally Cardio Rate: regular rate Rhythm: regular rhythm GI Inspection: Yes normal to inspection Extrem General: Yes normal to inspection and No edema Coding Level of Care Code Est Pt Level 4 (75303) Complex EM visit Add On G2211 Diagnoses GA (obstructive sleep apnea) G47.33 Type 2 diabetes mellitus with hyperglycemia E11.65 Fatty liver K76.0 GERD (gastroesophageal reflux disease) K21.9 Generalized anxiety disorder F41.1 Essential hypertension I10 Hypertension type: essential hypertension Hypercholesterolemia E78.00 Benign prostatic hyperplasia with urinary frequency N40.1; R35.0 Lower urinary tract symptom detail: urinary frequency Lower urinary tract symptom presence: symptoms present Bronchial asthma J45.909 Tubular adenoma of colon D12.6 Assessment & Plan Assessment & Plan (1) GA (obstructive sleep apnea): Comment: This gentleman is a known case of obstructive sleep apnea. Has had a few home-based sleep studies and finally CPAP titration study in the sleep lab on 11/28/2022. He was titrated up to 8 cm with good results, and I notice in the report that Dr. Davis had recommended CPAP of 8 cm. Code(s): G47.33 - Obstructive sleep apnea (adult) (pediatric) Category: Medical Plan: Patient is advised to continue using the CPAP more than 4 hours a night and benefits from this. (2) Type 2 diabetes mellitus with hyperglycemia: Comment: Dr. Razo 10/2023 Code(s): E11.65 - Type 2 diabetes mellitus with hyperglycemia Category: Medical Plan: Decrease the amount of carbohydrate intake, pasta, bread, rice and potatoes are all sugar and that is aside from all the sweet stuff, remember that fruits are good but they are Sweet also. Hemoglobin A1c goal of less than 7.0 on metformin 500 mg twice a day (3) Fatty liver: Code(s): K76.0 - Fatty (change of) liver, not elsewhere classified Category: Medical Plan: Low-fat diet and exercise (4) GERD (gastroesophageal reflux disease): Code(s): K21.9 - Gastro-esophageal reflux disease without esophagitis Category: Medical Plan: Avoid the foods that causes that usually spicy foods, tomato products, juices, coffee, soda and foods that your sensitive to. After eating do not lie down, allow 3-4 hours before in lie down. And keep the head of bed above 30 degrees to avoid the acid from going up. (5) Generalized anxiety disorder: Code(s): F41.1 - Generalized anxiety disorder Category: Medical Plan: Continue with amitriptyline (6) HTN (hypertension): Code(s): I10 - Essential (primary) hypertension Category: Medical Qualifiers: Hypertension type: essential hypertension Qualified Code(s): I10 - Essential (primary) hypertension Plan: Continue with blood pressure medication. Decrease salt intake and exercise controlled no medication (7) Hypercholesterolemia: Code(s): E78.00 - Pure hypercholesterolemia, unspecified Category: Medical Plan: Avoid fried foods, chicken skin, eggs, butter margarine, pastries and meat. Be it pork or beef they have a lot of cholesterol LDL goal of less than 100 and triglyceride of less than 150 on simvastatin 20 mg once a day (8) BPH (benign prostatic hyperplasia): Code(s): N40.0 - Benign prostatic hyperplasia without lower urinary tract symptoms Category: Medical Qualifiers: Lower urinary tract symptom detail: urinary frequency Lower urinary tract symptom presence: symptoms present Qualified Code(s): N40.1 - Benign prostatic hyperplasia with lower urinary tract symptoms; R35.0 - Frequency of micturition Plan: Continue with tamsulosin (9) Bronchial asthma: Comment: HE HAS HISTORY OF INTERMITTENT BOUTS OF COUGH AND WHEEZING. IT SEEMS THAT HE HAS EPISODIC HYPERSENSITIVITY OR ALLERGIC ASTHMA, THIS MAY BE TRIGGERED BY ENVIRONMENTAL CHANGE OR VIRAL INFECTION. Code(s): J45.909 - Unspecified asthma, uncomplicated Category: Medical Plan: May use albuterol as needed patient has seen Pulmonary tied in with allergy problems (10) Tubular adenoma of colon: Comment: 2020 Code(s): D12.6 - Benign neoplasm of colon, unspecified Category: Medical Plan History of Present Illness The patient is a 68-year-old male presenting for follow-up on several chronic conditions and health maintenance. An unintentional weight loss of 5 pounds has been observed. He has multiple chronic conditions including hypercholesterolemia managed pharmacologically, BPH treated with tamsulosin, hypertension currently well-controlled without medication, anxiety, fatty liver, diabetes mellitus currently under control, and severe obstructive sleep apnea managed using CPAP. The patient has a cognitive disorder and experiences mild anemia, with a thyroid function test showing mild aberrations that are being monitored. He has COPD and allergic asthma managed with as-needed Albuterol use. Health screenings, such as colonoscopy, are due for renewal this year, and he is up to date with his vaccinations. Laboratory work indicates stable electrolytes and kidney function, with hemoglobin A1c improved to 6.5%. Health Maintenance - Colonoscopy due this year due to previous polyps found - Blood work showing mild anemia; thyroid function to be retested in three months - Diabetes management with goal A1c of <7.0% - Hypertension control without medication - Lipid management: LDL goal <100, triglycerides <150; on Simvastatin 20 mg - Asthma management with as-needed Albuterol - Sleep apnea management with CPAP usage - Vision check scheduled for October for diabetes monitoring - Vaccinations: Shingles, Tetanus, and Pneumonia (2021); Influenza recently administered Social History - Exercise and low-fat diet are part of the current diabetes management plan - 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 monitoring 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 with reinforcing 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 Review of Systems - General: Reports unintentional weight loss of 5 pounds - Respiratory: Reports shortness of breath occasionally; managed with Albuterol inhaler - Cardiovascular: Denies chest pain or heaviness - Endocrine: Reports mild thyroid dysfunction needing further follow-up - Neurological: Denies leg swelling; reports using CPAP effectively for sleep apnea - Urinary: Reports waking up couple of times at night to urinate Physical Exam Results - Labs: - Anemia: Hemoglobin at 13.5 (normal is 14) - Thyroid: Mildly elevated (no specific treatment required currently) - Hemoglobin A1c: 6.5% - Cholesterol: LDL at 79 - Urinalysis: No proteinuria Plan 1. 0%. Hypertension and hypercholesterolemia are monitored; the latter utilizes Simvastatin with set lipid targets. BPH is treated with Tamsulosin, while COPD and asthma are managed as needed. Sleep apnea control requires consistent CPAP use. Anemia and thyroid function warrant periodic reassessment. Scheduled colonoscopy for health maintenance is recommended by late this year. Maintaining routine health screenings and vaccination updates is imperative.: Patient was informed and verbally consented to the use of an ambient scribe for clinic note documentation during this visit. Discussion Notes Patient Instructions - Continue Metformin 500 mg twice daily and adhere to a low-fat diet and exercise plan - Use CPAP for more than 4 hours each night - Monitor blood glucose levels regularly; aim to maintain hemoglobin A1c below 7.0% - Refill and use tamsulosin as directed for BPH symptoms - Use Albuterol inhaler as required for shortness of breath - Schedule and attend the colonoscopy appointment later this year - Follow up on thyroid function tests after three months - Stay current with all vaccinations - Attend ophthalmology appointment in October for diabetes monitoring - Maintain a healthy hydration and nutrition routine, avoiding added sugars - Seek medical attention if experiencing unusual symptoms or significant changes in health Orders: Orders Comprehensive Met. Panel 3 Months E11.65 - Type 2 diabetes mellitus with hyperglycemia Free T4 (Free Thyroxine) 3 Months E11.65 - Type 2 diabetes mellitus with hyperglycemia Hemoglobin A1c 3 Months E11.65 - Type 2 diabetes mellitus with hyperglycemia Referrals Gastroenterology Referral D12.6 - Benign neoplasm of colon, unspecified Medications: Refilled amitriptyline 25 mg PO BEDTIME 90 tabs 2RF E11.65 - Type 2 diabetes mellitus with hyperglycemia simvastatin 20 mg PO BEDTIME 90 days 90 tabs 2RF I10 - Essential (primary) hypertension
--- OUTSIDE RECORDS SUMMARY | 2024-09-25 15:58 | XMS_ITS | Clinical Summary ---
Demographics Address [address] [facility] [address] [place] [address] Work Phone Preferred Language es Marital Status Unknown Caodaism Affiliation Unknown Race Other Race Ethnic Group or Author Organization [employer] [facility] Address [address] [place] [address] [address] [place] [address] Care Team Providers Care Compliance Vice President Name Role Phone Unavailable Primary Care Provider Unavailabl e Immunizations Name Administration Dates Next Due Hep A, Adult 01/17/2011 Influenza injectable quadriv alent IIV4 with preservative 05/27/2018,05/14/2017 Influenza injectable quadrivalent preservative f ree 06/10/2021 Influenza, IIV3, injectable 06/09/2014 Influenza, Split (incl. purified surface antigen ) 07/05/2012 MMR 01/17/2011 Pfizer Covid-19 Vaccine 12+ Bivalent 08/15/2022 Pneumococcal Conjugate PCV 20 03/13/2022 Tdap 02/23/2017,01/17/2011 Zoster, Recombinant 02/27/2023 Social History Tobacco Use Types Packs/Day Years Used Date Smoking Tobacco: Never Assessed Sex and Gender Information Value Date Recorded Sex Assigned at Male 04/24/2022 10:21 AM EDT Legal Sex Male 10:21 AM EDT Gender Identity Male 08/15/2022 10:46 AM EST Sexual Orientation Straight 04/24/2022 10 :21 AM EDT Plan of Treatment Health Maintenance Due Date Last Done Comments CT Colonography 1956 Colonoscopy 1956 Colorectal Cancer Screening 1956 Depression Screening 1956 FIT DNA/Cologuard 1956 FIT 1956 FOBT 1956 Lipid Panel 1956 SDOH Screening 1956 Sigmoidoscopy 1956 Alcohol/Substance Use Screening 1968 Tobacco Screening 1968 Hepatitis C Screening 1974 Zoster Vaccines (2 of 2) 04/24/2023 02/27/2023 COVID-19 Vaccine ( season) 2024 08/15/2022, 10/29/2020, 10/08/2020 Influenza Vaccine (#1) 2024 , 06/10/2021, 05/27/2018, Additional history exists DTaP/Tdap/Td Vaccines (3 - Td or Tdap) 02/23/2027 02/23/2017, 01/17/2011 RSV Patients and Patients Aged 60 years or older (1 - 1-dose 75+ series) 11/19/2031 Hepatitis A Vaccines Aged Out 01/17/2011 No long er eligible based on patient's age to complete this topic Pneumococcal Vaccine: 50+ Years Completed 03/13/2022 HIB Vaccines Aged Out No longer eligi ble based on patient's age to complete this topic HPV Vaccines Aged Out No longer eligi ble based on patient's age to complete this topic Hepatitis B Vaccines Aged Out No long er eligible based on patient's age to complete this topic IPV Vaccines Aged Out No longer eligi ble based on patient's age to complete this topic Meningococcal Vaccine Aged Out No perla alayna eligible based on patient's age to complete this topic RSV under 20 months Aged Out No longe r eligible based on patient's age to complete this topic Rotavirus Vaccines Aged Out No longer eligible based on patient's age to complete this topic Insurance [place] [id number] [place] [id number]
== END 2024-09-25 15:23 | disposition home or self-care (01) ==
LOC: HO.HMCH 14:28
PROVIDERS: PCP Internal Medicine; Visit Provider Internal Medicine
DX: G47.33 Obstructive sleep apnea (adult) (pediatric) (principal); E11.65 Type 2 diabetes mellitus with hyperglycemia; K76.0 Fatty (change of) liver, not elsewhere classified; K21.9 Gastro-esophageal reflux disease without esophagitis; F41.1 Generalized anxiety disorder; I10 Essential (primary) hypertension; E78.00 Pure hypercholesterolemia, unspecified; N40.1 Benign prostatic hyperplasia with lower urinary tract symptoms; R35.0 Frequency of micturition; J45.909 Unspecified asthma, uncomplicated; D12.6 Benign neoplasm of colon, unspecified

== ENCOUNTER → 2024-09-25 14:26 | Outpatient (BNVA) | payer MEDICARE, MEDICAID, SELFPAY | PROVIDERS: PCP Internal Medicine; Visit Provider Internal Medicine | DX: G47.33 Obstructive sleep apnea (adult) (pediatric) (principal); E11.65 Type 2 diabetes mellitus with hyperglycemia; K76.0 Fatty (change of) liver, not elsewhere classified; K21.9 Gastro-esophageal reflux disease without esophagitis; F41.1 Generalized anxiety disorder; I10 Essential (primary) hypertension; E78.00 Pure hypercholesterolemia, unspecified; N40.1 Benign prostatic hyperplasia with lower urinary tract symptoms; R35.0 Frequency of micturition; J45.909 Unspecified asthma, uncomplicated; D12.6 Benign neoplasm of colon, unspecified | CPT/HCPCS: 96127; 99212 ==

== ENCOUNTER → 2024-11-12 15:15 | Outpatient (BNVA) | payer MEDICARE, MEDICAID, SELFPAY | PROVIDERS: PCP Internal Medicine; Visit Provider Nurse Practitioner Family | DX: G47.33 Obstructive sleep apnea (adult) (pediatric) (principal); F03.90 Unspecified dementia, unspecified severity, without behavioral disturbance, psychotic disturbance, mood disturbance, and anxiety; G44.89 Other headache syndrome; R41.89 Other symptoms and signs involving cognitive functions and awareness | CPT/HCPCS: 99212 ==

== ENCOUNTER → 2024-11-22 07:24 | Outpatient (BNV) | payer MEDICARE, MEDICAID, SELFPAY | PROVIDERS: PCP Internal Medicine; Visit Provider Radiology Vascular & Interventional Radiology | DX: F03.90 Unspecified dementia, unspecified severity, without behavioral disturbance, psychotic disturbance, mood disturbance, and anxiety (principal) | CPT/HCPCS: 70551 ==

== ENCOUNTER 2024-11-22 07:25 | Outpatient (REF) | payer MEDICARE, MEDICAID, SELFPAY ==
--- NOTE | ~2024-11-22 | MR_ITS ---
CLINICAL HISTORY: F03.90 - Unspecified dementia, unspecified severity, without behavioral ... --- Add itional Notes or Special Instructions: requirement to have amyloid PET scan MR Brain without gadolinium Comparison: MR/SR - MR HEAD/BRAIN WO CON - 09/13/22 08:59 EDT Findings: No restricted diffusion. No intra-axial mass or hemorrhage. No midline shift. No hydrocephalus. Vascular flow voids are intact. Orbital contents are unremarkable. The sinuses and mastoid air cells are clear. No focal bone lesion. IMPRESSION: No acute findings. Diffuse volume loss and moderate ischemic microangiopathy, similar to prior. This document has been electronically signed by: Mark Sanz MD on 11/24/2024 12:09:00
--- OUTSIDE RECORDS SUMMARY | 2024-11-22 07:27 | XMS_ITS | Clinical Summary ---
Demographics Address [address] [facility] [address] [place] [address] Work Phone Preferred Language es Marital Status Unknown Presybeterian Affiliation Unknown Race Other Race Ethnic Group Unknown Author Organization [employer] Address [address] [place] [address] [address] [address] Care Team Providers Care White Spooler Name Role Phone Unavailable Primary Care Provider Unavailabl e Immunizations Immunization Administration Dates Next Due Hep A, Adult [...] patient's age to complete this topic Meningococcal B Vaccine Aged Out No l onger eligible based on patient's age to complete this topic Meningococcal Vaccine Aged Out No perla alayna eligible based on patient's age to complete this topic RSV under 20 months Aged Out No longe r eligible based on patient's age to complete this topic Rotavirus Vaccines Aged Out No longer eligible based on patient's age to complete this topic Insurance [place] [phone] [place] [id number] [address] [place] [address]
== END 2024-11-22 07:26 | disposition home or self-care (01) ==
LOC: HO.MRI 07:25
PROVIDERS: PCP Internal Medicine; Visit Provider Nurse Practitioner Family
DX: Z01.818 Encounter for other preprocedural examination (principal); F03.90 Unspecified dementia, unspecified severity, without behavioral disturbance, psychotic disturbance, mood disturbance, and anxiety
CPT/HCPCS: 70551

== ENCOUNTER 2025-01-05 11:00 | Outpatient (AMB) | payer MEDICARE, MEDICAID, SELFPAY ==
[2025-01-05 11:22] VITALS: BMI 25.8
--- NOTE | 2025-01-05 11:22 | A.OFFVIS_ITS ---
VS Expanded 01/05/25 11:22 Height 5 ft 4 in Weight 150 lb 2.157 oz BMI 25.8 Intake Visit Reasons: DM Allergies losartan Allergy (Intermediate, Verified 01/08/25 14:46) cough Penicillins (PENICILLINS) Allergy (Mild, Verified 01/08/25 14:46) RASH Nutrition Presentation Details: Pt presents for MNT f/u for t2DM Pt monitoring BG daily 7 d FBG average at 131, 14 d FBG average at 141 mg/dl Pt reports having 3 meals/day B: raisin bagel with mortadella or cheese , coffee black with diet sugar 3pm fish sandwich burger jazmin and fries, diet soda 6pm: rice/beans and chicken or pork, water or diet soda snack: ice cream or cookies and milk or fruit or piece of cake food frequency: fruits:0 -1/d fish: 1-2 x/wk dairy: 1-2x/wk vegetables: 3x/wk fried foods :2/xwk physical activity: sedentary etoh/smoking denies BS Monitoring Most Recent Diabetes Results: Microalb/Creat Ratio, (<30) 8.1 ug/mg cr 09/19/24 Cholesterol, (<200) 131 mg/dL 09/19/24 HDL Cholesterol, (>40) 30 mg/dL L 09/19/24 Triglycerides, (<150) 110 mg/dL 09/19/24 Creatinine, (0.5-1.4) 0.73 mg/dL 01/07/25 BUN, (9-16) 15 mg/dL 01/07/25 Sodium, (135-145) 138 mmol/L 01/07/25 Potassium, (3.3-5.1) 4.3 mmol/L 01/07/25 Chloride, (96-108) 109 mmol/L H 01/07/25 Carbon Dioxide, (22-29) 23 mmol/L 01/07/25 Calcium, (8.4-10.2) 8.8 mg/dL 01/07/25 AST, (5-37) 22 U/L 01/07/25 ALT, (0-40) 23 U/L 01/07/25 Total Protein, (6.5-8.0) 7.1 g/dL 01/07/25 Albumin, (3.5-5.0) 4.1 g/dL 01/07/25 [facility] Medical History Severe obstructive sleep apnea GA (obstructive sleep apnea) Nocturnal hypoxemia Bronchial asthma Cough Dyspnea on exertion Knee pain, bilateral Bilateral hand numbness Type 2 diabetes mellitus with hyperglycemia Renal mass Cervical radiculopathy Alcohol abuse Median nerve neuropathy Cataract LATOYA positive Osteoarthritis of hands, bilateral Anxiety BPH (benign prostatic hyperplasia) Peripheral neuropathy Vitamin D deficiency Tubular adenoma of colon Insomnia Glaucoma Hypercholesterolemia Arthritis Hx of small bowel obstruction HTN (hypertension) Surgical History History of cataract surgery History of inguinal hernia repair Hx of colonoscopy Family History Father No problems noted. Mother Diabetes Brother Lung cancer Social History Household Members: Spouse Housing: Apartment Alcohol intake: never Patient Tobacco Use Status: Former Tobacco user Tobacco use type: Cigarette Years Smoked: stopped 1999 e-Cigarette/Vaping Use: Never Used Second Hand Smoke Exposure: No service: No Current occupational status: unemployed Cognitive needs: No Hearing needs: No Vision needs: Yes Assessment & Plan Assessment & Plan (1) Type 2 diabetes mellitus with hyperglycemia: Comment: Dr. Razo 10/2023 Code(s): E11.65 - Type 2 diabetes mellitus with hyperglycemia Category: Medical Plan: 1800 lizbeth ADA meal plan Used wt 67 kg (68 kg on 01/16) est kcal needs as per MSJ: 1600- 1700 (40% carb, 30% fat/prot) est fluid needs asper 30 ml/kg bw: 2000 ml/d rec fiber: 25-35 g/d Rec Na: 1500 mg/d ? Educate patient on: (R= Reviewed, V = verbalizes understanding N/R= Needs review N/A= not applicable) * Food sources of carbohydrates and serving adequate serving sizes : R V * Difference between complex carbohydrates and simple carbohydrates, role of fiber: R V * Differences between fats (MUFA/PUFA/saturated fats, trans fats) and food sources of various fats: R ,v * Food sources of sodium and salt and healthy modifications for heart health and kidney health: R V * Vitamins and minerals: R V * blood glucose goal as per ADA guidelines R * Healthy Plate method concept: R V * Physical activity: benefits and precaution: R V * hypoglycemia prevention and treatment: R,v Patient Instructions: Include a fruit as snack twice a day , replacing cookies/cakes Engage in physical activity- walk 30 minutes daily unless otherwise specified by your doctor. - incluya, minimo, 2 frutas al juno reemplazando golocinas, bizcochos, dulces - camine por 30 minutos diariamente o siga las indicaciones que bowen medico le butterfield dado Coding Level of Care Code Nutr Indiv Subseq (40825) Diagnoses Type 2 diabetes mellitus with hyperglycemia E11.65 Time Spent (min) 30
--- OUTSIDE RECORDS SUMMARY | 2025-01-05 12:03 | XMS_ITS | Clinical Summary ---
Demographics Address [address] [facility] [address] [place] [address] Work Phone Preferred Language es Marital Status Unknown Judaism Affiliation Unknown Race Other Race Ethnic Group Unknown Author Organization [employer] Address [address] [place] [address] [address] [address] Care Team Providers Care Ammonia Nitrate Operator Name Role Phone Unavailable Primary Care Provider [...] 2024 08/15/2022, 10/29/2020, 10/08/2020 Influenza Vaccine (#1) 2025 , 06/10/2021, 05/27/2018, Additional history exists DTaP/Tdap/Td [...] age to complete this topic Insurance MEDICARE [address] [place] [id number] [address] [place] [address]
--- OUTSIDE RECORDS SUMMARY | 2025-01-05 12:03 | XMS_ITS | Patient Health Record ---
Author Organization [facility] Address [address] [place] [id number] Care Team Providers Care Crm Dynamics Developer Name Role Phone Trenton Chin MD Primary Care Provider Ashkan Garnica Unavailable [phone] Allergies Allergen (clinical drug ingredient) Drug/Non Drug Allergy documented on EMR Reaction Allergy Type Onset Date Status Penicillin Unknown Drug Allergy Active Reason For Referral No Information Medications Medication SIG (Take, Route, Fr equency, Duration) Notes Start Date End Date Status Timolol Maleate Acti ve Simvastatin Active Gabapentin Active Ibuprofen PRN Active Vitamin D Active Latanoprost Active Tylenol PRN Active Immunizations Vaccine Route Administration Date Status Comme nts Influenza Unknown 03/26/2019 Administered Social History Alcohol Screen Question Answer Notes Did you have a drink contain ing alcohol in the past year? Yes How often did you have a dri nk containing alcohol in the past year? Monthly or less (1 point) How many drinks did you have on a typical day when you were drinking in the past year? 1 or 2 drinks (0 point) How often did you have 6 or more drinks on one occasion in the past year? Never (0 point) Points 1 Interpretation Negative Section Notes: Nonsmoker; no sig alcohol Nonsmoker; no sig alcohol Nonsmoker; Occasional alcoho l Problems Problem Type SNOMED Code ICD Code Onset Dates Problem Status W/U Status Risk Notes Problem 287004990 Encounter for screening for malignant neoplasm of colon (Z12.11) Active confirmed Problem 853116388 History of adenomatous polyp of colon (Z86.010) Active confirmed Problem 67012327 Constipation, unspecified constipation type (K59.00) Active confirmed Problem 093083351461895 Pre-procedural examination (Z01.818) Active confirmed Problem 449250023 Abdominal pain, left lateral (R10.9) Active confirmed Plan Of Treatment Future Test Test Name Order Date COLONOSCOPY 12/15/2014 COLONOSCOPY 03/16/2020 Next Appt Details Provider Name:Ashkan Celaya , 01/13/2025 01:20:00 PM, [address] [facility], [address], [place], [address], Insurance Providers Payer Name Payer Address Payer Phone Subscriber Number Group Number Insured Name Patient Relationship to Insured Coverage Start Date Coverage End Date MEDICARE OF [place] [address] [place] [address] [id number] MICKIE LEW Self - patient is the insured Medical (General) History Medical History History ICD Code Colonoscopy 08-30-2009 and in 02/2015---1 small tubular adenoma removed each time--small internal hemorrhoids and mild sigmoid diverticulosisi History of kidney stones Denies GA,DM,CVA,Lung disease,renal dise ase Hyperlipidemia HTN Small bowel enteritis involv ing the ileum on a CT scan, with a partial SBO in 12/2016--treated with Flagyl--in [facility] for 1 night Arthritis Surgical History Surgery Date(Month/Year) Right inguinal hernia surgery
== END 2025-01-05 11:41 | disposition home or self-care (01) ==
LOC: HO.ENCR 11:01
PROVIDERS: PCP Internal Medicine; Visit Provider Dietitian, Registered
DX: E11.65 Type 2 diabetes mellitus with hyperglycemia (principal)

== ENCOUNTER → 2025-01-05 11:00 | Outpatient (BNVA) | payer MEDICARE, MEDICAID, SELFPAY | PROVIDERS: PCP Internal Medicine; Visit Provider Dietitian, Registered | DX: E11.65 Type 2 diabetes mellitus with hyperglycemia (principal) | CPT/HCPCS: 97803 ==

== ENCOUNTER 2025-01-07 09:08 | Outpatient (REF) | payer MEDICARE, MEDICAID, SELFPAY ==
--- OUTSIDE RECORDS SUMMARY | 2025-01-07 09:24 | XMS_ITS | Patient Health Record ---
Author Organization [facility] Address [address] [place] [id number] Care Team Providers Care Collection Systems Modeler Name Role Phone Trenton Chin MD Primary Care Provider Ashkan Garnica Unavailable [phone] Allergies Allergen (clinical drug ingredient) Drug/Non Drug [...] Problem Status W/U Status Risk Notes Problem 784269092 Encounter for screening for malignant neoplasm of colon (Z12.11) Active confirmed Problem 264246763 History of adenomatous polyp of colon (Z86.010) Active confirmed Problem 90200196 Constipation, unspecified constipation type (K59.00) Active confirmed Problem 978259347084581 Pre-procedural examination (Z01.818) Active confirmed Problem 428372081 Abdominal pain, left lateral (R10.9) Active confirmed Plan Of Treatment Future Test Test Name Order Date COLONOSCOPY 12/15/2014 COLONOSCOPY 03/16/2020 Next Appt Details Provider Name:Ashkan Celaya , 01/13/2025 01:20:00 PM, [address] [facility], [address], [place], [address], Insurance Providers Payer Name Payer Address Payer Phone Subscriber Number Group Number Insured Name Patient Relationship to Insured Coverage Start Date Coverage End Date MEDICARE OF [place] [address] [facility] [address] [id number] MICKIE LEW Self - patient is the insured Medical (General) History Medical History History ICD Code Colonoscopy 08-30-2009 and in 02/2015---1 small tubular adenoma removed each time--small internal hemorrhoids and mild sigmoid diverticulosisi History of kidney stones Denies CO,DM,CVA,Lung disease,renal dise ase Hyperlipidemia HTN Small bowel enteritis involv ing the ileum on a CT scan, with a partial SBO in 12/2016--treated with Flagyl--in [facility] [place] Arthritis Surgical History Surgery Date(Month/Year) Right inguinal hernia surgery
--- OUTSIDE RECORDS SUMMARY | 2025-01-07 09:24 | XMS_ITS | Clinical Summary ---
Demographics Address [address] [facility] [address] [place] [address] Work Phone Preferred Language es Marital Status Unknown Mosque Affiliation Unknown Race Other Race Ethnic Group Unknown Author Organization [employer] Address [address] [place] [address] [address] [address] Care Team Providers Care Tax Compliance Manager Name Role Phone Unavailable Primary Care Provider [...] age to complete this topic Insurance MEDICARE [place] [id number] [place] [id number] [address] [place] [address]
[2025-01-07 09:50] LABS: Hemoglobin A1C 171.9251 umol/L; Total Hemoglobin (HGBA1C) 3466.8243 umol/L
[2025-01-07 10:28] LABS: Alanine Aminotransferase 23 U/L (0-40); Albumin Level 4.1 g/dL (3.5-5.0); Alkaline Phosphatase 70 U/L (39-117); Anion Gap 10 (12-20); Aspartate Amino Transferase 22 U/L (5-37); Blood Urea Nitrogen 15 mg/dL (9-16); Calcium 8.8 mg/dL (8.4-10.2); Carbon Dioxide 23 mmol/L (22-29); Chloride 109 mmol/L (96-108); Estimated Glomerular Filt Rate > 60; Potassium 4.3 mmol/L (3.3-5.1); Sodium 138 mmol/L (135-145); Total Protein 7.1 g/dL (6.5-8.0)
[2025-01-07 10:42] LABS: Free T4 (Free Thyroxine) 1.06 ng/dL (0.71-1.85)
== END 2025-01-07 09:09 | disposition home or self-care (01) ==
LOC: HO.LAB 09:08
PROVIDERS: PCP Internal Medicine; Visit Provider Internal Medicine
DX: E11.65 Type 2 diabetes mellitus with hyperglycemia (principal)
CPT/HCPCS: 36415; 80053; 82570; 83036; 84439

== ENCOUNTER 2025-01-08 14:41 | Outpatient (AMB) | payer MEDICARE, MEDICAID, SELFPAY ==
[2025-01-08 14:43] VITALS: BP 110/76; PULSE 93; TEMP 36.1; O2SAT 97; BMI 25.3
--- NOTE | 2025-01-08 14:43 | A.OFFPC_ITS ---
Vital Signs 01/08/25 14:43 Height 5 ft 4 in Weight 147 lb 6 oz BMI 25.3 BP 110/76 Blood Pressure Location Lt brachial Position Sitting Pulse 93 Pulse Source Pulse Oximeter Temp 97.0 F Temp Source Temporal Artery Scan Pulse Oximetry (%) 97 Oxygen Delivery Method Room Air Intake Visit Reasons: 3mth f/u Allergies losartan Allergy (Intermediate, Verified 01/08/25 14:46) cough Penicillins (PENICILLINS) Allergy (Mild, Verified 01/08/25 14:46) RASH Tobacco use date assessed: 01/08/25 Fall risk assessment: No Falls in past year Last assessed Fall Risk: 01/08/25 Dental Screening Dental Screen Date: 01/08/25 Did you have a dental visit in the last 12 months?: No Did you have a dental problem in the last 6 months where you did not have access to dental care?: No Was dental information given to patient?: Patient declined [facility] Medical History Severe obstructive sleep apnea GA (obstructive sleep apnea) Nocturnal hypoxemia Bronchial asthma Cough Dyspnea on exertion Knee pain, bilateral Bilateral hand numbness Type 2 diabetes mellitus with hyperglycemia Renal mass Cervical radiculopathy Alcohol abuse Median nerve neuropathy Cataract LATOYA positive Osteoarthritis of hands, bilateral Anxiety BPH (benign prostatic hyperplasia) Peripheral neuropathy Vitamin D deficiency Tubular adenoma of colon Insomnia Glaucoma Hypercholesterolemia Arthritis Hx of small bowel obstruction HTN (hypertension) Surgical History History of cataract surgery History of inguinal hernia repair Hx of colonoscopy Family History Father No problems noted. Mother Diabetes Brother Lung cancer Social History Household Members: Spouse Housing: Apartment Alcohol intake: never Patient Tobacco Use Status: Former Tobacco user Tobacco use type: Cigarette Years Smoked: stopped 1999 e-Cigarette/Vaping Use: Never Used Second Hand Smoke Exposure: No service: No Current occupational status: unemployed Cognitive needs: No Hearing needs: No Vision needs: Yes Questionnaire PHQ-9 Over the last 2 weeks, how often have you been bothered by any of the following problems? 1. Little interest or pleasure in doing things: several days 2. Feeling down, depressed, or hopeless: several days 3. Trouble falling or staying asleep, or sleeping too much: several days 4. Feeling tired or having little energy: several days 5. Poor appetite or overeating: several days 6. Feeling bad about yourself - or that you are a failure or have let yourself or your family down: several days 7. Trouble concentrating on things, such as reading the newspaper or watching television: several days 8. Moving or speaking so slowly that other people could have noticed. Or the opposite - being so fidgety or restless that you have been moving around a lot more than usual: several days 9. Thoughts that you would be better off or of hurting yourself in some way: not at all Total score: 8 Source: Developed by Drs. Ashkan Hoffman, Maria De Jesus Guadarrama, Eduin Hardy and colleagues, with an educational ole from [employer]. Thrive Questionnaire Date Thrive assessed: 06/26/24 I am a: Patient What is your living situation today?: I have a steady place to live Within the past 12 months, did the food you bought not last and you didn't have the money to get more?: Never true Within the past 12 months, did you worry whether your food would run out before you got money to buy more?: Never true Do you have trouble paying for medicines?: No Do you have trouble getting transportation to medical 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?: No Do you have trouble paying your heating and electricity bill?: No Do you have trouble taking care of your child, family member or friend?: No Do you have trouble with day-to-day activities such as bathing, preparing meals, shopping, managing finances, etc.?: Yes Are you currently unemployed and looking for a job?: No Are you interested in more education?: No Please select the resources that you would like help with: None Currently or been in a relationship where the following occur: No concerns reported THRIVE Score: 0 AUDIT C Alcohol Use Questionnaire (AUDIT-C) 1. How often do you have a drink containing alcohol?: Never 3. How often do you have six or more drinks on one occasion?: Never Total Score: 0 ELVI-7 AMB Questionnaire ELVI-7 Date ELVI - 7 assessed: 09/25/24 Feeling nervous, anxious, or on edge: 1 = Several days Not being able to stop or control worryin = Several days Worrying too much about different things: 1 = Several days Trouble relaxin = Several days Being so restless that it is hard to sit still: 1 = Several days Becoming easily annoyed or irritable: 1 = Several days Feeling afraid as if something awful might happen: 0 = Not at all Total ELVI-7 score (0-4 normal; 5-9 mild; 10-14 moderate; 15-21 severe): 6 Source: Developed by Drs. Ashkan Hoffman, Maria De Jesus Guadarrama, Eduin Hardy and colleagues, with an educational ole from [employer]. Physical exam (Primary Care) Vital Signs: Last Vital Signs Temp 97.0 F 01/08/25 14:43 Pulse 93 01/08/25 14:43 BP 110/76 01/08/25 14:43 Pulse Ox 97 01/08/25 14:43 Oxygen Delivery Method Room Air 01/08/25 14:43 BMI result Body Mass Index 25.3 Tobacco/Smoking Status: Tobacco use Status Tobacco use date assessed 01/08/25 01/08/25 14:47 Patient Tobacco Use Status Former Tobacco user 01/08/25 14:47 Tobacco use type Cigarette 01/08/25 14:47 e-Cigarette/Vaping Use Never Used 01/08/25 14:47 PHQ-9: PHQ-9 Score PHQ-9: Total score 8 01/08/25 14:47 Thrive Assessment: Date of Thrive Assessment Date Thrive assessed 06/26/24 01/08/25 14:47 Currently or been in a relationship where the following occur: No concerns reported Const General: alert; No acute distress Eyes Conjunctivae: conjunctivae normal Resp Auscultation: clear to auscultation bilaterally Cardio Rate: regular rate Rhythm: regular rhythm GI Inspection: Yes normal to inspection Extrem General: Yes normal to inspection and No edema Coding Level of Care Code Est Pt Level 4 (42851) Complex EM visit Add On G2211 Diagnoses Type 2 diabetes mellitus with hyperglycemia E11.65 Hypercholesterolemia E78.00 GERD (gastroesophageal reflux disease) K21.9 Tubular adenoma of colon D12.6 Dementia F03.90 Bronchial asthma J45.909 GA (obstructive sleep apnea) G47.33 Assessment & Plan Assessment & Plan (1) Type 2 diabetes mellitus with hyperglycemia: Comment: Dr. Razo 10/2023 Code(s): E11.65 - Type 2 diabetes mellitus with hyperglycemia Category: Medical Plan: Decrease the amount of carbohydrate intake, pasta, bread, rice and potatoes are all sugar and that is aside from all the sweet stuff, remember that fruits are good but they are Sweet also. Hemoglobin A1c goal of less than 7.0 patient on metformin 500 mg twice a day (2) Hypercholesterolemia: Code(s): E78.00 - Pure hypercholesterolemia, unspecified Category: Medical Plan: Avoid fried foods, chicken skin, eggs, butter margarine, pastries and meat. Be it pork or beef they have a lot of cholesterol on simvastatin 20 mg at bedtime LDL goal of less than 100 and triglyceride of less than 150. (3) GERD (gastroesophageal reflux disease): Code(s): K21.9 - Gastro-esophageal reflux disease without esophagitis Category: Medical Plan: Avoid the foods that causes that usually spicy foods, tomato products, juices, coffee, soda and foods that your sensitive to. After eating do not lie down, allow 3-4 hours before in lie down. And keep the head of bed above 30 degrees to avoid the acid from going up. (4) Tubular adenoma of colon: Comment: 2019 Code(s): D12.6 - Benign neoplasm of colon, unspecified Category: Medical Plan: Patient is reminded about colon cancer screening. Patient has a schedule next week to see the lab systems analyst (5) Dementia: Code(s): F03.90 - Unspecified dementia, unspecified severity, without behavioral disturbance, psychotic disturbance, mood disturbance, and anxiety Category: Medical Plan: Patient is being followed up by Neurology on amitriptyline and recent amyloid test was negative (6) Bronchial asthma: Comment: HE HAS HISTORY OF INTERMITTENT BOUTS OF COUGH AND WHEEZING. IT SEEMS THAT HE HAS EPISODIC HYPERSENSITIVITY OR ALLERGIC ASTHMA, THIS MAY BE TRIGGERED BY ENVIRONMENTAL CHANGE OR VIRAL INFECTION. Code(s): J45.909 - Unspecified asthma, uncomplicated Category: Medical Plan: Continue with albuterol inhaler as needed (7) GA (obstructive sleep apnea): Comment: This gentleman is a known case of obstructive sleep apnea. Has had a few home-based sleep studies and finally CPAP titration study in the sleep lab on 11/28/2022. He was titrated up to 8 cm with good results, and I notice in the report that Dr. Davis had recommended CPAP of 8 cm. Code(s): G47.33 - Obstructive sleep apnea (adult) (pediatric) Category: Medical Plan: Continue to use the CPAP more than 4 hours a night and benefits from this. Plan History of Present Illness The patient is a 69-year-old male presenting for a routine follow-up and management of multiple chronic conditions. The patient has a history of hypercholesterolemia, managed with simvastatin 20 mg at bedtime, with a target LDL cholesterol of less than 100 mg/dL and triglycerides less than 150 mg/dL. His LDL cholesterol was last recorded at 79 mg/dL, which is within the desired range. He has benign prostatic hyperplasia (BPH) and is currently on tamsulosin. The patient is diagnosed with hypertension and is on a blood pressure management plan. He has generalized anxiety disorder and gastroesophageal reflux disease (GERD), both of which are being managed. The patient has hepatic steatosis and diabetes mellitus, with the latter being managed with metformin 500 mg twice a day and a hemoglobin A1c goal of less than 7.0%. His last hemoglobin A1c was 6.7%, indicating good control, although it has increased slightly from 6.5% in August. He also has asthma, for which he uses an albuterol inhaler as needed, and obstructive sleep apnea, for which he uses a CPAP machine regularly for more than 4 hours per night. The patient has cognitive impairment and a history of tubular adenoma, with his last colonoscopy in March 2020, and he is due for another screening. He had an amyloid scan of the head on January 06, 2025, which was negative for neurotic plaques, and an MRI on November 22, showing diffuse volume loss with moderate ischemic microangiopathies. His last blood work in August showed mild anemia with hemoglobin at 13.5 g/dL and hematocrit at 42.3%, normal electrolytes, good renal function, and mildly elevated thyroid levels. Health Maintenance - Colon cancer screening is due, last performed in March 2020. - Regular use of CPAP for obstructive sleep apnea, more than 4 hours per night. - Vaccinations up to date, including shingles, tetanus, and pneumonia. Social History - Drinks two to three bottles of water daily, advised to increase to four bottles for kidney health. Review of Systems - Gastrointestinal: Denies constipation, reports regular bowel movements. Physical Exam Results - Labs: Mild anemia with hemoglobin 13.5 g/dL, hematocrit 42.3%, normal electrolytes, good renal function, mildly elevated thyroid levels. - Imaging: Amyloid scan of the head negative for neurotic plaques; MRI showing diffuse volume loss with moderate ischemic microangiopathies. Plan The patient will continue on simvastatin 20 mg at bedtime to manage hypercholesterolemia, with a target LDL cholesterol of less than 100 mg/dL and triglycerides less than 150 mg/dL. For diabetes mellitus, the patient is to maintain a hemoglobin A1c goal of less than 7.0% and continue metformin 500 mg twice a day. The patient is advised to continue using the CPAP machine for more than 4 hours per night for obstructive sleep apnea and to use the albuterol inhaler as needed for asthma. The patient is reminded to follow up on colon cancer screening, as the last test was in March 2020. Regular monitoring of thyroid levels is recommended due to mild elevation noted in recent labs. The patient is encouraged to increase water intake to four bottles daily to support kidney health. Patient was informed and verbally consented to the use of an ambient scribe for clinic note documentation during this visit. Discussion Notes I discussed with the patient the importance of maintaining his current medication regimen, including simvastatin for cholesterol and metformin for di abetes management. We reviewed the need for regular CPAP use for sleep apnea and the use of an albuterol inhaler for asthma. I emphasized the importance of following up on colon cancer screening and monitoring thyroid levels. The patient was advised to increase water intake for kidney health. Patient Instructions - Continue taking simvastatin 20 mg at bedtime for cholesterol management. - Maintain hemoglobin A1c goal of less than 7.0% with metformin 500 mg twice a day. - Use CPAP machine for more than 4 hours per night for sleep apnea. - Use albuterol inhaler as needed for asthma. - Schedule and complete colon cancer screening. - Monitor thyroid levels regularly. - Increase water intake to four bottles daily for kidney health. Orders: Orders Free T4 (Free Thyroxine) 3 Months I10 - Essential (primary) hypertension Hemoglobin A1c 3 Months E11.65 - Type 2 diabetes mellitus with hyperglycemia Comprehensive Met. Panel 3 Months E11.65 - Type 2 diabetes mellitus with hyperglycemia Thyroid Stimulating Hormone 3 Months I10 - Essential (primary) hypertension Lipid Panel 3 Months E11.65 - Type 2 diabetes mellitus with hyperglycemia, E78.00 - Pure hypercholesterolemia, unspecified Medications: Refilled metformin ER 500 mg PO BID 180 tabs 3RF E11.65 - Type 2 diabetes mellitus with hyperglycemia
--- OUTSIDE RECORDS SUMMARY | 2025-01-08 15:25 | XMS_ITS | Clinical Summary ---
Demographics Address [address] [place] [address] Work Phone Preferred Language es Marital Status Unknown Latter Day Affiliation Unknown Race Other Race Ethnic Group Unknown Author Organization [employer] Address [address] [place] [address] [address] [place] [address] Care Team Providers Care Coal Conveyor Operator Name Role Phone Unavailable Primary Care [...] to complete this topic Insurance MEDICARE [address] [place] [id number] [address] [place] [address]
== END 2025-01-08 15:12 | disposition home or self-care (01) ==
LOC: HO.HMCH 14:42
PROVIDERS: PCP Internal Medicine; Visit Provider Internal Medicine
DX: E11.65 Type 2 diabetes mellitus with hyperglycemia (principal); E78.00 Pure hypercholesterolemia, unspecified; K21.9 Gastro-esophageal reflux disease without esophagitis; D12.6 Benign neoplasm of colon, unspecified; F03.90 Unspecified dementia, unspecified severity, without behavioral disturbance, psychotic disturbance, mood disturbance, and anxiety; J45.909 Unspecified asthma, uncomplicated; G47.33 Obstructive sleep apnea (adult) (pediatric)

== ENCOUNTER → 2025-01-08 14:41 | Outpatient (BNVA) | payer MEDICARE, MEDICAID, SELFPAY | PROVIDERS: PCP Internal Medicine; Visit Provider Internal Medicine | DX: E11.65 Type 2 diabetes mellitus with hyperglycemia (principal); E78.00 Pure hypercholesterolemia, unspecified; K21.9 Gastro-esophageal reflux disease without esophagitis; D12.6 Benign neoplasm of colon, unspecified; F03.90 Unspecified dementia, unspecified severity, without behavioral disturbance, psychotic disturbance, mood disturbance, and anxiety; J45.909 Unspecified asthma, uncomplicated; G47.33 Obstructive sleep apnea (adult) (pediatric) | CPT/HCPCS: 99212 ==

== ENCOUNTER 2025-01-21 13:45 | Outpatient (AMB) | payer MEDICARE, MEDICAID, SELFPAY ==
--- NOTE | 2025-01-21 13:48 | A.OFFVIS_ITS ---
Vital Signs 01/21/25 13:49 Height 5 ft 4 in Weight 148 lb 12.992 oz BMI 25.5 BP 120/78 Blood Pressure Location Lt brachial Position Sitting Pulse 65 Pulse Source Pulse Oximeter Pulse Oximetry (%) 97 Oxygen Delivery Method Room Air Intake Visit Reasons: copd Intake Note: pt is here for follow up and states some cough in am and some wheeze Frankfurter Inspector Required: No Allergies losartan Allergy (Intermediate, Verified 01/21/25 13:55) cough Penicillins (PENICILLINS) Allergy (Mild, Verified 01/21/25 13:55) RASH Medication List - Last Reconciled 01/21/25 by Nathalie Ivory MD albuterol sulfate 90 mcg/actuation 2 puffs inhalation Q4-6H PRN 60 days amitriptyline 25 mg PO BEDTIME blood sugar diagnostic (FreeStyle Lite Strips) As directed check the BS QD blood-glucose meter (FreeStyle Lite Meter kit) As directed docusate sodium (Colace) 100 mg PO BID lancets (FreeStyle Lancets) As directed check BS QD latanoprost 0.005% 1 drp ophthalmic (eye) BEDTIME metformin ER 500 mg PO BID polyethylene glycol 3350 (Miralax) 17 grams PO DAILY simvastatin 20 mg PO BEDTIME 90 days [STERILE Alcohol Prep pad As directed] tamsulosin (Flomax) 0.4 mg PO BEDTIME timolol maleate 0.5% 1 drp ophthalmic (eye) QAM Do you need a note to return to daycare/school/sports/work: No HPI HPI copd: Details: This 69 years old gentleman has chronic intermittent bronchial asthma. Usually due to household triggers. Now it is he is having bouts of cough when he wakes up in the morning. Using albuterol 1 or 2 inhalations relieves his cough and for the rest of the day he is okay. He has sleep apnea uses CPAP at night and he does use distilled water in the humidification tank. Denies any nasal congestion or postnasal drip. Has had no acute respiratory infection. [facility] Medical History Severe obstructive sleep apnea GA (obstructive sleep apnea) Nocturnal hypoxemia Bronchial asthma Cough Dyspnea on exertion Knee pain, bilateral Bilateral hand numbness Type 2 diabetes mellitus with hyperglycemia Renal mass Cervical radiculopathy Alcohol abuse Median nerve neuropathy Cataract LATOYA positive Osteoarthritis of hands, bilateral Anxiety BPH (benign prostatic hyperplasia) Peripheral neuropathy Vitamin D deficiency Tubular adenoma of colon Insomnia Glaucoma Hypercholesterolemia Arthritis Hx of small bowel obstruction HTN (hypertension) Surgical History History of cataract surgery History of inguinal hernia repair Hx of colonoscopy Family History Father No problems noted. Mother Diabetes Brother Lung cancer Social History Household Members: Spouse Housing: Apartment Alcohol intake: never Patient Tobacco Use Status: Former Tobacco user Tobacco use type: Cigarette Years Smoked: 1999 e-Cigarette/Vaping Use: Never Used Second Hand Smoke Exposure: No service: No Current occupational status: unemployed Cognitive needs: No Hearing needs: No Vision needs: Yes Review of Systems Const All systems reviewed & are unremarkable except as noted in HPI and below Eyes Reports no additional complaints ENT Reports no additional complaints Card Denies chest pain, Denies irregular heart rhythm and Denies leg edema Resp Reports as per HPI GI Denies abdominal pain and Reports constipation Reports no additional complaints Musc Reports no additional complaints Skin/Breast Reports system reviewed and no additional complaints, except as documented Neuro Reports memory loss (KNOWN TO HAVE MILD COGNITIVE IMPAIRMENT) Psych Reports memory loss (KNOWN TO HAVE MILD COGNITIVE IMPAIRMENT) Endo Reports other (DIABETES MELLITUS, HYPERLIPIDEMIA) Aller/Immun Reports no additional complaints Physical Exam Vital Signs: Last Vital Signs Pulse 65 01/21/25 13:49 BP 120/78 01/21/25 13:49 Pulse Ox 97 01/21/25 13:49 Oxygen Delivery Method Room Air 01/21/25 13:49 BMI result Body Mass Index 25.5 Const General: comfortable, no acute distress, alert and awake Orientation/consciousness: patient oriented x3 HEENT Head: Yes normal to inspection General nose exam: No nasal polyps present and No nasal discharge present Face and sinus: Yes sinuses nontender Mouth: oropharynx normal Throat: Yes posterior oropharynx normal Eyes General: appearance normal, both eyes and all related structures Neck Neck: Yes normal visual inspection, Yes no lymphadenopathy, Yes trachea midline and Yes no JVD Thyroid: Thyroid normal Chest Chest palpation & inspection: normal inspection of the chest, normal palpation of entire chest wall and no tenderness Resp Effort & Inspection: normal respiratory effort Auscultation: clear to auscultation bilaterally, no crackles, no rhonchi and no wheezes Cardio Palpation: normal PMI Rate: regular rate Rhythm: regular rhythm Heart sounds: no gallops and no murmurs Peripheral pulses: Peripheral pulses 2+ throughout GI Palpation (GI): Soft to palpation, nontender, No hepatosplenomegaly present and no masses Auscultation: normal bowel sounds Back/Spine/Pelvis Thoracic/Lumbar Spine: thoracic and lumbar spine normal to inspection Skin General skin exam: no rashes or lesions noted Neuro General: patient oriented x3, gait normal and no focal motor deficits Cranial nerves: Yes CN's II-XII intact bilaterally Extrem General: Yes normal to inspection, Yes no clubbing, cyanosis or edema and Yes no calf tenderness Psych Appearance: grossly normal and well kempt Speech and movement: Normal speech and movement present (SLIGHTLY SLOW IN CONVERSATION) Assessment & Plan Assessment & Plan (1) Cough: Comment: COUGH IS VERY NONSPECIFIC. HE CLAIMS THIS IS MORE AT NIGHT, MAY BE RELATED TO HIS SLEEP APNEA. DURING HIS ENCOUNTER HERE IN THE OFFICE HE DID NOT HAVE ANY COUGH. THESE DAYS HE HAS SOME COUGH ON THE EARLY MORNINGS THE COUGH IS RELIEVED BY USING ALBUTEROL 1 OR 2 PUFFS, WHICH HE USES ALMOST EVERY DAY. FOR THE REST OF THE DAY HE IS OKAY. Code(s): R05.9 - Cough, unspecified Category: Medical Plan: ADVISED TO CONTINUE USING ALBUTEROL HFA ONLY FOR PERSISTENT COUGH, OR WHEEZING. PRESCRIPTION IS RENEWED. (2) Bronchial asthma: Comment: HE HAS HISTORY OF INTERMITTENT BOUTS OF COUGH AND WHEEZING. IT SEEMS THAT HE HAS EPISODIC HYPERSENSITIVITY OR ALLERGIC ASTHMA, THIS MAY BE TRIGGERED BY ENVIRONMENTAL CHANGE OR VIRAL INFECTION. Code(s): J45.909 - Unspecified asthma, uncomplicated Category: Medical Plan: UNDER COUGH (3) GA (obstructive sleep apnea): Comment: This gentleman is a known case of obstructive sleep apnea. Has had a few home-based sleep studies and finally CPAP titration study in the sleep lab on 11/28/2022. He was titrated up to 8 cm with good results, and I notice in the report that Dr. Davis had recommended CPAP of 8 cm. He is using the CPAP regularly, and claims that he does put distilled water in the humidity tank . Code(s): G47.33 - Obstructive sleep apnea (adult) (pediatric) Category: Medical Plan: Continue to use CPAP every night. Patient is being followed by sleep medicine services of [facility] Medications: Refilled albuterol sulfate 90 mcg/actuation 2 puffs inhalation Q4-6H PRN 8.5 grams 5RF shortness of breath or wheezing 60 days J45.909 - Unspecified asthma, uncomplicated Coding Level of Care Code Est Pt Level 3 (73799) Diagnoses Cough R05.9 Bronchial asthma J45.909 GA (obstructive sleep apnea) G47.33
[2025-01-21 13:49] VITALS: BP 120/78; PULSE 65; O2SAT 97; BMI 25.5
--- OUTSIDE RECORDS SUMMARY | 2025-01-21 14:24 | XMS_ITS | Clinical Summary ---
Demographics Address [address] [place] [address] Work Phone Preferred Language es Marital Status Unknown Mandaeism Affiliation Unknown Race Other Race Ethnic Group Unknown Author Organization [employer] Address [address] [place] [address] [address] [place] [address] Care Team Providers Care Quote Clerk Name Role Phone Unavailable Primary Care Provider [...] age to complete this topic Insurance MEDIC[place] [id number] [place] [id number] [address] [place] [address]
--- OUTSIDE RECORDS SUMMARY | 2025-01-21 14:24 | XMS_ITS | Patient Health Record ---
Author Organization [facility] Address [address] [place] [address] Care Team Providers Care Tiler Name Role Phone Po Trenton ERICKSON Primary Care Provider Ashkan Garnica [phone] Allergies Allergen (clinical drug ingredient) Drug/Non Drug Allergy documented on EMR Reaction Allergy Type Onset Date Status Penicillin Unknown Drug Allergy Active Reason For Referral No Information Medications Medication SIG (Take, Route, Frequency, Duration) Notes Start Date End Date Status Simvastatin 20 MG 1 tablet in the evening Orally Once a day Active MiraLax 17 GM/SCOOP 1 scoop mixed with 8 ounces of fluid Orally Once a day Not-Taking metFORMIN HCl ER 500 MG 1 tablet with ev ening meal Orally Once a day BID Active Docusate Sodium 100 MG 1 capsule as need ed Orally Once a day BID Not-Taking Amitriptyline HCl 25 MG 1 tablet at bedt ann marie Orally Once a day Active Albuterol Sulfate 108 (90 Base) MCG/ACT 1 puff as needed Inhalation every 4 hrs PRN Active Latanoprost Not-Taki ng Timolol Maleate 0.25 % 1 drop into affec valeriy eye Ophthalmic Once a day 01/13/2025 Active Immunizations Vaccine Route Administration Date Status Comme nts Influenza Unknown 03/26/2019 Administered Influenza Unknown 04/15/2024 Administered Social History Alcohol Screen Question Answer [...] no sig alcohol Nonsmoker; Occasional alcoho l Nonsmoker; No alcohol as of the 12/2024 OV Problems Problem Type SNOMED Code ICD Code Onset Dates Problem Status W/U Status Risk Notes Problem 002791964 Encounter for screening for malignant neoplasm of colon (Z12.11) Active confirmed Problem 130111928 History of adenomatous polyp of colon (Z86.010) Active confirmed Problem 31926159 Constipation, unspecified constipation type (K59.00) Active confirmed Problem 540631953120803 Pre-procedural examination (Z01.818) Active confirmed Problem 013806490 Abdominal pain, left lateral (R10.9) Active confirmed Problem High risk medications (not anticoagulants) long-term use (Z79.899) Active confirmed Vital Signs Temperature 97.5 degrees Fahrenheit 01/13/2025 Blood pressure diastolic 01 mm Hg 01/13/2025 Height 65 in 01/13/2025 Blood pressure systolic 001 mm Hg 01/13/2025 Weight 151 lbs 01/13/2025 BMI 25.12 kg/m2 01/13/2025 Procedures Procedure Date Ordered Date Performed Result Body Sit e COLONOSCOPY 01/13/2025 N/A Encounters Encounter Location Date Provider Diagnosis [facility] [address] [place] [address] 01/13/2025 Ashkan Celaya History of adenomato us polyp of colon Z86.010 ; High risk medications (not anticoagulants) long-term use Z79.899 ; Encounter for screening for malignant neoplasm of colon Z12.11 and Pre-procedural examination Z01.818 Assessments Encounter Date Diagnosis (ICD Code) Assessment Notes Treatment Notes Treatment Clinical Notes Section Notes 01/13/2025 History of adenomatous polyp of colon (ICD-10 - Z86.010) Overall, Mickie appears well. Given his previous history of tubular adenomas of the colon and his last colonoscopy being almost 5 years ago, I did recommend a follow-up colonoscopy for further screening purposes. We did review the rationale for this in regard to colon cancer prevention. Full consent has been obtained from him for this, including risks of bleeding and perforation. The procedure will be done with monitored anesthesia care. He was given the below instructions regarding adjustment of his medication for the procedure. Mickie was comfortable with this plan. Thank you again for allowing me to participate in Mickie's care. I shall continue to keep you advised of his progress. 01/13/2025 High risk medications (not anticoagulants) long-term use (ICD-10 - Z79.899) Overall, Mickie appears well. Given his previous history of tubular adenomas of the colon and his last colonoscopy being almost 5 years ago, I did recommend a follow-up colonoscopy for further screening purposes. We did review the rationale for this in regard to colon cancer prevention. Full consent has been obtained from him for this, including risks of bleeding and perforation. The procedure will be done with monitored anesthesia care. He was given the below instructions regarding adjustment of his medication for the procedure. Mickie was comfortable with this plan. Thank you again for allowing me to participate in Mickie's care. I shall continue to keep you advised of his progress. 01/13/2025 Encounter for screening for malignant neoplasm of colon (ICD-10 - Z12.11) Overall, Mickie appears well. Given his previous history of tubular adenomas of the colon and his last colonoscopy being almost 5 years ago, I did recommend a follow-up colonoscopy for further screening purposes. We did review the rationale for this in regard to colon cancer prevention. Full consent has been obtained from him for this, including risks of bleeding and perforation. The procedure will be done with monitored anesthesia care. He was given the below instructions regarding adjustment of his medication for the procedure. Mickie was comfortable with this plan. Thank you again for allowing me to participate in Juarezs care. I shall continue to keep you advised of his progress. 01/13/2025 Pre-procedural examination (ICD-10 - Z01.818) Overall, Mickie appears well. Given his previous history of tubular adenomas of the colon and his last colonoscopy being almost 5 years ago, I did recommend a follow-up colonoscopy for further screening purposes. We did review the rationale for this in regard to colon cancer prevention. Full consent has been obtained from him for this, including risks of bleeding and perforation. The procedure will be done with monitored anesthesia care. He was given the below instructions regarding adjustment of his medication for the procedure. Mickie was comfortable with this plan. Thank you again for allowing me to participate in Mickie's care. I shall continue to keep you advised of his progress. Plan Of Treatment Pending Test Test Name Order Date COLONOSCOPY 01/13/2025 Future Test Test Name Order Date COLONOSCOPY 12/15/2014 COLONOSCOPY 03/16/2020 Next Appt Details Provider Name:Ashkan Celaya , 04/24/2025 10:20:00 AM, [address] [place] [address] , [place], [place], [phone], Insurance Providers Payer Name Payer Address Payer Phone Subscriber Number Group Number Insured Name Patient Relationship to Insured Coverage Start Date Coverage End Date MEDICARE OF [place] [address] [place] [address] [id number] MICKIE FERMIN Self - patient is the insured 2 MEDICAID OF [facility] [address] [place] [address] [id number] MICKIE FERMIN Self - patient is the insured Medical (General) History Medical History History ICD Code Colonoscopy 08-30-2009 and in 02/2015- -1 small tubular adenoma removed each time- small internal hemorrhoids and mild sigmoid diverticulosisi History of kidney stones Denies [place],DM,CVA,Lung disease,renal dise ase Hyperlipidemia HTN Small bowel enteritis involv ing the ileum on a CT scan, with a partial SBO in 12/2016- treated with Flagyl- in [facility] for 1 night Arthritis Negative screening colonoscopy in 0 Alcohol-induced pancreatitis x 1 Surgical History Surgery Date(Month/Year) Right inguinal hernia surgery
== END 2025-01-21 14:02 | disposition home or self-care (01) ==
LOC: HO.HPS 13:46
PROVIDERS: PCP Internal Medicine; Visit Provider Internal Medicine
DX: R05.9 Cough, unspecified (principal); J45.909 Unspecified asthma, uncomplicated; G47.33 Obstructive sleep apnea (adult) (pediatric)
CPT/HCPCS: 99213

== ENCOUNTER → 2025-01-21 13:45 | Outpatient (BNVA) | payer MEDICARE, MEDICAID, SELFPAY | PROVIDERS: PCP Internal Medicine; Visit Provider Internal Medicine | DX: J45.909 Unspecified asthma, uncomplicated (principal); J45.20 Mild intermittent asthma, uncomplicated; G47.33 Obstructive sleep apnea (adult) (pediatric); Z99.89 Dependence on other enabling machines and devices; Z79.899 Other long term (current) drug therapy | CPT/HCPCS: 99212 ==

== ENCOUNTER 2025-04-24 09:14 | Day surgery (SDC) | payer MEDICARE, MEDICAID, SELFPAY ==
--- OUTSIDE RECORDS SUMMARY | 2025-02-13 08:43 | XMS_ITS | Clinical Summary ---
Demographics Address [address] [facility] [address] [place] [address] Work Phone Preferred Language es Marital Status Unknown Holiness Affiliation Unknown Race Other Race Ethnic Group Unknown Author Organization [employer] Address [address] [place] [address] [address] [place] [address] Care Team Providers Care Refractory Grinder Operator Name Role Phone Unavailable Primary Care [...] age to complete this topic Insurance [place] [phone] [place] [address] [id number] [place] [address]
--- OUTSIDE RECORDS SUMMARY | 2025-02-13 08:43 | XMS_ITS | Patient Health Record ---
Author Organization [facility] Address [address] [place] [address] Care Team Providers Care High School Librarian Name Role Phone Po Trenton ERICKSON Primary Care Provider Ashkan Garnica [phone] Allergies Allergen (clinical drug ingredient) Drug/Non Drug [...] Problem Status W/U Status Risk Notes Problem 353822881 Encounter for screening for malignant neoplasm of colon (Z12.11) Active confirmed Problem 263871544 History of adenomatous polyp of colon (Z86.010) Active confirmed Problem 26909683 Constipation, unspecified constipation type (K59.00) Active confirmed Problem 268939044788098 Pre-procedural examination (Z01.818) Active confirmed Problem 010636157 Abdominal pain, left lateral (R10.9) Active confirmed [...] N/A Encounters Encounter Location Date Provider Diagnosis [facility] [address] [place] [address] 01/13/2025 Ashkan Celaya History of adenomato us [...] Provider Name:Ashkan Celaya , 04/24/2025 10:20:00 AM, [address] [place] [address] , [place], [phone], Insurance Providers Payer Name Payer Address Payer Phone Subscriber Number Group Number Insured Name Patient Relationship to Insured Coverage Start Date Coverage End Date MEDICARE OF [place] [address] [place] [address] [id number] MICKIE FERMIN Self - patient is the insured 2 MEDICAID OF [facility] [address] [place] [address] [id number] MICKIE FERMIN Self - patient is the insured Medical (General) History Medical History History ICD Code Colonoscopy 08-30-2009 and in 02/2015- -1 small tubular adenoma removed each time- small internal hemorrhoids and mild sigmoid diverticulosisi History of kidney stones Denies MS,DM,CVA,Lung disease,renal dise ase Hyperlipidemia HTN Small bowel enteritis involv ing the ileum on a CT scan, with a partial SBO in 12/2016- treated with Flagyl- in [facility] for 1 night Arthritis Negative screening colonoscopy in 0 Alcohol-induced pancreatitis x 1 Surgical History Surgery Date(Month/Year) Right inguinal hernia surgery
--- NOTE | 2025-04-22 10:23 | HO.ANESPROP2 ---
Documented by User: Jolene Hurley NP 04/22/25 10:25 HPI - Anesthesia Eval Consult details Narrative: 69yo M for Colonoscopy PMFSH Active Problems Active Problems: All Active Problems Dementia (Acute) Tubular adenoma of colon (Acute) Major neurocognitive disorder (Acute) GA (obstructive sleep apnea) (Acute) Headache (Acute) Renal angiomyolipoma (Acute) Bronchial asthma (Acute) Cough (Acute) Dyspnea on exertion (Acute) Type 2 diabetes mellitus with hyperglycemia (Acute) Epiploic appendagitis (Acute) SOB (shortness of breath) (Acute) Excessive daytime sleepiness (Acute) Sleep difficulties (Acute) Snoring (Acute) Cognitive impairment (Acute) Constipation (Acute) Chest pain (Acute) Fatty liver (Acute) Annual physical exam (Acute) Oral candidiasis (Acute) Anemia (Acute) GERD (gastroesophageal reflux disease) (Acute) Generalized anxiety disorder (Acute) Renal cyst (Acute) LLQ abdominal pain (Acute) Pancreatitis (Acute) Median nerve neuropathy (Acute) Cataract (Acute) LATOYA positive (Acute) Osteoarthritis of hands, bilateral (Acute) HTN (hypertension) (Acute) BPH (benign prostatic hyperplasia) (Acute) Glaucoma (Acute) Hypercholesterolemia (Acute) Microscopic hematuria (Acute) Past Medical History Medical History Alcohol induced acute pancreatitis Bowel obstruction Kidney stones Severe obstructive sleep apnea GA (obstructive sleep apnea) Nocturnal hypoxemia Bronchial asthma Cough Dyspnea on exertion Knee pain, bilateral Bilateral hand numbness Type 2 diabetes mellitus with hyperglycemia Renal mass Cervical radiculopathy Alcohol abuse Median nerve neuropathy Cataract LATOYA positive Osteoarthritis of hands, bilateral Anxiety BPH (benign prostatic hyperplasia) Peripheral neuropathy Vitamin D deficiency Tubular adenoma of colon Insomnia Glaucoma Hypercholesterolemia Arthritis Hx of small bowel obstruction HTN (hypertension) Family History Family History Father No problems noted. Mother Diabetes Brother Lung cancer Family history of problems with anesthesia: No Surgical History Surgical History History of cataract surgery History of inguinal hernia repair Hx of colonoscopy History of Problems with Anesthesia: No Social History Social History Household Members: Spouse Housing: Apartment Alcohol intake: never Patient Tobacco Use Status: Former Tobacco user Tobacco use type: Cigarette Years Smoked: stopped 1999 e-Cigarette/Vaping Use: Never Used Second Hand Smoke Exposure: No Have you been hit, kicked, punched, or otherwise hurt by someone within the past year? If so, by whom?: No Are you DNR?: No Advance Directives: No Advance Directives Information Provided: No Advance Directives on File: No service: No Current occupational status: unemployed Cognitive needs: No Hearing needs: No Vision needs: Yes Meds Allergies Allergy/AdvReac Type Severity Reaction Status Date / Time losartan Allergy Intermediate cough Verified 01/21/25 13:55 Penicillins (PENICILLINS) Allergy Mild RASH Verified 01/21/25 13:55 Home Medications ?Medication ?Instructions ?Recorded ?Confirmed ?Last Taken ?Type timolol maleate 0.5 % eye drops 1 drp ophthalmic (eye) QAM 03/26/20 04/22/25 11/07/20 History metformin 500 mg tablet,extended 500 mg PO QPM 04/22/25 04/22/25 Unknown History release 24 hr Exam Pertinent Lab Results Pertinent Lab Results: Laboratory Tests 09/19/24 01/07/25 08:46 09:15 WBC 8.1 Hgb 13.5 L Hct 42.3 Plt Count 292 Sodium 138 Potassium 4.3 Chloride 109 H Carbon Dioxide 23 BUN 15 Creatinine 0.73 Assessment and Plan Assessment Anesthesia Assessment: Chart Reviewed Final Anesthetic Review Family History of Problems with Anesthesia: No History of Problems with Anesthesia: No Documented by User: Nupur Erazo MD 04/24/25 10:49 [facility] Active Problems Active Problems: All Active Problems Dementia (Acute) Tubular adenoma of colon (Acute) Major neurocognitive disorder (Acute) GA (obstructive sleep apnea) (Acute) Headache (Acute) Renal angiomyolipoma (Acute) Bronchial asthma (Acute) Cough (Acute) Dyspnea on exertion (Acute) Type 2 diabetes mellitus with hyperglycemia (Acute) Epiploic appendagitis (Acute) SOB (shortness of breath) (Acute) Excessive daytime sleepiness (Acute) Sleep difficulties (Acute) Snoring (Acute) Cognitive impairment (Acute) Constipation (Acute) Chest pain (Acute) Fatty liver (Acute) Annual physical exam (Acute) Oral candidiasis (Acute) Anemia (Acute) GERD (gastroesophageal reflux disease) (Acute) Generalized anxiety disorder (Acute) Renal cyst (Acute) LLQ abdominal pain (Acute) Pancreatitis (Acute) Median nerve neuropathy (Acute) Cataract (Acute) LATOYA positive (Acute) Osteoarthritis of hands, bilateral (Acute) HT?N (hypertension) (Acute) BPH (benign prostatic hyperplasia) (Acute) Glaucoma (Acute) Hypercholesterolemia (Acute) Microscopic hematuria (Acute) Past Medical History Medical History Alcohol induced acute pancreatitis Bowel obstruction Kidney stones Severe obstructive sleep apnea GA (obstructive sleep apnea) Nocturnal hypoxemia Bronchial asthma Cough Dyspnea on exertion Knee pain, bilateral Bilateral hand numbness Type 2 diabetes mellitus with hyperglycemia Renal mass Cervical radiculopathy Alcohol abuse Median nerve neuropathy Cataract LATOYA positive Osteoarthritis of hands, bilateral Anxiety BPH (benign prostatic hyperplasia) Peripheral neuropathy Vitamin D deficiency Tubular adenoma of colon Insomnia Glaucoma Hypercholesterolemia Arthritis Hx of small bowel obstruction HTN (hypertension) Family History Family History Father No problems noted. Mother Diabetes Brother Lung cancer Surgical History Surgical History History of cataract surgery History of inguinal hernia repair Hx of colonoscopy Social History Social History Household Members: Spouse Housing: Apartment Alcohol intake: never Patient Tobacco Use Status: Former Tobacco user Tobacco use type: Cigarette Years Smoked: stopped 1999 e-Cigarette/Vaping Use: Never Used Second Hand Smoke Exposure: No Have you been hit, kicked, punched, or otherwise hurt by someone within the past year? If so, by whom?: No Are you DNR?: No Advance Directives: No Advance Directives Information Provided: No Advance Directives on File: No service: No Current occupational status: unemployed Cognitive needs: No Hearing needs: No Vision needs: Yes Meds Allergies Allergy/AdvReac Type Severity Reaction Status Date / Time losartan Allergy Intermediate cough Verified 01/21/25 13:55 Penicillins (PENICILLINS) Allergy Mild RASH Verified 01/21/25 13:55 Home Medications ?Medication ?Instructions ?Recorded ?Confirmed ?Last Taken ?Type timolol maleate 0.5 % eye drops 1 drp ophthalmic (eye) QAM 03/26/20 04/22/25 11/07/20 History metformin 500 mg tablet,extended 500 mg PO QPM 04/22/25 04/22/25 Unknown History release 24 hr Exam Airway Mallampati Class: III TM Dist: >3cm Neck ROM: Full Loose/Missing/Broken Teeth: Yes, Upper and Lower Heart: RRR Lungs: CTA Assessment and Plan Assessment Anesthesia Assessment: Anesthesia Plan Discussed Final Anesthetic Review NPO: Yes ASA Class: III Final Preanesthetic Review: Meds/Allgs Chart Reviewed, Consent Obtained/Reviewed and Anes Risks/Benef Reviewed Patient Risk: Intermediate Procedure Risk: Low Anesthetic Plan Anesthetic Plan: MAC: Disposition: Standard PACU
[2025-04-22 15:02] VITALS: BMI 25.1
[2025-04-24 09:43] VITALS: BP 128/83; PULSE 100; RESP 18; TEMP 36.9; O2SAT 97; BMI 24.7
[2025-04-24 09:58] LABS: Glucose, Whole Blood 81 mg/dL (60-115)
[2025-04-24] MEDS: Lactated Ringers 1,000 ML 100 ML IVCONT (10:09)
[2025-04-24 11:24] VITALS: BP 102/68; PULSE 87; RESP 15; TEMP 36.3; O2SAT 96
--- NOTE | 2025-04-24 11:26 | PM.OP ---
Brief Operative Note Date of Service: 04/24/25 Pre-op diagnosis: Screening Post-op diagnosis: other (Polyp) Procedure: Colonoscopy to the cecum with cold snare polypectomy x 1 Surgeon: Ashkan Celaya MD Anesthesia: MAC Was an Infection Control Specialist used for this Procedure?: No Estimated blood loss (mL): 2.0 Pathology: other (A. Ascending colon polyp) Condition: stable Disposition: PACU
[2025-04-24 11:39] VITALS: BP 122/81; PULSE 83; RESP 16; TEMP 36.1; O2SAT 100
--- NOTE | 2025-04-24 13:08 | OP_ITS ---
DATE OF SERVICE: 04/24/2025 SURGEON: Ashkan Celaya MD INDICATIONS: The patient presents for evaluation of personal history of tubular adenomas of the colon and need for colorectal cancer screening. Full consent has been obtained from him for this, including risks of bleeding and perforation. PREOPERATIVE DIAGNOSIS: POSTOPERATIVE DIAGNOSIS: Colorectal cancer screening, personal history of tubular adenoma of the colon, small colon polyp, diverticulosis, and internal hemorrhoids. PROCEDURE PERFORMED: Colonoscopy to the cecum with cold snare polypectomy x 1. ESTIMATED BLOOD LOSS: COMPLICATIONS: ANESTHESIA: Monitored anesthesia care. ASSISTANTS: SPECIMENS: PREOPERATIVE DIAGNOSES: Colorectal cancer screening and personal history of tubular adenoma of the colon. DESCRIPTION OF PROCEDURE: The patient was placed in left lateral decubitus position. The digital rectal exam revealed no abnormalities. The Olympus video pediatric colonoscope was inserted into the rectum and advanced easily to the cecum. Once in the cecum, I did identify normal-appearing cecal pouch with appendiceal orifice and a normal-appearing ileocecal valve. The entire cecum was well visualized and appeared normal. The scope was slowly withdrawn assessing all mucosal surfaces carefully. Preparation was excellent. In the very proximal ascending colon, there was an approximately 5 mm polyp, which was removed by cold snare polypectomy and recovered by suction. The polypectomy site appeared clean, without any sign of residual polyp nor significant bleeding. I did not visualize any other polyps, colitis, nor angiodysplasia. There was a mild amount of sigmoid diverticulosis. In the rectum, scope was retroflexed visualizing internal hemorrhoids, but no other pathology. The rectal mucosa appeared normal. The scope was straightened and withdrawn from the patient. He tolerated the procedure well and was returned to the recovery area in stable condition. IMPRESSION: 1. Small colon polyp. 2. Diverticulosis. 3. Internal hemorrhoids. PLAN: The results of the pathology will be checked. I would recommend a repeat colonoscopy in 5 years for further screening. He will otherwise see me on a p.r.n. basis. MD BENNETT Cueto/ROSE / [id number] MIGUEL
== END 2025-04-24 12:13 | disposition home or self-care (01) ==
PROVIDERS: PCP Internal Medicine; Visit Provider Internal Medicine
PROC: 0DJD8ZZ Inspection of Lower Intestinal Tract, Via Natural or Artificial Opening Endoscopic (ICD-10-PCS; CPT 45378; principal; 2025-04-24 10:20)
DX: Z12.11 Encounter for screening for malignant neoplasm of colon (principal); Z86.0101 Personal history of adenomatous and serrated colon polyps; D12.2 Benign neoplasm of ascending colon; K57.30 Diverticulosis of large intestine without perforation or abscess without bleeding; K64.8 Other hemorrhoids; K85.20 Alcohol induced acute pancreatitis without necrosis or infection; F10.10 Alcohol abuse, uncomplicated; I10 Essential (primary) hypertension; E11.65 Type 2 diabetes mellitus with hyperglycemia; E78.5 Hyperlipidemia, unspecified; Z87.442 Personal history of urinary calculi; Z79.899 Other long term (current) drug therapy; Z79.84 Long term (current) use of oral hypoglycemic drugs; Z88.0 Allergy status to penicillin; Z87.891 Personal history of nicotine dependence; Z56.0 Unemployment, unspecified
CPT/HCPCS: 45385; 82947; 88305; J2704

== ENCOUNTER 2025-04-30 15:08 | Outpatient (AMB) | payer MEDICARE, MEDICAID, SELFPAY ==
--- OUTSIDE RECORDS SUMMARY | 2025-04-24 05:20 | XMS_ITS ---
Author Organization [facility] Address [address] [place] [address] Care Team Providers Care Corporate Travel Agent Name Role Phone Trenton Chin MD Primary Care Provider Ashkan Garnica [phone] REASON FOR VISIT screening,hx polyps Encounters Encounter Location Date Provider Diagnosis [facility] Out[facility] [address] [place] [phone] 04/24/2025 Ashkan Celaya Plan Of Treatment No Information Progress Notes * MICKIE FERMINDOB: (69 yo M)Acc No.[id number]:04/24/2025 COLON WITH MAC Patient: Michele CHAPPELL MICKIE LEW Provider: Jazmine Celaya MD :1955 A ge:69 Y S ex:Male Date:04/24/2025 Address:[address] [place] [address] Pcp:Trenton Chin MD Subjective: * Chief Complaints: * 1 . Screening,hx polyps. * Medical History: Objective: * Vitals: Assessment: Plan: * Treatment: * * The named appointment provid er may or may not be the originator of this progress note, and it is not deemed complete until electronically signed by the appointment provider. Sign off status: Pending * Provider: Jazmine Celaya MD Date: 1 Generated for Thongi ng/Fahayesg/eTransmitting on: 06/30/2024 06:11 PM EST
[2025-04-30 15:17] VITALS: BP 114/68; PULSE 95; O2SAT 96; BMI 25.1
--- NOTE | 2025-04-30 15:17 | A.OFFPC_ITS ---
Vital Signs 04/30/25 15:17 Height 5 ft 5 in Weight 151 lb BMI 25.1 BP 114/68 Blood Pressure Location Lt brachial Position Sitting Pulse 95 Pulse Source Pulse Oximeter Pulse Oximetry (%) 96 Oxygen Delivery Method Room Air Intake Visit Reasons: DM Allergies losartan Allergy (Intermediate, Verified 04/30/25 15:18) cough Penicillins (PENICILLINS) Allergy (Mild, Verified 04/30/25 15:18) RASH Tobacco use date assessed: 01/08/25 Fall risk assessment: No Falls in past year Last assessed Fall Risk: 04/30/25 Dental Screening Dental Screen Date: 01/08/25 [facility] Medical History (Updated 04/30/25 @ 16:32 by Trenton Chin MD) HTN (hypertension) Alcohol induced acute pancreatitis Bowel obstruction Kidney stones Severe obstructive sleep apnea GA (obstructive sleep apnea) Nocturnal hypoxemia Bronchial asthma Cough Dyspnea on exertion Knee pain, bilateral Bilateral hand numbness Type 2 diabetes mellitus with hyperglycemia Renal mass Cervical radiculopathy Alcohol abuse Median nerve neuropathy Cataract LATOYA positive Osteoarthritis of hands, bilateral Anxiety BPH (benign prostatic hyperplasia) Peripheral neuropathy Vitamin D deficiency Tubular adenoma of colon Insomnia Glaucoma Hypercholesterolemia Arthritis Hx of small bowel obstruction Surgical History History of cataract surgery History of inguinal hernia repair Hx of colonoscopy Family History Father No problems noted. Mother Diabetes Brother Lung cancer Social History Household Members: Spouse Housing: Apartment Alcohol intake: never Patient Tobacco Use Status: Former Tobacco user Tobacco use type: Cigarette Years Smoked: stopped 1999 e-Cigarette/Vaping Use: Never Used Second Hand Smoke Exposure: No service: No Current occupational status: unemployed Cognitive needs: No Hearing needs: No Vision needs: Yes Questionnaire Thrive Questionnaire Date Thrive assessed: 06/26/24 I am a: Patient What is your living situation today?: I have a steady place to live Within the past 12 months, did the food you bought not last and you didn't have the money to get more?: Never true Within the past 12 months, did you worry whether your food would run out before you got money to buy more?: Never true Do you have trouble paying for medicines?: No Do you have trouble getting transportation to medical 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?: No Do you have trouble paying your heating and electricity bill?: No Do you have trouble taking care of your child, family member or friend?: No Do you have trouble with day-to-day activities such as bathing, preparing meals, shopping, managing finances, etc.?: Yes Are you currently unemployed and looking for a job?: No Are you interested in more education?: No Please select the resources that you would like help with: None Currently or been in a relationship where the following occur: No concerns reported THRIVE Score: 0 ELVI-7 AMB Questionnaire ELVI-7 Date ELVI - 7 assessed: 09/25/24 Source: Developed by Drs. Ashkan Hoffman, Maria De Jesus Guadarrama, Eduin Hardy and colleagues, with an educational ole from [employer]. Physical exam (Primary Care) Vital Signs: Last Vital Signs Pulse 95 04/30/25 15:17 BP 114/68 04/30/25 15:17 Pulse Ox 96 04/30/25 15:17 Oxygen Delivery Method Room Air 04/30/25 15:17 BMI result Body Mass Index 25.1 Tobacco/Smoking Status: Tobacco use Status Tobacco use date assessed 01/08/25 04/30/25 15:19 Patient Tobacco Use Status Former Tobacco user 04/30/25 15:19 Tobacco use type Cigarette 04/30/25 15:19 e-Cigarette/Vaping Use Never Used 04/30/25 15:19 Thrive Assessment: Date of Thrive Assessment Date Thrive assessed 06/26/24 04/30/25 15:19 Currently or been in a relationship where the following occur: No concerns repo rted Const General: alert; No acute distress Eyes Conjunctivae: conjunctivae normal Resp Auscultation: clear to auscultation bilaterally Cardio Rate: regular rate Rhythm: regular rhythm GI Inspection: Yes normal to inspection Extrem General: Yes normal to inspection and No edema Results AMB Hemoglobin A1c AMB Hemoglobin A1c 6.2 % Last Edit by Maddi Lugo CMA on 04/30/25 15 :51 Coding Level of Care Code Est Pt Level 4 (00058) Complex EM visit Add On G2211 Diagnoses Hypercholesterolemia E78.00 Type 2 diabetes mellitus with hyperglycemia, without long-term current use of insulin E11.65 Diabetes mellitus terminal makeup operator insulin use: without terminal makeup operator use Gastroesophageal reflux disease without esophagitis K21.9 Esophagitis presence: without esophagitis Tubular adenoma of colon D12.6 Anemia, unspecified type D64.9 Anemia type: unspecified type Major neurocognitive disorder F03.90 Chronic obstructive pulmonary disease, unspecified COPD type J44.9 COPD type: unspecified COPD GA (obstructive sleep apnea) G47.33 Assessment & Plan Assessment & Plan (1) Hypercholesterolemia: Code(s): E78.00 - Pure hypercholesterolemia, unspecified Category: Medical Plan: Avoid fried foods, chicken skin, eggs, butter margarine, pastries and meat. Be it pork or beef they have a lot of cholesterol LDL goal of less than 100 and triglyceride of less than 150. Patient is on simvastatin 20 (2) Type 2 diabetes mellitus with hyperglycemia: Comment: Dr. Razo 10/2023 Code(s): E11.65 - Type 2 diabetes mellitus with hyperglycemia Category: Medical Qualifiers: Diabetes mellitus group home insulin use: without group home use Qualified Code(s): E11.65 - Type 2 diabetes mellitus with hyperglycemia Plan: Decrease the amount of carbohydrate intake, pasta, bread, rice and potatoes are all sugar and that is aside from all the sweet stuff, remember that fruits are good but they are Sweet also. Hemoglobin A1c goal of less than 7.0 preferably below 6.5 patient on metformin 500 mg once a day (3) GERD (gastroesophageal reflux disease): Code(s): K21.9 - Gastro-esophageal reflux disease without esophagitis Category: Medical Qualifiers: Esophagitis presence: without esophagitis Qualified Code(s): K21.9 - Gastro-esophageal reflux disease without esophagitis Plan: Avoid the foods that causes that usually spicy foods, tomato products, juices, coffee, soda and foods that your sensitive to. After eating do not lie down, allow 3-4 hours before in lie down. And keep the head of bed above 30 degrees to avoid the acid from going up. (4) Tubular adenoma of colon: Comment: March 2025 Code(s): D12.6 - Benign neoplasm of colon, unspecified Category: Medical Plan: Patient just had colonoscopy with tubular adenoma. (5) Anemia: Code(s): D64.9 - Anemia, unspecified Category: Medical Qualifiers: Anemia type: unspecified type Qualified Code(s): D64.9 - Anemia, unspecified Plan: Advised to get blood work for follow-up (6) Major neurocognitive disorder: Comment: per 2023 neuro-psych eval at [facility] Code(s): F03.90 - Unspecified dementia, unspecified severity, without behavioral d isturbance, psychotic disturbance, mood disturbance, and anxiety Category: Medical Plan: Supportive treatment (7) COPD (chronic obstructive pulmonary disease): Code(s): J44.9 - Chronic obstructive pulmonary disease, unspecified Category: Medical Qualifiers: COPD type: unspecified COPD Qualified Code(s): J44.9 - Chronic obstructive pulmonary disease, unspecified Plan: Patient follows up with Pulmonary and was given albuterol inhaler (8) GA (obstructive sleep apnea): Comment: This gentleman is a known case of obstructive sleep apnea. Has had a few home-based sleep studies and finally CPAP titration study in the sleep lab on 11/28/2022. He was titrated up to 8 cm with good results, and I notice in the report that Dr. Davis had recommended CPAP of 8 cm. He is using the CPAP regularly, and claims that he does put distilled water in the humidity tank . Code(s): G47.33 - Obstructive sleep apnea (adult) (pediatric) Category: Medical Plan: continue with CPAP > 4 hours a night and benefits from this Orders: Orders AMB Hemoglobin A1c Today Z13.9 - Encounter for screening, unspecified
--- OUTSIDE RECORDS SUMMARY | 2025-04-30 18:12 | XMS_ITS | Patient Health Record ---
Author Organization [facility] Address [address] [place] [id number] Care Team Providers Care District Fire Management Officer Name Role Phone Trenton Chin MD Primary Care Provider Ashkan Garnica [phone] Allergies Allergen (clinical drug ingredient) Drug/Non Drug Allergy documented on EMR Reaction Allergy Type Onset Date Status Penicillin Unknown Drug Allergy Active Results Component Value Reference Range Notes Glucose, Whole Blood Reviewed date:04/26/2025 01:57:57 PM Interpretation: Performing Lab:[facility], [address] [place] [phone] Notes/Report: Glucose, Whole Blood 81 60-115 mg/dL METER # : [id number] Pathology (Not yet reviewed by provider) Interpretation: Performing Lab:[facility], [address] [place] [phone] Notes/Report: Reason For Referral No Information Medications Medication [...] Problem Status W/U Status Risk Notes Problem Screening for malignant neoplasm of colon (753130453) Encounter for screening for malignant neoplasm of colon (Z12.11) Active confirmed Problem History of adenomatous polyp of colon (678712918) History of adenomatous polyp of colon (Z86.010) Active confirmed Problem Constipation (05034457) Constipation, unspecified constipation type (K59.00) Active confirmed Problem Pre-procedure evaluation check (082445237) Pre-procedural examination (Z01.818) Active confirmed Problem Abdominal pain (43096000) Abdominal pain, left lateral (R10.9) Active confirmed Problem Long-term current use of drug therapy (791309030) High risk medications (not anticoagulants) long-term use (Z79.899) Active confirmed Vital Signs Temperature 97.5 degrees Fahrenheit 01/13/2025 Blood pressure diastolic 01 mm Hg 01/13/2025 Height 65 in 01/13/2025 Blood pressure systolic 001 mm Hg 01/13/2025 Weight 151 lbs 01/13/2025 BMI 25.12 kg/m2 01/13/2025 Procedures Procedure Date Ordered Date Performed Result Body Sit e COLONOSCOPY 01/13/2025 N/A Encounters Encounter Location Date Provider Diagnosis [facility] [address] [place], [place] [id number] 04/24/2025 Ashkan Celaya [facility] [address] [place] [address] 01/13/2025 Ashkan Celaya History of adenomatous polyp of colon Z86.010 ; High risk [...] Test Test Name Order Date COLONOSCOPY 01/13/2025 Pathology 04/24/2025 Future Test Test Name Order Date COLONOSCOPY 12/15/2014 COLONOSCOPY 03/16/2020 Insurance Providers Payer Name Payer Address Payer Phone Subscriber Number Group Number Insured Name Patient Relationship to Insured Coverage Start Date Coverage End Date MEDICARE OF [place] [address] [place] [id number] MICKIE FERMIN Self - patient is the insured 2 MEDICAID OF [facility] [address] [place] [address] [id number] MICKIE FERMIN Self - patient is the insured Medical (General) History Medical History History ICD Code Colonoscopy 08-30-2009 and in 02/2015- -1 small tubular adenoma removed each time- small internal hemorrhoids and mild sigmoid diverticulosisi History of kidney stones Denies MN,DM,CVA,Lung disease,renal dise ase Hyperlipidemia HTN Small bowel enteritis involv ing the ileum on a CT scan, with a partial SBO in 12/2016- treated with Flagyl- [place] [facility] [place] Arthritis Negative screening colonoscopy in 0 Alcohol-induced pancreatitis x 1 Surgical History Surgery Date(Month/Year) Right inguinal hernia surgery
--- OUTSIDE RECORDS SUMMARY | 2025-04-30 18:12 | XMS_ITS | Clinical Summary ---
Demographics Address [address] [place] [address] Work Phone Preferred Language es Marital Status Unknown Spiritism Affiliation Unknown Race Other Race Ethnic Group Unknown Author Organization [employer] Address [address] [place] [address] [address] [place] [address] Care Team Providers Care Hedis Analyst Name Role Phone Unavailable Primary Care Provider [...] 2) 04/24/2023 02/27/2023 COVID-19 Vaccine ( season) 2025 08/15/2022, 10/29/2020, 10/08/2020 Influenza Vaccine (#1) 2025 [...] age to complete this topic Insurance [place] [phone] [place] [id number] [address] [place] [address]
== END 2025-04-30 16:00 | disposition home or self-care (01) ==
LOC: HO.HMCH 15:09
PROVIDERS: PCP Internal Medicine; Visit Provider Internal Medicine
DX: E11.65 Type 2 diabetes mellitus with hyperglycemia (principal); F03.90 Unspecified dementia, unspecified severity, without behavioral disturbance, psychotic disturbance, mood disturbance, and anxiety; J44.9 Chronic obstructive pulmonary disease, unspecified; E78.00 Pure hypercholesterolemia, unspecified; K21.9 Gastro-esophageal reflux disease without esophagitis; D12.6 Benign neoplasm of colon, unspecified; D64.9 Anemia, unspecified; G47.33 Obstructive sleep apnea (adult) (pediatric)

== ENCOUNTER → 2025-04-30 15:08 | Outpatient (BNVA) | payer MEDICARE, MEDICAID, SELFPAY | PROVIDERS: PCP Internal Medicine; Visit Provider Internal Medicine | DX: E11.65 Type 2 diabetes mellitus with hyperglycemia (principal); E78.00 Pure hypercholesterolemia, unspecified; K21.9 Gastro-esophageal reflux disease without esophagitis; D12.6 Benign neoplasm of colon, unspecified; D64.9 Anemia, unspecified; F03.90 Unspecified dementia, unspecified severity, without behavioral disturbance, psychotic disturbance, mood disturbance, and anxiety; J44.9 Chronic obstructive pulmonary disease, unspecified; G47.33 Obstructive sleep apnea (adult) (pediatric) | CPT/HCPCS: 83036; 99212 ==

== ENCOUNTER 2025-06-22 14:27 | Outpatient (AMB) | payer MEDICARE, MEDICAID, SELFPAY ==
--- OUTSIDE RECORDS SUMMARY | 2025-04-24 05:20 | XMS_ITS ---
Author Organization [facility] Address [address] [place] [address] Care Team Providers Care Paper Box Cutter Name Role Phone Trenton Chin MD Primary Care Provider Ashkan Garnica [phone] REASON FOR VISIT screening,hx polyps Encounters Encounter Location Date Provider Diagnosis [facility] [address] [place] [phone] 04/24/2025 Ashkan Celaya Plan Of Treatment No Information Progress Notes * MICKIE FERMINDOB: (69 yo M)Acc No.[id number]:04/24/2025 COLON WITH MAC Patient: Michele CHAPPELL MICKIE LEW Provider: Jazmine Celaya MD :1955 A ge:69 Y S ex:Male Date:04/24/2025 Address:[address] [place] [address] Pcp:Trenton Chin MD Subjective: * Chief Complaints: * S creening,hx polyps Billing Information: * Procedure Codes: * The named appointment provid er may or may not be the originator of this progress note, and it is not deemed complete until electronically signed by the appointment provider. Sign off status: Pending * Provider: Jazmine Celaya MD Date: Generated for Thongi ng/Fahayesg/eTransmitting on: 04:49 PM EST
[2025-06-22 14:36] VITALS: BP 100/82; PULSE 82; O2SAT 99; BMI 25.0
--- NOTE | 2025-06-22 14:36 | A.OFFVIS_ITS ---
Vital Signs 06/22/25 14:36 Height 5 ft 5 in Weight 150 lb BMI 25.0 BP 100/82 Blood Pressure Location Rt brachial Position Sitting Pulse 82 Pulse Source Pulse Oximeter Pulse Oximetry (%) 99 Oxygen Delivery Method Room Air Intake Visit Reasons: 6mnth follow up (Need Medicare Ins Card) Intake Note: Patient presents 6 month follow up for cognitive/GA- Compliance Hearing Specialist Required: No Allergies losartan Allergy (Intermediate, Verified 06/22/25 14:42) cough Penicillins (PENICILLINS) Allergy (Mild, Verified 06/22/25 14:42) RASH HPI Comments Details: 69-yr-old male presents for f/u visit, accompanied by his daughter, Noris. Pt denies any significant interval medical changes. Regarding cognitive difficulties: * 01/06/2025, brain amyloid PET scan results were negative for evidence of pathologic amyloid normocytic plaque accumulation. * 11/22/2024, brain MRI without contrast: * No acute findings * Diffuse volume loss and moderate ischemic microangiopathy, similar to prior. * Previous 2023 neuropsych eval- dx major neurocognitive disorder though specific etiology was not clear, though they question of neurodegenerative process such as DLB or PD d/t tremor was noticed during his evaluation. * Previous brain MRI, results of which showed cerebral volume loss and chronic microischemic changes. * Recommendations included increased cognitively stimulating activities, start tx for GA. * Family history of cognitive difficulties: * His younger brother (1 yr younger) was recently dx'd w/ PD. Pt's mother had s/s AD/dementia- starting in her mid-80s or later. He reports he has good and bad days with his memory, more so w/ STM. He is still prone to misplace things- However his utilizing some strategies to help. For instance, he is wearing a sling bad today, so that he does not forget his bag here, as he did at his last appointment with us. Daughter helps to manage important paperwork, 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 etc. He continues to have difficulties with changes in routine Regarding headache symptoms: He is having 1 headaches per week, which he thinks might be triggered by his h/o cataract surgery. He is complaint w/ Amitriptyline. Using Advil prn. He is still very photophobic. He notes that he has glaucoma. States Advil works better than Tylenol. Regarding GA: He reports that at times he is waking up, and needs to take a break from using the CPAP though he does use it consistently.. he notes that he can have a bothersome cough at night. He states that he has an albuterol inhaler provided by pulmonology, but does not use this consistently. Review of recent PAP compliance report shows: * 03/25/2025 - 06/22/2025, 90 day PAP compliance report * Overall usage 97% * Usage greater than 4 hours 87% * Average usage on days used 5 hours and 37 minutes * AirSense 11 AutoSet * Serial number [id number] * CPAP 8 cm H2O with EPR 2 * Leaks * Median leaks 2.3 L/min * Maximum 13.8 L/min * Residual events per hour: * AHI 17.1 events per hour. Previous PAP compliance report: * 10/13/2024 - 11/11/2024 PAP compliance report * CPAP 8 cm H2O with EPR 2 * Median leaks 2.3 L/min * Residual AHI 6.7 events per hour. Note prior 90 day PAP compliance report showed residual AHI less than 3 per hour. Majority of nights with elevated residual AHI, recurred in the last couple of days and 1 day last week. Patient denies any recent allergy symptoms, sinus symptoms, or increased respiratory symptoms. Sleep study results: 04/04/2024, In-lab PSG showed AHI 52 per hour, O2 louis 83%, SpO2 less than 88% for 4.2 minutes of study time, and average SpO2 94%. Soft snoring was recorded. Periodic limb movements of sleep 50.6 per hour and PLMS arousal index by 0.1 per hour. from previous HPI: He does endorse hyposmia for a number of years, talks/snores in his sleep, pinching sensation at night in arms/legs, R > L hand tremor- unsure if more at rest or action, Left arm numbness at times, tiredness, maybe sees shadows, sometimes leg cramps, joint pains, constipation- has had to have NGT evacuation. Denies lightheadedness. Denies h/o toxic home or occupational exposures. [facility] Medical History (Updated 04/30/25 @ 16:32 by Trenton Chin MD) HTN (hypertension) Alcohol induced acute pancreatitis Bowel obstruction Kidney stones Severe obstructive sleep apnea GA (obstructive sleep apnea) Nocturnal hypoxemia Bronchial asthma Cough Dyspnea on exertion Knee pain, bilateral Bilateral hand numbness Type 2 diabetes mellitus with hyperglycemia Renal mass Cervical radiculopathy Alcohol abuse Median nerve neuropathy Cataract LATOYA positive Osteoarthritis of hands, bilateral Anxiety BPH (benign prostatic hyperplasia) Peripheral neuropathy Vitamin D deficiency Tubular adenoma of colon Insomnia Glaucoma Hypercholesterolemia Arthritis Hx of small bowel obstruction Surgical History History of cataract surgery History of inguinal hernia repair Hx of colonoscopy Family History Father No problems noted. Mother Diabetes Brother Lung cancer Social History Household Members: Spouse Housing: Apartment Alcohol intake: never Patient Tobacco Use Status: Former Tobacco user Tobacco use type: Cigarette Years Smoked: stopped 1999 e-Cigarette/Vaping Use: Never Used Second Hand Smoke Exposure: No service: No Current occupational status: unemployed Cognitive needs: No Hearing needs: No Vision needs: Yes Physical Exam Vital Signs: Last Vital Signs Pulse 82 06/22/25 14:36 BP 100/82 06/22/25 14:36 Pulse Ox 99 06/22/25 14:36 Oxygen Delivery Method Room Air 06/22/25 14:36 BMI result Body Mass Index 25.0 Const General: cooperative and no acute distress Resp Effort & Inspection: normal respiratory effort and able to speak in complete sentences Neuro Other: Alert & Orientated x's 3 Mild STM lapses- for instance forgot his waist bag in the office, and had to come back into the office to pick it up. MMSE score 25/30. Clock drawing, initially grew face of clock to small to allow him to write the numbers, however and was able to correctly draw cahto, numbers and hands o'clock demonstrating 10 minutes of 2 o'clock. No significant tremor noted today- only mild shakiness noted during cognitive e valuation. Stands easily, mild decreased arm swing, stride steady. Cranial nerves: Yes CN's II-XII intact bilaterally Cognition (Neuro): normal cognition Psych Appearance: grossly normal Mental Status: mental status grossly normal Speech and movement: Normal speech and movement present Affect: normal affect Attitude: cooperative Assessment & Plan Assessment & Plan (1) Major neurocognitive disorder: Comment: per 2023 neuro-psych eval at [facility] Code(s): F03.90 - Unspecified dementia, unspecified severity, without behavioral disturbance, psychotic disturbance, mood disturbance, and anxiety Category: Medical (2) Dementia: Code(s): F03.90 - Unspecified dementia, unspecified severity, without behavioral disturbance, psychotic disturbance, mood disturbance, and anxiety Category: Medical (3) Severe obstructive sleep apnea: Comment: July 2022, PER HIS SLEEP STUDY, HE HAS SEVERE OBSTRUCTIVE SLEEP APNEA, ALONG WITH NOCTURNAL HYPOXEMIA. PATIENT HAS BEEN EVALUATED BY [facility], AND HE IS SCHEDULED FOR AN IN SLEEP LAB CPAP TITRATION STUDY. PATIENT HAS UNDERGONE THE CPAP TITRATION STUDY. HE REQUIRED CPAP OF 8 CM . THERE WAS NO RESIDUAL HYPOXEMIA CPAP DEVICE HAS BEEN ORDERED BY SLEEP MEDICINE SERVICE. Code(s): G47.33 - Obstructive sleep apnea (adult) (pediatric) Category: Medical (4) Cognitive impairment: Code(s): R41.89 - Other symptoms and signs involving cognitive functions and awareness Category: Medical (5) Headache: Code(s): R51.9 - Headache, unspecified Category: Medical Qualifiers: Headache type: other headache syndrome Qualified Code(s): G44.89 - Other headache syndrome Plan For severe obstructive sleep apnea: Residual AHI has increased since his last visit here. Patient is encouraged to try to use his albuterol inhaler, 2 puffs nightly for 2 weeks, to see if this improves his PAP tolerance and reduces his residual AHI. His daughter will update us in 2 weeks with a effect. Continue CPAP 8 cmH2O w/ EPR 2 nightly > 4 hours, as pt continues to have good clinical effect from use. * Clean CPAP machine and supplies routinely. * Change CPAP supplies routinely. * Advised to use distilled water, rather than bottled water, in CPAP water reservoir. * Pt to contact us or respiratory company with any questions or concerns. ? For major cognitive disorder and dementia:: Continue CPAP as above. Continued to engage in regular physical, social, cognitive stimulating activities. Reviewed brain beta amyloid PET scan, which was negative for amyloid neurolytic plaque presence. Discussed that this means that likely his cognitive symptoms are due to vascular dementia process, and that he would not be a candidate to try an anti amyloid targeted therapy to treat his cognitive symptoms at this time. Will also monitor movement s/s- ? underlying neurodegenerative d/o or effect of untreated sleep apnea. As amyloid PET scan was normal, we could consider DaTSCAN in the future, if movement symptoms increase. ? For headaches: Headaches have improved since starting PAP tx. For now, Continue Amitripyline 25mg qhs and prn Advil (sparingly)- he uses this for generalized arthritic pain as well. Future considerations: Trying migraine specific preventative agent, requesting follow-up rheumatology consult. ? ? f/u in 6 months or sooner prn Coding Level of Care Code Est Pt Level 4 (62299) Diagnoses Major neurocognitive disorder F03.90 Dementia F03.90 Severe obstructive sleep apnea G47.33 Cognitive impairment R41.89 Other headache syndrome G44.89 Headache type: other headache syndrome
--- OUTSIDE RECORDS SUMMARY | 2025-06-22 16:49 | XMS_ITS | Clinical Summary ---
Demographics Address [address] [place] [address] Work Phone Preferred Language es Marital Status Unknown Oriental Orthodox Affiliation Unknown Race Other Race Ethnic Group Unknown Author Organization [employer] Address [address] [place] [address] [address] [place] [address] Care Team Providers Care Automatic Spinning Lathe Operator Name Role Phone Unavailable Primary Care [...] age to complete this topic Insurance [place] [phone] [place] [id number] [address] [place] [address]
--- OUTSIDE RECORDS SUMMARY | 2025-06-22 16:50 | XMS_ITS | Patient Health Record ---
Author Organization [facility] Address [address] [place] [phone] Care Team Providers Care Assistant [employer] Name Role Phone Trenton Chin MD Primary Care Provider Ashkan Garnica [phone] Allergies Allergen (clinical drug ingredient) Drug/Non Drug Allergy documented on EMR Reaction Allergy Type Onset Date Status Penicillin Unknown Drug Allergy Active Results Component Value Reference Range Flag Notes Pathology (Not yet reviewed by provider) Interpretation: Performing Lab:[facility], [address] [place] [phone] Notes/Report: Glucose, Whole Blood Reviewed date:04/26/2025 01:57:57 PM Interpretation: Performing Lab:[facility], [address] [place] [phone] Notes/Report: Glucose, Whole Blood 81 60-115 mg/dL N [place] TER #: [id number] Reason For Referral No Information Medications Medication SIG (Take, Route, Frequency, Duration) Notes Start Date End Date Status Simvastatin 20 MG Tablet 1 tablet in the evening Orally Once a day Active MiraLax 17 GM/SCOOP Powder 1 scoop mixed with 8 ounces of fluid Orally Once a day Not-Taking/PRN metFORMIN HCl ER 500 MG Tablet Extended Release 24 Hour 1 tablet with evening meal Orally Once a day BID Active Docusate Sodium 100 MG Capsule 1 capsule as needed Orally Once a day BID Not-Taking/PRN Amitriptyline HCl 25 MG Tablet 1 tablet at bedtime Orally Once a day Active Albuterol Sulfate 108 (90 Base) MCG/ACT Aerosol Powder Breath Activated 1 puff as needed Inhalation every 4 hrs PRN Active Latanoprost Not-Taki ng/PRN Timolol Maleate 0.25 % Solution 1 drop into affected eye Ophthalmic Once a day 01/13/2025 Active Immunizations Vaccine Route Administration Date Status Comme nts Influenza Unknown 03/26/2019 Administered Influenza Unknown 04/15/2024 Administered Social History Social History Drugs/Alcohol: Social Info Question Answer Notes Alcohol Screen Did you have a drink containing alcohol in the past year? Yes How often did you have a drink containing alcohol in the past year? Monthly or less (1 point) How many drinks did you have on a typical day when you were drinking in the past year? 1 or 2 drinks (0 point) How often did you have 6 or more drinks on one occasion in the past year? Never (0 point) Points 1 Interpretation Negative Additional Details Category Social Info Options Details Miscellaneous: Marital status: Single Occupation: retired Section Notes: Nonsmoker; no sig alcohol Nonsmoker; no sig alcohol Nonsmoker; Occasional alcoho l Nonsmoker; No alcohol as of the 12/2024 OV Problems Problem Type SNOMED Code ICD Code Onset Dates Problem Status W/U Status Risk Notes Problem Screening for malignant neoplasm of colon (278889145) Encounter for screening for malignant neoplasm of colon (Z12.11) Active confirmed Problem History of adenomatous polyp of colon (892430975) History of adenomatous polyp of colon (Z86.010) Active confirmed Problem Constipation (28328528) Constipation, unspecified constipation type (K59.00) Active confirmed Problem Pre-procedure evaluation check (874576611) Pre-procedural examination (Z01.818) Active confirmed Problem Abdominal pain (09200961) Abdominal pain, left lateral (R10.9) Active confirmed Problem Long-term current use of drug therapy (302140082) High risk medications (not anticoagulants) long-term use (Z79.899) Active confirmed Vital Signs Temperature 97.5 degrees Fahrenheit 01/13/2025 Blood pressure diastolic 01 mm Hg 01/13/2025 Height 65 in 01/13/2025 Blood pressure systolic 001 mm Hg 01/13/2025 Weight 151 lbs 01/13/2025 BMI 25.12 kg/m2 01/13/2025 Procedures Procedure Date Ordered Date Performed Result Body Sit e COLONOSCOPY 01/13/2025 N/A Encounters Encounter Location Date Provider Diagnosis [facility] Outpatient [address] [place], [place] [phone] 04/24/2025 Ashkan Celaya [facility] [address] [place] [address] 01/13/2025 Ashkan Celaya History of adenomatous polyp of colon Z86.010 ; High risk medications (not anticoagulants) long-term use Z79.899 ; Encounter for screening for malignant neoplasm of colon Z12.11 and Pre-procedural examination Z01.818 [facility] [address] [place] [phone] 04/24/2025 Ashkan Celaya Assessments Encounter Date Diagnosis (ICD Code) Assessment [...] Date MEDICARE OF [place] [address] [place] [address] [id number] MICKIE FERMIN Self - patient is the insured 2 MEDICAID OF [facility] [address] [place] [address] [id number] MICKIE FERMIN Self - patient is the insured Medical (General) History Medical History History ICD Code Colonoscopy 08-30-2009 and in 02/2015- -1 small tubular adenoma removed each time- small internal hemorrhoids and mild sigmoid diverticulosisi History of kidney stones Denies CA,DM,CVA,Lung disease,renal dise ase Hyperlipidemia HTN Small bowel enteritis involv ing the ileum on a CT scan, with a partial SBO in 12/2016- treated with Flagyl- in C for 1 night Arthritis Negative screening colonoscopy in 0 Alcohol-induced pancreatitis x 1 Surgical History Surgery Date(Month/Year) Right inguinal hernia surgery
== END 2025-06-22 15:51 | disposition home or self-care (01) ==
LOC: HO.HSMS 14:28
PROVIDERS: PCP Internal Medicine; Visit Provider Nurse Practitioner Family
DX: F03.90 Unspecified dementia, unspecified severity, without behavioral disturbance, psychotic disturbance, mood disturbance, and anxiety (principal); G47.33 Obstructive sleep apnea (adult) (pediatric); R41.89 Other symptoms and signs involving cognitive functions and awareness; G44.89 Other headache syndrome
CPT/HCPCS: 99214

== ENCOUNTER → 2025-06-22 14:27 | Outpatient (BNVA) | payer MEDICARE, MEDICAID, SELFPAY | PROVIDERS: PCP Internal Medicine; Visit Provider Nurse Practitioner Family | DX: F03.90 Unspecified dementia, unspecified severity, without behavioral disturbance, psychotic disturbance, mood disturbance, and anxiety (principal); G47.33 Obstructive sleep apnea (adult) (pediatric); G47.34 Idiopathic sleep related nonobstructive alveolar hypoventilation; R41.89 Other symptoms and signs involving cognitive functions and awareness; G44.89 Other headache syndrome | CPT/HCPCS: 99212 ==

== ENCOUNTER 2025-06-23 08:24 | Outpatient (REF) | payer MEDICARE, MEDICAID, SELFPAY ==
--- OUTSIDE RECORDS SUMMARY | 2025-04-24 05:20 | XMS_ITS ---
Author Organization [facility] Address [address] [place] [address] Care Team Providers Care Driver Sales Name Role Phone Trenton Chin MD Primary Care Provider Ashkan Garnica [phone] REASON FOR VISIT screening,hx polyps Encounters Encounter Location Date Provider Diagnosis [facility] [place] [address] [place] [phone] 04/24/2025 Ashkan Celaya Plan Of Treatment No Information Progress Notes * MICKIE FERMINDOB: (69 yo M)Acc No.[id number]:04/24/2025 COLON WITH MAC Patient: Michele CHAPPELL MICKIE LEW Provider: Jazmine Celaya MD :1955 A ge:69 Y S ex:Male Date:04/24/2025 Address:[address] [place] [address] Pcp:Trenton Chin MD Subjective: * Chief Complaints: * S creening,hx polyps Billing Information: * Procedure Codes: * The named appointment provid er may or may not be the originator of this progress note, and it is not deemed complete until electronically signed by the appointment provider. Sign off status: Pending * Provider: Jazmine Celaya MD Date: 1 Generated for Thongi ng/Fahayesg/eTransmitting on: 09:59 AM EST
--- OUTSIDE RECORDS SUMMARY | 2025-06-23 09:59 | XMS_ITS | Patient Health Record ---
Author Organization [facility] Address [address] [place] [phone] Care Team Providers Care Typewriters Functional Tester Name Role Phone Trenton Chin MD Primary Care Provider Ashkan Garnica [phone] Allergies Allergen (clinical drug ingredient) Drug/Non Drug Allergy documented on EMR Reaction Allergy Type Onset Date Status Penicillin Unknown Drug Allergy Active Results Component Value Reference Range Flag Notes Pathology (Not yet reviewed by provider) Interpretation: Performing Lab:[facility], [address] [place] [phone] Notes/Report: Glucose, Whole Blood Reviewed date:04/26/2025 01:57:57 PM Interpretation: Performing Lab:[facility], [address] [place] [phone] Notes/Report: Glucose, Whole Blood 81 60-115 mg/dL N [place] TER #: [id number] Reason For Referral No Information Medications Medication [...] Problem Screening for malignant neoplasm of colon (115027901) Encounter for screening for malignant neoplasm of colon (Z12.11) Active confirmed Problem History of adenomatous polyp of colon (453182074) History of adenomatous polyp of colon (Z86.010) Active confirmed Problem Constipation (22139298) Constipation, unspecified constipation type (K59.00) Active confirmed Problem Pre-procedure evaluation check (395786127) Pre-procedural examination (Z01.818) Active confirmed Problem Abdominal pain (34341730) Abdominal pain, left lateral (R10.9) Active confirmed Problem Long-term current use of drug therapy (153148044) High risk medications (not anticoagulants) long-term use (Z79.899) Active confirmed Vital Signs Temperature 97.5 degrees Fahrenheit 01/13/2025 Blood pressure diastolic 01 mm Hg 01/13/2025 Height 65 in 01/13/2025 Blood pressure systolic 001 mm Hg 01/13/2025 Weight 151 lbs 01/13/2025 BMI 25.12 kg/m2 01/13/2025 Procedures Procedure Date Ordered Date Performed Result Body Sit e COLONOSCOPY 01/13/2025 N/A Encounters Encounter Location Date Provider Diagnosis [facility] Out[facility] [address] [place], [place] [phone] 04/24/2025 Ashkan Celaya [facility] [address] [place] [address] 01/13/2025 Ashkan Celaya History of adenomatous polyp of colon Z86.010 ; High risk medications (not anticoagulants) long-term use Z79.899 ; Encounter for screening for malignant neoplasm of colon Z12.11 and Pre-procedural examination Z01.818 [facility] [address] [place] [phone] 04/24/2025 Ashkan Celaya Assessments Encounter Date Diagnosis [...] adjustment of his medication for the procedure. Mickei was comfortable with this plan. Thank you [...] OF [place] [address] [place] [address] [id number] MICKIE FERMIN Self - patient is the insured 2 MEDICAID OF [facility] [address] [place] [address] [id number] MICKIE FERMIN Self - patient is the insured Medical (General) History Medical History History ICD Code Colonoscopy 08-30-2009 and in 02/2015- -1 small tubular adenoma removed each time- small internal hemorrhoids and mild sigmoid diverticulosisi History of kidney stones Denies [place],DM,CVA,Lung disease,renal dise ase Hyperlipidemia HTN Small bowel enteritis involv ing the ileum on a CT scan, with a partial SBO in 12/2016- treated with Flagyl- in C for 1 night Arthritis Negative screening colonoscopy in 0 Alcohol-induced pancreatitis x 1 Surgical History Surgery Date(Month/Year) Right inguinal hernia surgery
--- OUTSIDE RECORDS SUMMARY | 2025-06-23 09:59 | XMS_ITS | Clinical Summary ---
Demographics Address [address] [facility] [address] [facility] [address] [place] [address] Work Phone Preferred Language es Marital Status Unknown Mormon Affiliation Unknown Race Other Race Ethnic Group Unknown Author Organization [employer] Address [address] [place] [address] [address] [address] Care Team Providers Care Hard Metals Hand Engraver Name Role Phone Unavailable Primary Care Provider [...] age to complete this topic Insurance [place] [id number] [place] [id number] [address] [place] [address]
[2025-06-23 10:03] LABS: Alanine Aminotransferase 28 U/L (0-40); Albumin Level 4.1 g/dL (3.5-5.0); Alkaline Phosphatase 64 U/L (39-117); Anion Gap 11 (12-20); Aspartate Amino Transferase 23 U/L (5-37); Blood Urea Nitrogen 18 mg/dL (9-16); Calcium 8.5 mg/dL (8.4-10.2); Carbon Dioxide 26 mmol/L (22-29); Chloride 109 mmol/L (96-108); Cholesterol 121 mg/dL (<200); Estimated Glomerular Filt Rate > 60; HDL Cholesterol 30 mg/dL (>40); Potassium 4.1 mmol/L (3.3-5.1); Sodium 142 mmol/L (135-145); Total Protein 7.1 g/dL (6.5-8.0); Triglycerides 87 mg/dL (<150)
[2025-06-23 10:04] LABS: Free T4 (Free Thyroxine) 0.96 ng/dL (0.71-1.85); Thyroid Stimulating Hormone 4.29 uIU/mL (0.32-4.0)
== END 2025-06-23 08:25 | disposition home or self-care (01) ==
LOC: HO.LAB 08:24
PROVIDERS: PCP Internal Medicine; Visit Provider Internal Medicine
DX: I10 Essential (primary) hypertension (principal); E78.00 Pure hypercholesterolemia, unspecified; E11.65 Type 2 diabetes mellitus with hyperglycemia
CPT/HCPCS: 36415; 80053; 80061; 83036; 84439; 84443